=== PATIENT | female | born 1960 | race Caucasian/White ===

== ENCOUNTER → 2016-04-10 | Outpatient (CLI) | payer OTHER, MEDICARE ==
[~2016-04-10] MED LIST: /BACL20TA OR; /CELE20CA PO; AMIT10TA2 OR; BACT400T; BLAC540C PO; BUDE150T OR; CALC500T36 PO; CLAR5CHW OR; CYMB1CAP4 PO; EPI PEN SC; FOLI1TAB2 PO; HYDR-3713 PO; IBUP800T OR; LEVO25TABR OR; LIDO1DIS2 TOP; LYRI150C OR; LYRI75CA OR; MACROBID; METH2.5TA PO; MULTCAP PO; PEPC20TA2; PLAV75TA38 PO; PRIL40CA OR; PROV90AE INH; RED CLOVER PO; SOMA250T OR; SULF500T2 PO; TPS CREAM TOP; TRAM50TA2 PO; ULTRTA OR; VICO5TAB OR; VITA10006 PO; VOLTAREN GEL; Voltaren Gel EXT; [UNRECOGNIZED DRUG - OTHER]; [UNRECOGNIZED DRUG - OTHER] PO; [UNRECOGNIZED DRUG - OTHER] PO; [UNRECOGNIZED DRUG - OTHER] PO; plaquenil OR
--- NOTE | 2016-04-29 01:39 | ECWPNPC ---
PATIENT NAME: AIRAM PERERA : 1960 GENDER: FEMALE VISIT DATE: 04/10/2016 DISCHARGE DATE: 04/10/16 1541 VISIT LOCKED DATE TIME: PHYSICIAN: HERIBERTO FORBES PHYSICIAN PAGER NO: [phone] RESOURCE: HERIBERTO FORBES REASON FOR APPOINTMENT 1. FOLLOW UP-SIJ HISTORY OF PRESENT ILLNESS HISTORY OF PRESENT ILLNESS: PAIN THE PATIENT DESCRIBES THE PAIN... THE PATIENT DESCRIBES THE PAIN... THE PATIENT DESCRIBES THE PAIN... HERE FOR POST PROC. F/U .HX OF CHRONIC LBP AND LEFT FOOT PAIN DUE TO WORK RELATED INJURY IN 1986. HAD RIGHT SIJ 02-27-16.RATING PAIN LEVEL 4/10 VAS.REPORTS 95% IMPROVEMENT IN PAIN IN RIGHT LOW BACK POST SIJ THAT CONTINUES TODAY.CHIEF AREA OF PAIN IS LEFT FOOT TODAY.STATES [employer] [facility] HAS .HAS SPOKEN TO [employer] / ?.??.HAS EPISODIC SEVERE SHOCK LIKE PAIN LEFT LEG AND VAGINAL AREA.CURRENT CHRONIC PAIN MEDICATION FOR THIS:1. CELEBREX 200MG QD2. LYRICA 200MG BID3.SOMA 350MG TID4.ULTRACET 37.5/325 2 TAB PO Q4-6 H PRN PAIN5.HYDROCODONE 5/325 1 TAB PO Q6H PRN SEVERE PAIN. FALL RISK SCREENING: SCREENING :NO FALLS IN THE PAST YEAR CURRENT MEDICATIONS TAKING LYRICA 200 MG CAPSULE 1 CAP ORALLY BID MDD2 3MOS SUPPLY CAT D CHRONIC PAIN TAKING FOLIC ACID 1 MG TABLET 2 TABLETS ORALLY ONCE A DAY TAKING EPIPEN 0.3 MG/0.3ML (1:1000) DEVICE DIRECTED INTRAMUSCULAR NEEDED FOR ALLERGIC REACTION TAKING ANUSOL-HC 2.5 % CREAM 1 APPLICATION TO AFFECTED AREA RECTAL TWICE A DAY TAKING BUPROPION HCL (SR) 200MG TABLET EXTENDED RELEASE 12 HOUR TAKE ONE TABLET BY MOUTH TWICE DAILY TAKING OMEPRAZOLE 40MG CAPSULE DELAYED RELEASE TAKE ONE CAPSULE BY MOUTH ONCE DAILY TAKING ELAVIL 50 MG TABLET 1 TAB(S) ORAL AT BEDTIME TAKING CELEBREX 200 MG CAPSULE 1 CAPSULE P.O. TWICE A DAY TAKING ULTRACET 37.5-325 MG TABLET 2 TABLETS ORALLY Q8H PRN MDD6 3MOS SUPPLY CAT D CHRONIC PAIN TAKING HYDROCODONE-ACETAMINOPHEN 5-325 MG TABLET 1 TABLET NEEDED ORALLY EVERY 6 HRS PRN MDD2 3MOS SUPPLY CAT D CHRONIC PAIN TAKING PLAQUENIL 200 MG TABLET 1 TABLET WITH FOOD OR MILK ORALLY BID TAKING SULFASALAZINE 500 MG TABLET 1 TABLET ORALLY BID, NOTES: 02/27/16 0800 TAKING SYNTHROID 25 MCG TABLET 1 TAB(S) ORALLY ONCE A DAY, NOTES: 02/27/16 0800 TAKING OXYBUTYNIN CHLORIDE ER 10 MG TABLET EXTENDED RELEASE 24 HOUR 1 TABLET ORALLY ONCE A DAY, NOTES: 02/27/16 0800 TAKING EILEEN INTERMIT FEMALE CATHETER #14 FR STRAIGHT TIP DIRECTED USE FOR CIC 4-5 TIMES/DAY (PATIENT NUMBER [id number]) NOT-TAKING SOMA 350 MG. TABLET 1 TABLET P.O. TID MDD3 3MOS SUPPLY CAT D CHRONIC PAIN NOT-TAKING LEUCOVORIN CALCIUM 5 MG TABLET 1 TAB(S) ORALLY 8-12 HOURS AFTER METHOTREXATE, NOTES: RESTARTED NOT-TAKING NYSTATIN THROAT/SUSPENSION [id number] UNIT/ML SUSPENSION DIRECTED MOUTH/THROAT QID NOT-TAKING NYSTATIN 021161 UNIT/ML SUSPENSION 5 ML SWISH AND SWALLOW MOUTH/THROAT FOUR TIMES A DAY NOT-TAKING BACTRIM DS 800-160 TABLET 1 TABLET ORALLY EVERY 12 HOURS NOT-TAKING NITROFURANTOIN-MACROBID 100 MG 7D 100 MG CAPSULE ONE CAPSULE ORALLY EVERY 12 HOURS NOT-TAKING INVANZ 1 GM SOLUTION RECONSTITUTED DIRECTED INTRAVENOUS ONCE DAILY NOT-TAKING METHOTREXATE 2.5 MG TABLET 4 TABLETS ORALLY EVERY WEDNESDAY, NOTES: OFF FOR PAST 2 MONTHS 06/04-PRESENT DUE TO UTIS UNKNOWN CARISOPRODOL 350 MG TABLET 1 TABLET NEEDED ORALLY Q 8 HRS MDD=3 CODE UNKNOWN WELLBUTRIN SR 200 MG TABLET EXTENDED RELEASE 12 HOUR 1 TABLET ORALLY TWICE A DAY UNKNOWN OMEPRAZOLE 40 MG CAPSULE DELAYED RELEASE 1 CAPSULE ORALLY ONCE A DAY MEDICATION LIST REVIEWED AND RECONCILED WITH THE PATIENT PAST MEDICAL HISTORY DEGENERATIVE DISC DISEASE AT L5-S1 STATUS POST LAMINECTOMY CHRONIC LOW BACK PAIN (SECONDARY TO INJURY TO HER LOW BACK/COMPENSATION CASE) (DR. ZAMORA) NEUROGENIC BOWEL AND BLADDER SUBSEQUENT TO UNDERGOING BACK SURGERY REQUIRES SELF CATHETERIZATION RECURRENT URINARY TRACT INFECTION () CHRONIC CONSTIPATION DEPRESSION RHEUMATOID ARTHRITIS (DR. ENGLAND) RESTLESS LEG SYNDROME WITH LEFT FOOT DROP OSTEOPENIA LEFT FEMUR ANEMIA HAS A DORSAL COLUMN STIMULATOR-- NO MRIS ECHO 08/30/07 - EF 60% NO VALVULAR ABNORMALITIES DEVELOPED BILATERAL PHLEBITIS WITH BCP YRS AGO DVT BILATERAL LOWER LEGS AT AGE 16 HOSPITALIZED ON [facility] AT THE TIME HYPOTHYROID HYPERLIPIDEMIA--ASCVD 10 YR RISK < 2% (5/15) ALLERGIES GABATROL: ITCHING/ TREMORS: ALLERGY SHELLFISH: ANGEIOEDEMA: ALLERGY ATIVAN: SUICIDAL THOUGHTS: ALLERGY CYMBALTA: FATIGUE: SIDE EFFECTS SOCIAL HISTORY GENERAL: TOBACCO USE ARE YOU A:NONSMOKER LEARNING BARRIERS / SPECIAL NEEDS ORIENTED TO PLAN OF CARE: PATIENT, PAIN MANAGEMENT PATIENT, ORIENTED TO PLAN OF CARE: PATIENT, PAIN MANAGEMENT PATIENT. NEW PATIENT PAIN DIARY TODAY'S VISITNOTES FROM 0-10, WHAT LEVEL IS YOUR PAIN TODAY?0 PAIN CLINIC PFS, CLERGY, PUBLIC HEALTH REFERRALS PFS REFERRAL NEEDED?NO CLERGY REFERRAL NEEDED?NO PUBLIC HEALTH REFERRAL NEEDED?NO WAS THE PROVIDER NOTIFIED OF ANY PERTINENT INFO?NO PFS REFERRAL NEEDED?NO CLERGY REFERRAL NEEDED?NO PUBLIC HEALTH REFERRAL NEEDED?NO WAS THE PROVIDER NOTIFIED OF ANY PERTINENT INFO?NO REVIEW OF SYSTEMS CONSTITUTIONAL: ANY CHANGE IN YOUR MEDICAL CONDITION? NO . CHILLS NO . FEVER NO . INFECTION: DO YOU HAVE NEW INFECTIONS? NO . DO YOU HAVE HISTORY OF MRSA? NO . MUSCULOSKELETAL: ANY NEW PATTERNS OF PAIN OR NUMBNESS? NO . GASTROENTEROLOGY: ANY NEW CHANGE IN BOWEL CONTROL? NO . GENITOURINARY: ANY NEW CHANGE IN BLADDER CONTROL? NO . IS THERE A CHANCE YOU COULD BE ? NO . HEMATOLOGY/LYMPH: DO YOU TAKE ANY BLOOD THINNERS? (FOR EXAMPLE- COUMADIN, PLAVIX, AGGRENOX, PLATEL, PRADAXA, OR XARELTO) NO . WHEN WAS YOUR LAST DOSE? DATE: TIME: . NEUROLOGY: HAVE YOU FALLEN IN THE PAST 6 MONTHS? YES . ANY NEW EXTREMITY NUMBNESS OR WEAKNESS? NO . CARDIOLOGY: DO YOU HAVE A PACEMAKER OR DEFIBRILLATOR? NO . RESPIRATORY: HAVE YOU BEEN SICK IN THE PAST WEEK? NO . FEVER NO . FLU LIKE SYMPTOMS? NO . COUGH NO . INTEGUMENTARY: DO YOU HAVE ANY RASHES OR OPEN SORES? NO . ALLERGIC/IMMUNO: ARE YOU ALLERGIC TO SHELLFISH OR IV DYE? YES . ANY NEW ALLERGIES? NO . PSYCHIATRIC: DO YOU HAVE THOUGHTS OF HURTING YOURSELF OR SOMEONE ELSE? NO . ARE YOU ABUSED, NEGLECTED, OR IN AN UNSAFE ENVIRONMENT? NO . ENDOCRINOLOGY: ARE YOU DIABETIC? NO . OTHER: DO YOU NEED ANY PRESCRIPTIONS? NO . IF YES, PLEASE LIST: ____ . ANY NEW PROBLEMS WITH YOUR MEDICATIONS? NO . WHEN DID YOU LAST EAT? ____ . WHEN DID YOU LAST DRINK? ____ . WHAT DID YOU LAST DRINK? ____ . NAME OF PERSON DRIVING YOU HOME? ____ . DO YOU HAVE ANY OTHER QUESTIONS OR CONCERNS NO . REVIEWED BY: PROVIDER: HERIBERTO RIVAS . VITAL SIGNS WT 182 LBS, HT 66 IN, BMI 29.37 INDEX, BP 158/79 MM HG, HR 94 /MIN, RR 16 /MIN, TEMP 97.6 F, OXYGEN SAT % 96, NA INITIALS TL 1502. EXAMINATION GENERAL EXAMINATION: LUNGS:LUNG SOUNDS ARE CLEAR. HEART:HEART RATE REGULAR. MUSCULOSKELETAL:*, MUSCLE STRENGTH TESTING 5/5 RLE, 3/5 LLE. MARKED DISCOLORATION OVER LEFT FOOT NON TENDER OVER RIGHT SIJ. ASSESSMENTS LOW BACK PAIN DUE TO DISPLACEMENT OF INTERVERTEBRAL DISC - M51.26 (PRIMARY) POST LAMINECTOMY SYNDROME - M96.1 CHRONIC PRESCRIPTION OPIATE USE - Z79.899 SACROILIAC JOINT PAIN - M53.3 PROCEDURES PN WORKMANS' COMP OPINION IN YOUR OPINION, WAS THE INCIDENT THAT THE PATIENT DESCRIBED THE COMPETENT MEDICAL CAUSE OF THIS INJURY/ILLNESS? YES ARE THE PATIENT'S COMPLAINTS CONSISTENT WITH HIS/HER HISTORY OF THE INJURY/ILLNESS? YES IS THE PATIENT'S HISTORY OF THE INJURY/ILLNESS CONSISTENT WITH YOUR OBJECTIVE FINDING? YES WHAT IS THE PERCENTAGE OF TEMPORARY IMPAIRMENT? MODERATE TO MARKED = 66.7% IS THE PATIENT WORKING? NO DOCTOR ON SITE: CANDICE POLLARD MD PROCEDURE CODES FA211 ESTABILISHED PATIENT [facility] FAC[facility] CHARGE FOLLOW UP [address] BATRES ELECTRONICALLY SIGNED BY ROB NAVARRO ON 04/28/2016 AT 04:52 PM EST DISCLAIMER : THIS IS A VISIT SUMMARY EXTRACTED FROM THE [employer] CHART. IT IS NOT A COPY OF THE [employer] PROGRESS NOTE. MTDHieu
== END ==
LOC: M PAIN 14:40
PROVIDERS: ATTEND Nurse Practitioner Family
DX: Z09 Encounter for follow-up examination after completed treatment for conditions other than malignant neoplasm (principal); G89.29 Other chronic pain; M51.26 Other intervertebral disc displacement, lumbar region; M96.1 Postlaminectomy syndrome, not elsewhere classified; M53.3 Sacrococcygeal disorders, not elsewhere classified; M79.672 Pain in left foot; M51.37 Other intervertebral disc degeneration, lumbosacral region; K59.09 Other constipation; F32.9 Major depressive disorder, single episode, unspecified; E03.9 Hypothyroidism, unspecified; E78.5 Hyperlipidemia, unspecified; M06.9 Rheumatoid arthritis, unspecified; D64.9 Anemia, unspecified; G25.81 Restless legs syndrome; M21.372 Foot drop, left foot; M85.852 Other specified disorders of bone density and structure, left thigh; Z91.013 Allergy to seafood; Z88.8 Allergy status to other drugs, medicaments and biological substances; Z79.891 Long term (current) use of opiate analgesic; Z79.899 Other long term (current) drug therapy; Z86.72 Personal history of thrombophlebitis; Z86.718 Personal history of other venous thrombosis and embolism; Z96.0 Presence of urogenital implants; Z96.89 Presence of other specified functional implants

== ENCOUNTER → 2016-06-10 | Outpatient (CLI) | payer MEDICARE ==
--- NOTE | 2016-06-17 02:28 | ECWPNPC ---
PATIENT NAME: AIRAM PERERA : 1960 GENDER: FEMALE VISIT DATE: 06/10/2016 DISCHARGE DATE: 06/10/16 1625 VISIT LOCKED DATE TIME: PHYSICIAN: CANDICE MELARA PHYSICIAN PAGER NO: [phone] RESOURCE: CANDICE MELARA REASON FOR APPOINTMENT 1. W/C BACK PAIN HISTORY OF PRESENT ILLNESS HISTORY OF PRESENT ILLNESS: PAIN THE PATIENT DESCRIBES THE PAIN... 55 YEAR OLD FEMALE PATIENT WITH HISTORY OF CHRONIC BACK PAIN. PATIENT DESCRIBES THE PAIN ACHING, TENDER, THROBBING, SORE, AND SHOOTING WITH A PAIN SCORE OF 5/10. 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 PATIENT TOOK A FEW DAYS OFF TO REST AND RETURNED TO WORK AFTER 3 DAYS. PATIENT THEN RECEIVED 2 BACK SURGERIES WHICH SHE STATES DID AID IN PAIN RELIEF. PATIENT ALSO HAS A DCS THAT SHE STATES AIDS IN PAIN RELIEF, HOWEVER SHE NEEDS A NEW COMPUTER ENGINEERING TECHNICIAN FOR IT. PATIENT RECEIVED A SACROILIAC JOINT INJECTION ON 02/26/17 AND STATES SHE IS STILL RECEIVING BENEFITS FROM THE INJECTION. CURRENTLY THE PATIENT IS USING CYMBALTA REGULARLY WELL TRAMADOL AND HYDROCODONE NEEDED AND REPORTS IT IS VERY RARELY SHE USES IT. PATIENT STATES THAT ANY ACTIVITY INCLUDING WALKING, STANDING, AND SITTING INCREASES THE PAIN IN THE HER LOWER BACK AND AT THIS TIME INTERVENTIONS, MEDICATION, DCS AND REST AID IN PAIN RELIEF. PATIENT DENIES UNEXPLAINABLE WEIGHT LOSS, FEVER, CHILLS, NEW CHANGES ON HER URINARY OR BOWEL CONTROL. FALL RISK SCREENING: SCREENING :TWO OR MORE FALLS WITH INJURY IN THE PAST YEAR RIGHT LEG GIVES OUT CURRENT MEDICATIONS TAKING LYRICA 200 MG CAPSULE 1 CAP ORALLY BID MDD2 3MOS SUPPLY CAT D CHRONIC PAIN TAKING FOLIC ACID 1 MG TABLET 2 TABLETS ORALLY ONCE A DAY TAKING EPIPEN 0.3 MG/0.3ML (1:1000) DEVICE DIRECTED INTRAMUSCULAR NEEDED FOR ALLERGIC REACTION TAKING ANUSOL-HC 2.5 % CREAM 1 APPLICATION TO AFFECTED AREA RECTAL TWICE A DAY TAKING BUPROPION HCL (SR) 200MG TABLET EXTENDED RELEASE 12 HOUR TAKE ONE TABLET BY MOUTH TWICE DAILY TAKING ELAVIL 50 MG TABLET 1 TAB(S) ORAL AT BEDTIME TAKING CELEBREX 200 MG CAPSULE 1 CAPSULE P.O. TWICE A DAY TAKING ULTRACET 37.5-325 MG TABLET 2 TABLETS ORALLY Q8H PRN MDD6 3MOS SUPPLY CAT D CHRONIC PAIN TAKING HYDROCODONE-ACETAMINOPHEN 5-325 MG TABLET 1 TABLET NEEDED ORALLY EVERY 6 HRS PRN MDD2 3MOS SUPPLY CAT D CHRONIC PAIN TAKING PLAQUENIL 200 MG TABLET 1 TABLET WITH FOOD OR MILK ORALLY BID TAKING SULFASALAZINE 500 MG TABLET 1 TABLET ORALLY BID, NOTES: 02/27/16799 TAKING OXYBUTYNIN CHLORIDE ER 10 MG TABLET EXTENDED RELEASE 24 HOUR 1 TABLET ORALLY ONCE A DAY, NOTES: 02/27/16799 TAKING EILEEN INTERMIT FEMALE CATHETER #14 FR STRAIGHT TIP DIRECTED USE FOR CIC 4-5 TIMES/DAY (PATIENT NUMBER [id number]) TAKING WELLBUTRIN SR 200 MG TABLET EXTENDED RELEASE 12 HOUR 1 TABLET ORALLY TWICE A DAY TAKING OMEPRAZOLE 40MG CAPSULE DELAYED RELEASE 1 CAPSULE ORALLY DAILY TAKING SYNTHROID 25 MCG TABLET 1 TAB(S) ORALLY ONCE A DAY, NOTES: 02/27/16799 MEDICATION LIST REVIEWED AND RECONCILED WITH THE PATIENT PAST MEDICAL HISTORY DEGENERATIVE DISC DISEASE AT L5-S1 STATUS POST LAMINECTOMY CHRONIC LOW BACK PAIN (SECONDARY TO INJURY TO HER LOW BACK/COMPENSATION CASE) (DR. ZAMORA) NEUROGENIC BOWEL AND BLADDER SUBSEQUENT TO UNDERGOING BACK SURGERY REQUIRES SELF CATHETERIZATION RECURRENT URINARY TRACT INFECTION () CHRONIC CONSTIPATION DEPRESSION RHEUMATOID ARTHRITIS (DR. ENGLAND) RESTLESS LEG SYNDROME WITH LEFT FOOT DROP OSTEOPENIA LEFT FEMUR ANEMIA HAS A DORSAL COLUMN STIMULATOR-- NO MRIS ECHO 08/30/07 - EF 60% NO VALVULAR ABNORMALITIES DEVELOPED BILATERAL PHLEBITIS WITH BCP YRS AGO DVT BILATERAL LOWER LEGS AT AGE 16 HOSPITALIZED ON [facility] AT THE TIME HYPOTHYROID HYPERLIPIDEMIA--ASCVD 10 YR RISK < 2% (5/) ALLERGIES GABATROL: ITCHING/ TREMORS: ALLERGY SHELLFISH: ANGEIOEDEMA: ALLERGY ATIVAN: SUICIDAL THOUGHTS: ALLERGY CYMBALTA: FATIGUE: SIDE EFFECTS SURGICAL HISTORY EGD/COLONOSCOPY ADENOMATOUS HYPERPLASTIC POLYP 08/2009 D&C, LAPROSCOPY YRS AGO CONE BIOPSY AFTER ABNORMAL PAPS LAVH -DUE TO EXCESSIVE BLEEDING AND FIBROIDS- 2006 COLONOSCOPY - 3 DIMINUTIVE POLYPS, INTERNAL HEMORRHOIDS, LONG REDUNDANT COLON PRONE TO IRREGULARITY/CONSTIPATION/INCOMPLETE EMPTYING (DR. RODRIGUEZ) 10/28/12 EGD - NORMAL 10/28/12 CYSTOLITHOLAPAXY 6/17/16 FAMILY HISTORY NO FAMILY HISTORY DOCUMENTED. SOCIAL HISTORY GENERAL: TOBACCO USE ARE YOU A:NONSMOKER ALCOHOL SCREENING DID YOU HAVE A DRINK CONTAINING ALCOHOL IN THE PAST YEAR?YES HOW OFTEN DID YOU HAVE A DRINK CONTAINING ALCOHOL IN THE PAST YEAR?MONTHLY OR LESS (1 POINT) HOW MANY DRINKS DID YOU HAVE ON A TYPICAL DAY WHEN YOU WERE DRINKING IN THE PAST YEAR?1 OR 2 (0 POINTS) HOW OFTEN DID YOU HAVE SIX OR MORE DRINKS ON ONE OCCASION IN THE PAST YEAR?NEVER (0 POINTS) POINTS1 INTERPRETATIONNEGATIVE RECREATIONAL DRUG USE DRUG USE?NO CAFFEINE CAFFEINE USE?NO SEXUAL HX HAD SEX IN THE LAST 12 MONTHS (VAGINAL, ORAL, OR ANAL)?NO HAVE YOU EVER HAD AN STD?NO LMP:HYSTER OCCUPATION: DISABLED. DIET: REGULAR. MARITAL STATUS: . OTHERS AT HOME: SPOUSE. PETS: 1 DOG,1 CAT. LANGUAGE: URDU. LEARNING BARRIERS / SPECIAL NEEDS CHANGE FROM LAST VISIT?NO BARRIERS TO LEARNING?NO HEARING IMPAIRED?NO VISION IMPAIRED?YES :CORRECTIVE LENSES COGNITIVELY IMPAIRED?NO READINESS TO LEARN?YES LEARNING PREFERENCES?NO LEARNING CAPABILITIES PRESENT?YES EMOTIONAL BARRIERS?NO SPECIAL DEVICES?NO PHYSICIST CRYOGENICS NEEDED?NO NEW PATIENT PAIN DIARY TODAY'S VISITNOTES FROM 0-10, WHAT LEVEL IS YOUR PAIN TODAY?0 PAIN CLINIC PFS, CLERGY, PUBLIC HEALTH REFERRALS PFS REFERRAL NEEDED?NO CLERGY REFERRAL NEEDED?NO PUBLIC HEALTH REFERRAL NEEDED?NO WAS THE PROVIDER NOTIFIED OF ANY PERTINENT INFO?NO PFS REFERRAL NEEDED?NO CLERGY REFERRAL NEEDED?NO PUBLIC HEALTH REFERRAL NEEDED?NO WAS THE PROVIDER NOTIFIED OF ANY PERTINENT INFO?NO HOSPITALIZATION/MAJOR DIAGNOSTIC PROCEDURE SX RELATED REVIEW OF SYSTEMS CONSTITUTIONAL: ANY CHANGE IN YOUR MEDICAL CONDITION? NO . CHILLS NO . FEVER NO . INFECTION: DO YOU HAVE NEW INFECTIONS? NO . DO YOU HAVE HISTORY OF MRSA? NO . MUSCULOSKELETAL: ANY NEW PATTERNS OF PAIN OR NUMBNESS? NO . GASTROENTEROLOGY: ANY NEW CHANGE IN BOWEL CONTROL? NO . GENITOURINARY: ANY NEW CHANGE IN BLADDER CONTROL? NO . IS THERE A CHANCE YOU COULD BE ? NO . HEMATOLOGY/LYMPH: DO YOU TAKE ANY BLOOD THINNERS? (FOR EXAMPLE- COUMADIN, PLAVIX, AGGRENOX, PLATEL, PRADAXA, OR XARELTO) NO . WHEN WAS YOUR LAST DOSE? DATE: TIME: . NEUROLOGY: HAVE YOU FALLEN IN THE PAST 6 MONTHS? YES . ANY NEW EXTREMITY NUMBNESS OR WEAKNESS? NO . CARDIOLOGY: DO YOU HAVE A PACEMAKER OR DEFIBRILLATOR? NO . RESPIRATORY: HAVE YOU BEEN SICK IN THE PAST WEEK? NO . FEVER NO . FLU LIKE SYMPTOMS? NO . COUGH NO . INTEGUMENTARY: DO YOU HAVE ANY RASHES OR OPEN SORES? NO . ALLERGIC/IMMUNO: ARE YOU ALLERGIC TO SHELLFISH OR IV DYE? NO . ANY NEW ALLERGIES? NO . PSYCHIATRIC: DO YOU HAVE THOUGHTS OF HURTING YOURSELF OR SOMEONE ELSE? NO . ARE YOU ABUSED, NEGLECTED, OR IN AN UNSAFE ENVIRONMENT? NO . ENDOCRINOLOGY: ARE YOU DIABETIC? NO . OTHER: DO YOU NEED ANY PRESCRIPTIONS? NO . IF YES, PLEASE LIST: ____ . ANY NEW PROBLEMS WITH YOUR MEDICATIONS? NO . WHEN DID YOU LAST EAT? ____ . WHEN DID YOU LAST DRINK? ____ . WHAT DID YOU LAST DRINK? ____ . NAME OF PERSON DRIVING YOU HOME? ____ . DO YOU HAVE ANY OTHER QUESTIONS OR CONCERNS YES,NO GETTING CALLS ANSWERED ME OR [employer]. . REVIEWED BY: PROVIDER: CANDICE MELARA MD . VITAL SIGNS WT 183.0 LBS, HT 66 IN, BMI 29.53 INDEX, BP 157/71 MM HG, HR 99 /MIN, RR 18 /MIN, TEMP 99 F,0 F, OXYGEN SAT % 91, NA INITIALS [id number], REVIEWED BY: VD. EXAMINATION : PATIENT IS ALERT O X 3 AND COOPERATIVE. LEFT FOOT DROP. LIMPING FROM LEFT LEG. LEFT LEG DISCOLORATION. TENDERNESS IN THE LOWER BACK AND PARASPINAL MUSCLE GROUP. BANDS OF TISSUE, RESTRICTION OF MOVEMENT, AND PRESENCE OF TRIGGER POINTS IN THE LOWER BACK AREA. LEFT LIKE IS WEAKER THEN THE RIGHT AT EXTENSION AND FLEXION. LEFT LEG HAS LESS MUSCLE MASS AND FOOT IS SWOLLEN. CT OF THE LUMBAR SPINE DONE ON 03/11/15 SHOWS DISC BULGE AT L2-L3 THROUGH L5-S1, CANAL STENOSIS, AND FACET ATROPHY. ASSESSMENTS POSTLAMINECTOMY SYNDROME, NOT ELSEWHERE CLASSIFIED - M96.1 (PRIMARY) INTERVERTEBRAL DISC DISORDERS WITH RADICULOPATHY, LUMBAR REGION - M51.16 INTERVERTEBRAL DISC DISORDERS WITH RADICULOPATHY, LUMBOSACRAL REGION - M51.17 SPONDYLOSIS WITHOUT MYELOPATHY OR RADICULOPATHY, LUMBAR REGION - M47.816 TREATMENT POSTLAMINECTOMY SYNDROME, NOT ELSEWHERE CLASSIFIED NOTES: WE DISCUSSED SEVERAL ISSUES WITH MRS. PERERA' PAIN MANAGEMENT CASE. AT THIS TIME THE PATIENT WILL CONTINUE WITH THE SAME MEDICATION REGIME BEFORE. PATIENT DENIES ABUSE OF ANY MEDICATION, DENIES USE OF ILLEGAL SUBSTANCES, AND STATES THAT SHE IS ONLY USING THE MEDICATION FOR PAIN MANAGEMENT. URINE TOXICOLOGY REPORTS DONE ON 07/10/15 SHOWS CONSISTENT RESULTS WITH THE PATIENT'S MEDICATION LIST. DUE TO THE SPASTICITY IN THE LOWER BACK I WOULD LIKE TO MOVE FORWARD WITH TRIGGER POINT INJECTIONS UNDER X-RAY DUE TO THE DCS. WE DISCUSSED THE RISKS, BENENFITS, AND ALTNERATIVES AND THE PATIENT STATES THAT SHE WOULD LIKE TO PROCEED AT THIS TIME. INSTRUCTIONS WERE GIVEN, QUESTIONS WERE ANSWERED, PATIENT REPORTS UNDERSTANDING AND AGREES WITH THE PLAN. I, ERIKA EUCEDA, DOCUMENTED THE ABOVE INFORMATION ACTING A SCRIBE FOR DR. MELARA. I HAVE REVIEWED THE ABOVE DOCUMENT, WRITTEN BY ERIKA MCDONALDIBRocio AND I VERIFY THAT IT IS ACCURATE. OTHERS REFILL LYRICA CAPSULE, 200 MG, 1 CAP, ORALLY, BID MDD2 3MOS SUPPLY CAT D CHRONIC PAIN, 90 DAY(S), 180, REFILLS 1 PROCEDURES PN WORKMANS' COMP OPINION IN YOUR OPINION, WAS THE INCIDENT THAT THE PATIENT DESCRIBED THE COMPETENT MEDICAL CAUSE OF THIS INJURY/ILLNESS? YES ARE THE PATIENT'S COMPLAINTS CONSISTENT WITH HIS/HER HISTORY OF THE INJURY/ILLNESS? YES IS THE PATIENT'S HISTORY OF THE INJURY/ILLNESS CONSISTENT WITH YOUR OBJECTIVE FINDING? YES WHAT IS THE PERCENTAGE OF TEMPORARY IMPAIRMENT? MODERATE TO MARKED = 66.7% IS THE PATIENT WORKING? NO DOCTOR ON SITE: CANDICE POLLARD MD PREVENTIVE MEDICINE PAIN CLINIC TEACHING: PROCEDURE TEACHING TPI INSTRUCTIONS GIVEN AND REVIEWED WITH PT.. PROCEDURE CODES G8427 DOC MEDS VERIFIED W/PT OR RE G8730 PAIN ASSESS POS TOOL F/U PLAN DOC FA211 ESTABILISHED PATIENT [facility] CHARGE DISPOSITION & COMMUNICATION FOLLOW UP TPI AFTER APPROVAL ELECTRONICALLY SIGNED BY CANDICE MELARA MD ON 06/16/2016 AT 01:44 PM EDT DISCLAIMER : THIS IS A VISIT SUMMARY EXTRACTED FROM THE [employer] CHART. IT IS NOT A COPY OF THE [employer] PROGRESS NOTE. DIMAS
== END | disposition home or self-care (01) ==
LOC: M PAIN 15:20
PROVIDERS: ATTEND Anesthesiology
DX: Z09 Encounter for follow-up examination after completed treatment for conditions other than malignant neoplasm (principal); G89.29 Other chronic pain; M96.1 Postlaminectomy syndrome, not elsewhere classified; M51.16 Intervertebral disc disorders with radiculopathy, lumbar region; M51.17 Intervertebral disc disorders with radiculopathy, lumbosacral region; M47.816 Spondylosis without myelopathy or radiculopathy, lumbar region; F33.9 Major depressive disorder, recurrent, unspecified; M06.9 Rheumatoid arthritis, unspecified; D64.9 Anemia, unspecified; E03.9 Hypothyroidism, unspecified; E78.5 Hyperlipidemia, unspecified; K59.09 Other constipation; R03.0 Elevated blood-pressure reading, without diagnosis of hypertension; Z96.9 Presence of functional implant, unspecified; Z79.899 Other long term (current) drug therapy; Z88.8 Allergy status to other drugs, medicaments and biological substances; Z91.013 Allergy to seafood

== ENCOUNTER → 2016-07-06 | Outpatient (CLI) | payer MEDICARE ==
--- NOTE | 2016-07-08 14:34 | DEXA ---
AP SPINE L1 - L4 1.056 -1.1 -0.5 LT FEMUR TOTAL 0.711 -2.4 -1.9 RT FEMUR TOTAL 0.928 -0.6 -0.1 TOTAL BODY TOTAL OTHER DUAL FEMUR FRAX* ASSESSMENT Risk factors: Rheumatoid arthritis. 10 year probability of fracture Major osteoporotic fracture 10.2 % Hip fracture 1.1 % COMMENTS: There is low bone density of the spine and hips. The density of the spine has decreased 13.6% since the initial exam on 2008. The spine density has decreased 10.6% since the most recent exam on 07/15/2011. The density of the left hip has decreased 9.7% since the initial exam on 2008. The density of the left hip has decreased 6.6% since the most recent exam on . The density of the right hip has decreased 4.5% since the initial exam on 2008. The density of the right hip has decreased 5.3% since the most recent exam on . FOLLOW-UP: Recommendation for the next bone density exam: 2 years. DIMAS
== END ==
LOC: M WHC 08:00
PROVIDERS: ATTEND Family Medicine
DX: Z01.419 Encounter for gynecological examination (general) (routine) without abnormal findings (principal); Z12.31 Encounter for screening mammogram for malignant neoplasm of breast; Z80.3 Family history of malignant neoplasm of breast; Z13.820 Encounter for screening for osteoporosis; Z79.3 Long term (current) use of hormonal contraceptives; M85.80 Other specified disorders of bone density and structure, unspecified site; Z12.12 Encounter for screening for malignant neoplasm of rectum
CPT/HCPCS: 77080; 82270; G0101; G0202

== ENCOUNTER → 2016-07-27 | Outpatient (CLI) | payer OTHER ==
[~2016-07-27] MED LIST changes: +BUPIVACAINE HCL 0.25% 10 ML VIAL As Ordered ONE; +BUPIVACAINE HCL 0.25% 30 ML VIAL As Ordered ONE; +TRIAMCINOLONE ACETONIDE SUSP 40 MG/ML VIAL (J3301) As Ordered ONE
--- NOTE | 2016-08-02 23:29 | ECWPNPC ---
PATIENT NAME: AIRAM PERERA : 1960 GENDER: FEMALE VISIT DATE: 07/27/2016 DISCHARGE DATE: 07/27/16 1036 VISIT LOCKED DATE TIME: PHYSICIAN: CANDICE MELARA PHYSICIAN PAGER NO: [phone] RESOURCE: CANDICE MELARA REASON FOR APPOINTMENT 1. TPI HISTORY OF PRESENT ILLNESS HISTORY OF PRESENT ILLNESS: PAIN THE PATIENT DESCRIBES THE PAIN... FALL RISK SCREENING: SCREENING :NO FALLS IN THE PAST YEAR CURRENT MEDICATIONS TAKING LYRICA 200 MG CAPSULE 1 CAP ORALLY BID MDD2 3MOS SUPPLY CAT D CHRONIC PAIN, NOTES: 2300 07/26/16 TAKING FOLIC ACID 1 MG TABLET 2 TABLETS ORALLY ONCE A DAY, NOTES: 0800 YESTERDAY 07/26/16 TAKING EPIPEN 0.3 MG/0.3ML (1:1000) DEVICE DIRECTED INTRAMUSCULAR NEEDED FOR ALLERGIC REACTION TAKING ANUSOL-HC 2.5 % CREAM 1 APPLICATION TO AFFECTED AREA RECTAL TWICE A DAY TAKING BUPROPION HCL ER (SR) 200MG TABLET EXTENDED RELEASE 12 HOUR TAKE ONE TABLET BY MOUTH TWICE DAILY , NOTES: 229907/26/16 TAKING ELAVIL 50 MG TABLET 1 TAB(S) ORAL AT BEDTIME, NOTES: 229907/26/16 TAKING CELEBREX 200 MG CAPSULE 1 CAPSULE P.O. TWICE A DAY, NOTES: 229907/26/16 TAKING ULTRACET 37.5-325 MG TABLET 2 TABLETS ORALLY Q8H PRN MDD6 3MOS SUPPLY CAT D CHRONIC PAIN, NOTES: 3PM YESTERDAY 07/26/16 TAKING HYDROCODONE-ACETAMINOPHEN 5-325 MG TABLET 1 TABLET NEEDED ORALLY EVERY 6 HRS PRN MDD2 3MOS SUPPLY CAT D CHRONIC PAIN, NOTES: DAYS AGO TAKING PLAQUENIL 200 MG TABLET 1 TABLET WITH FOOD OR MILK ORALLY BID, NOTES: 229907/26/16 TAKING SULFASALAZINE 500 MG TABLET 1 TABLET ORALLY BID, NOTES: 229907/26/16 TAKING OXYBUTYNIN CHLORIDE ER 10 MG TABLET EXTENDED RELEASE 24 HOUR 1 TABLET ORALLY ONCE A DAY, NOTES: 0800 YESTERDAY 07/26/16 TAKING EILEEN INTERMIT FEMALE CATHETER #14 FR STRAIGHT TIP DIRECTED USE FOR CIC 4-5 TIMES/DAY (PATIENT NUMBER [id number]) TAKING OMEPRAZOLE 40MG CAPSULE DELAYED RELEASE 1 CAPSULE ORALLY DAILY, NOTES: 6PM YESTERDAY 07/26/16 TAKING SYNTHROID 25 MCG TABLET 1 TAB(S) ORALLY ONCE A DAY, NOTES: 0800 YESTERDAY 07/26/16 TAKING ZYRTEC ALLERGY 10 MG TABLET 1 TABLET ORALLY ONCE A DAY, NOTES: 0800 YESTERDAY 07/26/16 NOT-TAKING WELLBUTRIN SR 200 MG TABLET EXTENDED RELEASE 12 HOUR 1 TABLET ORALLY TWICE A DAY NOT-TAKING PSEUDOEPHEDRINE HCL 60 MG TABLET 1 TABLET NEEDED ORALLY EVERY 6 HRS MEDICATION LIST REVIEWED AND RECONCILED WITH THE PATIENT PAST MEDICAL HISTORY DEGENERATIVE DISC DISEASE AT L5-S1 STATUS POST LAMINECTOMY CHRONIC LOW BACK PAIN (SECONDARY TO INJURY TO HER LOW BACK/COMPENSATION CASE) (DR. ZAMORA) NEUROGENIC BOWEL AND BLADDER SUBSEQUENT TO UNDERGOING BACK SURGERY REQUIRES SELF CATHETERIZATION RECURRENT URINARY TRACT INFECTION () CHRONIC CONSTIPATION DEPRESSION RHEUMATOID ARTHRITIS (DR. ENGLAND) RESTLESS LEG SYNDROME WITH LEFT FOOT DROP OSTEOPENIA LEFT FEMUR DEXA 07/06/16 ANEMIA HAS A DORSAL COLUMN STIMULATOR-- NO MRIS ECHO 08/30/07 - EF 60% NO VALVULAR ABNORMALITIES DEVELOPED BILATERAL PHLEBITIS WITH BCP YRS AGO DVT BILATERAL LOWER LEGS AT AGE 16 HOSPITALIZED ON [facility] AT THE TIME HYPOTHYROID HYPERLIPIDEMIA--ASCVD 10 YR RISK < 2% (08/03) ALLERGIES GABATROL: ITCHING/ TREMORS: ALLERGY SHELLFISH: ANGEIOEDEMA: ALLERGY ATIVAN: SUICIDAL THOUGHTS: ALLERGY CYMBALTA: FATIGUE: SIDE EFFECTS SURGICAL HISTORY EGD/COLONOSCOPY ADENOMATOUS HYPERPLASTIC POLYP 08/2009 D&C, LAPROSCOPY YRS AGO CONE BIOPSY AFTER ABNORMAL PAPS LAVH -DUE TO EXCESSIVE BLEEDING AND FIBROIDS- 2006 COLONOSCOPY - 3 DIMINUTIVE POLYPS, INTERNAL HEMORRHOIDS, LONG REDUNDANT COLON PRONE TO IRREGULARITY/CONSTIPATION/INCOMPLETE EMPTYING (DR. RODRIGUEZ) 10/28/12 EGD - NORMAL 10/28/12 CYSTOLITHOLAPAXY 09/06/15 HOSPITALIZATION/MAJOR DIAGNOSTIC PROCEDURE SX RELATED REVIEW OF SYSTEMS CONSTITUTIONAL: ANY CHANGE IN YOUR MEDICAL CONDITION? NO . CHILLS NO . FEVER NO . INFECTION: DO YOU HAVE NEW INFECTIONS? NO . DO YOU HAVE HISTORY OF MRSA? NO . MUSCULOSKELETAL: ANY NEW PATTERNS OF PAIN OR NUMBNESS? NO . GASTROENTEROLOGY: ANY NEW CHANGE IN BOWEL CONTROL? NO . GENITOURINARY: ANY NEW CHANGE IN BLADDER CONTROL? NO . IS THERE A CHANCE YOU COULD BE ? NO . HEMATOLOGY/LYMPH: DO YOU TAKE ANY BLOOD THINNERS? (FOR EXAMPLE- COUMADIN, PLAVIX, AGGRENOX, PLATEL, PRADAXA, OR XARELTO) NO . WHEN WAS YOUR LAST DOSE? DATE: TIME: . NEUROLOGY: HAVE YOU FALLEN IN THE PAST 6 MONTHS? YES . ANY NEW EXTREMITY NUMBNESS OR WEAKNESS? NO . CARDIOLOGY: DO YOU HAVE A PACEMAKER OR DEFIBRILLATOR? NO . RESPIRATORY: HAVE YOU BEEN SICK IN THE PAST WEEK? NO . FEVER NO . FLU LIKE SYMPTOMS? NO . COUGH NO . INTEGUMENTARY: DO YOU HAVE ANY RASHES OR OPEN SORES? NO . ALLERGIC/IMMUNO: ARE YOU ALLERGIC TO SHELLFISH OR IV DYE? YES, SHELLFISH . ANY NEW ALLERGIES? NO . PSYCHIATRIC: DO YOU HAVE THOUGHTS OF HURTING YOURSELF OR SOMEONE ELSE? NO . ARE YOU ABUSED, NEGLECTED, OR IN AN UNSAFE ENVIRONMENT? NO . ENDOCRINOLOGY: ARE YOU DIABETIC? NO . OTHER: DO YOU NEED ANY PRESCRIPTIONS? YES . IF YES, PLEASE LIST: ELAVIL 50MG . ANY NEW PROBLEMS WITH YOUR MEDICATIONS? NO . WHEN DID YOU LAST EAT? 9PM . WHEN DID YOU LAST DRINK? 0100 AM . WHAT DID YOU LAST DRINK? LEMONAIDE . NAME OF PERSON DRIVING YOU HOME? NOE . DO YOU HAVE ANY OTHER QUESTIONS OR CONCERNS NO . REVIEWED BY: PROVIDER: . VITAL SIGNS WT 172 LBS, HT 66 IN, BMI 27.76 INDEX, BP 134/75 MM HG, HR 89 /MIN, RR 18 /MIN, TEMP 98.0 F, OXYGEN SAT % 97%, NA INITIALS SC 09:14, REVIEWED BY: NL. ASSESSMENTS MYALGIA - M79.1 (PRIMARY) PROCEDURES PN TRIGGER POINT INJECTION WITH STEROIDS PRE PROCEDURE DIAGNOSIS 1. MYALGIA 2. PAIN AT RIGHT LOWER BACK AREA POST PROCEDURE DIAGNOSIS 1. MYALGIA 2. PAIN AT RIGHT LOWER BACK AREA PROCEDURE TRIGGER POINT INJECTION AT RIGHT LOWER BACK AREA SURGEON DR. CANDICE MELARA DRIVER MEDIC NONE ANESTHESIA LOCAL PRE PROCEDURE NOTE THE PATIENT HAS A HISTORY OF CHRONIC PAIN AT THE RIGHT LOWER BACK AREA. I EVALUATE THE PATIENT AND REVIEWED THE CHART. THERE IS EVIDENCE OF BANDS OF TISSUE WITH RESTRICTION OF MOVEMENT AND PRESENCE OF TRIGGER POINT AT THE AFFECTED AREA. I WENT OVER THE RISKS, ALTERNATIVES, AND BENEFITS ASSOCIATED WITH THIS PROCEDURE. THE PATIENT WOULD LIKE TO PROCEED AND GIVE CONSENT TO PERFORMED THE PROCEDURE. THE PATIENT DENIES UNEXPLAINABLE WEIGHT LOSS, FEVER, CHILLS, OR NEW CHANGES IN URINARY OR BOWEL CONTROL DESCRIPTION OF PROCEDURE THE PATIENT WAS BROUGHT TO THE PROCEDURE ROOM AND PLACED IN THE SITTING POSITION. THE AREA WAS CLEANED WITH ALCOHOL. THE PROCEDURE WAS DONE USING ASEPTIC STERILE TECHNIQUE. I CHECKED LATERALITY AND THE LEVEL WHERE THE PROCEDURE WAS GOING TO BE PERFORMED WITH THE PATIENT AND THE SUPPORTING STAFF AT THE MOMENT OF THE TIME OUT IN THE PROCEDURE ROOM. USING A 25-GAUGE NEEDLE, TRIGGER POINTS WERE INJECTED AT THE RIGHT LOWER BACK AREA WITH A TOTAL OF 40 ML OF BUPIVACAINE 0.25% AND KENALOG 40 MG. THERE WAS NO EVIDENCE OF BLOOD, PARESTHESIA OR CEREBROSPINAL FLUID DURING THE PROCEDURE. THE PATIENT WAS SENT TO THE RECOVERY ROOM. THE PATIENT WAS MOVING THE EXTREMITIES AND DOING WELL. THERE WAS NO COMPLICATION DURING THE PROCEDURE POST PROCEDURE NOTE THE PATIENT WILL BE SEEN IN A FOLLOW UP IN THE NEXT FEW WEEKS. INSTRUCTIONS WERE GIVEN, QUESTIONS WERE ANSWERED, AND THE PATIENT EXPRESSED UNDERSTANDING AND AGREES WITH THE PLAN. I, ERIKA EUCEDA, DOCUMENTED THE ABOVE INFORMATION ACTING A SCRIBE FOR DR. MELARA. I HAVE REVIEWED THE ABOVE DOCUMENT, WRITTEN BY ERIKA CARLOS AND I VERIFY THAT IT IS ACCURATE PROCEDURE CODES 31490 INJ TRIGGER POINT / MUSCL DISPOSITION & COMMUNICATION FOLLOW UP 3 WEEKS ELECTRONICALLY SIGNED BY CANDICE MELARA MD ON 08/02/2016 AT 01:07 PM EDT DISCLAIMER : THIS IS A VISIT SUMMARY EXTRACTED FROM THE [email or web address] CHART. IT IS NOT A COPY OF THE [email or web address] PROGRESS NOTE. MTDD
== END | disposition home or self-care (01) ==
LOC: M PAIN 08:40
PROVIDERS: ATTEND Anesthesiology
DX: G89.29 Other chronic pain (principal); M79.1 Myalgia; K59.09 Other constipation; F33.9 Major depressive disorder, recurrent, unspecified; M06.9 Rheumatoid arthritis, unspecified; G25.81 Restless legs syndrome; D64.9 Anemia, unspecified; M85.9 Disorder of bone density and structure, unspecified; E03.9 Hypothyroidism, unspecified; E78.5 Hyperlipidemia, unspecified; Z96.89 Presence of other specified functional implants; Z79.899 Other long term (current) drug therapy; Z88.8 Allergy status to other drugs, medicaments and biological substances; Z91.013 Allergy to seafood
CPT/HCPCS: 20552; J3301

== ENCOUNTER → 2016-07-28 | Outpatient (CLI) | payer MEDICARE ==
[~2016-07-28] MED LIST changes: -BUPIVACAINE HCL 0.25% 10 ML VIAL As Ordered ONE; -BUPIVACAINE HCL 0.25% 30 ML VIAL As Ordered ONE; -TRIAMCINOLONE ACETONIDE SUSP 40 MG/ML VIAL (J3301) As Ordered ONE
--- NOTE | 2016-08-01 09:36 | SLEEPCENT ---
DATE OF PROCEDURE: 07/28/2016 ORDERED BY: Jasmin Colunga Nocturnal polysomnography was performed due to concern for the obstructive sleep apnea syndrome in this patient with a history of excessive somnolence, morning headaches and nonrestorative sleep. 8 hours and 5 minutes of data were reviewed. There were 413 minutes of sleep identified. Sleep latency was normal at 14 minutes. Rapid eye movement (REM) latency was delayed at 105 minutes. Sleep architecture showed fragmentation early in the study. Improvement was seen after interventions were made. Overall sleep efficiency was 88%. The patient's electrocardiogram (EKG) showed a sinus rhythm with an average heart rate of 80 beats per minute. Electroencephalogram (EEG) showed reasonably normal waveforms for awake and sleep. There were 126 respiratory events identified of 10 seconds in duration or greater for an apnea-hypopnea index of 18.3. The events were primarily obstructive, not exclusive to sleep stage nor body posture. Given the frequency of events and significant oxygen desaturations associated with them, testing was stopped shortly after 1:00 a.m. for the application of pressure therapy. The patient was fit with a ResMed Quattro full face mask of small size and 4 cm of water pressure were applied to the circuit and the lights were then extinguished. Throughout the remaining portion of study, pressure titration was performed to an optimal pressure of +13, with which the patient slept through REM without respiratory event or oxygen desaturation. IMPRESSION: Obstructive sleep apnea syndrome (G47.33), apnea-hypopnea index 18.3. RECOMMENDATION: Nightly use of pressure therapy at 13 cm of water.
== END ==
LOC: M SLEEP 19:50
PROVIDERS: ATTEND Nurse Practitioner Adult Health
DX: G47.30 Sleep apnea, unspecified (principal)

== ENCOUNTER → 2016-08-31 | Outpatient (CLI) | payer OTHER ==
--- NOTE | 2016-09-11 00:59 | ECWPNPC ---
PATIENT NAME: AIRAM PERERA : 1960 GENDER: FEMALE VISIT DATE: 08/31/2016 DISCHARGE DATE: 08/31/16 1703 VISIT LOCKED DATE TIME: PHYSICIAN: CANDICE MELARA PHYSICIAN PAGER NO: [phone] RESOURCE: CANDICE MELARA REASON FOR APPOINTMENT 1. W/C LOW BACK PAIN HISTORY OF PRESENT ILLNESS HISTORY OF PRESENT ILLNESS: PAIN THE PATIENT DESCRIBES THE PAIN... 55 YEAR OLD FEMALE PATIENT WITH HISTORY OF CHRONIC BACK PAIN. PATIENT DESCRIBES THE PAIN ACHING, TENDER, THROBBING, SORE, AND SHOOTING WITH A PAIN SCORE OF 5/10. 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 PATIENT TOOK A FEW DAYS OFF TO REST AND RETURNED TO WORK AFTER 3 DAYS. PATIENT THEN RECEIVED 2 BACK SURGERIES WHICH SHE STATES DID AID IN PAIN RELIEF. PATIENT ALSO HAS A DCS THAT SHE STATES AIDS IN PAIN RELIEF. PATIENT RECEIVED TRIGGER POINT INJECTIONS ON 07/27/16 AND AT THIS TIME STATES THAT THEY DID NOT AID IN PAIN RELIEF NOR MOBILITY AND FUNCTIONALITY. CURRENTLY THE PATIENT IS USING CYMBALTA REGULARLY WELL TRAMADOL AND HYDROCODONE NEEDED AND REPORTS IT IS VERY RARELY SHE USES IT. PATIENT STATES THAT ANY ACTIVITY INCLUDING WALKING, STANDING, AND SITTING INCREASES THE PAIN IN THE HER LOWER BACK AND AT THIS TIME INTERVENTIONS, MEDICATION, DCS AND REST AID IN PAIN RELIEF. PATIENT DENIES UNEXPLAINABLE WEIGHT LOSS, FEVER, CHILLS, NEW CHANGES ON HER URINARY OR BOWEL CONTROL. FALL RISK SCREENING: SCREENING :NO FALLS IN THE PAST YEAR CURRENT MEDICATIONS TAKING LYRICA 200 MG CAPSULE 1 CAP ORALLY BID MDD2 3MOS SUPPLY CAT D CHRONIC PAIN TAKING FOLIC ACID 1 MG TABLET 2 TABLETS ORALLY ONCE A DAY TAKING EPIPEN 0.3 MG/0.3ML (1:1000) DEVICE DIRECTED INTRAMUSCULAR NEEDED FOR ALLERGIC REACTION TAKING ANUSOL-HC 2.5 % CREAM 1 APPLICATION TO AFFECTED AREA RECTAL TWICE A DAY TAKING BUPROPION HCL ER (SR) 200MG TABLET EXTENDED RELEASE 12 HOUR TAKE ONE TABLET BY MOUTH TWICE DAILY TAKING CELEBREX 200 MG CAPSULE 1 CAPSULE P.O. TWICE A DAY TAKING ULTRACET 37.5-325 MG TABLET 2 TABLETS ORALLY Q8H PRN MDD6 3MOS SUPPLY CAT D CHRONIC PAIN TAKING HYDROCODONE-ACETAMINOPHEN 5-325 MG TABLET 1 TABLET NEEDED ORALLY EVERY 6 HRS PRN MDD2 3MOS SUPPLY CAT D CHRONIC PAIN TAKING PLAQUENIL 200 MG TABLET 1 TABLET WITH FOOD OR MILK ORALLY BID TAKING SULFASALAZINE 500 MG TABLET 1 TABLET ORALLY BID TAKING EILEEN INTERMIT FEMALE CATHETER #14 FR STRAIGHT TIP DIRECTED USE FOR CIC 4-5 TIMES/DAY (PATIENT NUMBER [id number]) TAKING ZYRTEC ALLERGY 10 MG TABLET 1 TABLET ORALLY ONCE A DAY TAKING SYNTHROID 25 MCG TABLET 1 TAB(S) ORALLY ONCE A DAY TAKING OMEPRAZOLE 40MG CAPSULE DELAYED RELEASE 1 CAPSULE ORALLY DAILY TAKING OXYBUTYNIN CHLORIDE ER 10 MG TABLET EXTENDED RELEASE 24 HOUR 1 TABLET ORALLY ONCE A DAY TAKING ELAVIL 50 MG TABLET 1 TAB(S) ORAL AT BEDTIME NOT-TAKING WELLBUTRIN SR 200 MG TABLET EXTENDED RELEASE 12 HOUR 1 TABLET ORALLY TWICE A DAY NOT-TAKING PSEUDOEPHEDRINE HCL 60 MG TABLET 1 TABLET NEEDED ORALLY EVERY 6 HRS MEDICATION LIST REVIEWED AND RECONCILED WITH THE PATIENT PAST MEDICAL HISTORY DEGENERATIVE DISC DISEASE AT L5-S1 STATUS POST LAMINECTOMY CHRONIC LOW BACK PAIN (SECONDARY TO INJURY TO HER LOW BACK/COMPENSATION CASE) (DR. ZAMORA) NEUROGENIC BOWEL AND BLADDER SUBSEQUENT TO UNDERGOING BACK SURGERY REQUIRES SELF CATHETERIZATION RECURRENT URINARY TRACT INFECTION () CHRONIC CONSTIPATION DEPRESSION RHEUMATOID ARTHRITIS (DR. ENGLAND) RESTLESS LEG SYNDROME WITH LEFT FOOT DROP OSTEOPENIA LEFT FEMUR DEXA 07/06/16 ANEMIA HAS A DORSAL COLUMN STIMULATOR-- NO MRIS ECHO 08/30/07 - EF 60% NO VALVULAR ABNORMALITIES DEVELOPED BILATERAL PHLEBITIS WITH BCP YRS AGO DVT BILATERAL LOWER LEGS AT AGE 16 HOSPITALIZED ON [facility] AT THE TIME HYPOTHYROID HYPERLIPIDEMIA--ASCVD 10 YR RISK < 2% (08/03) SLEEP APNEA ALLERGIES GABATROL: ITCHING/ TREMORS: ALLERGY SHELLFISH: ANGEIOEDEMA: ALLERGY ATIVAN: SUICIDAL THOUGHTS: ALLERGY CYMBALTA: FATIGUE: SIDE EFFECTS SURGICAL HISTORY EGD/COLONOSCOPY ADENOMATOUS HYPERPLASTIC POLYP 08/2009 D&C, LAPROSCOPY YRS AGO CONE BIOPSY AFTER ABNORMAL PAPS LAVH -DUE TO EXCESSIVE BLEEDING AND FIBROIDS- 2006 COLONOSCOPY - 3 DIMINUTIVE POLYPS, INTERNAL HEMORRHOIDS, LONG REDUNDANT COLON PRONE TO IRREGULARITY/CONSTIPATION/INCOMPLETE EMPTYING (DR. RODRIGUEZ) 10/28/12 EGD - NORMAL 10/28/12 CYSTOLITHOLAPAXY 09/06/15 FAMILY HISTORY FATHER: ALIVE, COLON POLYP (PRECANCEROUS), SKIN CANCER, ATELECTASIS PARKINSONISM MOTHER: ALIVE, DM, BREAST CANCER (DX IN HER 70 SIBLINGS: SISTER WITH HTN AND EPILEPSY, ANOTHER SISTER WITH HTN AND POLYMYALGIA DAUGHTER(S): OLDEST WITH SEVERE ENDOMETRIOSIS WITH BOWEL AND BLADDER INVOLVEMENT, DEPRESSION, BACK PROBLEMS. FIBROMYALGIA YOUNGEST, NO KNOWN MEDICAL PROBLEMS PATERNAL AUNT: BREAST CANCER, DX IN 70 2 SISTER(S) . 2DAUGHTER(S) . DENIES COLON OR OVARIAN CANCERS., NO KNOWN FAMILY HISTORY OF ANY UROLOGICALLY RELATED DISEASES/CANCERS. SOCIAL HISTORY GENERAL: TOBACCO USE ARE YOU A:NONSMOKER NEVER SMOKER BMI CARE GOAL FOLLOW-UP ABOVE NORMAL BMI FOLLOW-UPGIVING ENCOURAGEMENT TO EXERCISE ALCOHOL SCREENING DID YOU HAVE A DRINK CONTAINING ALCOHOL IN THE PAST YEAR?YES HOW OFTEN DID YOU HAVE A DRINK CONTAINING ALCOHOL IN THE PAST YEAR?MONTHLY OR LESS (1 POINT) HOW MANY DRINKS DID YOU HAVE ON A TYPICAL DAY WHEN YOU WERE DRINKING IN THE PAST YEAR?1 OR 2 (0 POINTS) HOW OFTEN DID YOU HAVE SIX OR MORE DRINKS ON ONE OCCASION IN THE PAST YEAR?NEVER (0 POINTS) POINTS1 INTERPRETATIONNEGATIVE RECREATIONAL DRUG USE DRUG USE?NO CAFFEINE CAFFEINE USE?NO SEXUAL HX HAD SEX IN THE LAST 12 MONTHS (VAGINAL, ORAL, OR ANAL)?NO HAVE YOU EVER HAD AN STD?NO LMP:HYSTER OCCUPATION: DISABLED. DIET: REGULAR. MARITAL STATUS: . OTHERS AT HOME: SPOUSE. PETS: 1 DOG,1 CAT. LANGUAGE ROMANIAN. 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 0. PAIN CLINIC PFS, CLERGY, PUBLIC HEALTH REFERRALS PFS REFERRAL NEEDED? NO, CLERGY REFERRAL NEEDED? NO, PUBLIC HEALTH REFERRAL NEEDED? NO, WAS THE PROVIDER NOTIFIED OF ANY PERTINENT INFO? NO, PFS REFERRAL NEEDED? NO, CLERGY REFERRAL NEEDED? NO, PUBLIC HEALTH REFERRAL NEEDED? NO, WAS THE PROVIDER NOTIFIED OF ANY PERTINENT INFO? NO. HOSPITALIZATION/MAJOR DIAGNOSTIC PROCEDURE SX RELATED REVIEW OF SYSTEMS REVIEWED BY: PROVIDER: CANDICE MELARA MD . CONSTITUTIONAL: ANY CHANGE IN YOUR MEDICAL CONDITION? NO . CHILLS NO . FEVER NO . INFECTION: DO YOU HAVE NEW INFECTIONS? NO . DO YOU HAVE HISTORY OF MRSA? NO . MUSCULOSKELETAL: ANY NEW PATTERNS OF PAIN OR NUMBNESS? NO . GASTROENTEROLOGY: ANY NEW CHANGE IN BOWEL CONTROL? NO . GENITOURINARY: ANY NEW CHANGE IN BLADDER CONTROL? NO . IS THERE A CHANCE YOU COULD BE ? NO . HEMATOLOGY/LYMPH: DO YOU TAKE ANY BLOOD THINNERS? (FOR EXAMPLE- COUMADIN, PLAVIX, AGGRENOX, PLATEL, PRADAXA, OR XARELTO) NO . WHEN WAS YOUR LAST DOSE? DATE: TIME: . NEUROLOGY: HAVE YOU FALLEN IN THE PAST 6 MONTHS? YES . ANY NEW EXTREMITY NUMBNESS OR WEAKNESS? NO . CARDIOLOGY: DO YOU HAVE A PACEMAKER OR DEFIBRILLATOR? NO . RESPIRATORY: HAVE YOU BEEN SICK IN THE PAST WEEK? NO . FEVER NO . FLU LIKE SYMPTOMS? NO . COUGH NO . INTEGUMENTARY: DO YOU HAVE ANY RASHES OR OPEN SORES? NO . ALLERGIC/IMMUNO: ARE YOU ALLERGIC TO SHELLFISH OR IV DYE? YES . ANY NEW ALLERGIES? NO . PSYCHIATRIC: DO YOU HAVE THOUGHTS OF HURTING YOURSELF OR SOMEONE ELSE? NO . ARE YOU ABUSED, NEGLECTED, OR IN AN UNSAFE ENVIRONMENT? NO . ENDOCRINOLOGY: ARE YOU DIABETIC? NO . OTHER: DO YOU NEED ANY PRESCRIPTIONS? YES . IF YES, PLEASE LIST: ELAVIL . ANY NEW PROBLEMS WITH YOUR MEDICATIONS? NO . WHEN DID YOU LAST EAT? ____ . WHEN DID YOU LAST DRINK? ____ . WHAT DID YOU LAST DRINK? ____ . NAME OF PERSON DRIVING YOU HOME? ____ . DO YOU HAVE ANY OTHER QUESTIONS OR CONCERNS NO . VITAL SIGNS WT 182.0 LBS, HT 66 IN, BMI 29.37 INDEX, BP 140/82 MM HG, HR 93 /MIN, RR 16 /MIN, TEMP 98.6 F, OXYGEN SAT % 96%, NA INITIALS TL 1508, REVIEWED BY: ALFRED. EXAMINATION : PATIENT IS ALERT O X 3 AND COOPERATIVE. LEFT FOOT DROP. LIMPING FROM LEFT LEG. LEFT LEG DISCOLORATION. TENDERNESS IN THE LOWER BACK AND PARASPINAL MUSCLE GROUP. BANDS OF TISSUE, RESTRICTION OF MOVEMENT, AND PRESENCE OF TRIGGER POINTS IN THE LOWER BACK AREA. LEFT LIKE IS WEAKER THEN THE RIGHT AT EXTENSION AND FLEXION. LEFT LEG HAS LESS MUSCLE MASS AND FOOT IS SWOLLEN. CT OF THE LUMBAR SPINE DONE ON 03/11/15 SHOWS DISC BULGE AT L2-L3 THROUGH L5-S1, CANAL STENOSIS, AND FACET ATROPHY. ASSESSMENTS POSTLAMINECTOMY SYNDROME, NOT ELSEWHERE CLASSIFIED - M96.1 (PRIMARY) LOW BACK PAIN DUE TO DISPLACEMENT OF INTERVERTEBRAL DISC - M51.26 INTERVERTEBRAL DISC DISORDERS WITH RADICULOPATHY, LUMBAR REGION - M51.16 INTERVERTEBRAL DISC DISORDERS WITH RADICULOPATHY, LUMBOSACRAL REGION - M51.17 SPONDYLOSIS WITHOUT MYELOPATHY OR RADICULOPATHY, LUMBAR REGION - M47.816 TREATMENT POSTLAMINECTOMY SYNDROME, NOT ELSEWHERE CLASSIFIED NOTES: WE DISCUSSED SEVERAL ISSUES WITH MRS. PERERA' PAIN MANAGEMENT CASE. AT THIS TIME THE PATIENT WILL CONTINUE WITH THE SAME MEDICATION REGIME BEFORE. PATIENT DENIES ABUSE OF ANY MEDICATION, DENIES USE OF ILLEGAL SUBSTANCES, AND STATES THAT SHE IS ONLY USING THE MEDICATION FOR PAIN MANAGEMENT. URINE TOXICOLOGY REPORTS DONE ON 07/10/15 SHOWS CONSISTENT RESULTS WITH THE PATIENT'S MEDICATION LIST. PATIENT WILL CONTINUE USING THE ULTRACET AND HYDROCODONE NEEDED FOR THE SOMATIC PAIN, THE LYRICA AND ELAVIL FOR THE NEUROPATHIC PAIN, AND CELEBREX FOR THE INFLAMMATION. PATIENT REPORTS THE DCS BATTERY CAUSING DISCOMFORT FOR THE PATIENT. WE DISCUSSED MOVING THE BATTERY INTO A DIFFERENT LOCATION AND THE PATIENT AGREES WITH THE PLAN. WE DISCUSSED THE RISKS, BENENFITS, AND ALTNERATIVES OF THE REVISION AND THE PATIENT WOULD LIKE TO PROCEED AT THIS TIME. INSTRUCTIONS WERE GIVEN, QUESTIONS WERE ANSWERED, PATIENT REPORTS UNDERSTANDING AND AGREES WITH THE PLAN. I, ERIKA EUCEDA, DOCUMENTED THE ABOVE INFORMATION ACTING A SCRIBE FOR DR. MELARA. I HAVE REVIEWED THE ABOVE DOCUMENT, WRITTEN BY ERIKA CARLOS AND I VERIFY THAT IT IS ACCURATE. LOW BACK PAIN DUE TO DISPLACEMENT OF INTERVERTEBRAL DISC REFILL ELAVIL TABLET, 50 MG, 1 TAB(S), ORAL, AT BEDTIME, 90 DAY(S), 90, REFILLS 1 REFILL HYDROCODONE-ACETAMINOPHEN TABLET, 5-325 MG, 1 TABLET NEEDED, ORALLY, EVERY 6 HRS PRN MDD2 3MOS SUPPLY CAT D CHRONIC PAIN, 90 DAY(S), 150, REFILLS 0 REFILL CELEBREX CAPSULE, 200 MG, 1 CAPSULE, P.O., TWICE A DAY, 90 DAY(S), 180 CAPSULE, REFILLS 1 REFILL ULTRACET TABLET, 37.5-325 MG, 2 TABLETS, ORALLY, Q8H PRN MDD2( 3MOS SUPPLY CAT D CHRONIC PAIN), 90 DAY(S), 180, REFILLS 0 OTHERS REFILL LYRICA CAPSULE, 200 MG, 1 CAP, ORALLY, BID MDD2 3MOS SUPPLY CAT D CHRONIC PAIN, 90 DAY(S), 180, REFILLS 1 PROCEDURE CODES FA211 ESTABILISHED PATIENT [facility] FACILITY CHARGE G8427 DOC MEDS VERIFIED W/PT OR RE G8730 PAIN ASSESS POS TOOL F/U PLAN DOC DISPOSITION & COMMUNICATION FOLLOW UP 6 WEEKS ELECTRONICALLY SIGNED BY CANDICE MELARA MD ON 09/10/2016 AT 12:20 PM EDT DISCLAIMER : THIS IS A VISIT SUMMARY EXTRACTED FROM THE [employer] CHART. IT IS NOT A COPY OF THE [facility] PROGRESS NOTE. MTDD
== END | disposition home or self-care (01) ==
LOC: M PAIN 15:00
PROVIDERS: ATTEND Anesthesiology
DX: G89.29 Other chronic pain (principal); M96.1 Postlaminectomy syndrome, not elsewhere classified; M51.26 Other intervertebral disc displacement, lumbar region; M51.16 Intervertebral disc disorders with radiculopathy, lumbar region; M51.17 Intervertebral disc disorders with radiculopathy, lumbosacral region; M47.816 Spondylosis without myelopathy or radiculopathy, lumbar region; Z87.440 Personal history of urinary (tract) infections; F33.9 Major depressive disorder, recurrent, unspecified; M06.9 Rheumatoid arthritis, unspecified; G25.81 Restless legs syndrome; M85.9 Disorder of bone density and structure, unspecified; D64.9 Anemia, unspecified; E03.9 Hypothyroidism, unspecified; E78.5 Hyperlipidemia, unspecified; G47.30 Sleep apnea, unspecified; N31.9 Neuromuscular dysfunction of bladder, unspecified; Z79.899 Other long term (current) drug therapy; Z88.8 Allergy status to other drugs, medicaments and biological substances; Z91.013 Allergy to seafood

== ENCOUNTER → 2016-09-15 | Outpatient (REF) | payer OTHER ==
[2016-09-15 20:01] LABS: TRIPLE PHOSPHATE CRYSTALS LARGE
== END ==
LOC: M SMT 17:00
PROVIDERS: ATTEND Urology
DX: N39.0 Urinary tract infection, site not specified (principal)

== ENCOUNTER → 2016-09-29 | Outpatient (REF) | payer MEDICARE ==
[~2016-09-29] MED LIST changes: -FOLI1TAB2 PO; +FOLI1TAB4 PO; +PLAV1TAB2 PO; -PLAV75TA38 PO
[2016-09-29 19:35] LABS: MEAN CORPUSCULAR HEMOGLOBIN 30.9 pg (27.0-33.0); MEAN CORPUSCULAR HGB CONC 32.4 g/dl (32.0-36.5); MEAN CORPUSCULAR VOLUME 95.4 fl (80.0-96.0); RED CELL DISTRIBUTION WIDTH 13.6 % (11.5-14.5); WHITE BLOOD COUNT 4.9 K/mm3 (4.0-10.0)
[2016-09-29 19:52] LABS: ALBUMIN 3.7 GM/DL (3.2-5.2); ALBUMIN/GLOBULIN RATIO 1.12 (1.00-1.93); ALKALINE PHOSPHATASE 88 U/L (45-117); ALT/SGPT 21 U/L (12-78); ANION GAP 5 MEQ/L (8-16); AST/SGOT 12 U/L (15-37); BILIRUBIN,TOTAL 0.3 MG/DL (0.2-1.0); BLOOD UREA NITROGEN 21 MG/DL (7-18); CALCIUM LEVEL 8.9 MG/DL (8.5-10.1); CARBON DIOXIDE LEVEL 27 MEQ/L (21-32); CHLORIDE LEVEL 109 MEQ/L (98-107); CHOLESTEROL LEVEL 239 MG/DL (<200); FREE T4 0.92 NG/DL (0.76-1.46); GLOMERULAR FILTRATION RATE > 60.0 (>51); GLUCOSE, FASTING 90 MG/DL (70-105); POTASSIUM SERUM 4.1 MEQ/L (3.5-5.1); SODIUM LEVEL 141 MEQ/L (136-145); TRIGLYCERIDES LEVEL 118 MG/DL (<150)
== END ==
LOC: M SFHCADAM 14:33
PROVIDERS: ATTEND Family Medicine
DX: F32.9 Major depressive disorder, single episode, unspecified (principal); E03.9 Hypothyroidism, unspecified
CPT/HCPCS: 80053; 80061; 84439; 84443; 85027; G0463

== ENCOUNTER → 2016-10-06 | Outpatient (CLI) | payer MEDICARE ==
--- NOTE | 2016-10-06 12:51 | REP ---
Thyroid ultrasound: Says performed for the nodular thyroid disease. There are no comparison studies. The thyroid right and left lobes are enlarged. The right lobe measures 5.7 x 1.6 x 1.4 centimeters. The left lobe measures 5.2 x 1.6 x 1.7 cm. The isthmus measures 3.4 mm in thickness. The thyroid parenchyma is diffusely inhomogeneous bilaterally. There is a solid nodule posteriorly in the thyroid right lobe measuring 7.3 x 4.7 x 5.3 mm. There is a solid nodule laterally in the left lobe measuring 8.9 x 6.8 x 8.6 mm. Impression: The findings are compatible with multinodular goiter. However, because of their size. Consideration might be given to ultrasound guided needle biopsy of the thyroid solid nodules. Additionally, a radionuclide thyroid scan and uptake might be considered. Signed by Octavio Bedoya MD 10/06/2016 12:43 P
== END ==
LOC: M RAD 11:19
PROVIDERS: ATTEND Family Medicine
DX: E04.1 Nontoxic single thyroid nodule (principal)

== ENCOUNTER → 2016-10-30 | Outpatient (CLI) | payer OTHER, MEDICARE ==
--- NOTE | 2016-11-18 01:48 | ECWPNPC ---
PATIENT NAME: AIRAM PERERA : 1960 GENDER: FEMALE VISIT DATE: 10/30/2016 DISCHARGE DATE: 10/30/16 1412 VISIT LOCKED DATE TIME: PHYSICIAN: CANDICE MELARA PHYSICIAN PAGER NO: [phone] RESOURCE: CANDICE MELARA REASON FOR APPOINTMENT 1. W/C LOW BACK HISTORY OF PRESENT ILLNESS HISTORY OF PRESENT ILLNESS: PAIN THE PATIENT DESCRIBES THE PAIN... 55 YEAR OLD FEMALE PATIENT WITH HISTORY OF CHRONIC BACK PAIN. PATIENT DESCRIBES THE PAIN ACHING, TENDER, THROBBING, SORE, AND SHOOTING WITH A PAIN SCORE OF 4/10. 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 PATIENT TOOK A FEW DAYS OFF TO REST AND RETURNED TO WORK AFTER 3 DAYS. PATIENT THEN RECEIVED 2 BACK SURGERIES WHICH SHE STATES DID AID IN PAIN RELIEF. PATIENT ALSO HAS A DCS THAT SHE STATES AIDS IN PAIN RELIEF. PATIENT RECEIVED TRIGGER POINT INJECTIONS ON 07/27/16 AND AT THIS TIME STATES THAT THEY DID NOT AID IN PAIN RELIEF NOR MOBILITY AND FUNCTIONALITY. CURRENTLY THE PATIENT IS USING CYMBALTA REGULARLY WELL TRAMADOL AND HYDROCODONE NEEDED AND REPORTS IT IS VERY RARELY SHE USES IT. PATIENT STATES THAT ANY ACTIVITY INCLUDING WALKING, STANDING, AND SITTING INCREASES THE PAIN IN THE HER LOWER BACK AND AT THIS TIME INTERVENTIONS, MEDICATION, DCS AND REST AID IN PAIN RELIEF. PATIENT DENIES UNEXPLAINABLE WEIGHT LOSS, FEVER, CHILLS, NEW CHANGES ON HER URINARY OR BOWEL CONTROL. FALL RISK SCREENING: SCREENING :NO FALLS IN THE PAST YEAR CURRENT MEDICATIONS TAKING FOLIC ACID 1 MG TABLET 2 TABLETS ORALLY ONCE A DAY TAKING EPIPEN 0.3 MG/0.3ML (1:1000) DEVICE DIRECTED INTRAMUSCULAR NEEDED FOR ALLERGIC REACTION TAKING ANUSOL-HC 2.5 % CREAM 1 APPLICATION TO AFFECTED AREA RECTAL TWICE A DAY TAKING PLAQUENIL 200 MG TABLET 1 TABLET WITH FOOD OR MILK ORALLY BID TAKING SULFASALAZINE 500 MG TABLET 1 TABLET ORALLY BID TAKING EILEEN INTERMIT FEMALE CATHETER #14 FR STRAIGHT TIP DIRECTED USE FOR CIC 4-5 TIMES/DAY (PATIENT NUMBER [id number]) TAKING OMEPRAZOLE 40MG CAPSULE DELAYED RELEASE 1 CAPSULE ORALLY DAILY TAKING OXYBUTYNIN CHLORIDE ER 10 MG TABLET EXTENDED RELEASE 24 HOUR 1 TABLET ORALLY ONCE A DAY TAKING CELEBREX 200 MG CAPSULE 1 CAPSULE P.O. TWICE A DAY TAKING HYDROCODONE-ACETAMINOPHEN 5-325 MG TABLET 1 TABLET NEEDED ORALLY EVERY 6 HRS PRN FOR PAIN MDD2 (3MOS SUPPLY CODE D CHRONIC PAIN) TAKING LYRICA 200 MG CAPSULE 1 CAP ORALLY (CODE D FOR CHRONIC PAIN) BID FOR PAIN MDD2 TAKING ULTRACET 37.5-325 MG TABLET 2 TABLETS ORALLY Q8H PRN FOR PAIN MDD2( 3MOS SUPPLY CODE D CHRONIC PAIN) TAKING ELAVIL 50 MG TABLET 1 TAB(S) ORAL 9CHRONIC PAIN CODE D) AT BEDTIME TAKING SYNTHROID 25 MCG TABLET 1 TAB(S) ORALLY ONCE A DAY TAKING BUPROPION HCL ER (SR) 200MG TABLET EXTENDED RELEASE 12 HOUR TAKE ONE TABLET BY MOUTH TWICE DAILY NOT-TAKING ZYRTEC ALLERGY 10 MG TABLET 1 TABLET ORALLY ONCE A DAY NOT-TAKING BACTRIM DS 800-160 MG TABLET 1 TABLET ORALLY EVERY 12 HOURS NOT-TAKING WELLBUTRIN SR 200 MG TABLET EXTENDED RELEASE 12 HOUR 1 TABLET ORALLY TWICE A DAY NOT-TAKING PSEUDOEPHEDRINE HCL 60 MG TABLET 1 TABLET NEEDED ORALLY EVERY 6 HRS MEDICATION LIST REVIEWED AND RECONCILED WITH THE PATIENT PAST MEDICAL HISTORY DEGENERATIVE DISC DISEASE AT L5-S1 STATUS POST LAMINECTOMY CHRONIC LOW BACK PAIN (SECONDARY TO INJURY TO HER LOW BACK/COMPENSATION CASE) (DR. ZAMORA) NEUROGENIC BOWEL AND BLADDER SUBSEQUENT TO UNDERGOING BACK SURGERY REQUIRES SELF CATHETERIZATION RECURRENT URINARY TRACT INFECTION () CHRONIC CONSTIPATION DEPRESSION RHEUMATOID ARTHRITIS (DR. ENGLAND) RESTLESS LEG SYNDROME WITH LEFT FOOT DROP OSTEOPENIA LEFT FEMUR DEXA 07/06/16 ANEMIA HAS A DORSAL COLUMN STIMULATOR-- NO MRIS ECHO 08/30/07 - EF 60% NO VALVULAR ABNORMALITIES DEVELOPED BILATERAL PHLEBITIS WITH BCP YRS AGO DVT BILATERAL LOWER LEGS AT AGE 16 HOSPITALIZED ON [facility] AT THE TIME HYPOTHYROID HYPERLIPIDEMIA--ASCVD 10 YR RISK < 2% (08/03) SLEEP APNEA- CPAP MACHINE USED ALLERGIES GABATROL: ITCHING/ TREMORS: ALLERGY SHELLFISH: ANGEIOEDEMA: ALLERGY ATIVAN: SUICIDAL THOUGHTS: ALLERGY CYMBALTA: FATIGUE: SIDE EFFECTS REVIEW OF SYSTEMS REVIEWED BY: PROVIDER: CANDICE MELARA MD . CONSTITUTIONAL: ANY CHANGE IN YOUR MEDICAL CONDITION? NO . CHILLS NO . FEVER NO . INFECTION: DO YOU HAVE NEW INFECTIONS? NO . DO YOU HAVE HISTORY OF MRSA? NO . MUSCULOSKELETAL: ANY NEW PATTERNS OF PAIN OR NUMBNESS? NO . GASTROENTEROLOGY: ANY NEW CHANGE IN BOWEL CONTROL? NO . GENITOURINARY: ANY NEW CHANGE IN BLADDER CONTROL? NO . IS THERE A CHANCE YOU COULD BE ? NO . HEMATOLOGY/LYMPH: DO YOU TAKE ANY BLOOD THINNERS? (FOR EXAMPLE- COUMADIN, PLAVIX, AGGRENOX, PLATEL, PRADAXA, OR XARELTO) NO . WHEN WAS YOUR LAST DOSE? DATE: TIME: . NEUROLOGY: HAVE YOU FALLEN IN THE PAST 6 MONTHS? NO . ANY NEW EXTREMITY NUMBNESS OR WEAKNESS? NO . CARDIOLOGY: DO YOU HAVE A PACEMAKER OR DEFIBRILLATOR? NO . RESPIRATORY: HAVE YOU BEEN SICK IN THE PAST WEEK? NO . FEVER NO . FLU LIKE SYMPTOMS? NO . COUGH NO . INTEGUMENTARY: DO YOU HAVE ANY RASHES OR OPEN SORES? NO . ALLERGIC/IMMUNO: ARE YOU ALLERGIC TO SHELLFISH OR IV DYE? YES . ANY NEW ALLERGIES? NO . PSYCHIATRIC: DO YOU HAVE THOUGHTS OF HURTING YOURSELF OR SOMEONE ELSE? NO . ARE YOU ABUSED, NEGLECTED, OR IN AN UNSAFE ENVIRONMENT? NO . ENDOCRINOLOGY: ARE YOU DIABETIC? NO . OTHER: DO YOU NEED ANY PRESCRIPTIONS? YES . IF YES, PLEASE LIST: ____CELEBREX, ELAVIL . ANY NEW PROBLEMS WITH YOUR MEDICATIONS? NO . WHEN DID YOU LAST EAT? ____ . WHEN DID YOU LAST DRINK? ____ . WHAT DID YOU LAST DRINK? ____ . NAME OF PERSON DRIVING YOU HOME? ____ . DO YOU HAVE ANY OTHER QUESTIONS OR CONCERNS YES PT STATES SHE HAS PAIN WHERE THE STIMULATOR WIRE AND BATTERY IS. WAITING FOR APPROVAL FOR SURGERY, WONDERING WHERE WE ARE IN THE PROCESS, HAS CALLED SEVERAL TIMES AND HAS NOT RECEIVED ANY REPLY. . VITAL SIGNS WT 189.4 LBS, HT 66 IN, BMI 30.57 INDEX, BP 149/83 MM HG, HR 99 /MIN, RR 18 /MIN, TEMP 98.9 F, OXYGEN SAT % 94%, SAFE IN ENV? (Y/N) YES, NA INITIALS SC 13:24, REVIEWED BY: HARINI. EXAMINATION : PATIENT IS ALERT O X 3 AND COOPERATIVE. LEFT FOOT DROP. LIMPING FROM LEFT LEG. LEFT LEG DISCOLORATION. TENDERNESS IN THE LOWER BACK AND PARASPINAL MUSCLE GROUP. BANDS OF TISSUE, RESTRICTION OF MOVEMENT, AND PRESENCE OF TRIGGER POINTS IN THE LOWER BACK AREA. LEFT LIKE IS WEAKER THEN THE RIGHT AT EXTENSION AND FLEXION. LEFT LEG HAS LESS MUSCLE MASS AND FOOT IS SWOLLEN. CT OF THE LUMBAR SPINE DONE ON 03/11/15 SHOWS DISC BULGE AT L2-L3 THROUGH L5-S1, CANAL STENOSIS, AND FACET ATROPHY. ASSESSMENTS POSTLAMINECTOMY SYNDROME, NOT ELSEWHERE CLASSIFIED - M96.1 (PRIMARY) INTERVERTEBRAL DISC DISORDERS WITH RADICULOPATHY, LUMBAR REGION - M51.16 INTERVERTEBRAL DISC DISORDERS WITH RADICULOPATHY, LUMBOSACRAL REGION - M51.17 SPONDYLOSIS WITHOUT MYELOPATHY OR RADICULOPATHY, LUMBAR REGION - M47.816 OTHER INTERVERTEBRAL DISC DISPLACEMENT, LUMBAR REGION - M51.26 TREATMENT POSTLAMINECTOMY SYNDROME, NOT ELSEWHERE CLASSIFIED NOTES: WE DISCUSSED SEVERAL ISSUES WITH MRS. PERERA' PAIN MANAGEMENT CASE. AT THIS TIME THE PATIENT WILL CONTINUE WITH THE SAME MEDICATION REGIME BEFORE. PATIENT DENIES ABUSE OF ANY MEDICATION, DENIES USE OF ILLEGAL SUBSTANCES, AND STATES THAT SHE IS ONLY USING THE MEDICATION FOR PAIN MANAGEMENT. URINE TOXICOLOGY REPORTS DONE ON 06/10/2016 SHOWS CONSISTENT RESULTS WITH THE PATIENT'S MEDICATION LIST. PATIENT WILL CONTINUE USING THE ULTRACET AND HYDROCODONE NEEDED FOR THE SOMATIC PAIN, AND THE LYRICA AND ELAVIL FOR THE NEUROPATHIC PAIN. PATIENT WILL TRY TO REDUCE THE CONSUMPTION OF CELEBREX. I WOULD LIKE THE PATIENT TO BE REFERRED TO A NEUROSURGEON FOR THE REMOVAL OF THE DCS IT IS CAUSING DISCOMFORT FOR THE PATIENT. PATIENT WILL RETURN TO THE CLINIC IN 10 WEEKS. INSTRUCTIONS WERE GIVEN, QUESTIONS WERE ANSWERED, PATIENT REPORTS UNDERSTANDING AND AGREES WITH THE PLAN. I, ERIKA EUCEDA, DOCUMENTED THE ABOVE INFORMATION ACTING A SCRIBE FOR DR. MELARA. I HAVE REVIEWED THE ABOVE DOCUMENT, WRITTEN BY ERIKA CARLOS AND I VERIFY THAT IT IS ACCURATE. OTHERS REFILL LYRICA CAPSULE, 200 MG, 1 CAP, ORALLY (CODE D FOR CHRONIC PAIN), BID FOR PAIN MDD2, 90 DAYS, 180, REFILLS 0 REFILL CELEBREX CAPSULE, 200 MG, 1 CAPSULE, P.O., TWICE A DAY, 90 DAY(S), 180 CAPSULE, REFILLS 0 REFILL HYDROCODONE-ACETAMINOPHEN TABLET, 5-325 MG, 1 TABLET NEEDED, ORALLY, EVERY 6 HRS PRN FOR PAIN MDD2 (3MOS SUPPLY CODE D CHRONIC PAIN), 90 DAY(S), 150, REFILLS 0 REFILL ULTRACET TABLET, 37.5-325 MG, 2 TABLETS, ORALLY, Q8H PRN FOR PAIN MDD2( 3MOS SUPPLY CODE D CHRONIC PAIN), 90 DAYS, 180, REFILLS 0 REFILL ELAVIL TABLET, 50 MG, 1 TAB(S), ORAL 9CHRONIC PAIN CODE D), AT BEDTIME, 90 DAYS, 90, REFILLS 0 PROCEDURES PN WORKMANS' COMP OPINION IN YOUR OPINION, WAS THE INCIDENT THAT THE PATIENT DESCRIBED THE COMPETENT MEDICAL CAUSE OF THIS INJURY/ILLNESS? YES ARE THE PATIENT'S COMPLAINTS CONSISTENT WITH HIS/HER HISTORY OF THE INJURY/ILLNESS? YES IS THE PATIENT'S HISTORY OF THE INJURY/ILLNESS CONSISTENT WITH YOUR OBJECTIVE FINDING? YES WHAT IS THE PERCENTAGE OF TEMPORARY IMPAIRMENT? MODERATE TO MARKED = 66.7% IS THE PATIENT WORKING? NO DOCTOR ON SITE: CANDICE POLLARD MD PROCEDURE CODES FA211 ESTABILISHED PATIENT [facility] FACILITY CHARGE G8427 DOC MEDS VERIFIED W/PT OR RE G8730 PAIN ASSESS POS TOOL F/U PLAN DOC DISPOSITION & COMMUNICATION FOLLOW UP 10 WEEKS ELECTRONICALLY SIGNED BY CANDICE MELARA MD ON 11/16/2016 AT 07:03 PM EDT DISCLAIMER : THIS IS A VISIT SUMMARY EXTRACTED FROM THE [employer] CHART. IT IS NOT A COPY OF THE [employer] PROGRESS NOTE. DIMAS
== END | disposition home or self-care (01) ==
LOC: M PAIN 13:45
PROVIDERS: ATTEND Anesthesiology
DX: G89.29 Other chronic pain (principal); M96.1 Postlaminectomy syndrome, not elsewhere classified; M51.16 Intervertebral disc disorders with radiculopathy, lumbar region; M51.17 Intervertebral disc disorders with radiculopathy, lumbosacral region; M47.816 Spondylosis without myelopathy or radiculopathy, lumbar region; M51.26 Other intervertebral disc displacement, lumbar region; Z87.440 Personal history of urinary (tract) infections; F33.9 Major depressive disorder, recurrent, unspecified; M06.9 Rheumatoid arthritis, unspecified; G25.81 Restless legs syndrome; M85.9 Disorder of bone density and structure, unspecified; D64.9 Anemia, unspecified; E03.9 Hypothyroidism, unspecified; E78.5 Hyperlipidemia, unspecified; G47.30 Sleep apnea, unspecified; N31.9 Neuromuscular dysfunction of bladder, unspecified; Z79.899 Other long term (current) drug therapy; Z88.8 Allergy status to other drugs, medicaments and biological substances; Z91.013 Allergy to seafood

== ENCOUNTER → 2016-11-24 | Outpatient (REF) | payer OTHER, MEDICARE | LOC: M SMT 12:59 | PROVIDERS: ATTEND Urology | DX: N39.0 Urinary tract infection, site not specified (principal) ==

== ENCOUNTER → 2017-01-08 | Outpatient (CLI) | payer OTHER, MEDICARE ==
--- NOTE | 2017-02-05 01:34 | ECWPNPC ---
PATIENT NAME: AIRAM PERERA : 1960 GENDER: FEMALE VISIT DATE: 01/08/2017 DISCHARGE DATE: 01/08/17930 VISIT LOCKED DATE TIME: PHYSICIAN: HERIBERTO FORBES PHYSICIAN PAGER NO: [phone] RESOURCE: HERIBERTO FORBES REASON FOR APPOINTMENT 1. LOW BACK PAIN HISTORY OF PRESENT ILLNESS HISTORY OF PRESENT ILLNESS: PAIN THE PATIENT DESCRIBES THE PAIN... THE PATIENT DESCRIBES THE PAIN... THE PATIENT DESCRIBES THE PAIN... THE PATIENT DESCRIBES THE PAIN... THE PATIENT DESCRIBES THE PAIN... HERE FOR F/U .HX OF CHRONIC LBP AND LEFT FOOT PAIN DUE TO WORK RELATED INJURY IN 1986. CHIEF AREA OF PAIN IS LEFT FOOT TODAY. RATING PAIN VAS 8/10.STATES DCS HAS TO BE REVISED.VOICES FRUSTRATION THAT NO ONE HAS CONTACTED HER.STATES SHE HAS LEFT MESSAGES AND DOESNT GET RETURN CALLS.STATES DR. MELARA HAS REFERRED HER TO NEUROSURGEON FOR UNKNOWN REASON BUT THEY HAVENT RECIEVED AUTHORIZATION.SHE IS VERY FRUSTRATED. SHE WAS REFERRED TO [facility] BUT THEY DONT ACCEPT COMP. SO SHE WAS REFERRED TO DR. HAMMOND. CHRONIC PAIN MEDICATION FOR HER WORK RELATED INJURY:1. CELEBREX 200MG QD2. LYRICA 200MG BID3.SOMA 350MG TID4.ULTRACET 37.5/325 2 TAB PO Q4-6 H PRN PAIN5.HYDROCODONE 5/325 1 TAB PO Q6H PRN SEVERE PAIN. FALL RISK SCREENING: SCREENING :NO FALLS IN THE PAST YEAR :NO FALLS IN THE PAST YEAR SCREENING :NO FALLS IN THE PAST YEAR :NO FALLS IN THE PAST YEAR CURRENT MEDICATIONS TAKING FOLIC ACID 1 MG TABLET 2 TABLETS ORALLY ONCE A DAY TAKING EPIPEN 0.3 MG/0.3ML (1:1000) DEVICE DIRECTED INTRAMUSCULAR NEEDED FOR ALLERGIC REACTION TAKING ANUSOL-HC 2.5 % CREAM 1 APPLICATION TO AFFECTED AREA RECTAL TWICE A DAY TAKING PLAQUENIL 200 MG TABLET 1 TABLET WITH FOOD OR MILK ORALLY BID TAKING SULFASALAZINE 500 MG TABLET 1 TABLET ORALLY BID TAKING EILEEN INTERMIT FEMALE CATHETER #14 FR STRAIGHT TIP DIRECTED USE FOR CIC 4-5 TIMES/DAY (PATIENT NUMBER [id number]) TAKING OMEPRAZOLE 40MG CAPSULE DELAYED RELEASE 1 CAPSULE ORALLY DAILY TAKING OXYBUTYNIN CHLORIDE ER 10 MG TABLET EXTENDED RELEASE 24 HOUR 1 TABLET ORALLY ONCE A DAY TAKING SYNTHROID 25 MCG TABLET 1 TAB(S) ORALLY ONCE A DAY TAKING BUPROPION HCL ER (SR) 200MG TABLET EXTENDED RELEASE 12 HOUR TAKE ONE TABLET BY MOUTH TWICE DAILY TAKING LYRICA 200 MG CAPSULE 1 CAP ORALLY (CODE D FOR CHRONIC PAIN) BID FOR PAIN MDD2 TAKING CELEBREX 200 MG CAPSULE 1 CAPSULE P.O. TWICE A DAY TAKING HYDROCODONE-ACETAMINOPHEN 5-325 MG TABLET 1 TABLET NEEDED ORALLY EVERY 6 HRS PRN FOR PAIN MDD2 (3MOS SUPPLY CODE D CHRONIC PAIN) TAKING ULTRACET 37.5-325 MG TABLET 2 TABLETS ORALLY Q8H PRN FOR PAIN MDD2( 3MOS SUPPLY CODE D CHRONIC PAIN) TAKING ELAVIL 50 MG TABLET 1 TAB(S) ORAL 9CHRONIC PAIN CODE D) AT BEDTIME NOT-TAKING LEVOFLOXACIN 500 MG TABLET 1 TABLET ORALLY ONCE A DAY UNKNOWN ZYRTEC ALLERGY 10 MG TABLET 1 TABLET ORALLY ONCE A DAY UNKNOWN BACTRIM DS 800-160 MG TABLET 1 TABLET ORALLY EVERY 12 HOURS UNKNOWN WELLBUTRIN SR 200 MG TABLET EXTENDED RELEASE 12 HOUR 1 TABLET ORALLY TWICE A DAY UNKNOWN PSEUDOEPHEDRINE HCL 60 MG TABLET 1 TABLET NEEDED ORALLY EVERY 6 HRS MEDICATION LIST REVIEWED AND RECONCILED WITH THE PATIENT PAST MEDICAL HISTORY DEGENERATIVE DISC DISEASE AT L5-S1 STATUS POST LAMINECTOMY CHRONIC LOW BACK PAIN (SECONDARY TO INJURY TO HER LOW BACK/COMPENSATION CASE) (DR. ZAMORA) NEUROGENIC BOWEL AND BLADDER SUBSEQUENT TO UNDERGOING BACK SURGERY REQUIRES SELF CATHETERIZATION RECURRENT URINARY TRACT INFECTION () CHRONIC CONSTIPATION DEPRESSION RHEUMATOID ARTHRITIS (DR. ENGLAND) RESTLESS LEG SYNDROME WITH LEFT FOOT DROP OSTEOPENIA LEFT FEMUR DEXA 07/06/16 ANEMIA HAS A DORSAL COLUMN STIMULATOR-- NO MRIS ECHO 08/30/07 - EF 60% NO VALVULAR ABNORMALITIES DEVELOPED BILATERAL PHLEBITIS WITH BCP YRS AGO DVT BILATERAL LOWER LEGS AT AGE 16 HOSPITALIZED ON [facility] AT THE TIME HYPOTHYROID HYPERLIPIDEMIA--ASCVD 10 YR RISK < 2% (08/03) SLEEP APNEA- CPAP MACHINE USED ALLERGIES GABATROL: ITCHING/ TREMORS: ALLERGY SHELLFISH: ANGEIOEDEMA: ALLERGY ATIVAN: SUICIDAL THOUGHTS: ALLERGY CYMBALTA: FATIGUE: SIDE EFFECTS SURGICAL HISTORY EGD/COLONOSCOPY ADENOMATOUS HYPERPLASTIC POLYP 08/2009 D&C, LAPROSCOPY YRS AGO CONE BIOPSY AFTER ABNORMAL PAPS LAVH -DUE TO EXCESSIVE BLEEDING AND FIBROIDS- 2006 COLONOSCOPY - 3 DIMINUTIVE POLYPS, INTERNAL HEMORRHOIDS, LONG REDUNDANT COLON PRONE TO IRREGULARITY/CONSTIPATION/INCOMPLETE EMPTYING (DR. RODRIGUEZ) 10/28/12 EGD - NORMAL 10/28/12 CYSTOLITHOLAPAXY 09/06/15 SOCIAL HISTORY GENERAL: TOBACCO USE ARE YOU A:NONSMOKER NEVER SMOKER BMI CARE GOAL FOLLOW-UP ABOVE NORMAL BMI FOLLOW-UPGIVING ENCOURAGEMENT TO EXERCISE ALCOHOL SCREENING DID YOU HAVE A DRINK CONTAINING ALCOHOL IN THE PAST YEAR?YES HOW OFTEN DID YOU HAVE SIX OR MORE DRINKS ON ONE OCCASION IN THE PAST YEAR?NEVER (0 POINTS) HOW MANY DRINKS DID YOU HAVE ON A TYPICAL DAY WHEN YOU WERE DRINKING IN THE PAST YEAR?1 OR 2 (0 POINTS) HOW OFTEN DID YOU HAVE A DRINK CONTAINING ALCOHOL IN THE PAST YEAR?MONTHLY OR LESS (1 POINT) POINTS1 INTERPRETATIONNEGATIVE RECREATIONAL DRUG USE DRUG USE?NO CAFFEINE CAFFEINE USE?NO SEXUAL HX HAD SEX IN THE LAST 12 MONTHS (VAGINAL, ORAL, OR ANAL)?NO LMP:HYSTER HAVE YOU EVER HAD AN STD?NO OCCUPATION: DISABLED. DIET: REGULAR. MARITAL STATUS: . OTHERS AT HOME: SPOUSE. PETS: 1 DOG,1 CAT. LANGUAGE URDU. LEARNING BARRIERS / SPECIAL NEEDS CHANGE FROM LAST VISIT?NO BARRIERS TO LEARNING?NO HEARING IMPAIRED?NO VISION IMPAIRED?YES :CORRECTIVE LENSES COGNITIVELY IMPAIRED?NO READINESS TO LEARN?YES LEARNING PREFERENCES?NO LEARNING CAPABILITIES PRESENT?YES EMOTIONAL BARRIERS?NO SPECIAL DEVICES?NO MARKETING PRODUCTION MANAGER NEEDED?NO NEW PATIENT PAIN DIARY TODAY'S VISIT NOTES, FROM 0-10, WHAT LEVEL IS YOUR PAIN TODAY? 0. PAIN CLINIC PFS, CLERGY, PUBLIC HEALTH REFERRALS HAS THE PATIENT BEEN EDUCATED REGARDING HIS/HER PLAN OF CARE?YES HAS THE PATIENT BEEN EDUCATED REGARDING PAIN, THE RISK FOR PAIN, THE IMPORTANCE OF EFFECTIVE PAIN MANAGEMENT, AND THE PAIN ASSESSMENT PROCESS?YES HOSPITALIZATION/MAJOR DIAGNOSTIC PROCEDURE SX RELATED REVIEW OF SYSTEMS REVIEWED BY: PROVIDER: , HERIBERTO RIVAS . CONSTITUTIONAL: ANY CHANGE IN YOUR MEDICAL CONDITION? NO, NO . CHILLS NO, NO . FEVER NO, NO . INFECTION: DO YOU HAVE NEW INFECTIONS? YES, PT STATES SHE SELF CATHETERIZES SUBJECTING HER TO FREQUENT UTIS. PT STATES SHE FINISHED LEVOFLOXACIN 3 WEEKS AGO FOR THIS AND PT STATES RELIEF, NO . DO YOU HAVE HISTORY OF MRSA? NO, NO . MUSCULOSKELETAL: ANY NEW PATTERNS OF PAIN OR NUMBNESS? NO, NO . GASTROENTEROLOGY: ANY NEW CHANGE IN BOWEL CONTROL? NO, NO . GENITOURINARY: ANY NEW CHANGE IN BLADDER CONTROL? NO, NO . IS THERE A CHANCE YOU COULD BE ? NO, NO . HEMATOLOGY/LYMPH: DO YOU TAKE ANY BLOOD THINNERS? (FOR EXAMPLE- COUMADIN, PLAVIX, AGGRENOX, PLATEL, PRADAXA, OR XARELTO) NO, NO . WHEN WAS YOUR LAST DOSE? DATE: TIME: , DATE: TIME: . NEUROLOGY: HAVE YOU FALLEN IN THE PAST 6 MONTHS? YES, PT STATES SHE FALLS FREQUENTLY FOR LOSS OF BALANCE, PAIN AND WEAKNESS . ANY NEW EXTREMITY NUMBNESS OR WEAKNESS? NO, NO . CARDIOLOGY: DO YOU HAVE A PACEMAKER OR DEFIBRILLATOR? NO, NO . RESPIRATORY: HAVE YOU BEEN SICK IN THE PAST WEEK? NO, NO . FEVER NO, NO . FLU LIKE SYMPTOMS? NO, NO . COUGH NO, NO . INTEGUMENTARY: DO YOU HAVE ANY RASHES OR OPEN SORES? NO, NO . ALLERGIC/IMMUNO: ARE YOU ALLERGIC TO SHELLFISH OR IV DYE? YES, SHELLFISH, NO . ANY NEW ALLERGIES? NO, NO . PSYCHIATRIC: DO YOU HAVE THOUGHTS OF HURTING YOURSELF OR SOMEONE ELSE? NO, NO . ARE YOU ABUSED, NEGLECTED, OR IN AN UNSAFE ENVIRONMENT? NO, NO . ENDOCRINOLOGY: ARE YOU DIABETIC? NO, NO . OTHER: DO YOU NEED ANY PRESCRIPTIONS? YES, 1 MONTH SUPPLY OF MEDS LEFT, NO . IF YES, PLEASE LIST: ____, ____ . ANY NEW PROBLEMS WITH YOUR MEDICATIONS? NO, NO . WHEN DID YOU LAST EAT? ____, ____ . WHEN DID YOU LAST DRINK? ____, ____ . WHAT DID YOU LAST DRINK? ____, ____ . NAME OF PERSON DRIVING YOU HOME? ____, ____ . DO YOU HAVE ANY OTHER QUESTIONS OR CONCERNS NO, PT STATES SHE RECEIVED FLU SHOT 11/2016, PT STATES SHE IS STILL WAITING FOR REVISION OF DCS . VITAL SIGNS WT 185 LBS, HT 66 IN, BMI 29.86 INDEX, BP 128/75 MM HG, HR 87 /MIN, RR 16 /MIN, TEMP 98.6 F, OXYGEN SAT % 93%, NA INITIALS SC 08:58, REVIEWED BY: EM. EXAMINATION GENERAL EXAMINATION: LUNGS:LUNG SOUNDS ARE CLEAR. HEART:HEART RATE REGULAR. MUSCULOSKELETAL:*, MUSCLE STRENGTH TESTING 5/5 RLE, 3/5 LLE. MARKED DISCOLORATION OVER LEFT FOOT NON TENDER OVER RIGHT SIJ. ASSESSMENTS LOW BACK PAIN DUE TO DISPLACEMENT OF INTERVERTEBRAL DISC - M51.26 (PRIMARY) POST LAMINECTOMY SYNDROME - M96.1 CHRONIC PRESCRIPTION OPIATE USE - Z79.899 SACROILIAC JOINT PAIN - M53.3 TREATMENT LOW BACK PAIN DUE TO DISPLACEMENT OF INTERVERTEBRAL DISC REFILL LYRICA CAPSULE, 200 MG, 1 CAP, ORALLY (CODE D FOR CHRONIC PAIN), BID FOR PAIN MDD2, 90 DAYS, 180, REFILLS 0 REFILL CELEBREX CAPSULE, 200 MG, 1 CAPSULE, P.O., TWICE A DAY, 90 DAY(S), 180 CAPSULE, REFILLS 0 REFILL HYDROCODONE-ACETAMINOPHEN TABLET, 5-325 MG, 1 TABLET NEEDED, ORALLY, EVERY 6 HRS PRN FOR PAIN MDD2 (3MOS SUPPLY CODE D CHRONIC PAIN), 90 DAY(S), 150, REFILLS 0 REFILL ULTRACET TABLET, 37.5-325 MG, 2 TABLETS, ORALLY, Q8H PRN FOR PAIN MDD2( 3MOS SUPPLY CODE D CHRONIC PAIN), 90 DAYS, 180, REFILLS 0 NOTES: ISTOP REGISTRY REVIEWED AND DEMNOSTRATES COMPLLIANCE. BRINGS IN MEDICATIONS WHICH IS APPROPRIATE FOR WHAT WAS DISPENSED. RECENT URINE TOXICOLOGY REVIEWED. NO UNAUTHORIZED MEDICATIONS. NO ILLICIT SUBSTANCES AND PRESCRIBED MEDICATIONS WERE PRESENT. , RISKS AND BENEFITS OF NARCOTIC/OPIOD MEDICATIONS WERE REVIEWED WITH PATIENT - THIS INCLUDES BUT IS NOT LIMITED TO RISK OF DEPENDANCE/DEVELOPMENT OF ADDICTION, MOOD DISTURBANCE AND DEPRESSION, OSTEOPOROSIS, HORMONAL AND LABIDAL CHANGES, RESPIRATORY DEPRESSION AND . PATIENT IS ADVISED NOT TO DRIVE WHILE ON THESE MEDICATIONS. PROCEDURES PN WORKMANS' COMP OPINION IN YOUR OPINION, WAS THE INCIDENT THAT THE PATIENT DESCRIBED THE COMPETENT MEDICAL CAUSE OF THIS INJURY/ILLNESS? YES ARE THE PATIENT'S COMPLAINTS CONSISTENT WITH HIS/HER HISTORY OF THE INJURY/ILLNESS? YES IS THE PATIENT'S HISTORY OF THE INJURY/ILLNESS CONSISTENT WITH YOUR OBJECTIVE FINDING? YES WHAT IS THE PERCENTAGE OF TEMPORARY IMPAIRMENT? MODERATE TO MARKED = 66.7% IS THE PATIENT WORKING? NO DOCTOR ON SITE: CANDICE POLLARD MD PROCEDURE CODES FA211 ESTABILISHED PATIENT [facility] FACILITY CHARGE DISPOSITION & COMMUNICATION FOLLOW UP 2 WEEKS ELECTRONICALLY SIGNED BY ROB NAVARRO ON 02/03/2017 AT 04:59 PM EST DISCLAIMER : THIS IS A VISIT SUMMARY EXTRACTED FROM THE [employer] CHART. IT IS NOT A COPY OF THE [employer] PROGRESS NOTE. DIMAS
== END ==
LOC: M PAIN 08:30
PROVIDERS: ATTEND Nurse Practitioner Family
DX: M51.26 Other intervertebral disc displacement, lumbar region (principal); M96.1 Postlaminectomy syndrome, not elsewhere classified; Z79.891 Long term (current) use of opiate analgesic; M53.3 Sacrococcygeal disorders, not elsewhere classified; G89.29 Other chronic pain; E03.9 Hypothyroidism, unspecified; K21.9 Gastro-esophageal reflux disease without esophagitis; Z79.899 Other long term (current) drug therapy; Z96.9 Presence of functional implant, unspecified; Z88.8 Allergy status to other drugs, medicaments and biological substances; Z91.013 Allergy to seafood

== ENCOUNTER → 2017-01-27 | Outpatient (CLI) | payer OTHER, MEDICARE ==
--- NOTE | 2017-01-28 00:20 | ECWPNPC ---
PATIENT NAME: AIRAM PERERA : 1960 GENDER: FEMALE VISIT DATE: 01/27/2017 DISCHARGE DATE: 01/27/17 09 VISIT LOCKED DATE TIME: PHYSICIAN: HERIBERTO FORBES PHYSICIAN PAGER NO: [phone] RESOURCE: HERIBERTO FORBES REASON FOR APPOINTMENT 1. LOW BACK, 2 WEEK FOLLOWUP HISTORY OF PRESENT ILLNESS HISTORY OF PRESENT ILLNESS: PAIN THE PATIENT DESCRIBES THE PAIN... THE PATIENT DESCRIBES THE PAIN... THE PATIENT DESCRIBES THE PAIN... THE PATIENT DESCRIBES THE PAIN... THE PATIENT DESCRIBES THE PAIN... THE PATIENT DESCRIBES THE PAIN... HERE FOR F/U .HX OF CHRONIC LBP AND LEFT FOOT PAIN DUE TO WORK RELATED INJURY IN 1986. CHIEF AREA OF PAIN IS LEFT FOOT TODAY. RATING PAIN VAS 8/10.STATES DCS HAS TO BE REVISED. SHE HAS BEEN REFERRED TO DR. RAMY AMIN AND JUNITO LEMUS TO BE EVALUATED FOR DCS REMOVAL AND REPLACEMENT. I CONFIRMED THIS WITH ERIKA KING PAIN MEDICATION FOR HER WORK RELATED INJURY:1. CELEBREX 200MG BID2. LYRICA 200MG BID3.ULTRACET 37.5/325 2 TAB PO Q4-6 H PRN PAIN-USING THIS MEDICATION FOR MODERATE PAIN.PAIN VAS 5-7/104.HYDROCODONE 5/325 1 TAB PO Q6H PRN SEVERE PAIN.PAIN VAS 8-10/10. FALL RISK SCREENING: SCREENING :NO FALLS IN THE PAST YEAR CURRENT MEDICATIONS UNKNOWN FOLIC ACID 1 MG TABLET 2 TABLETS ORALLY ONCE A DAY UNKNOWN EPIPEN 0.3 MG/0.3ML (1:1000) DEVICE DIRECTED INTRAMUSCULAR NEEDED FOR ALLERGIC REACTION UNKNOWN ANUSOL-HC 2.5 % CREAM 1 APPLICATION TO AFFECTED AREA RECTAL TWICE A DAY UNKNOWN PLAQUENIL 200 MG TABLET 1 TABLET WITH FOOD OR MILK ORALLY BID UNKNOWN SULFASALAZINE 500 MG TABLET 1 TABLET ORALLY BID UNKNOWN EILEEN INTERMIT FEMALE CATHETER #14 FR STRAIGHT TIP DIRECTED USE FOR CIC 4-5 TIMES/DAY (PATIENT NUMBER [id number]) UNKNOWN OMEPRAZOLE 40MG CAPSULE DELAYED RELEASE 1 CAPSULE ORALLY DAILY UNKNOWN OXYBUTYNIN CHLORIDE ER 10 MG TABLET EXTENDED RELEASE 24 HOUR 1 TABLET ORALLY ONCE A DAY UNKNOWN SYNTHROID 25 MCG TABLET 1 TAB(S) ORALLY ONCE A DAY UNKNOWN BUPROPION HCL ER (SR) 200MG TABLET EXTENDED RELEASE 12 HOUR TAKE ONE TABLET BY MOUTH TWICE DAILY UNKNOWN ELAVIL 50 MG TABLET 1 TAB(S) ORAL 9CHRONIC PAIN CODE D) AT BEDTIME UNKNOWN LYRICA 200 MG CAPSULE 1 CAP ORALLY (CODE D FOR CHRONIC PAIN) BID FOR PAIN MDD2 UNKNOWN CELEBREX 200 MG CAPSULE 1 CAPSULE P.O. TWICE A DAY UNKNOWN HYDROCODONE-ACETAMINOPHEN 5-325 MG TABLET 1 TABLET NEEDED ORALLY EVERY 6 HRS PRN FOR PAIN MDD2 (3MOS SUPPLY CODE D CHRONIC PAIN) UNKNOWN ULTRACET 37.5-325 MG TABLET 2 TABLETS ORALLY Q8H PRN FOR PAIN MDD2( 3MOS SUPPLY CODE D CHRONIC PAIN) UNKNOWN LEVOFLOXACIN 500 MG TABLET 1 TABLET ORALLY ONCE A DAY UNKNOWN ZYRTEC ALLERGY 10 MG TABLET 1 TABLET ORALLY ONCE A DAY UNKNOWN BACTRIM DS 800-160 MG TABLET 1 TABLET ORALLY EVERY 12 HOURS UNKNOWN WELLBUTRIN SR 200 MG TABLET EXTENDED RELEASE 12 HOUR 1 TABLET ORALLY TWICE A DAY UNKNOWN PSEUDOEPHEDRINE HCL 60 MG TABLET 1 TABLET NEEDED ORALLY EVERY 6 HRS MEDICATION LIST REVIEWED AND RECONCILED WITH THE PATIENT PAST MEDICAL HISTORY DEGENERATIVE DISC DISEASE AT L5-S1 STATUS POST LAMINECTOMY CHRONIC LOW BACK PAIN (SECONDARY TO INJURY TO HER LOW BACK/COMPENSATION CASE) (DR. ZAMORA) NEUROGENIC BOWEL AND BLADDER SUBSEQUENT TO UNDERGOING BACK SURGERY REQUIRES SELF CATHETERIZATION RECURRENT URINARY TRACT INFECTION () CHRONIC CONSTIPATION DEPRESSION RHEUMATOID ARTHRITIS (DR. ENGLAND) RESTLESS LEG SYNDROME WITH LEFT FOOT DROP OSTEOPENIA LEFT FEMUR DEXA 07/06/16 ANEMIA HAS A DORSAL COLUMN STIMULATOR-- NO MRIS ECHO 08/30/07 - EF 60% NO VALVULAR ABNORMALITIES DEVELOPED BILATERAL PHLEBITIS WITH BCP YRS AGO DVT BILATERAL LOWER LEGS AT AGE 16 HOSPITALIZED ON [facility] AT THE TIME HYPOTHYROID HYPERLIPIDEMIA--ASCVD 10 YR RISK < 2% (08/03) SLEEP APNEA- CPAP MACHINE USED ALLERGIES GABATROL: ITCHING/ TREMORS: ALLERGY SHELLFISH: ANGEIOEDEMA: ALLERGY ATIVAN: SUICIDAL THOUGHTS: ALLERGY CYMBALTA: FATIGUE: SIDE EFFECTS SOCIAL HISTORY GENERAL: TOBACCO USE ARE YOU A:NONSMOKER NEVER SMOKER BMI CARE GOAL FOLLOW-UP ABOVE NORMAL BMI FOLLOW-UPGIVING ENCOURAGEMENT TO EXERCISE ALCOHOL SCREENING DID YOU HAVE A DRINK CONTAINING ALCOHOL IN THE PAST YEAR?YES HOW OFTEN DID YOU HAVE SIX OR MORE DRINKS ON ONE OCCASION IN THE PAST YEAR?NEVER (0 POINTS) HOW MANY DRINKS DID YOU HAVE ON A TYPICAL DAY WHEN YOU WERE DRINKING IN THE PAST YEAR?1 OR 2 (0 POINTS) HOW OFTEN DID YOU HAVE A DRINK CONTAINING ALCOHOL IN THE PAST YEAR?MONTHLY OR LESS (1 POINT) POINTS1 INTERPRETATIONNEGATIVE RECREATIONAL DRUG USE DRUG USE?NO CAFFEINE CAFFEINE USE?NO SEXUAL HX HAD SEX IN THE LAST 12 MONTHS (VAGINAL, ORAL, OR ANAL)?NO LMP:HYSTER HAVE YOU EVER HAD AN STD?NO OCCUPATION: DISABLED. DIET: REGULAR. MARITAL STATUS: . OTHERS AT HOME: SPOUSE. PETS: 1 DOG,1 CAT. 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 LEARNING BARRIERS / SPECIAL NEEDS CHANGE FROM LAST VISIT?NO BARRIERS TO LEARNING?NO HEARING IMPAIRED?NO VISION IMPAIRED?YES :CORRECTIVE LENSES COGNITIVELY IMPAIRED?NO READINESS TO LEARN?YES LEARNING PREFERENCES?NO LEARNING CAPABILITIES PRESENT?YES EMOTIONAL BARRIERS?NO SPECIAL DEVICES?NO CHRISTIAN COUNSELOR NEEDED?NO NEW PATIENT PAIN DIARY TODAY'S VISIT NOTES, FROM 0-10, WHAT LEVEL IS YOUR PAIN TODAY? 0. PAIN CLINIC PFS, CLERGY, PUBLIC HEALTH REFERRALS HAS THE PATIENT BEEN EDUCATED REGARDING HIS/HER PLAN OF CARE?YES HAS THE PATIENT BEEN EDUCATED REGARDING PAIN, THE RISK FOR PAIN, THE IMPORTANCE OF EFFECTIVE PAIN MANAGEMENT, AND THE PAIN ASSESSMENT PROCESS?YES REVIEW OF SYSTEMS REVIEWED BY: PROVIDER: HERIBERTO RIVAS . CONSTITUTIONAL: ANY CHANGE IN YOUR MEDICAL CONDITION? PT HAD BX OF RIGHT SHOULDER LAST WEEK . CHILLS NO . FEVER NO . INFECTION: DO YOU HAVE NEW INFECTIONS? NO . DO YOU HAVE HISTORY OF MRSA? NO . MUSCULOSKELETAL: ANY NEW PATTERNS OF PAIN OR NUMBNESS? NO . GASTROENTEROLOGY: ANY NEW CHANGE IN BOWEL CONTROL? NO . GENITOURINARY: ANY NEW CHANGE IN BLADDER CONTROL? NO . IS THERE A CHANCE YOU COULD BE ? NO . HEMATOLOGY/LYMPH: DO YOU TAKE ANY BLOOD THINNERS? (FOR EXAMPLE- COUMADIN, PLAVIX, AGGRENOX, PLATEL, PRADAXA, OR XARELTO) NO . WHEN WAS YOUR LAST DOSE? DATE: TIME: . NEUROLOGY: HAVE YOU FALLEN IN THE PAST 6 MONTHS? NO . ANY NEW EXTREMITY NUMBNESS OR WEAKNESS? NO . CARDIOLOGY: DO YOU HAVE A PACEMAKER OR DEFIBRILLATOR? NO . RESPIRATORY: HAVE YOU BEEN SICK IN THE PAST WEEK? NO . FEVER NO . FLU LIKE SYMPTOMS? NO . COUGH NO . INTEGUMENTARY: DO YOU HAVE ANY RASHES OR OPEN SORES? NO . ALLERGIC/IMMUNO: ARE YOU ALLERGIC TO SHELLFISH OR IV DYE? NO . ANY NEW ALLERGIES? NO . PSYCHIATRIC: DO YOU HAVE THOUGHTS OF HURTING YOURSELF OR SOMEONE ELSE? NO . ARE YOU ABUSED, NEGLECTED, OR IN AN UNSAFE ENVIRONMENT? NO . ENDOCRINOLOGY: ARE YOU DIABETIC? NO . OTHER: DO YOU NEED ANY PRESCRIPTIONS? NO . IF YES, PLEASE LIST: ____ . ANY NEW PROBLEMS WITH YOUR MEDICATIONS? NO . WHEN DID YOU LAST EAT? ____ . WHEN DID YOU LAST DRINK? ____ . WHAT DID YOU LAST DRINK? ____ . NAME OF PERSON DRIVING YOU HOME? ____ . DO YOU HAVE ANY OTHER QUESTIONS OR CONCERNS NO . VITAL SIGNS WT 185 LBS, HT 66 IN, BMI 29.86 INDEX, BP 150/71 MM HG, HR 84 /MIN, RR 16 /MIN, TEMP 97.5 F, OXYGEN SAT % 94%, NA INITIALS SC 08:57. EXAMINATION GENERAL EXAMINATION: LUNGS:LUNG SOUNDS ARE CLEAR. HEART:HEART RATE REGULAR. MUSCULOSKELETAL:*, MUSCLE STRENGTH TESTING 5/5 RLE, 3/5 LLE. MARKED DISCOLORATION OVER LEFT FOOT NON TENDER OVER RIGHT SIJ. ASSESSMENTS LOW BACK PAIN DUE TO DISPLACEMENT OF INTERVERTEBRAL DISC - M51.26 (PRIMARY) POST LAMINECTOMY SYNDROME - M96.1 CHRONIC PRESCRIPTION OPIATE USE - Z79.899 SACROILIAC JOINT PAIN - M53.3 TREATMENT LOW BACK PAIN DUE TO DISPLACEMENT OF INTERVERTEBRAL DISC CONTINUE LYRICA CAPSULE, 200 MG, 1 CAP, ORALLY (CODE D FOR CHRONIC PAIN), BID FOR PAIN MDD2 CONTINUE CELEBREX CAPSULE, 200 MG, 1 CAPSULE, P.O., TWICE A DAY CONTINUE HYDROCODONE-ACETAMINOPHEN TABLET, 5-325 MG, 1 TABLET NEEDED, ORALLY, EVERY 6 HRS PRN FOR PAIN MDD2 (3MOS SUPPLY CODE D CHRONIC PAIN) REFILL ULTRACET TABLET, 37.5-325 MG, 2 TABLETS, ORALLY, Q8H PRN FOR PAIN MDD2( 3MOS SUPPLY CODE D CHRONIC PAIN), 90 DAYS, 180, REFILLS 0 PROCEDURES PN WORKMANS' COMP OPINION IN YOUR OPINION, WAS THE INCIDENT THAT THE PATIENT DESCRIBED THE COMPETENT MEDICAL CAUSE OF THIS INJURY/ILLNESS? YES ARE THE PATIENT'S COMPLAINTS CONSISTENT WITH HIS/HER HISTORY OF THE INJURY/ILLNESS? YES IS THE PATIENT'S HISTORY OF THE INJURY/ILLNESS CONSISTENT WITH YOUR OBJECTIVE FINDING? YES WHAT IS THE PERCENTAGE OF TEMPORARY IMPAIRMENT? MARKED = 75% IS THE PATIENT WORKING? NO DOCTOR ON SITE: CANDICE POLLARD MD DISPOSITION & COMMUNICATION FOLLOW UP 4 WEEKS ELECTRONICALLY SIGNED BY ROB NAVARRO ON 01/27/2017 AT 11:57 AM EST DISCLAIMER : THIS IS A VISIT SUMMARY EXTRACTED FROM THE [employer] CHART. IT IS NOT A COPY OF THE [employer] PROGRESS NOTE. DIMAS
== END ==
LOC: M PAIN 08:45
PROVIDERS: ATTEND Nurse Practitioner Family
DX: M96.1 Postlaminectomy syndrome, not elsewhere classified (principal); M51.26 Other intervertebral disc displacement, lumbar region; M53.3 Sacrococcygeal disorders, not elsewhere classified; E03.9 Hypothyroidism, unspecified; K21.9 Gastro-esophageal reflux disease without esophagitis; F32.9 Major depressive disorder, single episode, unspecified; D63.8 Anemia in other chronic diseases classified elsewhere; E78.2 Mixed hyperlipidemia; N31.9 Neuromuscular dysfunction of bladder, unspecified; G47.30 Sleep apnea, unspecified; M21.372 Foot drop, left foot; G25.81 Restless legs syndrome; M85.88 Other specified disorders of bone density and structure, other site; Z91.013 Allergy to seafood; Z88.8 Allergy status to other drugs, medicaments and biological substances; Z79.899 Other long term (current) drug therapy

== ENCOUNTER → 2017-04-06 | Outpatient (REF) | payer OTHER | LOC: M SMT 17:14 | DX: N39.0 Urinary tract infection, site not specified (principal) ==

== ENCOUNTER → 2017-04-06 | Outpatient (CLI) | payer OTHER | LOC: M PAIN 09:30 | DX: M51.26 Other intervertebral disc displacement, lumbar region (principal); M96.1 Postlaminectomy syndrome, not elsewhere classified; M53.3 Sacrococcygeal disorders, not elsewhere classified; M85.862 Other specified disorders of bone density and structure, left lower leg; F32.9 Major depressive disorder, single episode, unspecified; G25.81 Restless legs syndrome; E03.9 Hypothyroidism, unspecified; E78.5 Hyperlipidemia, unspecified; G47.30 Sleep apnea, unspecified; Z88.8 Allergy status to other drugs, medicaments and biological substances; Z91.013 Allergy to seafood; Z79.891 Long term (current) use of opiate analgesic; Z79.899 Other long term (current) drug therapy; Z96.89 Presence of other specified functional implants | CPT/HCPCS: G0463 ==

== ENCOUNTER → 2017-05-12 | Outpatient (REF) | payer OTHER ==
[2017-05-12 14:06] LABS: AMORPHOUS SEDIMENT MODERATE (NEGATIVE); APPEARANCE, URINE TURBID (CLEAR); BACTERIA, URINE AUTO 2+ (NEGATIVE); BILIRUBIN, URINE AUTO NEGATIVE (NEGATIVE); BLOOD, URINE BLOOD 3+ (NEGATIVE); COLOR, URINE YELLOW (YELLOW); GLUCOSE, URINE (UA) AUTO NEGATIVE (NEGATIVE); KETONE, URINE AUTO NEGATIVE (NEGATIVE); LEUKOCYTE ESTERASE, URINE AUTO 3+ (NEGATIVE); NITRITE, URINE AUTO POSITIVE (NEGATIVE); PROTEIN, URINE AUTO 3+ mg/dL (NEGATIVE); RBC, URINE AUTO TNTC /HPF (0-3); SQUAMOUS EPITHELIAL CELL UR AU 1 /HPF (0-6); UROBILINOGEN, URINE AUTO 0.2 mg/dL (0.0-2.0); WBC, URINE AUTO 101 /HPF (0-3)
== END ==
LOC: M SMT 12:52
DX: R31.9 Hematuria, unspecified (principal)

== ENCOUNTER → 2017-07-06 | Outpatient (CLI) | payer MEDICARE, OTHER | LOC: M WHC 08:11 | DX: Z12.31 Encounter for screening mammogram for malignant neoplasm of breast (principal); Z80.3 Family history of malignant neoplasm of breast; N81.10 Cystocele, unspecified; Z12.12 Encounter for screening for malignant neoplasm of rectum | CPT/HCPCS: 77067 ==

== ENCOUNTER → 2017-07-27 | Outpatient (CLI) | payer OTHER ==
[2017-07-27 10:24] LABS: EOS # 0.1 10^3/uL (0.0-0.50); EOS % 1.9 % (0.0-3.0); HEMATOCRIT 37.1 % (36.0-47.0); HEMOGLOBIN 11.8 g/dl (12.0-15.5); IMMATURE GRANULOCYTE % 0.7 % (0-3.0); LYMPH # 1.5 10^3/uL (1.5-4.5); LYMPH % 35.3 % (24.0-44.0); MEAN CORPUSCULAR HEMOGLOBIN 29.5 pg (27.0-33.0); MEAN CORPUSCULAR HGB CONC 31.8 g/dl (32.0-36.5); MEAN CORPUSCULAR VOLUME 92.8 fl (80.0-96.0); MONO # 0.5 10^3/uL (0.0-0.8); MONO % 11.1 % (0.0-5.0); NEUTROPHILS # 2.1 10^3/uL (1.8-7.7); PLATELET COUNT, AUTOMATED 203 10^3/uL (150-450); RED CELL DISTRIBUTION WIDTH 13.3 % (11.5-14.5); WHITE BLOOD COUNT 4.2 10^3/uL (4.0-10.0)
[2017-07-27 10:29] LABS: AMORPHOUS SEDIMENT SMALL (NEGATIVE); APPEARANCE, URINE HAZY (CLEAR); BACTERIA, URINE AUTO NEGATIVE (NEGATIVE); BILIRUBIN, URINE AUTO NEGATIVE (NEGATIVE); BLOOD, URINE BLOOD NEGATIVE (NEGATIVE); COLOR, URINE YELLOW (YELLOW); GLUCOSE, URINE (UA) AUTO NEGATIVE (NEGATIVE); KETONE, URINE AUTO NEGATIVE (NEGATIVE); LEUKOCYTE ESTERASE, URINE AUTO 2+ (NEGATIVE); MUCUS, URINE SMALL (NEGATIVE); NITRITE, URINE AUTO NEGATIVE (NEGATIVE); PROTEIN, URINE AUTO 1+ mg/dL (NEGATIVE); RBC, URINE AUTO 13 /HPF (0-3); SPECIFIC GRAVITY URINE AUTO 1.017 (1.002-1.035); SQUAMOUS EPITHELIAL CELL UR AU 1 /HPF (0-6); UROBILINOGEN, URINE AUTO 0.2 mg/dL (0.0-2.0); WBC, URINE AUTO 76 /HPF (0-3); YEAST LIKE CELL URINE AUTO MODERATE
[2017-07-27 10:36] LABS: PARTIAL THROMBOPLASTIN TIME 31.1 SECONDS (26.8-37.9)
[2017-07-27 10:41] LABS: ALBUMIN 3.7 GM/DL (3.2-5.2); ALBUMIN/GLOBULIN RATIO 1.19 (1.00-1.93); ALKALINE PHOSPHATASE 96 U/L (45-117); ALT/SGPT 15 U/L (12-78); ANION GAP 3 MEQ/L (8-16); AST/SGOT 13 U/L (7-37); BILIRUBIN,TOTAL 0.2 MG/DL (0.2-1.0); BLOOD UREA NITROGEN 16 MG/DL (7-18); CALCIUM LEVEL 8.7 MG/DL (8.5-10.1); CARBON DIOXIDE LEVEL 29 MEQ/L (21-32); CHLORIDE LEVEL 112 MEQ/L (98-107); CREATININE FOR GFR 0.74 MG/DL (0.55-1.30); GLOMERULAR FILTRATION RATE > 60.0 (>51); GLUCOSE, FASTING 94 MG/DL (70-100); POTASSIUM SERUM 4.1 MEQ/L (3.5-5.1); SODIUM LEVEL 144 MEQ/L (136-145); TOTAL PROTEIN 6.8 GM/DL (6.4-8.2)
[2017-07-27 10:49] LABS: INR 0.92; PROTHROMBIN TIME 12.4 SECONDS (12.4-14.5)
[2017-07-27 11:00] LABS: ESTIMATED AVERAGE GLUCOSE 105 MG/DL (60-110); HEMOGLOBIN A1c 5.3 %
== END ==
LOC: M LAB 09:33
DX: Z01.818 Encounter for other preprocedural examination (principal); M51.36 Other intervertebral disc degeneration, lumbar region; M51.35 Other intervertebral disc degeneration, thoracolumbar region; M40.204 Unspecified kyphosis, thoracic region; Z96.9 Presence of functional implant, unspecified
CPT/HCPCS: 72100

== ENCOUNTER → 2017-07-29 | Outpatient (REF) | payer MEDICARE | LOC: M SFHCADAM 11:59 | DX: Z01.818 Encounter for other preprocedural examination (principal) | CPT/HCPCS: 87070 ==

== ENCOUNTER → 2017-08-12 | Outpatient (REF) | payer MEDICARE | LOC: M LAB REF 13:17 | DX: R82.90 Unspecified abnormal findings in urine (principal) | CPT/HCPCS: 87086 ==

== ENCOUNTER → 2017-09-17 | Outpatient (CLI) | payer OTHER | LOC: M PAIN 09:45 | DX: M51.26 Other intervertebral disc displacement, lumbar region (principal); G89.29 Other chronic pain; F32.9 Major depressive disorder, single episode, unspecified; M06.9 Rheumatoid arthritis, unspecified; G25.81 Restless legs syndrome; M85.862 Other specified disorders of bone density and structure, left lower leg; E03.9 Hypothyroidism, unspecified; E78.5 Hyperlipidemia, unspecified; G47.30 Sleep apnea, unspecified; Z79.899 Other long term (current) drug therapy; Z88.8 Allergy status to other drugs, medicaments and biological substances; Z91.013 Allergy to seafood | CPT/HCPCS: G0463 ==

== ENCOUNTER → 2017-10-06 | Outpatient (CLI) | payer MEDICARE ==
[2017-10-06 13:10] LABS: HEMATOCRIT 37.3 % (36.0-47.0); HEMOGLOBIN 11.7 g/dl (12.0-15.5); MEAN CORPUSCULAR HEMOGLOBIN 29.7 pg (27.0-33.0); MEAN CORPUSCULAR HGB CONC 31.4 g/dl (32.0-36.5); MEAN CORPUSCULAR VOLUME 94.7 fl (80.0-96.0); PLATELET COUNT, AUTOMATED 206 10^3/uL (150-450); RED BLOOD COUNT 3.94 10^6/uL (4.00-5.40); RED CELL DISTRIBUTION WIDTH 13.4 % (11.5-14.5); WHITE BLOOD COUNT 4.7 10^3/uL (4.0-10.0)
[2017-10-06 13:52] LABS: ALBUMIN 3.5 GM/DL (3.2-5.2); ALBUMIN/GLOBULIN RATIO 1.06 (1.00-1.93); ALKALINE PHOSPHATASE 114 U/L (45-117); ALT/SGPT 19 U/L (12-78); ANION GAP 6 MEQ/L (8-16); AST/SGOT 13 U/L (7-37); BILIRUBIN,TOTAL 0.2 MG/DL (0.2-1.0); BLOOD UREA NITROGEN 17 MG/DL (7-18); CALCIUM LEVEL 8.2 MG/DL (8.5-10.1); CARBON DIOXIDE LEVEL 28 MEQ/L (21-32); CHLORIDE LEVEL 112 MEQ/L (98-107); CHOLESTEROL LEVEL 226 MG/DL (<200); CREATININE FOR GFR 0.71 MG/DL (0.55-1.30); FREE T4 1.04 NG/DL (0.76-1.46); GLOMERULAR FILTRATION RATE > 60.0 (>51); GLUCOSE, FASTING 97 MG/DL (70-100); HDL CHOLESTEROL 79 MG/DL (>40); LDL CHOLESTEROL 135.2 MG/DL (<100); NON-HDL-C 147 MG/DL; POTASSIUM SERUM 4.2 MEQ/L (3.5-5.1); SODIUM LEVEL 146 MEQ/L (136-145); TOTAL PROTEIN 6.8 GM/DL (6.4-8.2); TRIGLYCERIDES LEVEL 59 MG/DL (<150)
== END ==
LOC: M SMT 09:02
DX: F32.9 Major depressive disorder, single episode, unspecified (principal); D63.8 Anemia in other chronic diseases classified elsewhere; E78.2 Mixed hyperlipidemia; E03.9 Hypothyroidism, unspecified
CPT/HCPCS: 84443

== ENCOUNTER → 2017-12-22 | Outpatient (CLI) | payer OTHER, MEDICARE | LOC: M PAIN 10:00 | DX: M51.26 Other intervertebral disc displacement, lumbar region (principal); G90.529 Complex regional pain syndrome I of unspecified lower limb; F32.9 Major depressive disorder, single episode, unspecified; M06.9 Rheumatoid arthritis, unspecified; G25.81 Restless legs syndrome; E03.9 Hypothyroidism, unspecified; G47.30 Sleep apnea, unspecified; M85.852 Other specified disorders of bone density and structure, left thigh; Z79.891 Long term (current) use of opiate analgesic; Z88.8 Allergy status to other drugs, medicaments and biological substances; Z91.013 Allergy to seafood; Z96.9 Presence of functional implant, unspecified; Z91.81 History of falling; Z86.2 Personal history of diseases of the blood and blood-forming organs and certain disorders involving the immune mechanism | CPT/HCPCS: G0463 ==

== ENCOUNTER → 2018-01-27 | Outpatient (CLI) | payer OTHER, MEDICARE | LOC: M PAIN 10:45 | DX: M53.3 Sacrococcygeal disorders, not elsewhere classified (principal); M51.26 Other intervertebral disc displacement, lumbar region; G90.529 Complex regional pain syndrome I of unspecified lower limb; F32.9 Major depressive disorder, single episode, unspecified; M06.9 Rheumatoid arthritis, unspecified; M85.88 Other specified disorders of bone density and structure, other site; G25.81 Restless legs syndrome; N31.9 Neuromuscular dysfunction of bladder, unspecified; K59.2 Neurogenic bowel, not elsewhere classified; E03.9 Hypothyroidism, unspecified; E78.5 Hyperlipidemia, unspecified; G47.30 Sleep apnea, unspecified; Z79.899 Other long term (current) drug therapy; Z88.8 Allergy status to other drugs, medicaments and biological substances; Z91.013 Allergy to seafood; Z86.79 Personal history of other diseases of the circulatory system | CPT/HCPCS: G0463 ==

== ENCOUNTER → 2018-02-23 | Outpatient (CLI) | payer MEDICARE | LOC: M ADAMS 16:03 | DX: M17.11 Unilateral primary osteoarthritis, right knee (principal); M25.561 Pain in right knee | CPT/HCPCS: 73564 ==

== ENCOUNTER → 2018-03-07 | Outpatient (CLI) | payer OTHER ==
[~2018-03-07] MED LIST changes: +BUPIVACAINE HCL 0.25% 30 ML VIAL As Ordered ONE; -FOLI1TAB4 PO; +FOLI1TAB5 PO; +ISOVUE-M 300 61% 15ML VIAL (Q9967) As Ordered ONE; +LIDOCAINE 1% SDV INJ 30 ML VIAL As Ordered ONE; +METH2.5T48 PO; -METH2.5TA PO; +TRIAMCINOLONE ACETONIDE SUSP 40 MG/ML VIAL (J3301) As Ordered ONE
--- NOTE | 2018-03-07 14:56 | REP ---
SI joint series: Four views. Right-sided. History: Right SI joint injection for pain. 21 seconds of fluoroscopy time is reported. Findings: A sequence of four last image hold fluoroscopically obtained spot radiographs of the right SI joint document various needle positions and contrast injections associated with SI joint injection procedure. Electronically Signed by Jordi Martinez MD 03/07/2018 08:09 P
--- NOTE | 2018-03-22 23:46 | ECWPNPC ---
PATIENT NAME: AIRAM PERERA : 1960 GENDER: FEMALE VISIT DATE: 03/07/2018 DISCHARGE DATE: 03/07/18 1051 VISIT LOCKED DATE TIME: PHYSICIAN: CANDICE MELARA MD PHYSICIAN PAGER NO: [phone] RESOURCE: CANDICE MELARA MD REASON FOR APPOINTMENT 1. RIGHT SIJ STEROID INJECTION W/C HISTORY OF PRESENT ILLNESS DEPRESSION SCREENING: PHQ-2 IN LAST TWO WEEKS HAVE YOU BEEN BOTHERED BY LITTLE INTEREST OR PLEASURE IN DOING THINGSNO FEELING DOWN, DEPRESSED, OR HOPELESSNO HISTORY OF PRESENT ILLNESS: PAIN THE PATIENT DESCRIBES THE PAIN... FALL RISK SCREENING: SCREENING :NO FALLS IN THE PAST YEAR CURRENT MEDICATIONS TAKING BROOKS INTERMIT FEMALE CATHETER #14 FR STRAIGHT TIP ATTENTION REFERRAL [facility] AT [employer] USE FOR CIC FOR URINARY RETENTION 4-5 TIMES/DAY (CLAIM # [id number]) TAKING FOLIC ACID 1 MG TABLET 2 TABLETS ORALLY ONCE A DAY, NOTES: 03/06/18 0800 TAKING MUCINEX DM MAXIMUM STRENGTH 60-1200 MG TABLET EXTENDED RELEASE 12 HOUR 1 TABLET NEEDED ORALLY TWICE A DAY, NOTES: NONE RECENT TAKING SUDAFED 30 MG TABLET 1 TABLET NEEDED ORALLY EVERY 6 HRS, NOTES: NONE RECENT TAKING PLAQUENIL 200 MG TABLET 1 TABLET WITH FOOD OR MILK ORALLY BID, NOTES: 03/04/18 0800 TAKING SULFASALAZINE 500 MG TABLET 2 TABLETS ORALLY BID, NOTES: 03/06/18 220 TAKING MACROBID 100 MG CAPSULE 1 CAPSULE WITH FOOD ORALLY DAILY, NOTES: 03/06/18 0800 TAKING HYDROCODONE-ACETAMINOPHEN 5-325 MG TABLET 1 TABLET NEEDED ORALLY EVERY 6 HRS PRN FOR PAIN MDD2 (3MOS SUPPLY CODE D CHRONIC PAIN), NOTES: WEEKS AGO TAKING ULTRACET 37.5-325 MG TABLET 2 TABLETS ORALLY Q8H PRN FOR PAIN MDD2( 3MOS SUPPLY CODE D CHRONIC PAIN), NOTES: 03/06/18 1200 TAKING OMEPRAZOLE 40MG CAPSULE DELAYED RELEASE 1 CAPSULE ORALLY DAILY, NOTES: 03/06/18 0800 TAKING LYRICA 200 MG CAPSULE 1 CAP ORALLY (CODE D FOR CHRONIC PAIN) BID MDD2, NOTES: 03/06/18 220 ATTN: ANTWON ACCOUNT TAKING CELEBREX 200 MG CAPSULE 1 CAPSULE P.O. BID, NOTES: 03/06/182199 ATTN: ANTWON ACCOUNT TAKING OXYBUTYNIN CHLORIDE ER 10 MG TABLET EXTENDED RELEASE 24 HOUR 1 TABLET ORALLY ONCE A DAY, NOTES: 03/06/18799 TAKING ELAVIL 50 MG TABLET 1 TAB(S) ORAL AT BEDTIME, NOTES: 03/06/182199 TAKING SYNTHROID 25MCG TABLET 1 TAB(S) ORALLY ONCE A DAY, NOTES: 03/06/18799 TAKING WELLBUTRIN SR 200 MG TABLET EXTENDED RELEASE 12 HOUR 1 TABLET ORALLY TWICE A DAY, NOTES: 03/06/182199 TAKING FLUOXETINE HCL 10 MG CAPSULE 1 CAPSULE ORALLY ONCE A DAY, NOTES: 03/06/18799 NOT-TAKING SHINGRIX 50 MCG SUSPENSION RECONSTITUTED DIRECTED INTRAMUSCULAR DIRECTED NOT-TAKING SOMA 350 MG TABLET 1 TABLET NEEDED ORALLY 2 TIMES A DAY NEEDED NOT-TAKING CIPROFLOXACIN HCL 500 MG TABLET 1 TABLET ORALLY EVERY 12 HRS MEDICATION LIST REVIEWED AND RECONCILED WITH THE PATIENT PAST MEDICAL HISTORY DEGENERATIVE DISC DISEASE AT L5-S1 STATUS POST LAMINECTOMY CHRONIC LOW BACK PAIN (SECONDARY TO INJURY TO HER LOW BACK/COMPENSATION CASE) (DR. ZAMORA) NEUROGENIC BOWEL AND BLADDER SUBSEQUENT TO UNDERGOING BACK SURGERY REQUIRES SELF CATHETERIZATION RECURRENT URINARY TRACT INFECTION () CHRONIC CONSTIPATION DEPRESSION RHEUMATOID ARTHRITIS (DR. ENGLAND) RESTLESS LEG SYNDROME WITH LEFT FOOT DROP OSTEOPENIA LEFT FEMUR DEXA 07/06/16 ANEMIA HAS A DORSAL COLUMN STIMULATOR-- NO MRIS ECHO 08/30/07 - EF 60% NO VALVULAR ABNORMALITIES DEVELOPED BILATERAL PHLEBITIS WITH BCP YRS AGO DVT BILATERAL LOWER LEGS AT AGE 16 HOSPITALIZED ON [facility] AT THE TIME HYPOTHYROID HYPERLIPIDEMIA--ASCVD 10 YR RISK < 2% (08/03) SLEEP APNEA- CPAP MACHINE USED ALLERGIES GABATROL: ITCHING/ TREMORS: ALLERGY SHELLFISH: ANGEIOEDEMA: ALLERGY ATIVAN: SUICIDAL THOUGHTS: ALLERGY CYMBALTA: FATIGUE: SIDE EFFECTS SURGICAL HISTORY EGD/COLONOSCOPY ADENOMATOUS HYPERPLASTIC POLYP 08/2009 D&C, LAPROSCOPY YRS AGO CONE BIOPSY AFTER ABNORMAL PAPS LAVH -DUE TO EXCESSIVE BLEEDING AND FIBROIDS- 2006 COLONOSCOPY - 3 DIMINUTIVE POLYPS, INTERNAL HEMORRHOIDS, LONG REDUNDANT COLON PRONE TO IRREGULARITY/CONSTIPATION/INCOMPLETE EMPTYING (DR. RODRIGUEZ) 10/28/12 EGD - NORMAL 10/28/12 CYSTOLITHOLAPAXY 09/06/15 DORSAL COLUMN STIMULATOR REPLACEMENT AND LAMINECTOMY 08/2017 FAMILY HISTORY FATHER: ALIVE 92 YRS, COLON POLYP (PRECANCEROUS), SKIN CANCER, ATELECTASIS PARKINSONISM, DEMENTIA, DIAGNOSED WITH OTHER MOTHER: , DM, BREAST CANCER (DX IN HER 70S), STROKE, DEMENTIA, DIAGNOSED WITH DIABETES, CANCER SIBLINGS: SISTER WITH HTN AND EPILEPSY, ANOTHER SISTER WITH HTN AND POLYMYALGIA, DIAGNOSED WITH HYPERTENSION DAUGHTER(S): OLDEST WITH SEVERE ENDOMETRIOSIS WITH BOWEL AND BLADDER INVOLVEMENT, DEPRESSION, BACK PROBLEMS. FIBROMYALGIA YOUNGEST, NO KNOWN MEDICAL PROBLEMS, DIAGNOSED WITH PSYCHIATRIC CONDITIONS PATERNAL AUNT: BREAST CANCER, DX IN 70 2 SISTER(S) . 2DAUGHTER(S) . DENIES COLON OR OVARIAN CANCERS., NO KNOWN FAMILY HISTORY OF ANY UROLOGICALLY RELATED DISEASES/CANCERS. GRANDDAUGHTER YE WITH LEUKEMIA. SOCIAL HISTORY GENERAL: TOBACCO USE ARE YOU A:NONSMOKER NEVER SMOKER BMI CARE GOAL FOLLOW-UP ABOVE NORMAL BMI FOLLOW-UPGIVING ENCOURAGEMENT TO EXERCISE ALCOHOL SCREENING DID YOU HAVE A DRINK CONTAINING ALCOHOL IN THE PAST YEAR?YES HOW OFTEN DID YOU HAVE A DRINK CONTAINING ALCOHOL IN THE PAST YEAR?MONTHLY OR LESS (1 POINT) HOW MANY DRINKS DID YOU HAVE ON A TYPICAL DAY WHEN YOU WERE DRINKING IN THE PAST YEAR?1 OR 2 (0 POINTS) HOW OFTEN DID YOU HAVE SIX OR MORE DRINKS ON ONE OCCASION IN THE PAST YEAR?NEVER (0 POINTS) POINTS1 INTERPRETATIONNEGATIVE RECREATIONAL DRUG USE DRUG USE?NO CAFFEINE CAFFEINE USE?NO SEXUAL HX HAD SEX IN THE LAST 12 MONTHS (VAGINAL, ORAL, OR ANAL)?NO HAVE YOU EVER HAD AN STD?NO LMP:HYSTER HIV / HEP-C SCREENING HIV TEST OFFERED TO PATIENT:YES DATE OFFERED:07/06/2017 TEST ACCEPTED:NO REASON:PATIENT DECLINED BROCHURE PROVIDED TO PATIENTYES HEP-C TEST OFFERED TO PATIENT:YES DATE OFFERED:07/06/2017 TEST ACCEPTED:NO REASON:PATIENT DECLINED MORMONISM MORMONISM NO PREFERENCE LANGUAGE [employer]. EDUCATION LEVEL OF EDUCATION:[employer] LEARNING BARRIERS / SPECIAL NEEDS CHANGE FROM LAST VISIT?NO BARRIERS TO LEARNING?NO HEARING IMPAIRED?NO VISION IMPAIRED?YES :CORRECTIVE LENSES COGNITIVELY IMPAIRED?NO READINESS TO LEARN?YES LEARNING PREFERENCES?NO LEARNING CAPABILITIES PRESENT?YES EMOTIONAL BARRIERS?NO SPECIAL DEVICES?NO SERVICE MECHANIC NEEDED?NO OCCUPATION: DISABLED. DIET: TRYING REDUCE CALORIES AT THIS TIME. EXERCISE: NO CURRENT EXERCISE , TRIES TO WALK. MARITAL STATUS: . OTHERS AT HOME: SPOUSE. NEW PATIENT PAIN DIARY TODAY'S VISITNOTES FROM 0-10, WHAT LEVEL IS YOUR PAIN TODAY?1 PAIN CLINIC PFS, CLERGY, PUBLIC HEALTH REFERRALS HAS THE PATIENT BEEN EDUCATED REGARDING HIS/HER PLAN OF CARE?YES HAS THE PATIENT BEEN EDUCATED REGARDING PAIN, THE RISK FOR PAIN, THE IMPORTANCE OF EFFECTIVE PAIN MANAGEMENT, AND THE PAIN ASSESSMENT PROCESS?YES ADVANCE DIRECTIVE ADVANCE DIRECTIVE DISCUSSED WITH PATIENT:YES HCP - NOE PERERA () REVIEWED WITH PT 12-22-17 1001 BVREVIEWED WITH PATIENT 01/27/18 1127 JSREVIEWED WITH PATIENT 03/07/18 0916 JS. HOSPITALIZATION/MAJOR DIAGNOSTIC PROCEDURE SX RELATED REVIEW OF SYSTEMS REVIEWED BY: PROVIDER: . CONSTITUTIONAL: ANY CHANGE IN YOUR MEDICAL CONDITION? NO . CHILLS NO . FEVER NO . INFECTION: DO YOU HAVE NEW INFECTIONS? NO . DO YOU HAVE HISTORY OF MRSA? NO . MUSCULOSKELETAL: ANY NEW PATTERNS OF PAIN OR NUMBNESS? NO . GASTROENTEROLOGY: ANY NEW CHANGE IN BOWEL CONTROL? NO . GENITOURINARY: ANY NEW CHANGE IN BLADDER CONTROL? NO . IS THERE A CHANCE YOU COULD BE ? NO . HEMATOLOGY/LYMPH: DO YOU TAKE ANY BLOOD THINNERS? (FOR EXAMPLE- COUMADIN, PLAVIX, AGGRENOX, PLATEL, PRADAXA, OR XARELTO) NO . WHEN WAS YOUR LAST DOSE? DATE: TIME: . NEUROLOGY: HAVE YOU FALLEN IN THE PAST 6 MONTHS? YES, STATES FALL RELATED TO LEGS GOING OUT ON HER. STATES NO INJURIES, NO ED VISIT, NO IMAGING . ANY NEW EXTREMITY NUMBNESS OR WEAKNESS? NO . CARDIOLOGY: DO YOU HAVE A PACEMAKER OR DEFIBRILLATOR? NO . RESPIRATORY: HAVE YOU BEEN SICK IN THE PAST WEEK? NO . FEVER NO . FLU LIKE SYMPTOMS? NO . COUGH NO . INTEGUMENTARY: DO YOU HAVE ANY RASHES OR OPEN SORES? NO . ALLERGIC/IMMUNO: ARE YOU ALLERGIC TO SHELLFISH OR IV DYE? NO . ANY NEW ALLERGIES? NO . PSYCHIATRIC: DO YOU HAVE THOUGHTS OF HURTING YOURSELF OR SOMEONE ELSE? NO . ARE YOU ABUSED, NEGLECTED, OR IN AN UNSAFE ENVIRONMENT? NO . ENDOCRINOLOGY: ARE YOU DIABETIC? NO . OTHER: DO YOU NEED ANY PRESCRIPTIONS? NO . IF YES, PLEASE LIST: ____ . ANY NEW PROBLEMS WITH YOUR MEDICATIONS? NO . WHEN DID YOU LAST EAT? ____03/06/181999 . WHEN DID YOU LAST DRINK? ____03/06/18 2300 . WHAT DID YOU LAST DRINK? ____WATER . NAME OF PERSON DRIVING YOU HOME? ____DARWIN DANKS () . DO YOU HAVE ANY OTHER QUESTIONS OR CONCERNS NO . VITAL SIGNS WT 193.2 LBS, HT 66 IN, BMI 31.18 INDEX, BP 165/78 MM HG, HR 75 /MIN, RR 16 /MIN, TEMP 97.9 F, OXYGEN SAT % 93%, SAFE IN ENV? (Y/N) YES, NA INITIALS SC 09:13, REVIEWED BY: JS. ASSESSMENTS SACROILIITIS, NOT ELSEWHERE CLASSIFIED - M46.1 (PRIMARY) PROCEDURES PN SI PRE PROCEDURE DIAGNOSIS SACROILIITIS, SACROILIAC JOINT DYSFUNCTION POST PROCEDURE DIAGNOSIS SACROILIITIS, SACROILIAC JOINT DYSFUNCTION PROCEDURE RIGHT SACROILIAC JOINT BLOCK SURGEON DR. CANDICE MELARA CYCLE DIRECTOR NONE ANESTHESIA LOCAL PRE PROCEDURE NOTE PATIENT WITH HISTORY OF CHRONIC LOW BACK PAIN. I EVALUATED THE PATIENT AND REVIEWED THE CHART. I WENT OVER THE RISKS, ALTERNATIVES, AND BENEFITS ASSOCIATED WITH THIS PROCEDURE. THE PATIENT WOULD LIKE TO PROCEED AND GAVE CONSENT TO PERFORM THE PROCEDURE. THE PATIENT DENIES UNEXPLAINABLE WEIGHT LOSS, FEVER, CHILLS, OR NEW CHANGES IN URINARY OR BOWEL CONTROL DESCRIPTION OF PROCEDURE THE PATIENT WAS BROUGHT TO THE PROCEDURE ROOM AND PLACED IN THE PRONE POSITION. THE LUMBOSACRAL AREA WAS CLEANED WITH CHLORAPREP SOLUTION AND DRAPED ASEPTICALLY. THE PROCEDURE WAS DONE UNDER STERILE CONDITIONS. I CHECKED LATERALITY AND THE LEVEL WHERE THE PROCEDURE WAS GOING TO BE PERFORMED WITH THE PATIENT AND THE SUPPORTING STAFF AT THE MOMENT OF THE TIME OUT IN THE PROCEDURE ROOM. UNDER FLUOROSCOPIC GUIDANCE, TARGET POINT WAS SELECTED AT THE LOWER BORDER OF THE RIGHT SACROILIAC JOINT. TARGET POINT WAS SELECTED AFTER MEDIAL ROTATION AND TILT OF THE MAGNIFIER OF THE C-ARM. LIDOCAINE WAS USED TO NUMB THE SKIN AND SUBCUTANEOUS TISSUE BELOW IT. A SPINAL NEEDLE, 22-GAUGE, WAS ADVANCED UNDER FLUOROSCOPIC GUIDANCE AND FOLLOWING PATIENT FEEDBACK UNTIL THE TARGET AREA WAS TOUCHED. THE POSITION OF THE NEEDLE WAS VERIFIED WITH AP AND LATERAL VIEWS. AFTER PROPER POSITION OF THE NEEDLE WAS ACHIEVED, ISOVUE M DYE 30%, 0.25 ML, WAS INJECTED SHOWING SPREAD OF THE DYE. THEN, A SOLUTION OF 20 MG OF KENALOG WAS INJECTED IN RIGHT JOINT WITH 3 ML OF BUPIVACAINE 0.125%. THERE WAS NO EVIDENCE OF BLOOD, PARESTHESIA OR CEREBROSPINAL FLUID DURING THE PROCEDURE. THE PATIENT WAS SENT TO THE RECOVERY ROOM. THE PATIENT WAS MOVING THE EXTREMITIES AND DOING WELL. THERE WAS NO COMPLICATION DURING THE PROCEDURE. FLUOROSCOPY TIME WAS 21 SECONDS POST PROCEDURE NOTE THE PATIENT WILL BE SEEN IN A FOLLOW UP IN THE NEXT FEW WEEKS. INSTRUCTIONS WERE GIVEN, QUESTIONS WERE ANSWERED, AND THE PATIENT EXPRESSED UNDERSTANDING AND AGREED WITH THE PLAN. I, ROSINA MCCORMICK, DOCUMENTED THE ABOVE INFORMATION ACTING A SCRIBE FOR DR. MELARA. I HAVE REVIEWED THE ABOVE DOCUMENT, WRITTEN BY ROSINA MCDONALDIBRocio AND I VERIFY THAT IT IS ACCURATE. PN WORKMANS' COMP OPINION IN YOUR OPINION, WAS THE INCIDENT THAT THE PATIENT DESCRIBED THE COMPETENT MEDICAL CAUSE OF THIS INJURY/ILLNESS? YES ARE THE PATIENT'S COMPLAINTS CONSISTENT WITH HIS/HER HISTORY OF THE INJURY/ILLNESS? YES IS THE PATIENT'S HISTORY OF THE INJURY/ILLNESS CONSISTENT WITH YOUR OBJECTIVE FINDING? YES WHAT IS THE PERCENTAGE OF TEMPORARY IMPAIRMENT? MARKED = 75% IS THE PATIENT WORKING? NO DOCTOR ON SITE: CANDICE POLLARD MD DIAGNOSTIC IMAGING [facility] FLUORO GUIDANCE (PAIN)[id number] PROCEDURE CODES 6045F RADXPS IN END [id number] PXD [id number] INJECT SACROILIAC JOINT, MODIFIERS: RT DISPOSITION & COMMUNICATION FOLLOW UP 3 WEEKS ELECTRONICALLY SIGNED BY CANDICE MELARA MD, MD ON 03/22/2018 AT 07:19 PM EST DISCLAIMER : THIS IS A VISIT SUMMARY EXTRACTED FROM THE [employer] CHART. IT IS NOT A COPY OF THE [employer] PROGRESS NOTE. MTDHieu
== END ==
LOC: M PAIN 08:45
PROVIDERS: ATTEND Anesthesiology
DX: M46.1 Sacroiliitis, not elsewhere classified (principal); M51.37 Other intervertebral disc degeneration, lumbosacral region; K59.09 Other constipation; N31.9 Neuromuscular dysfunction of bladder, unspecified; K59.2 Neurogenic bowel, not elsewhere classified; Z87.440 Personal history of urinary (tract) infections; F32.9 Major depressive disorder, single episode, unspecified; M06.9 Rheumatoid arthritis, unspecified; G25.81 Restless legs syndrome; M85.862 Other specified disorders of bone density and structure, left lower leg; D64.9 Anemia, unspecified; Z86.718 Personal history of other venous thrombosis and embolism; E03.9 Hypothyroidism, unspecified; E78.5 Hyperlipidemia, unspecified; G47.30 Sleep apnea, unspecified; Z79.899 Other long term (current) drug therapy; Z88.8 Allergy status to other drugs, medicaments and biological substances; Z91.013 Allergy to seafood
CPT/HCPCS: G0260; J3301; Q9967

== ENCOUNTER → 2018-03-24 | Outpatient (CLI) | payer OTHER ==
[~2018-03-24] MED LIST changes: -BUPIVACAINE HCL 0.25% 30 ML VIAL As Ordered ONE; +FOLI1TAB11 PO; -FOLI1TAB5 PO; -ISOVUE-M 300 61% 15ML VIAL (Q9967) As Ordered ONE; -LIDOCAINE 1% SDV INJ 30 ML VIAL As Ordered ONE; -TRIAMCINOLONE ACETONIDE SUSP 40 MG/ML VIAL (J3301) As Ordered ONE
--- NOTE | 2018-04-15 02:18 | ECWPNPC ---
PATIENT NAME: AIRAM PERERA : 1960 GENDER: FEMALE VISIT DATE: 03/24/2018 DISCHARGE DATE: 03/24/18 09 VISIT LOCKED DATE TIME: PHYSICIAN: HERIBERTO FORBES PHYSICIAN PAGER NO: [phone] RESOURCE: HERIBERTO FORBES REASON FOR APPOINTMENT 1. W/C BACK/LEG HISTORY OF PRESENT ILLNESS HISTORY OF PRESENT ILLNESS: PAIN THE PATIENT DESCRIBES THE PAIN... THE PATIENT DESCRIBES THE PAIN... THE PATIENT DESCRIBES THE PAIN... THE PATIENT DESCRIBES THE PAIN... THE PATIENT DESCRIBES THE PAIN... THE PATIENT DESCRIBES THE PAIN... THE PATIENT DESCRIBES THE PAIN... THE PATIENT DESCRIBES THE PAIN... THE PATIENT DESCRIBES THE PAIN... THE PATIENT DESCRIBES THE PAIN... THE PATIENT DESCRIBES THE PAIN... THE PATIENT DESCRIBES THE PAIN... HERE FOR F/U .HX OF CHRONIC LBP AND LEFT FOOT PAIN DUE TO WORK RELATED INJURY IN 1986. RATING PAIN VAS 2/10. DCS WAS REVISED 08-25-2017. CHRONIC PAIN MEDICATION FOR WORK RELATED INJURY:1. CELEBREX 200MG BID2. LYRICA 200MG BID3.ULTRACET 37.5/325 2 TAB PO Q4-6 H PRN PAIN-USING THIS MEDICATION FOR MODERATE PAIN.PAIN VAS 5-7/104.HYDROCODONE 5/325 1 TAB PO Q6H PRN SEVERE PAIN.PAIN VAS 8-10/105.ELAVIL 50MG AT HS FORCHRONIC NIGHTTIME NEUROPATHIC PAINHERE FOR POST PROCEDURE F/U.HAD RIGHT SIJ ON 03-07-18.REPORTING >50% IMPROVEMENT IN PAIN THAT CONTINUES TODAY.STARTS PT TOMORROW. FALL RISK SCREENING: SCREENING :NO FALLS IN THE PAST YEAR CURRENT MED[facility]S [facility] STRAIGHT TIP ATTENTION REFERRAL [facility] AT [employer] USE FOR CIC FOR URINARY RETENTION 4-5 TIMES/DAY (CLAIM # [id number]) TAKING FOLIC ACID 1 MG TABLET 2 TABLETS ORALLY ONCE A DAY, NOTES: 03/06/18 0800 TAKING MUCINEX DM MAXIMUM STRENGTH 60-1200 MG TABLET EXTENDED RELEASE 12 HOUR 1 TABLET NEEDED ORALLY TWICE A DAY, NOTES: NONE RECENT TAKING SUDAFED 30 MG TABLET 1 TABLET NEEDED ORALLY EVERY 6 HRS, NOTES: NONE RECENT TAKING PLAQUENIL 200 MG TABLET 1 TABLET WITH FOOD OR MILK ORALLY BID, NOTES: 03/04/18 08 TAKING SULFASALAZINE 500 MG TABLET 2 TABLETS ORALLY BID, NOTES: 03/06/182199 TAKING MACROBID 100 MG CAPSULE 1 CAPSULE WITH FOOD ORALLY DAILY, NOTES: 03/06/18 08 TAKING HYDROCODONE-ACETAMINOPHEN 5-325 MG TABLET 1 TABLET NEEDED ORALLY EVERY 6 HRS PRN FOR PAIN MDD2 (3MOS SUPPLY CODE D CHRONIC PAIN), NOTES: WEEKS AGO TAKING ULTRACET 37.5-325 MG TABLET 2 TABLETS ORALLY Q8H PRN FOR PAIN MDD2( 3MOS SUPPLY CODE D CHRONIC PAIN), NOTES: 03/06/18 1200 TAKING OMEPRAZOLE 40MG CAPSULE DELAYED RELEASE 1 CAPSULE ORALLY DAILY, NOTES: 03/06/18 08 TAKING LYRICA 200 MG CAPSULE 1 CAP ORALLY (CODE D FOR CHRONIC PAIN) BID MDD2, NOTES: 03/06/182199 ATTN: [facility] ACCOUNT TAKING CELEBREX 200 MG CAPSULE 1 CAPSULE P.O. BID, NOTES: 03/06/182199 ATTN: [facility] ACCOUNT TAKING OXYBUTYNIN CHLORIDE ER 10 MG TABLET EXTENDED RELEASE 24 HOUR 1 TABLET ORALLY ONCE A DAY, NOTES: 03/06/18799 TAKING ELAVIL 50 MG TABLET 1 TAB(S) ORAL AT BEDTIME, NOTES: 03/06/182199 TAKING SYNTHROID 25MCG TABLET 1 TAB(S) ORALLY ONCE A DAY, NOTES: 03/06/18799 TAKING WELLBUTRIN SR 200 MG TABLET EXTENDED RELEASE 12 HOUR 1 TABLET ORALLY TWICE A DAY, NOTES: 03/06/182199 TAKING FLUOXETINE HCL 10 MG CAPSULE 1 CAPSULE ORALLY ONCE A DAY, NOTES: 03/06/18799 NOT-TAKING SHINGRIX 50 MCG SUSPENSION RECONSTITUTED DIRECTED INTRAMUSCULAR DIRECTED NOT-TAKING SOMA 350 MG TABLET 1 TABLET NEEDED ORALLY 2 TIMES A DAY NEEDED NOT-TAKING CIPROFLOXACIN HCL 500 MG TABLET 1 TABLET ORALLY EVERY 12 HRS MEDICATION LIST REVIEWED AND RECONCILED WITH THE PATIENT PAST MEDICAL HISTORY DEGENERATIVE DISC DISEASE AT L5-S1 STATUS POST LAMINECTOMY CHRONIC LOW BACK PAIN (SECONDARY TO INJURY TO HER LOW BACK/COMPENSATION CASE) (DR. ZAMORA) NEUROGENIC BOWEL AND BLADDER SUBSEQUENT TO UNDERGOING BACK SURGERY REQUIRES SELF CATHETERIZATION RECURRENT URINARY TRACT INFECTION () CHRONIC CONSTIPATION DEPRESSION RHEUMATOID ARTHRITIS (DR. ENGLAND) RESTLESS LEG SYNDROME WITH LEFT FOOT DROP OSTEOPENIA LEFT FEMUR DEXA 07/06/16 ANEMIA HAS A DORSAL COLUMN STIMULATOR-- NO MRIS ECHO 08/30/07 - EF 60% NO VALVULAR ABNORMALITIES DEVELOPED BILATERAL PHLEBITIS WITH BCP YRS AGO DVT BILATERAL LOWER LEGS AT AGE 16 HOSPITALIZED ON [facility] AT THE TIME HYPOTHYROID HYPERLIPIDEMIA--ASCVD 10 YR RISK < 2% (5/15) SLEEP APNEA- CPAP MACHINE USED ALLERGIES GABATROL: ITCHING/ TREMORS: ALLERGY SHELLFISH: ANGEIOEDEMA: ALLERGY ATIVAN: SUICIDAL THOUGHTS: ALLERGY CYMBALTA: FATIGUE: SIDE EFFECTS SURGICAL HISTORY EGD/COLONOSCOPY ADENOMATOUS HYPERPLASTIC POLYP 08/2009 D&C, LAPROSCOPY YRS AGO CONE BIOPSY AFTER ABNORMAL PAPS LAVH -DUE TO EXCESSIVE BLEEDING AND FIBROIDS- 2006 COLONOSCOPY - 3 DIMINUTIVE POLYPS, INTERNAL HEMORRHOIDS, LONG REDUNDANT COLON PRONE TO IRREGULARITY/CONSTIPATION/INCOMPLETE EMPTYING (DR. RODRIGUEZ) 10/28/12 EGD - NORMAL 10/28/12 CYSTOLITHOLAPAXY 09/06/15 DORSAL COLUMN STIMULATOR REPLACEMENT AND LAMINECTOMY 08/2017 FAMILY HISTORY FATHER: ALIVE 92 YRS, COLON POLYP (PRECANCEROUS), SKIN CANCER, ATELECTASIS PARKINSONISM, DEMENTIA, DIAGNOSED WITH OTHER MOTHER: , DM, BREAST CANCER (DX IN HER 70S), STROKE, DEMENTIA, DIAGNOSED WITH DIABETES, CANCER SIBLINGS: SISTER WITH HTN AND EPILEPSY, ANOTHER SISTER WITH HTN AND POLYMYALGIA, DIAGNOSED WITH HYPERTENSION DAUGHTER(S): OLDEST WITH SEVERE ENDOMETRIOSIS WITH BOWEL AND BLADDER INVOLVEMENT, DEPRESSION, BACK PROBLEMS. FIBROMYALGIA YOUNGEST, NO KNOWN MEDICAL PROBLEMS, DIAGNOSED WITH PSYCHIATRIC CONDITIONS PATERNAL AUNT: BREAST CANCER, DX IN 70 2 SISTER(S) . 2DAUGHTER(S) . DENIES COLON OR OVARIAN CANCERS., NO KNOWN FAMILY HISTORY OF ANY UROLOGICALLY RELATED DISEASES/CANCERS. GRANDDAUGHTER YE WITH LEUKEMIA. SOCIAL HISTORY GENERAL: TOBACCO USE ARE YOU A:NONSMOKER NEVER SMOKER BMI CARE GOAL FOLLOW-UP ABOVE NORMAL BMI FOLLOW-UPGIVING ENCOURAGEMENT TO EXERCISE ALCOHOL SCREENING DID YOU HAVE A DRINK CONTAINING ALCOHOL IN THE PAST YEAR?YES HOW OFTEN DID YOU HAVE A DRINK CONTAINING ALCOHOL IN THE PAST YEAR?MONTHLY OR LESS (1 POINT) HOW MANY DRINKS DID YOU HAVE ON A TYPICAL DAY WHEN YOU WERE DRINKING IN THE PAST YEAR?1 OR 2 (0 POINTS) HOW OFTEN DID YOU HAVE SIX OR MORE DRINKS ON ONE OCCASION IN THE PAST YEAR?NEVER (0 POINTS) POINTS1 INTERPRETATIONNEGATIVE RECREATIONAL DRUG USE DRUG USE?NO CAFFEINE CAFFEINE USE?NO SEXUAL HX HAD SEX IN THE LAST 12 MONTHS (VAGINAL, ORAL, OR ANAL)?NO HAVE YOU EVER HAD AN STD?NO LMP:HYSTER HIV / HEP-C SCREENING HIV TEST OFFERED TO PATIENT:YES DATE OFFERED:07/06/2017 TEST ACCEPTED:NO REASON:PATIENT DECLINED BROCHURE PROVIDED TO PATIENTYES HEP-C TEST OFFERED TO PATIENT:YES DATE OFFERED:07/06/2017 TEST ACCEPTED:NO REASON:PATIENT DECLINED CATHOLIC CATHOLIC NO PREFERENCE LANGUAGE [place]EN[place]. EDUCATION LEVEL OF EDUCATION:[employer] LEARNING BARRIERS / SPECIAL NEEDS CHANGE FROM LAST VISIT?NO BARRIERS TO LEARNING?NO HEARING IMPAIRED?NO VISION IMPAIRED?YES :CORRECTIVE LENSES COGNITIVELY IMPAIRED?NO READINESS TO LEARN?YES LEARNING PREFERENCES?NO LEARNING CAPABILITIES PRESENT?YES EMOTIONAL BARRIERS?NO SPECIAL DEVICES?NO LAST PICKER NEEDED?NO OCCUPATION: DISABLED. DIET: TRYING REDUCE CALORIES AT THIS TIME. EXERCISE: NO CURRENT EXERCISE , TRIES TO WALK. MARITAL STATUS: . OTHERS AT HOME: SPOUSE. NEW PATIENT PAIN DIARY TODAY'S VISITNOTES FROM 0-10, WHAT LEVEL IS YOUR PAIN TODAY?1 PAIN CLINIC PFS, CLERGY, PUBLIC HEALTH REFERRALS HAS THE PATIENT BEEN EDUCATED REGARDING HIS/HER PLAN OF CARE?YES HAS THE PATIENT BEEN EDUCATED REGARDING PAIN, THE RISK FOR PAIN, THE IMPORTANCE OF EFFECTIVE PAIN MANAGEMENT, AND THE PAIN ASSESSMENT PROCESS?YES ADVANCE DIRECTIVE ADVANCE DIRECTIVE DISCUSSED WITH PATIENT:YES HCP - NOE PERERA () REVIEWED WITH PT 12-22-17 1001 BVREVIEWED WITH PATIENT 01/27/18 1127 JSREVIEWED WITH PATIENT 03/07/18 0916 JSREVIEWED WITH PATIENT 03/24/18 0912 LAS. HOSPITALIZATION/MAJOR DIAGNOSTIC PROCEDURE SX RELATED REVIEW OF SYSTEMS REVIEWED BY: PROVIDER: HERIBERTO RIVAS . CONSTITUTIONAL: ANY CHANGE IN YOUR MEDICAL CONDITION? NO . CHILLS NO . FEVER NO . INFECTION: DO YOU HAVE NEW INFECTIONS? NO . DO YOU HAVE HISTORY OF MRSA? NO . MUSCULOSKELETAL: ANY NEW PATTERNS OF PAIN OR NUMBNESS? NO . GASTROENTEROLOGY: ANY NEW CHANGE IN BOWEL CONTROL? NO . GENITOURINARY: ANY NEW CHANGE IN BLADDER CONTROL? NO . IS THERE A CHANCE YOU COULD BE ? NO . HEMATOLOGY/LYMPH: DO YOU TAKE ANY BLOOD THINNERS? (FOR EXAMPLE- COUMADIN, PLAVIX, AGGRENOX, PLATEL, PRADAXA, OR XARELTO) NO . WHEN WAS YOUR LAST DOSE? DATE: TIME: . NEUROLOGY: HAVE YOU FALLEN IN THE PAST 6 MONTHS? YES PT REPORTS SHE OCCASIONALLY LOSES HER BALANCE, OR HER KNEE GIVES OUT, STATES SHE IS ABLE TO CATCH HERSELF, AND STUMBLES. DENIES ANY INJURIES . ANY NEW EXTREMITY NUMBNESS OR WEAKNESS? NO; HAS A DORSAL COLUMN STIMULATOR . CARDIOLOGY: DO YOU HAVE A PACEMAKER OR DEFIBRILLATOR? NO . RESPIRATORY: HAVE YOU BEEN SICK IN THE PAST WEEK? YES PT REPORTS SHE HAS HAD COLD SYMPTOMS,HAS HAD A COUGH WITH NASAL CONGESTION AND HAD A GI UPSET OVER THE HOLIDAYS. ONE OF HER GRANDCHILDREN TESTED POSITIVE FOR THE FLU. . FEVER NO . FLU LIKE SYMPTOMS? NO . COUGH YES . INTEGUMENTARY: DO YOU HAVE ANY RASHES OR OPEN SORES? YES - SPLIT IN LEFT HEEL . ALLERGIC/IMMUNO: ARE YOU ALLERGIC TO SHELLFISH OR IV DYE? YES SHELLFISH . ANY NEW ALLERGIES? NO . PSYCHIATRIC: DO YOU HAVE THOUGHTS OF HURTING YOURSELF OR SOMEONE ELSE? NO . ARE YOU ABUSED, NEGLECTED, OR IN AN UNSAFE ENVIRONMENT? NO . ENDOCRINOLOGY: ARE YOU DIABETIC? NO . OTHER: DO YOU NEED ANY PRESCRIPTIONS? YES . IF YES, PLEASE LIST: TRAMADOL . ANY NEW PROBLEMS WITH YOUR MEDICATIONS? NO . WHEN DID YOU LAST EAT? ____ . WHEN DID YOU LAST DRINK? ____ . WHAT DID YOU LAST DRINK? ____ . NAME OF PERSON DRIVING YOU HOME? ____ . DO YOU HAVE ANY OTHER QUESTIONS OR CONCERNS NO . VITAL SIGNS WT 185.4 LBS, HT 66 IN, BMI 29.92 INDEX, BP 144/74 MM HG, HR 81 /MIN, RR 16 /MIN, TEMP 97.1 F, OXYGEN SAT % 95%, NA INITIALS SC 08:59, REVIEWED BY: LS. EXAMINATION GENERAL EXAMINATION: LUNGS:LUNG SOUNDS ARE CLEAR. HEART:HEART RATE REGULAR. MUSCULOSKELETAL:*, MUSCLE STRENGTH TESTING 5/5 RLE, 3/5 LLE. MARKED DISCOLORATION OVER LEFT FOOT NON TENDER OVER RIGHT SIJ. 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 CONTINUE ELAVIL TABLET, 50 MG, 1 TAB(S), ORAL, AT BEDTIME, NOTES: 03/06/182199 PROCEDURES PN WORKMANS' COMP OPINION IN YOUR OPINION, WAS THE INCIDENT THAT THE PATIENT DESCRIBED THE COMPETENT MEDICAL CAUSE OF THIS INJURY/ILLNESS? YES ARE THE PATIENT'S COMPLAINTS CONSISTENT WITH HIS/HER HISTORY OF THE INJURY/ILLNESS? YES IS THE PATIENT'S HISTORY OF THE INJURY/ILLNESS CONSISTENT WITH YOUR OBJECTIVE FINDING? YES WHAT IS THE PERCENTAGE OF TEMPORARY IMPAIRMENT? TOTAL = 100% IS THE PATIENT WORKING? NO DOCTOR ON SITE: CANDICE POLLARD MD PROCEDURE CODES FA211 ESTABILISHED PATIENT THE [facility]ILITY CHARGE DISPOSITION & COMMUNICATION FOLLOW UP 3 MONTHS ELECTRONICALLY SIGNED BY ROB PRICE ON 04/14/2018 AT 08:56 AM EST DISCLAIMER : THIS IS A VISIT SUMMARY EXTRACTED FROM THE [employer] CHART. IT IS NOT A COPY OF THE [employer] PROGRESS NOTE. DIMAS
== END ==
LOC: M PAIN 09:00
PROVIDERS: ATTEND Nurse Practitioner Family
DX: M51.26 Other intervertebral disc displacement, lumbar region (principal); M53.3 Sacrococcygeal disorders, not elsewhere classified; N31.9 Neuromuscular dysfunction of bladder, unspecified; F32.9 Major depressive disorder, single episode, unspecified; E03.9 Hypothyroidism, unspecified; E78.5 Hyperlipidemia, unspecified; M06.89 Other specified rheumatoid arthritis, multiple sites; G25.81 Restless legs syndrome; M85.862 Other specified disorders of bone density and structure, left lower leg; G47.30 Sleep apnea, unspecified; Z79.899 Other long term (current) drug therapy; Z88.8 Allergy status to other drugs, medicaments and biological substances; Z91.013 Allergy to seafood; Z91.81 History of falling; Z86.79 Personal history of other diseases of the circulatory system

== ENCOUNTER → 2018-07-04 | Outpatient (CLI) | payer OTHER ==
[~2018-07-04] MED LIST changes: -/BACL20TA OR; -/CELE20CA PO; +BACL1TAB9 OR; +CELE1CAP4 PO
== END ==
LOC: M PAIN 09:00
PROVIDERS: ATTEND Nurse Practitioner Family
DX: M46.1 Sacroiliitis, not elsewhere classified (principal); G89.29 Other chronic pain; F32.9 Major depressive disorder, single episode, unspecified; M06.9 Rheumatoid arthritis, unspecified; G25.81 Restless legs syndrome; E03.9 Hypothyroidism, unspecified; E78.5 Hyperlipidemia, unspecified; G47.30 Sleep apnea, unspecified; Z79.2 Long term (current) use of antibiotics; Z79.899 Other long term (current) drug therapy; Z88.8 Allergy status to other drugs, medicaments and biological substances; Z91.013 Allergy to seafood

== ENCOUNTER → 2018-07-07 | Outpatient (CLI) | payer MEDICARE ==
--- NOTE | 2018-07-07 09:55 | REPMRS ---
Patient History The patient states she had a clinical breast exam in 06/2018. Family history of breast cancer at age 50 or over in mother, breast cancer at age 50 or over in paternal aunt, colorectal cancer at age 50 or over in father. Digital Woman Screen Mammo: July 07, 2018 - Exam #: [id number] Bilateral CC and MLO view(s) were taken. Technologist: Alethea Bee, Technologist Prior study comparison: July 06, 2017, digital woman screen mammo performed at [facility]. July 06, 2016, digital woman screen mammo performed at [facility]. June 28, 2015, digital woman screen mammo performed at [facility]. FINDINGS: There are scattered fibroglandular densities. There has been no change in the appearance of the mammogram from the prior studies. There is a mild amount of scattered fibroglandular density which is fairly symmetric. There is no interval development of dominant mass, architectural distortion, or clustered microcalcification suggestive of malignancy. 3-D tomosynthesis shows no additional findings. Assessment: BI-RADS/ACR category 1 mammogram. Negative Mammogram. Recommendation Routine screening mammogram of both breasts in 1 year (for women over age 40). This patient's Lifetime Breast Cancer RIsk is estimated at 14.1 %. This mammogram was interpreted with the aid of an FDA-approved computer-aided dectection system. Electronically Signed By: Claudy Martinez MD 07/07/18 0954
== END ==
LOC: M WHC 08:33
PROVIDERS: ATTEND Nurse Practitioner Family
DX: Z01.419 Encounter for gynecological examination (general) (routine) without abnormal findings (principal); Z12.31 Encounter for screening mammogram for malignant neoplasm of breast; Z80.3 Family history of malignant neoplasm of breast; Z80.0 Family history of malignant neoplasm of digestive organs; Z12.12 Encounter for screening for malignant neoplasm of rectum
CPT/HCPCS: 77063; 77067; 82270; G0101

== ENCOUNTER → 2018-07-26 | Outpatient (REF) | payer MEDICARE, OTHER ==
[2018-07-26 14:33] LABS: APPEARANCE, URINE CLOUDY (CLEAR); BACTERIA, URINE AUTO 1+ (NEGATIVE); BILIRUBIN, URINE AUTO NEGATIVE (NEGATIVE); BLOOD, URINE BLOOD 1+ (NEGATIVE); CALCIUM OXALATE CRYSTALS SMALL; COLOR, URINE YELLOW (YELLOW); GLUCOSE, URINE (UA) AUTO NEGATIVE (NEGATIVE); KETONE, URINE AUTO NEGATIVE (NEGATIVE); LEUKOCYTE ESTERASE, URINE AUTO 3+ (NEGATIVE); MUCUS, URINE SMALL (NEGATIVE); NITRITE, URINE AUTO NEGATIVE (NEGATIVE); PROTEIN, URINE AUTO 1+ mg/dL (NEGATIVE); RBC, URINE AUTO 14 /HPF (0-3); SPECIFIC GRAVITY URINE AUTO 1.025 (1.002-1.035); SQUAMOUS EPITHELIAL CELL UR AU 2 /HPF (0-6); WBC, URINE AUTO TNTC /HPF (0-3)
== END ==
LOC: M SMT 13:24
PROVIDERS: ATTEND Nurse Practitioner Women's Health
DX: Z87.440 Personal history of urinary (tract) infections (principal); R10.2 Pelvic and perineal pain

== ENCOUNTER → 2018-09-07 | Outpatient (CLI) | payer OTHER ==
[~2018-09-07] MED LIST changes: +BUPIVACAINE HCL 0.25% 30 ML VIAL As Ordered ONE; +ISOVUE-M 300 61% 15ML VIAL (Q9967) As Ordered ONE; +LIDOCAINE 1% SDV INJ 30 ML VIAL As Ordered ONE; +TRIAMCINOLONE ACETONIDE SUSP 40 MG/ML VIAL (J3301) As Ordered ONE
--- NOTE | 2018-09-07 11:11 | REP ---
Right SI joint series: Two views. History: Right SI joint injection for pain. 21 seconds of fluoroscopy time is reported. Findings: A sequence of two last image hold fluoroscopically obtained spot radiographs of the SI joint on the right side document needle position and contrast injection associated with SI joint injection procedure. Electronically Signed by Jordi Martinez MD 09/07/2018 11:01 A
--- NOTE | 2018-09-19 00:36 | ECWPNPC ---
PATIENT NAME: AIRAM PERERA : 1960 GENDER: FEMALE VISIT DATE: 09/07/2018 DISCHARGE DATE: 09/07/18 1051 VISIT LOCKED DATE TIME: PHYSICIAN: CANDICE MELARA MD PHYSICIAN PAGER NO: [phone] RESOURCE: CANDICE MELARA MD REASON FOR APPOINTMENT 1. W/C RIGHT SIJ HISTORY OF PRESENT ILLNESS HISTORY OF PRESENT ILLNESS: PAIN THE PATIENT DESCRIBES THE PAIN... FALL RISK SCREENING: SCREENING :NO FALLS REPORTED IN THE LAST YEAR CURRENT MEDICATIONS TAKING EILEEN INTERMIT FEMALE CATHETER #14 FR STRAIGHT TIP ATTENTION REFERRAL [facility] AT [facility] FOR [facility] FOR URINARY RETENTION 4-5 TIMES/DAY (CLAIM # [id number]) TAKING FOLIC ACID 1 MG TABLET 2 TABLETS ORALLY ONCE A DAY, NOTES: 09/06/18 TAKING PLAQUENIL 200 MG TABLET 1 TABLET WITH FOOD OR MILK ORALLY BID, NOTES: LAST WEDNESDAY TAKING SULFASALAZINE 500 MG TABLET 3 TABS ORALLY BID, NOTES: 09/06/18 TAKING OXYBUTYNIN CHLORIDE ER 10 MG TABLET EXTENDED RELEASE 24 HOUR 1 TABLET ORALLY ONCE A DAY, NOTES: 09/06/18 TAKING SYNTHROID 25MCG TABLET 1 TAB(S) ORALLY ONCE A DAY, NOTES: 09/06/18 TAKING HYDROCODONE-ACETAMINOPHEN 5-325 MG TABLET 1 TABLET NEEDED ORALLY EVERY 6 HRS PRN FOR PAIN MDD2 (3MOS SUPPLY CODE D CHRONIC PAIN), NOTES: NONE LATELY TAKING ULTRACET 37.5-325 MG TABLET 2 TABLETS ORALLY Q8H PRN FOR PAIN MDD2( 3MOS SUPPLY CODE D CHRONIC PAIN), NOTES: 09/07/18 AM TAKING FLUOXETINE HCL 10 MG CAPSULE 1 CAPSULE ORALLY ONCE A DAY, NOTES: 09/06/18 TAKING LYRICA 200 MG CAPSULE 1 CAP ORALLY (CODE D FOR CHRONIC PAIN) BID MDD2, NOTES: 09/06/18 TAKING MACROBID 100 MG CAPSULE 1 CAPSULE WITH FOOD ORALLY DAILY, NOTES: 09/06/18 TAKING WELLBUTRIN SR 200 MG TABLET EXTENDED RELEASE 12 HOUR 1 TABLET ORALLY TWICE A DAY, NOTES: 09/06/18 TAKING OMEPRAZOLE 40MG CAPSULE DELAYED RELEASE 1 CAPSULE ORALLY DAILY, NOTES: 09/06/18 TAKING CELEBREX 200 MG CAPSULE 1 CAPSULE P.O. BID, NOTES: 09/06/18 TAKING ELAVIL 50 MG TABLET 1 TAB(S) ORAL AT BEDTIME, NOTES: 09/06/18 NOT-TAKING MUCINEX DM MAXIMUM STRENGTH 60-1200 MG TABLET EXTENDED RELEASE 12 HOUR 1 TABLET NEEDED ORALLY TWICE A DAY NOT-TAKING SUDAFED 30 MG TABLET 1 TABLET NEEDED ORALLY EVERY 6 HRS NOT-TAKING SHINGRIX 50 MCG SUSPENSION RECONSTITUTED DIRECTED INTRAMUSCULAR DIRECTED NOT-TAKING SOMA 350 MG TABLET 1 TABLET NEEDED ORALLY 2 TIMES A DAY NEEDED DISCONTINUED CIPROFLOXACIN HCL 500 MG TABLET 1 TABLET ORALLY EVERY 12 HRS DISCONTINUED AMPICILLIN 500 MG CAPSULE 1 CAPSULE 1 HOUR BEFORE OR 2 HOURS AFTER A MEAL ORALLY EVERY 6 HRS MEDICATION LIST REVIEWED AND RECONCILED WITH THE PATIENT PAST MEDICAL HISTORY DEGENERATIVE DISC DISEASE AT L5-S1 STATUS POST LAMINECTOMY CHRONIC LOW BACK PAIN (SECONDARY TO INJURY TO HER LOW BACK/COMPENSATION CASE) (DR. ZAMORA) NEUROGENIC BOWEL AND BLADDER SUBSEQUENT TO UNDERGOING BACK SURGERY REQUIRES SELF CATHETERIZATION RECURRENT URINARY TRACT INFECTION () CHRONIC CONSTIPATION DEPRESSION RHEUMATOID ARTHRITIS (DR. ENGLAND) RESTLESS LEG SYNDROME WITH LEFT FOOT DROP OSTEOPENIA LEFT FEMUR DEXA 07/06/16 ANEMIA HAS A DORSAL COLUMN STIMULATOR-- NO MRIS ECHO 08/30/07 - EF 60% NO VALVULAR ABNORMALITIES DEVELOPED BILATERAL PHLEBITIS WITH BCP YRS AGO DVT BILATERAL LOWER LEGS AT AGE 16 HOSPITALIZED ON [facility] AT THE TIME HYPOTHYROID HYPERLIPIDEMIA--ASCVD 10 YR RISK < 2% (08/03) SLEEP APNEA- CPAP MACHINE USED ALLERGIES GABATROL: ITCHING/ TREMORS - ALLERGY SHELLFISH: ANGEIOEDEMA - ALLERGY ATIVAN: SUICIDAL THOUGHTS - ALLERGY CYMBALTA: FATIGUE - SIDE EFFECTS SURGICAL HISTORY EGD/COLONOSCOPY ADENOMATOUS HYPERPLASTIC POLYP 08/2009 D&C, LAPROSCOPY YRS AGO CONE BIOPSY AFTER ABNORMAL PAPS LAVH -DUE TO EXCESSIVE BLEEDING AND FIBROIDS- 2006 COLONOSCOPY - 3 DIMINUTIVE POLYPS, INTERNAL HEMORRHOIDS, LONG REDUNDANT COLON PRONE TO IRREGULARITY/CONSTIPATION/INCOMPLETE EMPTYING (DR. RODRIGUEZ) 10/28/12 EGD - NORMAL 10/28/12 CYSTOLITHOLAPAXY 09/06/15 DORSAL COLUMN STIMULATOR REPLACEMENT AND LAMINECTOMY 08/2017 FAMILY HISTORY FATHER: ALIVE 92 YRS, COLON POLYP (PRECANCEROUS), SKIN CANCER, ATELECTASIS PARKINSONISM, DEMENTIA, DIAGNOSED WITH OTHER MOTHER: , DM, BREAST CANCER (DX IN HER 70S), STROKE, DEMENTIA, DIABETES, CANCER SIBLINGS: SISTER WITH HTN AND EPILEPSY, ANOTHER SISTER WITH HTN AND POLYMYALGIA, HYPERTENSION DAUGHTER(S): OLDEST WITH SEVERE ENDOMETRIOSIS WITH BOWEL AND BLADDER INVOLVEMENT, DEPRESSION, BACK PROBLEMS. FIBROMYALGIA YOUNGEST, NO KNOWN MEDICAL PROBLEMS, PSYCHIATRIC CONDITIONS PATERNAL AUNT: BREAST CANCER, DX IN 70 2 SISTER(S) . 2DAUGHTER(S) . DENIES COLON OR OVARIAN CANCERS., NO KNOWN FAMILY HISTORY OF ANY UROLOGICALLY RELATED DISEASES OR CANCERS. GRANDDAUGHTER YE WITH LEUKEMIA. SOCIAL HISTORY GENERAL: TOBACCO USE ARE YOU A:NONSMOKER NEVER SMOKER HIV / HEP-C SCREENING HIV TEST OFFERED TO PATIENT:YES DATE OFFERED:07/06/2017 TEST ACCEPTED:NO REASON:PATIENT DECLINED BROCHURE PROVIDED TO PATIENTYES HEP-C TEST OFFERED TO PATIENT:YES DATE OFFERED:07/06/2017 TEST ACCEPTED:NO REASON:PATIENT DECLINED OTHERS AT HOME: SPOUSE. EDUCATION LEVEL OF EDUCATION:[employer] DE[employer]ES DIET: TRYING REDUCE CALORIES AT THIS TIME. LANGUAGE KINYARWANDA. NEW PATIENT PAIN DIARY TODAY'S VISITNOTES FROM 0-10, WHAT LEVEL IS YOUR PAIN TODAY?1 BMI CARE GOAL FOLLOW-UP ABOVE NORMAL BMI FOLLOW-UPGIVING ENCOURAGEMENT TO EXERCISE RECREATIONAL DRUG USE DRUG USE?NO EXERCISE: NO CURRENT EXERCISE , TRIES TO WALK. LEARNING BARRIERS / SPECIAL NEEDS CHANGE FROM LAST VISIT?NO BARRIERS TO LEARNING?NO HEARING IMPAIRED?NO VISION IMPAIRED?YES :CORRECTIVE LENSES COGNITIVELY IMPAIRED?NO READINESS TO LEARN?YES LEARNING PREFERENCES?NO LEARNING CAPABILITIES PRESENT?YES EMOTIONAL BARRIERS?NO SPECIAL DEVICES?NO CAD TECHNICIAN NEEDED?NO PAIN CLINIC PFS, CLERGY, PUBLIC HEALTH REFERRALS WAS THE PROVIDER NOTIFIED OF ANY PERTINENT INFO?YES HAS THE PATIENT BEEN EDUCATED REGARDING HIS/HER PLAN OF CARE?YES HAS THE PATIENT BEEN EDUCATED REGARDING PAIN, THE RISK FOR PAIN, THE IMPORTANCE OF EFFECTIVE PAIN MANAGEMENT, AND THE PAIN ASSESSMENT PROCESS?YES LATEX QUESTIONNAIRE LATEX ALLERGY : HAVE YOU EVER DEVELOPED ANY TYPE OF REACTION AFTER HANDLING LATEX PRODUCTS SUCH RUBBER GLOVES, CONDOMS, DIAPHRAGMS, BALLOONS, SOCKS, OR UNDERWEAR?NO LATEX ALLERGY : HAVE YOU EVER DEVELOPED ANY TYPE OF REACTION DURING OR AFTER DENTAL APPOINTMENT, VAGINAL/RECTAL EXAMINATION, SURGICAL PROCEDURE, OR ANY OTHER EXPOSURE?NO LATEX RISK : HAVE YOU EVER HAD ANY DIFFICULTY BREATHING OR HIVES AFTER EATING OR HANDLING ANY FRUITS, OR VEGETABLES; SUCH KIWI, BANANAS, STONE FRUITS, OR CHESTNUTSNO LATEX RISK : DO YOU HAVE A PREVIOUS PERSONAL HISTORY OF MORE THAN NINE SURGERIES, SPINA BIFIDA, OR REPEATED CATHERTIZATIONS? NO LATEX RISK : ARE YOU FREQUENTLY EXPOSED TO LATEX PRODUCTS IN YOUR OCCUPATION?NO DATE ASKED : 07/04/2018 CAFFEINE CAFFEINE USE?NO ADVANCE DIRECTIVE ADVANCE DIRECTIVE DISCUSSED WITH PATIENT:YES HCP - NOE PERERA () PRESYBETERIAN PRESYBETERIAN NO PREFERENCE MARITAL STATUS: . ALCOHOL SCREENING DID YOU HAVE A DRINK CONTAINING ALCOHOL IN THE PAST YEAR?YES HOW OFTEN DID YOU HAVE A DRINK CONTAINING ALCOHOL IN THE PAST YEAR?MONTHLY OR LESS (1 POINT) HOW MANY DRINKS DID YOU HAVE ON A TYPICAL DAY WHEN YOU WERE DRINKING IN THE PAST YEAR?1 OR 2 (0 POINTS) HOW OFTEN DID YOU HAVE SIX OR MORE DRINKS ON ONE OCCASION IN THE PAST YEAR?NEVER (0 POINTS) POINTS1 INTERPRETATIONNEGATIVE OCCUPATION: DISABLED. SEXUAL HX HAD SEX IN THE LAST 12 MONTHS (VAGINAL, ORAL, OR ANAL)?NO HAVE YOU EVER HAD AN STD?NO LMP:HYSTER REVIEWED WITH PT 12-22-17 1001 BVREVIEWED WITH PATIENT 01/27/18 1127 JSREVIEWED WITH PATIENT 03/07/18 0916 JSREVIEWED WITH PATIENT 03/24/18 0912 LAS. HOSPITALIZATION/MAJOR DIAGNOSTIC PROCEDURE SX RELATED REVIEW OF SYSTEMS REVIEWED BY: PROVIDER: . CONSTITUTIONAL: ANY CHANGE IN YOUR MEDICAL CONDITION? NO . CHILLS NO . FEVER NO . INFECTION: DO YOU HAVE NEW INFECTIONS? NO . DO YOU HAVE HISTORY OF MRSA? NO . MUSCULOSKELETAL: ANY NEW PATTERNS OF PAIN OR NUMBNESS? NO . GASTROENTEROLOGY: ANY NEW CHANGE IN BOWEL CONTROL? NO . GENITOURINARY: ANY NEW CHANGE IN BLADDER CONTROL? NO . IS THERE A CHANCE YOU COULD BE ? NO . HEMATOLOGY/LYMPH: DO YOU TAKE ANY BLOOD THINNERS? (FOR EXAMPLE- COUMADIN, PLAVIX, AGGRENOX, PLATEL, PRADAXA, OR XARELTO) NO . WHEN WAS YOUR LAST DOSE? DATE: TIME: . NEUROLOGY: HAVE YOU FALLEN IN THE PAST 12 MONTHS? YES, FELL 3 DAYS AGO FROM WEAKNESS PT DENIES SEEKING MEDICAL [place] . ANY NEW EXTREMITY NUMBNESS OR WEAKNESS? NO . CARDIOLOGY: DO YOU HAVE A PACEMAKER OR DEFIBRILLATOR? YES, [facility] . RESPIRATORY: HAVE YOU BEEN SICK IN THE PAST WEEK? NO . FEVER NO . FLU LIKE SYMPTOMS? NO . COUGH NO . INTEGUMENTARY: DO YOU HAVE ANY RASHES OR OPEN SORES? NO . ALLERGIC/IMMUNO: ARE YOU ALLERGIC TO IV DYE? NO . ANY NEW ALLERGIES? NO . PSYCHIATRIC: DO YOU HAVE THOUGHTS OF HURTING YOURSELF OR SOMEONE ELSE? NO . ARE YOU ABUSED, NEGLECTED, OR IN AN UNSAFE ENVIRONMENT? NO . ENDOCRINOLOGY: ARE YOU DIABETIC? NO . OTHER: DO YOU NEED ANY PRESCRIPTIONS? NO . IF YES, PLEASE LIST: ____ . ANY NEW PROBLEMS WITH YOUR MEDICATIONS? NO . WHEN DID YOU LAST EAT? 09/07/18 0000 . WHEN DID YOU LAST DRINK? 09/07/18 0200 . WHAT DID YOU LAST DRINK? LEMONADE . NAME OF PERSON DRIVING YOU HOME? NOE . DO YOU HAVE ANY OTHER QUESTIONS OR CONCERNS NO . VITAL SIGNS WT 188.6 LBS, HT 66 IN, BMI 30.44 INDEX, BP 130/74 MM HG, HR 82 /MIN, RR 18 /MIN, TEMP 99.4 F, OXYGEN SAT % 95%, NA INITIALS SC 09:15, REVIEWED BY: EM. ASSESSMENTS SACROILIITIS, NOT ELSEWHERE CLASSIFIED - M46.1 (PRIMARY) TREATMENT SACROILIITIS, NOT ELSEWHERE CLASSIFIED [facility] FLUORO GUIDANCE (PAIN)[id number] PROCEDURES PN WORKMANS' COMP OPINION IN YOUR OPINION, WAS THE INCIDENT THAT THE PATIENT DESCRIBED THE COMPETENT MEDICAL CAUSE OF THIS INJURY/ILLNESS? YES ARE THE PATIENT'S COMPLAINTS CONSISTENT WITH HIS/HER HISTORY OF THE INJURY/ILLNESS? YES IS THE PATIENT'S HISTORY OF THE INJURY/ILLNESS CONSISTENT WITH YOUR OBJECTIVE FINDING? YES WHAT IS THE PERCENTAGE OF TEMPORARY IMPAIRMENT? MARKED = 75% IS THE PATIENT WORKING? NO DOCTOR ON SITE: CANDICE POLLARD MD PN SI PRE PROCEDURE DIAGNOSIS SACROILIITIS, SACROILIAC JOINT DYSFUNCTION POST PROCEDURE DIAGNOSIS SACROILIITIS, SACROILIAC JOINT DYSFUNCTION PROCEDURE RIGHT SACROILIAC JOINT BLOCK SURGEON DR. CANDICE MELARA TEACHER LEARNING DISABLED NONE ANESTHESIA LOCAL PRE PROCEDURE NOTE PATIENT WITH HISTORY OF CHRONIC LOW BACK PAIN. I EVALUATED THE PATIENT AND REVIEWED THE CHART. I WENT OVER THE RISKS, ALTERNATIVES, AND BENEFITS ASSOCIATED WITH THIS PROCEDURE. THE PATIENT WOULD LIKE TO PROCEED AND GAVE CONSENT TO PERFORM THE PROCEDURE. THE PATIENT DENIES UNEXPLAINABLE WEIGHT LOSS, FEVER, CHILLS, OR NEW CHANGES IN URINARY OR BOWEL CONTROL DESCRIPTION OF PROCEDURE THE PATIENT WAS BROUGHT TO THE PROCEDURE ROOM AND PLACED IN THE PRONE POSITION. THE LUMBOSACRAL AREA WAS CLEANED WITH CHLORAPREP SOLUTION AND DRAPED ASEPTICALLY. THE PROCEDURE WAS DONE UNDER STERILE CONDITIONS. I CHECKED LATERALITY AND THE LEVEL WHERE THE PROCEDURE WAS GOING TO BE PERFORMED WITH THE PATIENT AND THE SUPPORTING STAFF AT THE MOMENT OF THE TIME OUT IN THE PROCEDURE ROOM. UNDER FLUOROSCOPIC GUIDANCE, TARGET POINT WAS SELECTED AT THE LOWER BORDER OF THE RIGHT SACROILIAC JOINT. TARGET POINT WAS SELECTED AFTER MEDIAL ROTATION AND TILT OF THE MAGNIFIER OF THE C-ARM. LIDOCAINE WAS USED TO NUMB THE SKIN AND SUBCUTANEOUS TISSUE BELOW IT. A SPINAL NEEDLE, 22-GAUGE, WAS ADVANCED UNDER FLUOROSCOPIC GUIDANCE AND FOLLOWING PATIENT FEEDBACK UNTIL THE TARGET AREA WAS TOUCHED. THE POSITION OF THE NEEDLE WAS VERIFIED WITH AP AND LATERAL VIEWS. AFTER PROPER POSITION OF THE NEEDLE WAS ACHIEVED, ISOVUE M DYE 30%, 0.25 ML, WAS INJECTED SHOWING SPREAD OF THE DYE. THEN, A SOLUTION OF 20 MG OF KENALOG WAS INJECTED IN RIGHT JOINT WITH 3 ML OF BUPIVACAINE 0.125%. THERE WAS NO EVIDENCE OF BLOOD, PARESTHESIA OR CEREBROSPINAL FLUID DURING THE PROCEDURE. THE PATIENT WAS SENT TO THE RECOVERY ROOM. THE PATIENT WAS MOVING THE EXTREMITIES AND DOING WELL. THERE WAS NO COMPLICATION DURING THE PROCEDURE. FLUOROSCOPY TIME WAS 21 SECONDS POST PROCEDURE NOTE THE PATIENT WILL BE SEEN IN A FOLLOW UP IN THE NEXT FEW WEEKS. INSTRUCTIONS WERE GIVEN, QUESTIONS WERE ANSWERED, AND THE PATIENT EXPRESSED UNDERSTANDING AND AGREED WITH THE PLAN. I, ROSINA MCCORMICK, DOCUMENTED THE ABOVE INFORMATION ACTING A SCRIBE FOR DR. MELARA. I HAVE REVIEWED THE ABOVE DOCUMENT, WRITTEN BY ROSINA CARLOS AND I VERIFY THAT IT IS ACCURATE. PROCEDURE CODES 6045F RADXPS IN END [id number] PXD [id number] INJECT SACROILIAC JOINT, MODIFIERS: RT DISPOSITION & COMMUNICATION FOLLOW UP 3 WEEKS ELECTRONICALLY SIGNED BY CANDICE MELARA MD, MD ON 09/18/2018 AT 07:38 PM EDT DISCLAIMER : THIS IS A VISIT SUMMARY EXTRACTED FROM THE [employer] CHART. IT IS NOT A COPY OF THE [employer] PROGRESS NOTE. MTDD
== END ==
LOC: M PAIN 08:30
PROVIDERS: ATTEND Anesthesiology
DX: M46.1 Sacroiliitis, not elsewhere classified (principal); M51.37 Other intervertebral disc degeneration, lumbosacral region; K59.09 Other constipation; F32.9 Major depressive disorder, single episode, unspecified; M06.9 Rheumatoid arthritis, unspecified; G25.81 Restless legs syndrome; M85.862 Other specified disorders of bone density and structure, left lower leg; D64.9 Anemia, unspecified; E03.9 Hypothyroidism, unspecified; E78.5 Hyperlipidemia, unspecified; G47.30 Sleep apnea, unspecified; Z86.718 Personal history of other venous thrombosis and embolism; Z79.899 Other long term (current) drug therapy; Z88.8 Allergy status to other drugs, medicaments and biological substances; Z91.013 Allergy to seafood
CPT/HCPCS: G0260; J3301; Q9967

== ENCOUNTER → 2018-09-19 | Outpatient (CLI) | payer OTHER ==
[~2018-09-19] MED LIST changes: -BUPIVACAINE HCL 0.25% 30 ML VIAL As Ordered ONE; -ISOVUE-M 300 61% 15ML VIAL (Q9967) As Ordered ONE; -LIDOCAINE 1% SDV INJ 30 ML VIAL As Ordered ONE; -TRIAMCINOLONE ACETONIDE SUSP 40 MG/ML VIAL (J3301) As Ordered ONE
--- NOTE | 2018-09-19 14:52 | REP ---
Clinical: History of urinary tract infection with flank and pelvic pain. Technique: Real time garza scale and color evaluation using curved array transducer. Findings: Right kidney measures 12.1 x 5.0 x 5.4 cm and demonstrates normal parenchymal echogenicity without hydronephrosis or cystic lesions. Calcifications in the lower pole with posterior shadowing suggest grouping of intrarenal calculi. Left kidney measures 11.7 x 4.7 x 5.5 cm and demonstrates normal parenchymal echogenicity without hydronephrosis or cystic lesions. Scattered calcifications with posterior shadowing suggest small intrarenal calculi. Bladder is grossly unremarkable and demonstrates bilateral ureteral jets without wall thickening or obvious mass lesion. Impression: 1. Findings to suggest bilateral nonobstructing intrarenal calculi without hydronephrosis. Electronically Signed by Ismael Reddy MD 09/19/2018 02:43 P
== END ==
LOC: M RAD 13:47
PROVIDERS: ATTEND Nurse Practitioner Women's Health
DX: R10.2 Pelvic and perineal pain (principal); Z87.440 Personal history of urinary (tract) infections

== ENCOUNTER → 2018-09-28 | Outpatient (REF) | payer MEDICARE, OTHER ==
[2018-09-28 18:34] LABS: APPEARANCE, URINE CLOUDY (CLEAR); BACTERIA, URINE AUTO 2+ (NEGATIVE); BILIRUBIN, URINE AUTO NEGATIVE (NEGATIVE); BLOOD, URINE BLOOD 1+ (NEGATIVE); COLOR, URINE AMBER (YELLOW); GLUCOSE, URINE (UA) AUTO NEGATIVE (NEGATIVE); KETONE, URINE AUTO NEGATIVE (NEGATIVE); LEUKOCYTE ESTERASE, URINE AUTO 3+ (NEGATIVE); MUCUS, URINE SMALL (NEGATIVE); NITRITE, URINE AUTO NEGATIVE (NEGATIVE); PROTEIN, URINE AUTO 1+ mg/dL (NEGATIVE); RBC, URINE AUTO 50 /HPF (0-3); SPECIFIC GRAVITY URINE AUTO 1.023 (1.002-1.035); SQUAMOUS EPITHELIAL CELL UR AU 5 /HPF (0-6); UROBILINOGEN, URINE AUTO 0.2 mg/dL (0.0-2.0); WBC, URINE AUTO TNTC /HPF (0-3)
== END ==
LOC: M SMT 17:25
PROVIDERS: ATTEND Urology
DX: N39.0 Urinary tract infection, site not specified (principal)

== ENCOUNTER → 2018-10-12 | Outpatient (CLI) | payer OTHER, MEDICARE ==
--- NOTE | 2018-10-25 02:08 | ECWPNPC ---
PATIENT NAME: AIRAM PERERA : 1960 GENDER: FEMALE VISIT DATE: 10/12/2018 DISCHARGE DATE: 10/12/18 1114 VISIT LOCKED DATE TIME: PHYSICIAN: HERIBERTO FORBES PHYSICIAN PAGER NO: [phone] RESOURCE: HERIBERTO FORBES REASON FOR APPOINTMENT 1. W/C, POST PROCEDURE HISTORY OF PRESENT ILLNESS HISTORY OF PRESENT ILLNESS: HERE FOR POST PROCEDURE F/U.HAD RIGHT SIJ ON 09/07/18.REPORTING SIGNIFICANT IMPROVEMENT IN PAIN THAT CONTINUES TODAY.RATING PAIN VAS 4/10. PAIN THE PATIENT DESCRIBES THE PAIN... HERE FOR F/U .HX OF CHRONIC LBP AND LEFT FOOT PAIN DUE TO WORK RELATED INJURY IN 1986. DCS WAS REVISED 08-25-2017. CHRONIC PAIN MEDICATION FOR WORK RELATED INJURY:1. CELEBREX 200MG BID2. LYRICA 200MG BID3.ULTRACET 37.5/325 2 TAB PO Q4-6 H PRN PAIN-USING THIS MEDICATION FOR MODERATE PAIN.PAIN VAS 5-7/104.HYDROCODONE 5/325 1 TAB PO Q6H PRN SEVERE PAIN.PAIN VAS 8-10/105.ELAVIL 50MG AT HS FORCHRONIC NIGHTTIME NEUROPATHIC PAINOVER THE PAST MONTH PATIENT IS REPORTING DIFFICULTY WALKING DUE TO LEFT HIP PAIN AND LBP.HAS UNSTABLE GAIT AND LEFT LEG WEAKNESS DUE TO RSD LEFT LOWER EXTREMITIES. FALL RISK SCREENING: SCREENING :NO FALLS REPORTED IN THE LAST YEAR CURRENT MEDICATIONS TAKING NEW CASTLE INTERMIT FEMALE CATHETER #14 FR STRAIGHT TIP ATTENTION REFERRAL [facility] AT [employer] USE FOR CIC FOR URINARY RETENTION 4-5 TIMES/DAY (CLAIM # [id number]) TAKING FOLIC ACID 1 MG TABLET 2 TABLETS ORALLY ONCE A DAY, NOTES: 09/06/18 TAKING PLAQUENIL 200 MG TABLET 1 TABLET WITH FOOD OR MILK ORALLY BID TAKING SULFASALAZINE 500 MG TABLET 3 TABS ORALLY BID TAKING OXYBUTYNIN CHLORIDE ER 10 MG TABLET EXTENDED RELEASE 24 HOUR 1 TABLET ORALLY ONCE A DAY TAKING SYNTHROID 25MCG TABLET 1 TAB(S) ORALLY ONCE A DAY TAKING HYDROCODONE-ACETAMINOPHEN 5-325 MG TABLET 1 TABLET NEEDED ORALLY EVERY 6 HRS PRN FOR PAIN MDD2 (3MOS SUPPLY CODE D CHRONIC PAIN), NOTES: NONE LATELY TAKING FLUOXETINE HCL 10 MG CAPSULE 1 CAPSULE ORALLY ONCE A DAY TAKING LYRICA 200 MG CAPSULE 1 CAP ORALLY (CODE D FOR CHRONIC PAIN) BID MDD2 TAKING MACROBID 100 MG CAPSULE 1 CAPSULE WITH FOOD ORALLY DAILY TAKING WELLBUTRIN SR 200 MG TABLET EXTENDED RELEASE 12 HOUR 1 TABLET ORALLY TWICE A DAY TAKING OMEPRAZOLE 40MG CAPSULE DELAYED RELEASE 1 CAPSULE ORALLY DAILY TAKING CELEBREX 200 MG CAPSULE 1 CAPSULE P.O. BID TAKING ELAVIL 50 MG TABLET 1 TAB(S) ORAL AT BEDTIME, NOTES: 09/06/18 TAKING ULTRACET 37.5-325 MG TABLET 2 TABLETS ORALLY Q8H PRN FOR PAIN MDD2( 3MOS SUPPLY CODE D CHRONIC PAIN), NOTES: DIAGNOSIS:CHRONIC PAIN NOT-TAKING MUCINEX DM MAXIMUM STRENGTH 60-1200 MG TABLET EXTENDED RELEASE 12 HOUR 1 TABLET NEEDED ORALLY TWICE A DAY NOT-TAKING SUDAFED 30 MG TABLET 1 TABLET NEEDED ORALLY EVERY 6 HRS NOT-TAKING SHINGRIX 50 MCG SUSPENSION RECONSTITUTED DIRECTED INTRAMUSCULAR DIRECTED NOT-TAKING SOMA 350 MG TABLET 1 TABLET NEEDED ORALLY 2 TIMES A DAY NEEDED MEDICATION LIST REVIEWED AND RECONCILED WITH THE PATIENT PAST MEDICAL HISTORY DEGENERATIVE DISC DISEASE AT L5-S1 STATUS POST LAMINECTOMY CHRONIC LOW BACK PAIN (SECONDARY TO INJURY TO HER LOW BACK/COMPENSATION CASE) (DR. ZAMORA) NEUROGENIC BOWEL AND BLADDER SUBSEQUENT TO UNDERGOING BACK SURGERY REQUIRES SELF CATHETERIZATION RECURRENT URINARY TRACT INFECTION () CHRONIC CONSTIPATION DEPRESSION RHEUMATOID ARTHRITIS (DR. ENGLAND) RESTLESS LEG SYNDROME WITH LEFT FOOT DROP OSTEOPENIA LEFT FEMUR DEXA 07/06/16 ANEMIA HAS A DORSAL COLUMN STIMULATOR-- NO MRIS ECHO 08/30/07 - EF 60% NO VALVULAR ABNORMALITIES DEVELOPED BILATERAL PHLEBITIS WITH BCP YRS AGO DVT BILATERAL LOWER LEGS AT AGE 16 HOSPITALIZED ON [facility] AT THE TIME HYPOTHYROID HYPERLIPIDEMIA--ASCVD 10 YR RISK < 2% (08/03) SLEEP APNEA- CPAP MACHINE USED ALLERGIES GABATROL: ITCHING/ TREMORS - ALLERGY SHELLFISH: ANGEIOEDEMA - ALLERGY ATIVAN: SUICIDAL THOUGHTS - ALLERGY CYMBALTA: FATIGUE - SIDE EFFECTS SURGICAL HISTORY EGD/COLONOSCOPY ADENOMATOUS HYPERPLASTIC POLYP 08/2009 D&C, LAPROSCOPY YRS AGO CONE BIOPSY AFTER ABNORMAL PAPS LAVH -DUE TO EXCESSIVE BLEEDING AND FIBROIDS- 2006 COLONOSCOPY - 3 DIMINUTIVE POLYPS, INTERNAL HEMORRHOIDS, LONG REDUNDANT COLON PRONE TO IRREGULARITY/CONSTIPATION/INCOMPLETE EMPTYING (DR. RODRIGUEZ) 10/28/12 EGD - NORMAL 10/28/12 CYSTOLITHOLAPAXY 09/06/15 DORSAL COLUMN STIMULATOR REPLACEMENT AND LAMINECTOMY 08/2017 FAMILY HISTORY FATHER: ALIVE 92 YRS, COLON POLYP (PRECANCEROUS), SKIN CANCER, ATELECTASIS PARKINSONISM, DEMENTIA, DIAGNOSED WITH OTHER MOTHER: , DM, BREAST CANCER (DX IN HER 70S), STROKE, DEMENTIA, DIABETES, CANCER SIBLINGS: SISTER WITH HTN AND EPILEPSY, ANOTHER SISTER WITH HTN AND POLYMYALGIA, HYPERTENSION DAUGHTER(S): OLDEST WITH SEVERE ENDOMETRIOSIS WITH BOWEL AND BLADDER INVOLVEMENT, DEPRESSION, BACK PROBLEMS. FIBROMYALGIA YOUNGEST, NO KNOWN MEDICAL PROBLEMS, PSYCHIATRIC CONDITIONS PATERNAL AUNT: BREAST CANCER, DX IN 70 2 SISTER(S) . 2DAUGHTER(S) . DENIES COLON OR OVARIAN CANCERS., NO KNOWN FAMILY HISTORY OF ANY UROLOGICALLY RELATED DISEASES OR CANCERS. GRANDDAUGHTER YE WITH LEUKEMIA. SOCIAL HISTORY GENERAL: TOBACCO USE ARE YOU A:NONSMOKER NEVER SMOKER HIV / HEP-C SCREENING HIV TEST OFFERED TO PATIENT:YES DATE OFFERED:07/06/2017 TEST ACCEPTED:NO REASON:PATIENT DECLINED BROCHURE PROVIDED TO PATIENTYES HEP-C TEST OFFERED TO PATIENT:YES DATE OFFERED:07/06/2017 TEST ACCEPTED:NO REASON:PATIENT DECLINED OTHERS AT HOME: SPOUSE. EDUCATION LEVEL OF EDUCATION:[employer] DIET: TRYING REDUCE CALORIES AT THIS TIME. LANGUAGE KOSOVAN. NEW PATIENT PAIN DIARY TODAY'S VISITNOTES FROM 0-10, WHAT LEVEL IS YOUR PAIN TODAY?1 BMI CARE GOAL FOLLOW-UP ABOVE NORMAL BMI FOLLOW-UPGIVING ENCOURAGEMENT TO EXERCISE RECREATIONAL DRUG USE DRUG USE?NO EXERCISE: NO CURRENT EXERCISE , TRIES TO WALK. LEARNING BARRIERS / SPECIAL NEEDS CHANGE FROM LAST VISIT?NO BARRIERS TO LEARNING?NO HEARING IMPAIRED?NO VISION IMPAIRED?YES :CORRECTIVE LENSES COGNITIVELY IMPAIRED?NO READINESS TO LEARN?YES LEARNING PREFERENCES?NO LEARNING CAPABILITIES PRESENT?YES EMOTIONAL BARRIERS?NO SPECIAL DEVICES?NO SENIOR PROCESS CONTROL TECH NEEDED?NO PAIN CLINIC PFS, CLERGY, PUBLIC HEALTH REFERRALS WAS THE PROVIDER NOTIFIED OF ANY PERTINENT INFO?YES HAS THE PATIENT BEEN EDUCATED REGARDING HIS/HER PLAN OF CARE?YES HAS THE PATIENT BEEN EDUCATED REGARDING PAIN, THE RISK FOR PAIN, THE IMPORTANCE OF EFFECTIVE PAIN MANAGEMENT, AND THE PAIN ASSESSMENT PROCESS?YES LATEX QUESTIONNAIRE LATEX ALLERGY : HAVE YOU EVER DEVELOPED ANY TYPE OF REACTION AFTER HANDLING LATEX PRODUCTS SUCH RUBBER GLOVES, CONDOMS, DIAPHRAGMS, BALLOONS, SOCKS, OR UNDERWEAR?NO LATEX ALLERGY : HAVE YOU EVER DEVELOPED ANY TYPE OF REACTION DURING OR AFTER DENTAL APPOINTMENT, VAGINAL/RECTAL EXAMINATION, SURGICAL PROCEDURE, OR ANY OTHER EXPOSURE?NO LATEX RISK : HAVE YOU EVER HAD ANY DIFFICULTY BREATHING OR HIVES AFTER EATING OR HANDLING ANY FRUITS, OR VEGETABLES; SUCH KIWI, BANANAS, STONE FRUITS, OR CHESTNUTSNO LATEX RISK : DO YOU HAVE A PREVIOUS PERSONAL HISTORY OF MORE THAN NINE SURGERIES, SPINA BIFIDA, OR REPEATED CATHERIZATIONS? NO LATEX RISK : ARE YOU FREQUENTLY EXPOSED TO LATEX PRODUCTS IN YOUR OCCUPATION?NO DATE ASKED : 07/04/2018 CAFFEINE CAFFEINE USE?NO ADVANCE DIRECTIVE ADVANCE DIRECTIVE DISCUSSED WITH PATIENT:YES HCP - NOE PERERA () ORIENTAL ORTHODOX ORIENTAL ORTHODOX NO PREFERENCE MARITAL STATUS: . ALCOHOL SCREENING DID YOU HAVE A DRINK CONTAINING ALCOHOL IN THE PAST YEAR?YES HOW OFTEN DID YOU HAVE A DRINK CONTAINING ALCOHOL IN THE PAST YEAR?MONTHLY OR LESS (1 POINT) HOW MANY DRINKS DID YOU HAVE ON A TYPICAL DAY WHEN YOU WERE DRINKING IN THE PAST YEAR?1 OR 2 (0 POINTS) HOW OFTEN DID YOU HAVE SIX OR MORE DRINKS ON ONE OCCASION IN THE PAST YEAR?NEVER (0 POINTS) POINTS1 INTERPRETATIONNEGATIVE OCCUPATION: DISABLED. SEXUAL HX HAD SEX IN THE LAST 12 MONTHS (VAGINAL, ORAL, OR ANAL)?NO HAVE YOU EVER HAD AN STD?NO LMP:HYSTER REVIEWED WITH PT 10 1001 BVREVIEWED WITH PATIENT 01/27/18 1127 JSREVIEWED WITH PATIENT 03/07/18 0916 JSREVIEWED WITH PATIENT 03/24/18 0912 LAS. HOSPITALIZATION/MAJOR DIAGNOSTIC PROCEDURE SX RELATED REVIEW OF SYSTEMS REVIEWED BY: PROVIDER: HERIBERTO RIVAS . CONSTITUTIONAL: ANY CHANGE IN YOUR MEDICAL CONDITION? KIDNEY STONES . CHILLS NO . FEVER NO . INFECTION: DO YOU HAVE NEW INFECTIONS? NO . DO YOU HAVE HISTORY OF MRSA? NO . MUSCULOSKELETAL: ANY NEW PATTERNS OF PAIN OR NUMBNESS? NO . GASTROENTEROLOGY: ANY NEW CHANGE IN BOWEL CONTROL? NO . GENITOURINARY: ANY NEW CHANGE IN BLADDER CONTROL? NO . IS THERE A CHANCE YOU COULD BE ? NO . HEMATOLOGY/LYMPH: DO YOU TAKE ANY BLOOD THINNERS? (FOR EXAMPLE- COUMADIN, PLAVIX, AGGRENOX, PLATEL, PRADAXA, OR XARELTO) NO . WHEN WAS YOUR LAST DOSE? DATE: TIME: . NEUROLOGY: HAVE YOU FALLEN IN THE PAST 12 MONTHS? NO . ANY NEW EXTREMITY NUMBNESS OR WEAKNESS? NO . CARDIOLOGY: DO YOU HAVE A PACEMAKER OR DEFIBRILLATOR? DORSAL COLUMN STIMULATOR . RESPIRATORY: HAVE YOU BEEN SICK IN THE PAST WEEK? NO . FEVER NO . FLU LIKE SYMPTOMS? NO . COUGH NO . INTEGUMENTARY: DO YOU HAVE ANY RASHES OR OPEN SORES? NO . ALLERGIC/IMMUNO: ARE YOU ALLERGIC TO IV DYE? NO . ANY NEW ALLERGIES? NO . PSYCHIATRIC: DO YOU HAVE THOUGHTS OF HURTING YOURSELF OR SOMEONE ELSE? NO . ARE YOU ABUSED, NEGLECTED, OR IN AN UNSAFE ENVIRONMENT? NO . ENDOCRINOLOGY: ARE YOU DIABETIC? NO . OTHER: DO YOU NEED ANY PRESCRIPTIONS? TRAMADOL . IF YES, PLEASE LIST: ____ . ANY NEW PROBLEMS WITH YOUR MEDICATIONS? NO . WHEN DID YOU LAST EAT? ____ . WHEN DID YOU LAST DRINK? ____ . WHAT DID YOU LAST DRINK? ____ . NAME OF PERSON DRIVING YOU HOME? ____ . DO YOU HAVE ANY OTHER QUESTIONS OR CONCERNS NO . VITAL SIGNS WT 186.8 LBS, HT 66 IN, BMI 30.15 INDEX, BP 156/75 MM HG, HR 89 /MIN, RR 18 /MIN, TEMP 98.1 F, OXYGEN SAT % 94%, SAFE IN ENV? (Y/N) KG, NA INITIALS AW 0954. EXAMINATION GENERAL EXAMINATION: GENERAL AWAKE,ALERT ,PLEAASANT . PSYCH AFFECT NORMAL . LUNGS: LUNG AMBROSIO ARE CLEAR TO AUSCULTATION BILATERALLY. GOOD MOVEMENT OF AIR . HEART: S1, S2 IN A REGULAR RATE AND RHYTHM. NO SIGNIFICANT MURMURS, RUBS OR GALLOPS NOTED . MUSCULOSKELETAL: WEAKNESS/CLONUS NOTED OVER LEFT LEG WITH MST LEFT TIB/FIB AND LEFT FOOT IS WITH HYPERSENSITIVITY TO LIGHT TOUCH.LEFT FOOT IS WITH RED DISCOLORATION AND SWELLING.. MARKED TENDERNESS NOTED OVER LEFT HIP. 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 BRINGS IN MEDICATIONS WHICH IS APPROPRIATE FOR WHAT WAS DISPENSED. RECENT URINE TOXICOLOGY REVIEWED. NO UNAUTHORIZED MEDICATIONS. NO ILLICIT SUBSTANCES AND PRESCRIBED MEDICATIONS WERE PRESENT. URINE TOX TODAY, RISKS AND BENEFITS OF NARCOTIC/OPIOD MEDICATIONS WERE REVIEWED WITH PATIENT - THIS INCLUDES BUT IS NOT LIMITED TO RISK OF DEPENDANCE/DEVELOPMENT OF ADDICTION, MOOD DISTURBANCE AND DEPRESSION, OSTEOPOROSIS, HORMONAL AND LABIDAL CHANGES, RESPIRATORY DEPRESSION AND . PATIENT IS ADVISED NOT TO DRIVE OR DRINK ALCOHOL WHILE ON THESE MEDICATIONS. PROCEDURES PN WORKMANS' COMP OPINION IN YOUR OPINION, WAS THE INCIDENT THAT THE PATIENT DESCRIBED THE COMPETENT MEDICAL CAUSE OF THIS INJURY/ILLNESS? YES ARE THE PATIENT'S COMPLAINTS CONSISTENT WITH HIS/HER HISTORY OF THE INJURY/ILLNESS? YES IS THE PATIENT'S HISTORY OF THE INJURY/ILLNESS CONSISTENT WITH YOUR OBJECTIVE FINDING? YES WHAT IS THE PERCENTAGE OF TEMPORARY IMPAIRMENT? MODERATE TO MARKED = 66.7% IS THE PATIENT WORKING? NO DOCTOR ON SITE: CANDICE POLLARD MD PROCEDURE CODES [id number] ESTABILISHED PATIENT [facility] CHARGE DISPOSITION & COMMUNICATION FOLLOW UP 4-6WKS ELECTRONICALLY SIGNED BY ROB PRICE ON 10/24/2018 AT 03:47 PM EDT DISCLAIMER : THIS IS A VISIT SUMMARY EXTRACTED FROM THE [employer] CHART. IT IS NOT A COPY OF THE [employer] PROGRESS NOTE. DIMAS
== END ==
LOC: M PAIN 10:00
PROVIDERS: ATTEND Nurse Practitioner Family
DX: M25.552 Pain in left hip (principal); G90.529 Complex regional pain syndrome I of unspecified lower limb; G89.29 Other chronic pain; Z86.59 Personal history of other mental and behavioral disorders; M06.9 Rheumatoid arthritis, unspecified; G25.81 Restless legs syndrome; Z96.9 Presence of functional implant, unspecified; Z86.718 Personal history of other venous thrombosis and embolism; E03.9 Hypothyroidism, unspecified; E78.5 Hyperlipidemia, unspecified; G47.30 Sleep apnea, unspecified; Z88.8 Allergy status to other drugs, medicaments and biological substances; Z91.013 Allergy to seafood; Z79.891 Long term (current) use of opiate analgesic; Z79.899 Other long term (current) drug therapy

== ENCOUNTER → 2018-10-27 | Outpatient (CLI) | payer OTHER ==
[~2018-10-27] MED LIST changes: +AMIT25TA PO; +ARTIDRO2 OU; +FLUO10CA15 PO; +HYDR200T3 PO; +LEVO25TA5 PO; +LYRI200C PO; +MACR100C43 PO; +OMEP40CA97 PO; +SULF50TA PO; +ULTR37.54 PO; +WELL200T PO
--- NOTE | 2018-10-28 05:21 | REP ---
Clinical: Left hip pain. Technique: Axial noncontrast images through the left hip with coronal and sagittal re-formations. Findings: Left hip is essentially normal for age. Very minimal joint space narrowing and subtle increased sclerosis to the acetabulum cannot be excluded. No osteophytosis, subchondral cystic changes or irregularities. No periarticular calcifications or loose bodies are identified. There is no evidence for acute or healed injury. Axial images demonstrate relatively normal appearance to the surrounding musculature although mild subcutaneous infiltration along the posterior aspect of the infra-gluteal region cannot be excluded and should be correlated with physical examination. Impression: Essentially age-appropriate examination as described above. No overt significant arthritic changes are appreciated. No evidence for acute or healed injury. Electronically Signed by Ismael Reddy MD 10/28/2018 05:12 A
== END ==
LOC: M RAD 16:04
PROVIDERS: ATTEND Nurse Practitioner Family
DX: M25.552 Pain in left hip (principal)

== ENCOUNTER → 2018-11-01 | Outpatient (CLI) | payer OTHER ==
[2018-11-01 10:49] LABS: HEMATOCRIT 38.1 % (36.0-47.0); HEMOGLOBIN 11.9 g/dl (12.0-15.5); MEAN CORPUSCULAR HEMOGLOBIN 31.1 pg (27.0-33.0); MEAN CORPUSCULAR HGB CONC 31.2 g/dl (32.0-36.5); MEAN CORPUSCULAR VOLUME 99.5 fl (80.0-96.0); PLATELET COUNT, AUTOMATED 208 10^3/uL (150-450); RED BLOOD COUNT 3.83 10^6/uL (4.00-5.40)
[2018-11-01 11:11] LABS: BLOOD UREA NITROGEN 18 MG/DL (7-18); CALCIUM LEVEL 8.7 MG/DL (8.5-10.1); CARBON DIOXIDE LEVEL 29 MEQ/L (21-32); CHLORIDE LEVEL 108 MEQ/L (98-107); CREATININE FOR GFR 0.79 MG/DL (0.55-1.30); GLOMERULAR FILTRATION RATE > 60.0 (>51); GLUCOSE, FASTING 99 MG/DL (70-100); POTASSIUM SERUM 4.3 MEQ/L (3.5-5.1); SODIUM LEVEL 142 MEQ/L (136-145)
--- NOTE | 2018-11-01 15:10 | REP ---
CHEST X-RAY: TWO VIEWS. HISTORY: Kidney stone. COMPARISON STUDY: August 15, 2015 FINDINGS: A dorsal column stimulator is visualized in the thoracic spinal canal. This is a different stimulator catheter than was visible on August 15, 2015. There are mild degenerative changes in the thoracic spine. No other bony abnormality is seen. The lungs are less well inflated than on the prior study and there is bibasilar plate-like atelectasis left greater than right visible today. The left hemidiaphragm is a little elevated. Pleural angles are sharp. No infiltrate is seen. Heart is not enlarged. IMPRESSION: Bibasilar plate-like atelectasis, left more so than right. Mild elevation of the left hemidiaphragm. Dorsal column stimulator. Otherwise, no acute disease. Electronically Signed by Jordi Martinez MD 11/01/2018 07:34 P
== END ==
LOC: M SMT 08:46
PROVIDERS: ATTEND Urology
DX: Z01.818 Encounter for other preprocedural examination (principal); N20.0 Calculus of kidney

== ENCOUNTER → 2018-11-30 | Outpatient (REF) | payer MEDICARE, OTHER ==
[~2018-11-30] MED LIST changes: -FLUO10CA15 PO; +FLUO10CA8 PO; +OMEP40CA2 PO; -OMEP40CA97 PO
[2018-11-30 12:58] LABS: HEMATOCRIT 38.9 % (36.0-47.0); HEMOGLOBIN 12.1 g/dl (12.0-15.5); MEAN CORPUSCULAR HEMOGLOBIN 31.3 pg (27.0-33.0); MEAN CORPUSCULAR HGB CONC 31.1 g/dl (32.0-36.5); MEAN CORPUSCULAR VOLUME 100.8 fl (80.0-96.0); PLATELET COUNT, AUTOMATED 197 10^3/uL (150-450); RED BLOOD COUNT 3.86 10^6/uL (4.00-5.40); WHITE BLOOD COUNT 4.7 10^3/uL (4.0-10.0)
[2018-11-30 13:48] LABS: ALBUMIN 3.6 GM/DL (3.2-5.2); ALT/SGPT 52 U/L (12-78); BILIRUBIN,TOTAL 0.3 MG/DL (0.2-1.0); BLOOD UREA NITROGEN 20 MG/DL (7-18); CALCIUM LEVEL 8.7 MG/DL (8.8-10.2); CARBON DIOXIDE LEVEL 27 MEQ/L (21-32); CHLORIDE LEVEL 108 MEQ/L (98-107); CHOLESTEROL LEVEL 257 MG/DL (<200); CREATININE FOR GFR 0.66 MG/DL (0.55-1.30); FREE T4 0.84 NG/DL (0.76-1.46); GLOMERULAR FILTRATION RATE > 60.0 (>45); GLUCOSE, FASTING 87 MG/DL (70-100); HDL CHOLESTEROL 88 MG/DL (>40); LDL CHOLESTEROL 151 MG/DL (<100); NON-HDL-C 169 MG/DL; POTASSIUM SERUM 4.7 MEQ/L (3.5-5.1); SODIUM LEVEL 143 MEQ/L (136-145); TOTAL PROTEIN 6.7 GM/DL (6.4-8.2); TRIGLYCERIDES LEVEL 90 MG/DL (<150)
== END ==
LOC: M SFHCADAM 10:39
PROVIDERS: ATTEND Family Medicine
DX: F32.9 Major depressive disorder, single episode, unspecified (principal); G90.529 Complex regional pain syndrome I of unspecified lower limb; E03.9 Hypothyroidism, unspecified
CPT/HCPCS: 80053; 80061; 84439; 84443; 85027; G0463

== ENCOUNTER → 2018-12-02 | Outpatient (CLI) | payer MEDICARE, OTHER ==
--- NOTE | 2018-12-17 01:57 | ECWPNPC ---
PATIENT NAME: AIRAM PERERA : 1960 GENDER: FEMALE VISIT DATE: 12/02/2018 DISCHARGE DATE: 12/02/18 1402 VISIT LOCKED DATE TIME: PHYSICIAN: HERIBERTO FORBES PHYSICIAN PAGER NO: [phone] RESOURCE: HERIBERTO FORBES REASON FOR APPOINTMENT 1. BACK/HIP HISTORY OF PRESENT ILLNESS HISTORY OF PRESENT ILLNESS: PAIN THE PATIENT DESCRIBES THE PAIN... THE PATIENT DESCRIBES THE PAIN... THE PATIENT DESCRIBES THE PAIN... THE PATIENT DESCRIBES THE PAIN... THE PATIENT DESCRIBES THE PAIN... THE PATIENT DESCRIBES THE PAIN... THE PATIENT DESCRIBES THE PAIN... THE PATIENT DESCRIBES THE PAIN... THE PATIENT DESCRIBES THE PAIN... THE PATIENT DESCRIBES THE PAIN... THE PATIENT DESCRIBES THE PAIN... THE PATIENT DESCRIBES THE PAIN... THE PATIENT DESCRIBES THE PAIN... HERE FOR F/U .HX OF CHRONIC LBP AND LEFT FOOT PAIN DUE TO WORK RELATED INJURY IN 1986. RATING PAIN VAS 5/10. DCS WAS REVISED 08-25-2017. CHRONIC PAIN MEDICATION FOR WORK RELATED INJURY:1. CELEBREX 200MG BID2. LYRICA 200MG BID3.ULTRACET 37.5/325 2 TAB PO Q4-6 H PRN PAIN-USING THIS MEDICATION FOR MODERATE PAIN.PAIN VAS 5-7/104.HYDROCODONE 5/325 1 TAB PO Q6H PRN SEVERE PAIN.PAIN VAS 8-10/105.ELAVIL 50MG AT HS FORCHRONIC NIGHTTIME NEUROPATHIC PAINOVER THE PAST 3 MONTHS LEFT HIP HAS BEEN AGGREVATED.PAIN IN THIS REGION RANGES 3-6/10VAS.HAS RESPONDED WELL TO LEFT TROCHANTERIC BURSAL INJECTIONS. FALL RISK SCREENING: SCREENING :NO FALLS REPORTED IN THE LAST YEAR CURRENT MEDICATIONS TAKING ULTRACET 37.5-325 MG TABLET 2 TABLETS ORALLY Q8H PRN FOR PAIN MDD2( 3MOS SUPPLY CODE D CHRONIC PAIN), NOTES: DIAGNOSIS:CHRONIC PAIN TAKING EILEEN INTERMIT FEMALE CATHETER #14 FR STRAIGHT TIP ATTENTION REFERRAL [facility] AT [facility] USE FOR [facility] FOR URINARY RETENTION 4-5 TIMES/DAY (CLAIM # [id number]) TAKING FOLIC ACID 1 MG TABLET 2 TABLETS ORALLY ONCE A DAY, NOTES: 09/06/18 TAKING PLAQUENIL 200 MG TABLET 1 TABLET WITH FOOD OR MILK ORALLY BID TAKING SULFASALAZINE 500 MG TABLET 3 TABS ORALLY BID TAKING SYNTHROID 25MCG TABLET 1 TAB(S) ORALLY ONCE A DAY TAKING MACROBID 100 MG CAPSULE 1 CAPSULE WITH FOOD ORALLY DAILY TAKING WELLBUTRIN SR 200 MG TABLET EXTENDED RELEASE 12 HOUR 1 TABLET ORALLY TWICE A DAY TAKING OMEPRAZOLE 40MG CAPSULE DELAYED RELEASE 1 CAPSULE ORALLY DAILY TAKING ELAVIL 50 MG TABLET 1 TAB(S) ORAL AT BEDTIME, NOTES: 09/06/18 TAKING HYDROCODONE-ACETAMINOPHEN 5-325 MG TABLET 1 TABLET NEEDED ORALLY EVERY 6 HRS PRN FOR PAIN MDD2 (3MOS SUPPLY CODE D CHRONIC PAIN), NOTES: NONE LATELY TAKING LYRICA 200 MG CAPSULE 1 CAP ORALLY (CODE D FOR CHRONIC PAIN) BID MDD2 TAKING CELEBREX 200 MG CAPSULE 1 CAPSULE P.O. BID TAKING OXYBUTYNIN CHLORIDE ER 10 MG TABLET EXTENDED RELEASE 24 HOUR 1 TABLET ORALLY ONCE A DAY TAKING FLUOXETINE HCL 10 MG CAPSULE 1 CAPSULE ORALLY ONCE A DAY NOT-TAKING MUCINEX DM MAXIMUM STRENGTH 60-1200 MG TABLET EXTENDED RELEASE 12 HOUR 1 TABLET NEEDED ORALLY TWICE A DAY NOT-TAKING SUDAFED 30 MG TABLET 1 TABLET NEEDED ORALLY EVERY 6 HRS NOT-TAKING SHINGRIX 50 MCG SUSPENSION RECONSTITUTED DIRECTED INTRAMUSCULAR DIRECTED NOT-TAKING SOMA 350 MG TABLET 1 TABLET NEEDED ORALLY 2 TIMES A DAY NEEDED MEDICATION LIST REVIEWED AND RECONCILED WITH THE PATIENT PAST MEDICAL HISTORY DEGENERATIVE DISC DISEASE AT L5-S1 STATUS POST LAMINECTOMY CHRONIC LOW BACK PAIN (SECONDARY TO INJURY TO HER LOW BACK/COMPENSATION CASE) (DR. ZAMORA) NEUROGENIC BOWEL AND BLADDER SUBSEQUENT TO UNDERGOING BACK SURGERY REQUIRES SELF CATHETERIZATION RECURRENT URINARY TRACT INFECTION () CHRONIC CONSTIPATION DEPRESSION RHEUMATOID ARTHRITIS (DR. ENGLAND) RESTLESS LEG SYNDROME WITH LEFT FOOT DROP OSTEOPENIA LEFT FEMUR DEXA 07/06/16 ANEMIA HAS A DORSAL COLUMN STIMULATOR-- NO MRIS ECHO 08/30/07 - EF 60% NO VALVULAR ABNORMALITIES DEVELOPED BILATERAL PHLEBITIS WITH BCP YRS AGO DVT BILATERAL LOWER LEGS AT AGE 16 HOSPITALIZED ON [facility] AT THE TIME HYPOTHYROID HYPERLIPIDEMIA--ASCVD 10 YR RISK < 2% (08/03) SLEEP APNEA- CPAP MACHINE USED KIDNEY STONE ALLERGIES GABATROL: ITCHING/ TREMORS - ALLERGY SHELLFISH: ANGEIOEDEMA - ALLERGY ATIVAN: SUICIDAL THOUGHTS - ALLERGY CYMBALTA: FATIGUE - SIDE EFFECTS SURGICAL HISTORY EGD/COLONOSCOPY ADENOMATOUS HYPERPLASTIC POLYP 08/2009 D&C, LAPROSCOPY YRS AGO CONE BIOPSY AFTER ABNORMAL PAPS LAVH -DUE TO EXCESSIVE BLEEDING AND FIBROIDS- 2006 COLONOSCOPY - 3 DIMINUTIVE POLYPS, INTERNAL HEMORRHOIDS, LONG REDUNDANT COLON PRONE TO IRREGULARITY/CONSTIPATION/INCOMPLETE EMPTYING (DR. RODRIGUEZ) 10/28/12 EGD - NORMAL 10/28/12 CYSTOLITHOLAPAXY 09/06/15 DORSAL COLUMN STIMULATOR REPLACEMENT AND LAMINECTOMY 08/2017 FAMILY HISTORY FATHER: ALIVE 92 YRS, COLON POLYP (PRECANCEROUS), SKIN CANCER, ATELECTASIS PARKINSONISM, DEMENTIA, DIAGNOSED WITH OTHER SPECIFIED CONDITIONS INFLUENCING HEALTH STATUS MOTHER: , DM, BREAST CANCER (DX IN HER 70S), STROKE, DEMENTIA, DIABETES, OTHER MALIGNANT NEOPLASM OF UNSPECIFIED SITE SIBLINGS: SISTER WITH HTN AND EPILEPSY, ANOTHER SISTER WITH HTN AND POLYMYALGIA, HYPERTENSION DAUGHTER(S): OLDEST WITH SEVERE ENDOMETRIOSIS WITH BOWEL AND BLADDER INVOLVEMENT, DEPRESSION, BACK PROBLEMS. FIBROMYALGIA YOUNGEST, NO KNOWN MEDICAL PROBLEMS, UNSPECIFIED NONPSYCHOTIC MENTAL DISORDER FOLLOWING ORGANIC BRAIN DAMAGE PATERNAL AUNT: BREAST CANCER, DX IN 70 2 SISTER(S) . 2DAUGHTER(S) . DENIES COLON OR OVARIAN CANCERS., NO KNOWN FAMILY HISTORY OF ANY UROLOGICALLY RELATED DISEASES OR CANCERS. GRANDDAUGHTER YE WITH LEUKEMIA. SOCIAL HISTORY GENERAL: TOBACCO USE ARE YOU A:NONSMOKER NEVER SMOKER HIV / HEP-C SCREENING HIV TEST OFFERED TO PATIENT:YES DATE OFFERED:07/06/2017 TEST ACCEPTED:NO HEP-C TEST OFFERED TO PATIENT:YES DATE OFFERED:07/06/2017 REASON:PATIENT DECLINED TEST ACCEPTED:NO REASON:PATIENT DECLINED BROCHURE PROVIDED TO PATIENTYES OTHERS AT HOME: SPOUSE. EDUCATION LEVEL OF EDUCATION:[employer] DIET: TRYING REDUCE CALORIES AT THIS TIME. LANGUAGE INDONESIAN. NEW PATIENT PAIN DIARY TODAY'S VISITNOTES FROM 0-10, WHAT LEVEL IS YOUR PAIN TODAY?1 BMI CARE GOAL FOLLOW-UP ABOVE NORMAL BMI FOLLOW-UPGIVING ENCOURAGEMENT TO EXERCISE RECREATIONAL DRUG USE DRUG USE?NO EXERCISE: NO CURRENT EXERCISE , TRIES TO WALK. LEARNING BARRIERS / SPECIAL NEEDS CHANGE FROM LAST VISIT?NO BARRIERS TO LEARNING?NO HEARING IMPAIRED?NO VISION IMPAIRED?YES COGNITIVELY IMPAIRED?NO :CORRECTIVE LENSES READINESS TO LEARN?YES LEARNING PREFERENCES?NO LEARNING CAPABILITIES PRESENT?YES EMOTIONAL BARRIERS?NO SPECIAL DEVICES?NO SHAFT MECHANIC NEEDED?NO PAIN CLINIC PFS, CLERGY, PUBLIC HEALTH REFERRALS WAS THE PROVIDER NOTIFIED OF ANY PERTINENT INFO?YES HAS THE PATIENT BEEN EDUCATED REGARDING HIS/HER PLAN OF CARE?YES HAS THE PATIENT BEEN EDUCATED REGARDING PAIN, THE RISK FOR PAIN, THE IMPORTANCE OF EFFECTIVE PAIN MANAGEMENT, AND THE PAIN ASSESSMENT PROCESS?YES LATEX QUESTIONNAIRE LATEX ALLERGY : HAVE YOU EVER DEVELOPED ANY TYPE OF REACTION AFTER HANDLING LATEX PRODUCTS SUCH RUBBER GLOVES, CONDOMS, DIAPHRAGMS, BALLOONS, SOCKS, OR UNDERWEAR?NO LATEX ALLERGY : HAVE YOU EVER DEVELOPED ANY TYPE OF REACTION DURING OR AFTER DENTAL APPOINTMENT, VAGINAL/RECTAL EXAMINATION, SURGICAL PROCEDURE, OR ANY OTHER EXPOSURE?NO DATE ASKED : 07/04/2018 LATEX RISK : HAVE YOU EVER HAD ANY DIFFICULTY BREATHING OR HIVES AFTER EATING OR HANDLING ANY FRUITS, OR VEGETABLES; SUCH KIWI, BANANAS, STONE FRUITS, OR CHESTNUTSNO LATEX RISK : DO YOU HAVE A PREVIOUS PERSONAL HISTORY OF MORE THAN NINE SURGERIES, SPINA BIFIDA, OR REPEATED CATHERIZATIONS? NO LATEX RISK : ARE YOU FREQUENTLY EXPOSED TO LATEX PRODUCTS IN YOUR OCCUPATION?NO CAFFEINE CAFFEINE USE?NO ADVANCE DIRECTIVE ADVANCE DIRECTIVE DISCUSSED WITH PATIENT:YES HCP - NOE PERERA () ZOROASTRIAN ZOROASTRIAN NO PREFERENCE MARITAL STATUS: . ALCOHOL SCREENING DID YOU HAVE A DRINK CONTAINING ALCOHOL IN THE PAST YEAR?YES HOW OFTEN DID YOU HAVE SIX OR MORE DRINKS ON ONE OCCASION IN THE PAST YEAR?NEVER (0 POINTS) HOW MANY DRINKS DID YOU HAVE ON A TYPICAL DAY WHEN YOU WERE DRINKING IN THE PAST YEAR?1 OR 2 (0 POINTS) HOW OFTEN DID YOU HAVE A DRINK CONTAINING ALCOHOL IN THE PAST YEAR?MONTHLY OR LESS (1 POINT) POINTS1 INTERPRETATIONNEGATIVE OCCUPATION: DISABLED. SEXUAL HX HAD SEX IN THE LAST 12 MONTHS (VAGINAL, ORAL, OR ANAL)?NO LMP:HYSTER HAVE YOU EVER HAD AN STD?NO REVIEWED WITH PT 12-22-17 1001 BVREVIEWED WITH PATIENT 01/27/18 1127 JSREVIEWED WITH PATIENT 03/07/18 0916 JSREVIEWED WITH PATIENT 03/24/18 0912 LASREVIEWED WITH PATIENT 12/02/18 1330 LAS. HOSPITALIZATION/MAJOR DIAGNOSTIC PROCEDURE SX RELATED REVIEW OF SYSTEMS REVIEWED BY: PROVIDER: HERIBERTO RIVAS . CONSTITUTIONAL: ANY CHANGE IN YOUR MEDICAL CONDITION? YES PT REPORTS SHE HAS A KIDNEY STONE, FOR SURGERY NEXT WEDNESDAY. . CHILLS NO . FEVER NO . INFECTION: DO YOU HAVE NEW INFECTIONS? NO . DO YOU HAVE HISTORY OF MRSA? NO . MUSCULOSKELETAL: ANY NEW PATTERNS OF PAIN OR NUMBNESS? NO . GASTROENTEROLOGY: ANY NEW CHANGE IN BOWEL CONTROL? NO . GENITOURINARY: ANY NEW CHANGE IN BLADDER CONTROL? NO . IS THERE A CHANCE YOU COULD BE ? NO . HEMATOLOGY/LYMPH: DO YOU TAKE ANY BLOOD THINNERS? (FOR EXAMPLE- COUMADIN, PLAVIX, AGGRENOX, PLATEL, PRADAXA, OR XARELTO) NO . WHEN WAS YOUR LAST DOSE? DATE: TIME: . NEUROLOGY: HAVE YOU FALLEN IN THE PAST 12 MONTHS? YES PT REPORTS THAT HER LEFT LEG WILL OCCASIONALLY GIVE OUT R/T RSD, WEAKNESS AND SHE STUMBLES. DENIES INJURY FROM FALLS. . ANY NEW EXTREMITY NUMBNESS OR WEAKNESS? NO . CARDIOLOGY: DO YOU HAVE A PACEMAKER OR DEFIBRILLATOR? DORSAL COLUMN STIMULATOR . RESPIRATORY: HAVE YOU BEEN SICK IN THE PAST WEEK? NO . FEVER NO . FLU LIKE SYMPTOMS? NO . COUGH NO . INTEGUMENTARY: DO YOU HAVE ANY RASHES OR OPEN SORES? NO . ALLERGIC/IMMUNO: ARE YOU ALLERGIC TO IV DYE? NO . ANY NEW ALLERGIES? NO . PSYCHIATRIC: DO YOU HAVE THOUGHTS OF HURTING YOURSELF OR SOMEONE ELSE? NO . ARE YOU ABUSED, NEGLECTED, OR IN AN UNSAFE ENVIRONMENT? NO . ENDOCRINOLOGY: ARE YOU DIABETIC? NO . OTHER: DO YOU NEED ANY PRESCRIPTIONS? NO . IF YES, PLEASE LIST: ____ . ANY NEW PROBLEMS WITH YOUR MEDICATIONS? NO . WHEN DID YOU LAST EAT? ____ . WHEN DID YOU LAST DRINK? ____ . WHAT DID YOU LAST DRINK? ____ . NAME OF PERSON DRIVING YOU HOME? ____ . DO YOU HAVE ANY OTHER QUESTIONS OR CONCERNS WOULD LIKE TO DISCUSS LEFT HIP PAIN. . VITAL SIGNS WT 191 LBS, HT 66 IN, BMI 30.82 INDEX, BP 140/76 MM HG, HR 98 /MIN, RR 18 /MIN, TEMP 96.7 F, OXYGEN SAT % 96%, SAFE IN ENV? (Y/N) YES, NA INITIALS MA 13:21, REVIEWED BY: HARINI. EXAMINATION GENERAL EXAMINATION: GENERAL AWAKE,ALERT ,PLEAASANT . PSYCH AFFECT NORMAL . LUNGS: LUNG AMBROSIO ARE CLEAR TO AUSCULTATION BILATERALLY. GOOD MOVEMENT OF AIR . HEART: S1, S2 IN A REGULAR RATE AND RHYTHM. NO SIGNIFICANT MURMURS, RUBS OR GALLOPS NOTED . MUSCULOSKELETAL:WEAKNESS/CLONUS NOTED OVER LEFT LEG WITH MST LEFT TIB/FIB AND LEFT FOOT IS WITH HYPERSENSITIVITY TO LIGHT TOUCH.LEFT FOOT IS WITH RED DISCOLORATION AND SWELLING.MARKED TENDERNESS WITH PALPATION OF LEFT TROCHANTERIC REGION. MARKED TENDERNESS NOTED OVER LEFT HIP. 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 PROCEDURES PN WORKMANS' COMP OPINION IN YOUR OPINION, WAS THE INCIDENT THAT THE PATIENT DESCRIBED THE COMPETENT MEDICAL CAUSE OF THIS INJURY/ILLNESS? YES ARE THE PATIENT'S COMPLAINTS CONSISTENT WITH HIS/HER HISTORY OF THE INJURY/ILLNESS? YES IS THE PATIENT'S HISTORY OF THE INJURY/ILLNESS CONSISTENT WITH YOUR OBJECTIVE FINDING? YES WHAT IS THE PERCENTAGE OF TEMPORARY IMPAIRMENT? MODERATE TO MARKED = 66.7% IS THE PATIENT WORKING? NO DOCTOR ON SITE: CANDICE POLLARD MD PREVENTIVE MEDICINE PAIN CLINIC TEACHING: PROCEDURE TEACHING TROCHANTERIC BURSA INJECTION PROCEDURE REVIEWED WITH PATIENT, PRE PROCEDURE INSTRUCTIONS REVIEWED WITH PATIENT. PATIENT VERBALIZES UNDERSTANDING. LAS. DISPOSITION & COMMUNICATION FOLLOW UP POST (REASON: LEFT TROCHANTERIC BURSAL INJECTION W/C) ELECTRONICALLY SIGNED BY ROB PRICE ON 12/16/2018 AT 03:51 PM EDT DISCLAIMER : THIS IS A VISIT SUMMARY EXTRACTED FROM THE [facility] CHART. IT IS NOT A COPY OF THE [facility] PROGRESS NOTE. DIMAS
== END ==
LOC: M PAIN 13:15
PROVIDERS: ATTEND Nurse Practitioner Family
DX: M25.552 Pain in left hip (principal); G90.529 Complex regional pain syndrome I of unspecified lower limb; G89.29 Other chronic pain; Z86.59 Personal history of other mental and behavioral disorders; G25.81 Restless legs syndrome; E03.9 Hypothyroidism, unspecified; E78.5 Hyperlipidemia, unspecified; G47.30 Sleep apnea, unspecified; Z88.8 Allergy status to other drugs, medicaments and biological substances; Z91.013 Allergy to seafood; Z79.891 Long term (current) use of opiate analgesic; Z79.899 Other long term (current) drug therapy
CPT/HCPCS: 87086; 93005; G0463

== ENCOUNTER → 2018-12-02 | Outpatient (CLI) | payer MEDICARE ==
--- NOTE | 2018-12-02 16:46 | ECGEPIP ---
[facility] Test Date: 2018-12-02 Pat Name: AIRAM PERERA Department: Room: - Gender: Female [employer] Position Clerk: ROGELIO : 1960 Requested By: ANI Hagen Order Number: [id number] Reading MD: Andrew Arboleda Measurements Intervals [place] Rate: 86 P: 42 IA: 175 QRS: 47 QRSD: 89 T: 56 QT: 395 QTc: 474 Interpretive Statements SINUS RHYTHM Poor R wave progression No significant change compared with 07/27/2017 Electronically Signed on 12-02-2018 16:46:06 EDT by Andrew Arboleda
== END ==
LOC: M EKG 09:49
PROVIDERS: ATTEND Urology
DX: Z01.818 Encounter for other preprocedural examination (principal); N20.0 Calculus of kidney

== ENCOUNTER → 2018-12-05 | Outpatient (REF) | payer MEDICARE, OTHER ==
[~2018-12-05] MED LIST changes: +FLUO10CA15 PO; -FLUO10CA8 PO; -OMEP40CA2 PO; +OMEP40CA97 PO
[2018-12-05 19:42] LABS: APPEARANCE, URINE HAZY (CLEAR); BACTERIA, URINE AUTO NEGATIVE (NEGATIVE); BILIRUBIN, URINE AUTO NEGATIVE (NEGATIVE); BLOOD, URINE BLOOD 1+ (NEGATIVE); COLOR, URINE YELLOW (YELLOW); GLUCOSE, URINE (UA) AUTO NEGATIVE (NEGATIVE); KETONE, URINE AUTO NEGATIVE (NEGATIVE); LEUKOCYTE ESTERASE, URINE AUTO 3+ (NEGATIVE); MUCUS, URINE SMALL (NEGATIVE); NITRITE, URINE AUTO NEGATIVE (NEGATIVE); PROTEIN, URINE AUTO NEGATIVE (NEGATIVE); RBC, URINE AUTO 8 /HPF (0-3); SQUAMOUS EPITHELIAL CELL UR AU 2 /HPF (0-6); UROBILINOGEN, URINE AUTO 0.2 mg/dL (0.0-2.0); WBC, URINE AUTO 138 /HPF (0-3)
== END ==
LOC: M SMT 18:32
PROVIDERS: ATTEND Urology
DX: Z01.818 Encounter for other preprocedural examination (principal); N20.0 Calculus of kidney; N39.0 Urinary tract infection, site not specified

== ENCOUNTER 2018-12-07 07:25 | Day surgery (SDC) | payer MEDICARE ==
[~2018-12-07] VITALS: Ht 167.6 cm; Wt 86.5 kg
[~2018-12-07 07:25] MED LIST changes: -FLUO10CA15 PO; +FLUO10CA8 PO; +LR 1,000 ML IV ONE; +OMEP40CA2 PO; -OMEP40CA97 PO
[2018-12-07] MEDS ORDERED: FLUCONAZOLE 400 MG in APPROPRIATE DILUENT 1 EA IV ONE (09:30)
[2018-12-07] MEDS ORDERED: CONRAY-60 60% 50ML VIAL (Q9961) As Ordered ONE (09:55)
[2018-12-07] MEDS ORDERED: PROPOFOL 200 MG/20 ML VIAL As Ordered ONE (10:09)
[2018-12-07] MEDS ORDERED: LIDOCAINE 2% INJ 100 MG/5 ML SDV (FOR ANES.) As Ordered ONE (10:09)
[2018-12-07] MEDS ORDERED: MIDAZOLAM INJ 2 MG/2 ML VIAL (J2250) As Ordered ONE (10:10)
[2018-12-07] MEDS ORDERED: fentaNYL 100 MCG/2 ML INJECTION (J3010) As Ordered ONE (10:10)
[2018-12-07] MEDS ORDERED: SCOPOLAMINE 1MG TRANSDERMAL PATCH As Ordered ONE (10:27)
[2018-12-07] MEDS ORDERED: ROCURONIUM BROMIDE 50 MG/5 ML VIAL As Ordered ONE (10:34)
[2018-12-07] MEDS ORDERED: METHOCARBAMOL 1,000 MG/10 ML VIAL (J2800) As Ordered ONE (10:49)
[2018-12-07] MEDS ORDERED: dexameTHASONE 4 MG/ML 1ML VIAL (J1100) As Ordered ONE (11:14)
[2018-12-07] MEDS ORDERED: ONDANSETRON 4MG/2ML VIAL (J2405) As Ordered ONE (11:14)
[2018-12-07] MEDS ORDERED: METOCLOPRAMIDE INJ 10MG/2ML VIAL (J2765) As Ordered ONE (11:14)
[2018-12-07] MEDS ORDERED: KETOROLAC 60 MG/2 ML VIAL (J1885) As Ordered ONE (11:14)
[2018-12-07] MEDS ORDERED: ePHEDrine SULFATE 25 MG/5 ML(5MG/ML) SYRINGE As Ordered ONE ×2 (11:14→11:20)
[2018-12-07] MEDS ORDERED: SUGAMMADEX SODIUM 500 MG/5 ML VIAL (BRIDION) As Ordered ONE (11:45)
[2018-12-07] MEDS ORDERED: LR 1,000 ML IV SCH (12:30)
[2018-12-07] MEDS ORDERED: fentaNYL 100 MCG/2 ML INJECTION (J3010) IV PRN (12:30)
[2018-12-07] MEDS ORDERED: ONDANSETRON 4MG/2ML VIAL (J2405) IV PRN (12:30)
[2018-12-07] MEDS ORDERED: NORCO, ANEXSIA 5/325MG TABLET (HYDROcodone/ACETAMINOPHEN) PO PRN ×2 (12:30→13:00)
[2018-12-07] MEDS ORDERED: MORPHINE 10 MG/ML 1ML VIAL (J2270) IV PRN (12:45)
--- NOTE | 2018-12-07 13:34 | REP ---
C-ARM VIEWS DURING RIGHT URETERAL STENT PLACEMENT: Three C-arm views are performed. Right pelvicalyceal system is partially opacified with contrast. Right ureteral stent is placed. The proximal end is coiled in the right renal pelvis. The distal end is coiled in the region of the urinary bladder. 17 seconds fluoroscopy time utilized. Electronically Signed by Octavio Suarez MD 12/08/2018 04:44 P
[2018-12-07 13:42] VITALS: BP 131/72
--- NOTE | 2018-12-08 09:29 | RO ---
DATE OF PROCEDURE: 12/07/2018 PREPROCEDURE DIAGNOSIS: Right kidney stone. POSTPROCEDURE DIAGNOSIS: Right kidney stone, bladder mass. PROCEDURE: Cystoscopy, right ureteroscopy with laser lithotripsy and basket extraction of stones, right retrograde pyelogram with intraoperative interpretation of images, right ureteral stent placement, bladder biopsy with fulguration. SURGEON: Dr. Ganesh Adams DATE PULLER: None. ANESTHESIA: General. OPERATIVE INDICATIONS: This is a 58-year-old female who was found to have an approximately 1 cm stone on CAT scan. She was brought to the operating room today for treatment. DESCRIPTION OF PROCEDURE: The patient was brought to the operating room where general anesthesia was induced. Prophylactic antibiotics were infused. She was then placed in the dorsal lithotomy position and prepped and draped in the usual sterile fashion. A rigid cystoscope was inserted into the urethral meatus and advanced into the bladder. Once inside the bladder, of note, the patient appeared to have a collection of lesions on the posterior bladder wall, which I suspect was bullous edema, but it might also have been a tumor. At this point, a wire was advanced up the right collecting system. I then advanced the ureteral access sheath over the wire into the right collecting system. I went up the access sheath with a flexible ureteroscope and then examined the right kidney thoroughly. The only abnormality seen inside the kidney was an approximately 1 cm stone in the lower pole of calyx. This stone was then repositioned into the renal pelvis and then the stone was fragmented into smaller pieces using a 272 micron laser fiber. All of the fragments were removed using a basket. Once done the only fragments remaining were very tiny stone debris that should be able pass on its own. A retrograde pyelogram was then performed. It was notable for mild to moderate right hydronephrosis and no extravasation. I then withdrew the ureteroscope along with access sheath and no additional stones were seen within the ureter. I then utilized the wire to advance a 6 Mongolian x 22-32 cm JJ ureteral stent up into the right collecting system. The wire was then removed and there were adequate curls of the stent in the right renal pelvis and in the bladder. Once that was done, I then utilized cold cut biopsy forceps to biopsy the abnormal appearing lesion on the posterior wall of the bladder. I then obtained hemostasis using the Bugbee. Once satisfied with hemostasis, the bladder was emptied of all fluids and this marked the conclusion of the procedure. The patient was taken out of dorsal lithotomy position, awakened from anesthesia, and transported to the recovery room in stable condition. ESTIMATED BLOOD LOSS: 5 mL. COMPLICATIONS: None. SPECIMENS: Kidney stone fragments, bladder biopsy. PLAN: The patient will followup in the clinic in a few weeks for stent removal. I will call her also with the pathology results from the bladder biopsy. DIMAS
== END 2018-12-07 13:50 | disposition home or self-care (01) ==
LOC: M SDC 07:25
PROVIDERS: ATTEND Urology
DX: N20.0 Calculus of kidney (principal); N32.9 Bladder disorder, unspecified; E03.9 Hypothyroidism, unspecified; K21.9 Gastro-esophageal reflux disease without esophagitis; M06.9 Rheumatoid arthritis, unspecified; Z92.21 Personal history of antineoplastic chemotherapy; G47.30 Sleep apnea, unspecified; Z88.8 Allergy status to other drugs, medicaments and biological substances; Z91.013 Allergy to seafood; F32.9 Major depressive disorder, single episode, unspecified; Z79.899 Other long term (current) drug therapy
CPT/HCPCS: 52204; 52356; 74420; 82360; 88300; 88307; C1769; C1894; C2617; J0690; J1100; J1450; J1885; J2250; J2405; J2765; J2800; J3010; Q9961

== ENCOUNTER → 2019-03-09 | Outpatient (CLI) | payer MEDICARE, OTHER ==
[~2019-03-09] MED LIST changes: +BUPIVACAINE HCL 0.25% 30 ML VIAL As Ordered ONE; +FLUO10CA15 PO; -FLUO10CA8 PO; +ISOVUE-M 300 61% 15ML VIAL (Q9967) As Ordered ONE; +LIDOCAINE 1% SDV INJ 30 ML VIAL As Ordered ONE; -LR 1,000 ML IV ONE; -OMEP40CA2 PO; +OMEP40CA97 PO; +TRIAMCINOLONE ACETONIDE SUSP 40 MG/ML VIAL (J3301) As Ordered ONE
--- NOTE | 2019-03-09 13:54 | REP ---
C-ARM VIEWS PROXIMAL LEFT FEMUR: CLINICAL HISTORY: Pain. Multiple C-arm views of the proximal left femur performed during injection of greater trochanter region by Dr. Lizama. A needle was seen overlying t he proximal left femur. 29 seconds of fluoroscopy time utilized. Electronically Signed by Octavio Suarez MD 03/09/2019 05:13 P
--- NOTE | 2019-03-19 23:50 | ECWPNPC ---
PATIENT NAME: AIRAM PERERA : 1960 GENDER: FEMALE VISIT DATE: 03/09/2019 DISCHARGE DATE: 03/09/19 1308 VISIT LOCKED DATE TIME: PHYSICIAN: CANDICE MELARA MD PHYSICIAN PAGER NO: [phone] RESOURCE: CANDICE MELARA MD REASON FOR APPOINTMENT 1. W/C LEFT TROCHANTERIC BURSAL INJECTION HISTORY OF PRESENT ILLNESS HISTORY OF PRESENT ILLNESS: PAIN THE PATIENT DESCRIBES THE PAIN... FALL RISK SCREENING: SCREENING :NO FALLS REPORTED IN THE LAST YEAR CURRENT MEDICATIONS TAKING ULTRACET 37.5-325 MG TABLET 2 TABLETS ORALLY Q8H PRN FOR PAIN MDD2( 3MOS SUPPLY CODE D CHRONIC PAIN), NOTES: 03/08/19 TAKING EILEEN INTERMIT FEMALE CATHETER #14 FR STRAIGHT TIP ATTENTION REFERRAL [facility] AT [facility] FOR [facility] FOR URINARY RETENTION 4-5 TIMES/DAY (CLAIM # [id number]) TAKING FOLIC ACID 1 MG TABLET 2 TABLETS ORALLY ONCE A DAY, NOTES: 03/09/19 TAKING PLAQUENIL 200 MG TABLET 1 TABLET WITH FOOD OR MILK ORALLY BID, NOTES: 03/06/19 TAKING SULFASALAZINE 500 MG TABLET 3 TABS ORALLY BID, NOTES: 03/09/19 TAKING MACROBID 100 MG CAPSULE 1 CAPSULE WITH FOOD ORALLY DAILY, NOTES: 03/09/19 TAKING HYDROCODONE-ACETAMINOPHEN 5-325 MG TABLET 1 TABLET NEEDED ORALLY EVERY 6 HRS PRN FOR PAIN MDD2 (3MOS SUPPLY CODE D CHRONIC PAIN), NOTES: NONE LATELY TAKING OXYBUTYNIN CHLORIDE ER 10 MG TABLET EXTENDED RELEASE 24 HOUR 1 TABLET ORALLY ONCE A DAY, NOTES: 03/09/19 TAKING FLUOXETINE HCL 10 MG CAPSULE 1 CAPSULE ORALLY ONCE A DAY, NOTES: 03/09/19 TAKING ROBAXIN-750 750 MG TABLET 1 TABLET ORALLY EVERY 4 HRS, NOTES: NONE LATELY TAKING ELAVIL 50 MG TABLET 1 TAB(S) ORAL AT BEDTIME, NOTES: 03/08/19 TAKING FLUTICASONE PROPIONATE 50 MCG/ACT SUSPENSION 1 SPRAY IN EACH NOSTRIL NASALLY ONCE A DAY, NOTES: NONE LATELY TAKING OMEPRAZOLE 40MG CAPSULE DELAYED RELEASE 1 CAPSULE ORALLY DAILY, NOTES: 03/09/19 TAKING LYRICA 200 MG CAPSULE 1 CAP ORALLY (CODE D FOR CHRONIC PAIN) BID MDD2, NOTES: 03/09/19 TAKING SYNTHROID 25MCG TABLET 1 TAB(S) ORALLY ONCE A DAY, NOTES: 03/09/19 TAKING CELEBREX 200 MG CAPSULE 1 CAPSULE P.O. BID, NOTES: 03/09/19 TAKING WELLBUTRIN SR 200 MG TABLET EXTENDED RELEASE 12 HOUR 1 TABLET ORALLY TWICE A DAY, NOTES: 03/09/19 NOT-TAKING SULFAMETHOXAZOLE-TRIMETHOPRIM 800-160 MG TABLET 1 TABLET ORALLY TWICE A DAY NOT-TAKING DIFLUCAN 200 MG TABLET 1 TABLET ORALLY DAILY NOT-TAKING MUCINEX DM MAXIMUM STRENGTH 60-1200 MG TABLET EXTENDED RELEASE 12 HOUR 1 TABLET NEEDED ORALLY TWICE A DAY NOT-TAKING SUDAFED 30 MG TABLET 1 TABLET NEEDED ORALLY EVERY 6 HRS NOT-TAKING SHINGRIX 50 MCG SUSPENSION RECONSTITUTED DIRECTED INTRAMUSCULAR DIRECTED NOT-TAKING SOMA 350 MG TABLET 1 TABLET NEEDED ORALLY 2 TIMES A DAY NEEDED MEDICATION LIST REVIEWED AND RECONCILED WITH THE PATIENT PAST MEDICAL HISTORY DEGENERATIVE DISC DISEASE AT L5-S1 STATUS POST LAMINECTOMY CHRONIC LOW BACK PAIN (SECONDARY TO INJURY TO HER LOW BACK/COMPENSATION CASE) (DR. ZAMORA) NEUROGENIC BOWEL AND BLADDER SUBSEQUENT TO UNDERGOING BACK SURGERY REQUIRES SELF CATHETERIZATION RECURRENT URINARY TRACT INFECTION () CHRONIC CONSTIPATION DEPRESSION RHEUMATOID ARTHRITIS (DR. ENGLAND) RESTLESS LEG SYNDROME WITH LEFT FOOT DROP OSTEOPENIA LEFT FEMUR DEXA 07/06/16 ANEMIA HAS A DORSAL COLUMN STIMULATOR-- NO MRIS ECHO 08/30/07 - EF 60% NO VALVULAR ABNORMALITIES DEVELOPED BILATERAL PHLEBITIS WITH BCP YRS AGO DVT BILATERAL LOWER LEGS AT AGE 16 HOSPITALIZED ON [facility] AT THE TIME HYPOTHYROID HYPERLIPIDEMIA--ASCVD 10 YR RISK < 2% (5/15) SLEEP APNEA- CPAP MACHINE USED KIDNEY STONE COMPLEX PAIN SYNDROME ALLERGIES GABATROL: ITCHING/ TREMORS - ALLERGY SHELLFISH: ANGEIOEDEMA - ALLERGY ATIVAN: SUICIDAL THOUGHTS - ALLERGY CYMBALTA: FATIGUE - SIDE EFFECTS SURGICAL HISTORY EGD/COLONOSCOPY ADENOMATOUS HYPERPLASTIC POLYP 08/2009 D&C, LAPROSCOPY YRS AGO CONE BIOPSY AFTER ABNORMAL PAPS LAVH -DUE TO EXCESSIVE BLEEDING AND FIBROIDS- 2006 COLONOSCOPY - 3 DIMINUTIVE POLYPS, INTERNAL HEMORRHOIDS, LONG REDUNDANT COLON PRONE TO IRREGULARITY/CONSTIPATION/INCOMPLETE EMPTYING (DR. RODRIGUEZ) 10/28/12 EGD - NORMAL 10/28/12 CYSTOLITHOLAPAXY 09/06/15 DORSAL COLUMN STIMULATOR REPLACEMENT AND LAMINECTOMY 08/2017 APPENDECTOMY TONSILLECTOMY FAMILY HISTORY FATHER: ALIVE 92 YRS, COLON POLYP (PRECANCEROUS), SKIN CANCER, ATELECTASIS PARKINSONISM, DEMENTIA, DIAGNOSED WITH OTHER SPECIFIED CONDITIONS INFLUENCING HEALTH STATUS MOTHER: , DM, BREAST CANCER (DX IN HER 70S), STROKE, DEMENTIA, OTHER MALIGNANT NEOPLASM OF UNSPECIFIED SITE, DIABETES SIBLINGS: SISTER WITH HTN AND EPILEPSY, ANOTHER SISTER WITH HTN AND POLYMYALGIA, HYPERTENSION DAUGHTER(S): OLDEST WITH SEVERE ENDOMETRIOSIS WITH BOWEL AND BLADDER INVOLVEMENT, DEPRESSION, BACK PROBLEMS. FIBROMYALGIA YOUNGEST, NO KNOWN MEDICAL PROBLEMS, UNSPECIFIED NONPSYCHOTIC MENTAL DISORDER FOLLOWING ORGANIC BRAIN DAMAGE PATERNAL AUNT: BREAST CANCER, DX IN 70 2 SISTER(S) . 2DAUGHTER(S) . DENIES COLON OR OVARIAN CANCERS., NO KNOWN FAMILY HISTORY OF ANY UROLOGICALLY RELATED DISEASES OR CANCERS. GRANDDAUGHTER YE WITH LEUKEMIA. SOCIAL HISTORY GENERAL: TOBACCO USE ARE YOU A:NONSMOKER NEVER SMOKER HIV / HEP-C SCREENING HIV TEST OFFERED TO PATIENT:YES DATE OFFERED:07/06/2017 TEST ACCEPTED:NO HEP-C TEST OFFERED TO PATIENT:YES DATE OFFERED:07/06/2017 REASON:PATIENT DECLINED TEST ACCEPTED:NO REASON:PATIENT DECLINED BROCHURE PROVIDED TO PATIENTYES OTHERS AT HOME: SPOUSE. EDUCATION LEVEL OF EDUCATION:[employer] DE[employer]ES DIET: TRYING REDUCE CALORIES AT THIS TIME. LANGUAGE MONGOLIAN. NEW PATIENT PAIN DIARY TODAY'S VISITNOTES BMI CARE GOAL FOLLOW-UP ABOVE NORMAL BMI FOLLOW-UPGIVING ENCOURAGEMENT TO EXERCISE RECREATIONAL DRUG USE DRUG USE?NO EXERCISE: NO CURRENT EXERCISE , TRIES TO WALK. LEARNING BARRIERS / SPECIAL NEEDS CHANGE FROM LAST VISIT?NO BARRIERS TO LEARNING?NO HEARING IMPAIRED?NO VISION IMPAIRED?YES :CORRECTIVE LENSES COGNITIVELY IMPAIRED?NO READINESS TO LEARN?YES LEARNING PREFERENCES?NO LEARNING CAPABILITIES PRESENT?YES EMOTIONAL BARRIERS?NO SPECIAL DEVICES?NO COLLECTIONS OFFICER NEEDED?NO PAIN CLINIC PFS, CLERGY, PUBLIC HEALTH REFERRALS WAS THE PROVIDER NOTIFIED OF ANY PERTINENT INFO?YES HAS THE PATIENT BEEN EDUCATED REGARDING HIS/HER PLAN OF CARE?YES HAS THE PATIENT BEEN EDUCATED REGARDING PAIN, THE RISK FOR PAIN, THE IMPORTANCE OF EFFECTIVE PAIN MANAGEMENT, AND THE PAIN ASSESSMENT PROCESS?YES LATEX QUESTIONNAIRE LATEX ALLERGY : HAVE YOU EVER DEVELOPED ANY TYPE OF REACTION AFTER HANDLING LATEX PRODUCTS SUCH RUBBER GLOVES, CONDOMS, DIAPHRAGMS, BALLOONS, SOCKS, OR UNDERWEAR?NO LATEX ALLERGY : HAVE YOU EVER DEVELOPED ANY TYPE OF REACTION DURING OR AFTER DENTAL APPOINTMENT, VAGINAL/RECTAL EXAMINATION, SURGICAL PROCEDURE, OR ANY OTHER EXPOSURE?NO LATEX RISK : HAVE YOU EVER HAD ANY DIFFICULTY BREATHING OR HIVES AFTER EATING OR HANDLING ANY FRUITS, OR VEGETABLES; SUCH KIWI, BANANAS, STONE FRUITS, OR CHESTNUTSNO LATEX RISK : DO YOU HAVE A PREVIOUS PERSONAL HISTORY OF MORE THAN NINE SURGERIES, SPINA BIFIDA, OR REPEATED CATHERIZATIONS? NO LATEX RISK : ARE YOU FREQUENTLY EXPOSED TO LATEX PRODUCTS IN YOUR OCCUPATION?NO DATE ASKED : 12/27/2018 CAFFEINE CAFFEINE USE?NO ADVANCE DIRECTIVE ADVANCE DIRECTIVE DISCUSSED WITH PATIENT:YES HCP - NOE PERERA () CHURCH CHURCH NO PREFERENCE MARITAL STATUS: . ALCOHOL SCREENING DID YOU HAVE A DRINK CONTAINING ALCOHOL IN THE PAST YEAR?YES HOW OFTEN DID YOU HAVE SIX OR MORE DRINKS ON ONE OCCASION IN THE PAST YEAR?NEVER (0 POINTS) HOW MANY DRINKS DID YOU HAVE ON A TYPICAL DAY WHEN YOU WERE DRINKING IN THE PAST YEAR?1 OR 2 (0 POINTS) HOW OFTEN DID YOU HAVE A DRINK CONTAINING ALCOHOL IN THE PAST YEAR?MONTHLY OR LESS (1 POINT) POINTS1 INTERPRETATIONNEGATIVE OCCUPATION: DISABLED. SEXUAL HX HAD SEX IN THE LAST 12 MONTHS (VAGINAL, ORAL, OR ANAL)?NO LMP:HYSTER HAVE YOU EVER HAD AN STD?NO REVIEWED WITH PT 12-22-17 1001 BVREVIEWED WITH PATIENT 01/27/18 1127 JSREVIEWED WITH PATIENT 03/07/18 0916 JSREVIEWED WITH PATIENT 03/24/18 0912 LASREVIEWED WITH PATIENT 12/02/18 1330 LASPRE-SCREENING PHONE CALL COMPLETED 03/01/19 1335 JS. HOSPITALIZATION/MAJOR DIAGNOSTIC PROCEDURE SURGERY RELATED BACK PAIN DVT CHILD X2 REVIEW OF SYSTEMS REVIEWED BY: PROVIDER: . CONSTITUTIONAL: ANY CHANGE IN YOUR MEDICAL CONDITION? NO . CHILLS NO . FEVER NO . INFECTION: DO YOU HAVE NEW INFECTIONS? NO . DO YOU HAVE HISTORY OF MRSA? NO . MUSCULOSKELETAL: ANY NEW PATTERNS OF PAIN OR NUMBNESS? NO . GASTROENTEROLOGY: ANY NEW CHANGE IN BOWEL CONTROL? NO . GENITOURINARY: ANY NEW CHANGE IN BLADDER CONTROL? NO . IS THERE A CHANCE YOU COULD BE ? NO . HEMATOLOGY/LYMPH: DO YOU TAKE ANY BLOOD THINNERS? (FOR EXAMPLE- COUMADIN, PLAVIX, AGGRENOX, PLATEL, PRADAXA, OR XARELTO) NO . WHEN WAS YOUR LAST DOSE? DATE: TIME: . NEUROLOGY: HAVE YOU FALLEN IN THE PAST 12 MONTHS? YES, FELL A FEW DAYS AGO FROM LOSS OF BALANCE PT DENIES INJURIES . ANY NEW EXTREMITY NUMBNESS OR WEAKNESS? NO . CARDIOLOGY: DO YOU HAVE A PACEMAKER OR DEFIBRILLATOR? NO . RESPIRATORY: HAVE YOU BEEN SICK IN THE PAST WEEK? NO . FEVER NO . FLU LIKE SYMPTOMS? NO . COUGH NO . INTEGUMENTARY: DO YOU HAVE ANY RASHES OR OPEN SORES? NO . ALLERGIC/IMMUNO: ARE YOU ALLERGIC TO IV DYE? NO . ANY NEW ALLERGIES? NO . PSYCHIATRIC: DO YOU HAVE THOUGHTS OF HURTING YOURSELF OR SOMEONE ELSE? NO . ARE YOU ABUSED, NEGLECTED, OR IN AN UNSAFE ENVIRONMENT? NO . ENDOCRINOLOGY: ARE YOU DIABETIC? NO . OTHER: DO YOU NEED ANY PRESCRIPTIONS? NO . IF YES, PLEASE LIST: ____ . ANY NEW PROBLEMS WITH YOUR MEDICATIONS? NO . WHEN DID YOU LAST EAT? 03/08/19 2200 . WHEN DID YOU LAST DRINK? 03/09/19 0800 . WHAT DID YOU LAST DRINK? LEMONADE . NAME OF PERSON DRIVING YOU HOME? NOE . DO YOU HAVE ANY OTHER QUESTIONS OR CONCERNS NO . VITAL SIGNS WT 185.8 LBS, HT 66 IN, BMI 29.99 INDEX, BP 117/76 MM HG, HR 81 /MIN, RR 18 /MIN, TEMP 97.3 F, OXYGEN SAT % 93%, NA INITIALS SC 10:21, REVIEWED BY: 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 (PRIMARY) PROCEDURES PN WORKMANS' COMP OPINION IN YOUR OPINION, WAS THE INCIDENT THAT THE PATIENT DESCRIBED THE COMPETENT MEDICAL CAUSE OF THIS INJURY/ILLNESS? YES ARE THE PATIENT'S COMPLAINTS CONSISTENT WITH HIS/HER HISTORY OF THE INJURY/ILLNESS? YES IS THE PATIENT'S HISTORY OF THE INJURY/ILLNESS CONSISTENT WITH YOUR OBJECTIVE FINDING? YES WHAT IS THE PERCENTAGE OF TEMPORARY IMPAIRMENT? MODERATE TO MARKED = 66.7% IS THE PATIENT WORKING? NO DOCTOR ON SITE: CANDICE POLLARD MD PREPROCEDURE DIAGNOSIS: BURSITIS AT THE LEFT GREATER TROCHANTER OF THE FEMUR. POSTPROCEDURE DIAGNOSIS: BURSITIS AT THE LEFT GREATER TROCHANTER OF THE FEMUR. PROCEDURE: INJECTION AT THE BURSA OF THE LEFT GREATER TROCHANTER OF THE FEMUR UNDER FLUOROSCOPIC GUIDANCE. SURGEON: DR. CANDICE MELARA SKI MAKER WOOD: NONEANESTHESIA: LOCAL. PREOPERATIVE NOTE: THE PATIENT HAS A HISTORY OF LEFT HIP PAIN. I EVALUATED THE PATIENT AND REVIEWED THE CHART. WE BOTH AGREE ON INJECTING OVER THE BURSA OF THE LEFT GREATER TROCHANTER OF THE FEMUR. I WENT THROUGH THE RISKS, ALTERNATIVES, AND BENEFITS ASSOCIATED WITH THIS PROCEDURE. THE PATIENT WOULD LIKE TO PROCEED AND GIVES CONSENT TO PERFORM THE PROCEDURE. THE PATIENT DENIES UNEXPLAINABLE WEIGHT LOSS, FEVERS, CHILLS, OR CHANGES IN HIS URINARY OR BOWEL CONTROL. DESCRIPTION OF PROCEDURE: AFTER CONSENT WAS TAKEN, THE PATIENT WAS BROUGHT TO THE PROCEDURE ROOM AND PLACED IN THE RIGHT LATERAL DECUBITUS POSITION. THE LEFT HIP AREA WAS CLEANED WITH CHLORAPREP SOLUTION AND DRAPED ASEPTICALLY. THE PROCEDURE WAS DONE UNDER STERILE CONDITIONS. I CHECKED LATERALITY WITH THE PATIENT AND THE STAFF IN THE PROCEDURE ROOM AT THE MOMENT OF THE TIME OUT. UNDER FLUOROSCOPIC GUIDANCE, TARGET WAS SELECTED AT THE LEFT GREATER TROCHANTER OF THE FEMUR. LIDOCAINE WAS USED TO NUMB THE SKIN AND THE SUBCUTANEOUS TISSUE BELOW IT. SPINAL NEEDLE, 22-GAUGE WAS ADVANCED UNDER FLUOROSCOPIC GUIDANCE AND FOLLOWING PATIENT FEEDBACK UNTIL THE TARGET WAS TOUCHED. POSITION OF THE NEEDLE WAS VERIFIED WITH AP AND LATERAL VIEWS. AFTER PROPER POSITION OF THE NEEDLE WAS ACHIEVED, ISOVUE M DYE, 30%, 0.25 ML WAS INJECTED SHOWING ADEQUATE SPREAD OF THE DYE. THEN A SOLUTION OF 20 ML OF BUPIVACAINE 0.25% AND KENALOG 40 MG WAS INJECTED. THERE WAS NO EVIDENCE OF BLOOD, PARESTHESIA, OR CEREBROSPINAL FLUID. THE PATIENT WAS SENT TO THE RECOVERY ROOM. THE PATIENT WAS MOVING THE EXTREMITIES AND DOING WELL. THERE WERE NO COMPLICATIONS DURING THE PROCEDURE. POSTOPERATIVE NOTE: I DISCUSSED ALTERNATIVES WITH THE PATIENT. WE WILL SEE THE PATIENT BACK IN SEVERAL WEEKS FOR REEVALUATION OF THE CASE. I AM LOOKING FOR LONG-LASTING PAIN RELIEF WITH THIS INTERVENTION. FLUOROSCOPIC TIME WAS 29 SECONDS. FURTHER RECOMMENDATIONS WILL BE DONE DEPENDING ON HOW THE PATIENT DOES. THERE WERE NO COMPLICATIONS. I, TEODORA RM, DOCUMENTED THE ABOVE INFORMATION ACTING A SCRIBE FOR DR. MELARA. I HAVE REVIEWED THE ABOVE DOCUMENT, WRITTEN BY TEODORA RM SCRIBRocio AND I VERIFY THAT IT IS ACCURATE. DIAGNOSTIC IMAGING [facility] FLUORO GUIDANCE (PAIN)[id number] PROCEDURE CODES 6045F RADXPS IN END [id number] PXD [id number] DRAIN/INJ JOINT/BURSA W/O US, [place]: [place] [id number] NEEDLE LOCALIZATION BY XRAY, MODIFIERS: 26 DISPOSITION & COMMUNICATION FOLLOW UP 3 WEEKS ELECTRONICALLY SIGNED BY CANDICE MELARA MD, MD ON 03/19/2019 AT 01:02 PM EST DISCLAIMER : THIS IS A VISIT SUMMARY EXTRACTED FROM THE [facility] CHART. IT IS NOT A COPY OF THE [facility] PROGRESS NOTE. MTDD
== END ==
LOC: M PAIN 10:30
PROVIDERS: ATTEND Anesthesiology
DX: M70.62 Trochanteric bursitis, left hip (principal)
CPT/HCPCS: 20610; 77002; J3301; Q9967

== ENCOUNTER → 2019-03-31 | Outpatient (CLI) | payer OTHER, MEDICARE ==
[~2019-03-31] MED LIST changes: -BUPIVACAINE HCL 0.25% 30 ML VIAL As Ordered ONE; -ISOVUE-M 300 61% 15ML VIAL (Q9967) As Ordered ONE; -LIDOCAINE 1% SDV INJ 30 ML VIAL As Ordered ONE; -TRIAMCINOLONE ACETONIDE SUSP 40 MG/ML VIAL (J3301) As Ordered ONE
--- NOTE | 2019-04-19 03:43 | ECWPNPC ---
PATIENT NAME: AIRAM PERERA : 1960 GENDER: FEMALE VISIT DATE: 03/31/2019 DISCHARGE DATE: 03/31/19 1036 VISIT LOCKED DATE TIME: PHYSICIAN: HERIBERTO FORBES PHYSICIAN PAGER NO: [phone] RESOURCE: HERIBERTO FORBES REASON FOR APPOINTMENT 1. W/C POST LEFT TROCHANTERIC BURSAL INJ HISTORY OF PRESENT ILLNESS HISTORY OF PRESENT ILLNESS: HERE FOR POST PROCEDURE F/U.HAD LEFT GREATER TROCHANTERIC BURSAL INJECTION ON 03/09/2019.REPORTING SIGNIFICANT IMPROVEMENT IN PAIN THAT CONTINUES TODAY.RATING PAIN VAS 3/10. PAIN THE PATIENT DESCRIBES THE PAIN... HERE FOR F/U .HX OF CHRONIC LBP AND LEFT FOOT PAIN DUE TO WORK RELATED INJURY IN 1986. DCS WAS REVISED 08-25-2017. CHRONIC PAIN MEDICATION FOR WORK RELATED INJURY:1. CELEBREX 200MG BID2. LYRICA 200MG BID3.ULTRACET 37.5/325 2 TAB PO Q4-6 H PRN PAIN-USING THIS MEDICATION FOR MODERATE PAIN.PAIN VAS 5-7/104.HYDROCODONE 5/325 1 TAB PO Q6H PRN SEVERE PAIN.PAIN VAS 8-10/105.ELAVIL 50MG AT HS FORCHRONIC NIGHTTIME NEUROPATHIC PAINOVER THE PAST MONTH PATIENT IS REPORTING DIFFICULTY WALKING DUE TO LEFT HIP PAIN AND LBP.HAS UNSTABLE GAIT AND LEFT LEG WEAKNESS DUE TO RSD LEFT LOWER EXTREMITIES. FALL RISK SCREENING: SCREENING :NO FALLS REPORTED IN THE LAST YEAR CURRENT MEDICATIONS TAKING ULTRACET 37.5-325 MG TABLET 2 TABLETS ORALLY Q8H PRN FOR PAIN MDD2( 3MOS SUPPLY CODE D CHRONIC PAIN) TAKING [facility] FEMALE CATHETER #14 FR STRAIGHT TIP ATTENTION REFERRAL ACS AT [employer] USE FOR [facility]IC FOR URINARY RETENTION 4-5 TIMES/DAY (CLAIM # [id number]) TAKING FOLIC ACID 1 MG TABLET 2 TABLETS ORALLY ONCE A DAY TAKING PLAQUENIL 200 MG TABLET 1 TABLET WITH FOOD OR MILK ORALLY BID TAKING SULFASALAZINE 500 MG TABLET 3 TABS ORALLY BID TAKING MACROBID 100 MG CAPSULE 1 CAPSULE WITH FOOD ORALLY DAILY TAKING HYDROCODONE-ACETAMINOPHEN 5-325 MG TABLET 1 TABLET NEEDED ORALLY EVERY 6 HRS PRN FOR PAIN MDD2 (3MOS SUPPLY CODE D CHRONIC PAIN) TAKING OXYBUTYNIN CHLORIDE ER 10 MG TABLET EXTENDED RELEASE 24 HOUR 1 TABLET ORALLY ONCE A DAY TAKING FLUOXETINE HCL 10 MG CAPSULE 1 CAPSULE ORALLY ONCE A DAY TAKING ROBAXIN-750 750 MG TABLET 1 TABLET ORALLY EVERY 4 HRS NEEDED TAKING ELAVIL 50 MG TABLET 1 TAB(S) ORAL AT BEDTIME TAKING FLUTICASONE PROPIONATE 50 MCG/ACT SUSPENSION 1 SPRAY IN EACH NOSTRIL NASALLY ONCE A DAY TAKING OMEPRAZOLE 40MG CAPSULE DELAYED RELEASE 1 CAPSULE ORALLY DAILY TAKING LYRICA 200 MG CAPSULE 1 CAP ORALLY (CODE D FOR CHRONIC PAIN) BID MDD2 TAKING SYNTHROID 25MCG TABLET 1 TAB(S) ORALLY ONCE A DAY TAKING CELEBREX 200 MG CAPSULE 1 CAPSULE P.O. BID TAKING WELLBUTRIN SR 200 MG TABLET EXTENDED RELEASE 12 HOUR 1 TABLET ORALLY TWICE A DAY NOT-TAKING SULFAMETHOXAZOLE-TRIMETHOPRIM 800-160 MG TABLET 1 TABLET ORALLY TWICE A DAY NOT-TAKING DIFLUCAN 200 MG TABLET 1 TABLET ORALLY DAILY NOT-TAKING MUCINEX DM MAXIMUM STRENGTH 60-1200 MG TABLET EXTENDED RELEASE 12 HOUR 1 TABLET NEEDED ORALLY TWICE A DAY NOT-TAKING SUDAFED 30 MG TABLET 1 TABLET NEEDED ORALLY EVERY 6 HRS NOT-TAKING SHINGRIX 50 MCG SUSPENSION RECONSTITUTED DIRECTED INTRAMUSCULAR DIRECTED NOT-TAKING SOMA 350 MG TABLET 1 TABLET NEEDED ORALLY 2 TIMES A DAY NEEDED MEDICATION LIST REVIEWED AND RECONCILED WITH THE PATIENT PAST MEDICAL HISTORY DEGENERATIVE DISC DISEASE AT L5-S1 STATUS POST LAMINECTOMY CHRONIC LOW BACK PAIN (SECONDARY TO INJURY TO HER LOW BACK/COMPENSATION CASE) (DR. ZAMORA) NEUROGENIC BOWEL AND BLADDER SUBSEQUENT TO UNDERGOING BACK SURGERY REQUIRES SELF CATHETERIZATION RECURRENT URINARY TRACT INFECTION () CHRONIC CONSTIPATION DEPRESSION RHEUMATOID ARTHRITIS (DR. ENGLAND) RESTLESS LEG SYNDROME WITH LEFT FOOT DROP OSTEOPENIA LEFT FEMUR DEXA 07/06/16 ANEMIA HAS A DORSAL COLUMN STIMULATOR-- NO MRIS ECHO 08/30/07 - EF 60% NO VALVULAR ABNORMALITIES DEVELOPED BILATERAL PHLEBITIS WITH BCP YRS AGO DVT BILATERAL LOWER LEGS AT AGE 16 HOSPITALIZED ON [facility] AT THE TIME HYPOTHYROID HYPERLIPIDEMIA--ASCVD 10 YR RISK < 2% (08/03) SLEEP APNEA- CPAP MACHINE USED KIDNEY STONE COMPLEX PAIN SYNDROME ALLERGIES GABATROL: ITCHING/ TREMORS - ALLERGY SHELLFISH: ANGEIOEDEMA - ALLERGY ATIVAN: SUICIDAL THOUGHTS - ALLERGY CYMBALTA: FATIGUE - SIDE EFFECTS SURGICAL HISTORY EGD/COLONOSCOPY ADENOMATOUS HYPERPLASTIC POLYP 08/2009 D&C, LAPROSCOPY YRS AGO CONE BIOPSY AFTER ABNORMAL PAPS LAVH -DUE TO EXCESSIVE BLEEDING AND FIBROIDS- 2006 COLONOSCOPY - 3 DIMINUTIVE POLYPS, INTERNAL HEMORRHOIDS, LONG REDUNDANT COLON PRONE TO IRREGULARITY/CONSTIPATION/INCOMPLETE EMPTYING (DR. RODRIGUEZ) 10/28/12 EGD - NORMAL 10/28/12 CYSTOLITHOLAPAXY 09/06/15 DORSAL COLUMN STIMULATOR REPLACEMENT AND LAMINECTOMY 08/2017 APPENDECTOMY TONSILLECTOMY FAMILY HISTORY FATHER: ALIVE 92 YRS, COLON POLYP (PRECANCEROUS), SKIN CANCER, ATELECTASIS PARKINSONISM, DEMENTIA, DIAGNOSED WITH OTHER SPECIFIED CONDITIONS INFLUENCING HEALTH STATUS MOTHER: , DM, BREAST CANCER (DX IN HER 70S), STROKE, DEMENTIA, DIABETES, OTHER MALIGNANT NEOPLASM OF UNSPECIFIED SITE SIBLINGS: SISTER WITH HTN AND EPILEPSY, ANOTHER SISTER WITH HTN AND POLYMYALGIA, HYPERTENSION DAUGHTER(S): OLDEST WITH SEVERE ENDOMETRIOSIS WITH BOWEL AND BLADDER INVOLVEMENT, DEPRESSION, BACK PROBLEMS. FIBROMYALGIA YOUNGEST, NO KNOWN MEDICAL PROBLEMS, UNSPECIFIED NONPSYCHOTIC MENTAL DISORDER FOLLOWING ORGANIC BRAIN DAMAGE PATERNAL AUNT: BREAST CANCER, DX IN 70 2 SISTER(S) . 2DAUGHTER(S) . DENIES COLON OR OVARIAN CANCERS., NO KNOWN FAMILY HISTORY OF ANY UROLOGICALLY RELATED DISEASES OR CANCERS. GRANDDAUGHTER YE WITH LEUKEMIA. SOCIAL HISTORY GENERAL: TOBACCO USE ARE YOU A:NONSMOKER NEVER SMOKER HIV / HEP-C SCREENING HIV TEST OFFERED TO PATIENT:YES DATE OFFERED:07/06/2017 TEST ACCEPTED:NO HEP-C TEST OFFERED TO PATIENT:YES DATE OFFERED:07/06/2017 REASON:PATIENT DECLINED TEST ACCEPTED:NO REASON:PATIENT DECLINED BROCHURE PROVIDED TO PATIENTYES OTHERS AT HOME: SPOUSE. EDUCATION LEVEL OF EDUCATION:[employer] DE[employer] DIET: TRYING REDUCE CALORIES AT THIS TIME. LANGUAGE TURKS AND [place]. NEW PATIENT PAIN DIARY TODAY'S VISITNOTES BMI CARE GOAL FOLLOW-UP ABOVE NORMAL BMI FOLLOW-UPGIVING ENCOURAGEMENT TO EXERCISE RECREATIONAL DRUG USE DRUG USE?NO EXERCISE: NO CURRENT EXERCISE , TRIES TO WALK. LEARNING BARRIERS / SPECIAL NEEDS CHANGE FROM LAST VISIT?NO BARRIERS TO LEARNING?NO HEARING IMPAIRED?NO VISION IMPAIRED?YES COGNITIVELY IMPAIRED?NO :CORRECTIVE LENSES READINESS TO LEARN?YES LEARNING PREFERENCES?NO LEARNING CAPABILITIES PRESENT?YES EMOTIONAL BARRIERS?NO SPECIAL DEVICES?NO IT CONSULTANT NEEDED?NO PAIN CLINIC PFS, CLERGY, PUBLIC HEALTH REFERRALS WAS THE PROVIDER NOTIFIED OF ANY PERTINENT INFO?YES HAS THE PATIENT BEEN EDUCATED REGARDING HIS/HER PLAN OF CARE?YES HAS THE PATIENT BEEN EDUCATED REGARDING PAIN, THE RISK FOR PAIN, THE IMPORTANCE OF EFFECTIVE PAIN MANAGEMENT, AND THE PAIN ASSESSMENT PROCESS?YES LATEX QUESTIONNAIRE LATEX ALLERGY : HAVE YOU EVER DEVELOPED ANY TYPE OF REACTION AFTER HANDLING LATEX PRODUCTS SUCH RUBBER GLOVES, CONDOMS, DIAPHRAGMS, BALLOONS, SOCKS, OR UNDERWEAR?NO LATEX ALLERGY : HAVE YOU EVER DEVELOPED ANY TYPE OF REACTION DURING OR AFTER DENTAL APPOINTMENT, VAGINAL/RECTAL EXAMINATION, SURGICAL PROCEDURE, OR ANY OTHER EXPOSURE?NO LATEX RISK : HAVE YOU EVER HAD ANY DIFFICULTY BREATHING OR HIVES AFTER EATING OR HANDLING ANY FRUITS, OR VEGETABLES; SUCH KIWI, BANANAS, STONE FRUITS, OR CHESTNUTSNO LATEX RISK : DO YOU HAVE A PREVIOUS PERSONAL HISTORY OF MORE THAN NINE SURGERIES, SPINA BIFIDA, OR REPEATED CATHERIZATIONS? NO LATEX RISK : ARE YOU FREQUENTLY EXPOSED TO LATEX PRODUCTS IN YOUR OCCUPATION?NO DATE ASKED : 12/27/2018 CAFFEINE CAFFEINE USE?NO ADVANCE DIRECTIVE ADVANCE DIRECTIVE DISCUSSED WITH PATIENT:YES HCP - NOE PERERA () ZOROASTRIAN ZOROASTRIAN NO PREFERENCE MARITAL STATUS: . ALCOHOL SCREENING DID YOU HAVE A DRINK CONTAINING ALCOHOL IN THE PAST YEAR?YES HOW OFTEN DID YOU HAVE SIX OR MORE DRINKS ON ONE OCCASION IN THE PAST YEAR?NEVER (0 POINTS) HOW MANY DRINKS DID YOU HAVE ON A TYPICAL DAY WHEN YOU WERE DRINKING IN THE PAST YEAR?1 OR 2 (0 POINTS) HOW OFTEN DID YOU HAVE A DRINK CONTAINING ALCOHOL IN THE PAST YEAR?MONTHLY OR LESS (1 POINT) POINTS1 INTERPRETATIONNEGATIVE OCCUPATION: DISABLED. SEXUAL HX HAD SEX IN THE LAST 12 MONTHS (VAGINAL, ORAL, OR ANAL)?NO LMP:HYSTER HAVE YOU EVER HAD AN STD?NO REVIEWED WITH PT 12-22-17 1001 BVREVIEWED WITH PATIENT 01/27/18 1127 JSREVIEWED WITH PATIENT 03/07/18 0916 JSREVIEWED WITH PATIENT 03/24/18 0912 LASREVIEWED WITH PATIENT 12/02/18 1330 LASPRE-SCREENING PHONE CALL COMPLETED 03/01/19 1335 JSREVIEWED WITH PATIENT 03/31/2019 0953 JS. HOSPITALIZATION/MAJOR DIAGNOSTIC PROCEDURE SURGERY RELATED BACK PAIN DVT CHILD X2 REVIEW OF SYSTEMS REVIEWED BY: PROVIDER: HERIBERTO RIVAS . CONSTITUTIONAL: ANY CHANGE IN YOUR MEDICAL CONDITION? NO . CHILLS NO . FEVER NO . INFECTION: DO YOU HAVE NEW INFECTIONS? NO . DO YOU HAVE HISTORY OF MRSA? NO . MUSCULOSKELETAL: ANY NEW PATTERNS OF PAIN OR NUMBNESS? NO . GASTROENTEROLOGY: ANY NEW CHANGE IN BOWEL CONTROL? NO . GENITOURINARY: ANY NEW CHANGE IN BLADDER CONTROL? NO . IS THERE A CHANCE YOU COULD BE ? NO . HEMATOLOGY/LYMPH: DO YOU TAKE ANY BLOOD THINNERS? (FOR EXAMPLE- COUMADIN, PLAVIX, AGGRENOX, PLATEL, PRADAXA, OR XARELTO) NO . WHEN WAS YOUR LAST DOSE? DATE: TIME: . NEUROLOGY: HAVE YOU FALLEN IN THE PAST 12 MONTHS? YES, STATES FREQUENT FALLS - STATES NO INJURIES, NO ED VISITS . ANY NEW EXTREMITY NUMBNESS OR WEAKNESS? NO . CARDIOLOGY: DO YOU HAVE A PACEMAKER OR DEFIBRILLATOR? DORSAL COLUMN STIMULATOR . RESPIRATORY: HAVE YOU BEEN SICK IN THE PAST WEEK? NO . FEVER NO . FLU LIKE SYMPTOMS? NO . COUGH NO . INTEGUMENTARY: DO YOU HAVE ANY RASHES OR OPEN SORES? NO . ALLERGIC/IMMUNO: ARE YOU ALLERGIC TO IV DYE? NO . ANY NEW ALLERGIES? NO . PSYCHIATRIC: DO YOU HAVE THOUGHTS OF HURTING YOURSELF OR SOMEONE ELSE? NO . ARE YOU ABUSED, NEGLECTED, OR IN AN UNSAFE ENVIRONMENT? NO . ENDOCRINOLOGY: ARE YOU DIABETIC? NO . OTHER: DO YOU NEED ANY PRESCRIPTIONS? YES . IF YES, PLEASE LIST: ____TRAMADOL, LYRICA, ROBAXIN . ANY NEW PROBLEMS WITH YOUR MEDICATIONS? NO . WHEN DID YOU LAST EAT? ____ . WHEN DID YOU LAST DRINK? ____ . WHAT DID YOU LAST DRINK? ____ . NAME OF PERSON DRIVING YOU HOME? ____ . DO YOU HAVE ANY OTHER QUESTIONS OR CONCERNS YES, W/C STATES THAT SOME OF HER MEDICATIONS NEED TO BE CHANGED BY AUGUST 2019 . VITAL SIGNS WT 186.8 LBS, HT 66 IN, BMI 30.15 INDEX, BP 169/79 MM HG, REPEAT BP 158/88 MANUAL, HR 90 /MIN, RR 18 /MIN, TEMP 96.6 F, OXYGEN SAT % 95%, SAFE IN ENV? (Y/N) YES, NA INITIALS ID [id number], REVIEWED BY: JASON. EXAMINATION GENERAL EXAMINATION: GENERAL AWAKE,ALERT. PSYCH AFFECT NORMAL . LUNGS: LUNG AMBROSIO ARE CLEAR TO AUSCULTATION BILATERALLY. GOOD MOVEMENT OF AIR . HEART: S1, S2 IN A REGULAR RATE AND RHYTHM. NO SIGNIFICANT MURMURS, RUBS OR GALLOPS NOTED . 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 - G90.529 TREATMENT TROCHANTERIC BURSITIS, LEFT HIP CONTINUE ROBAXIN-750 TABLET, 750 MG, 1 TABLET, ORALLY, EVERY 4 HRS NEEDED INCREASE LYRICA CAPSULE, 200 MG, 1 CAP, ORALLY (CODE D FOR CHRONIC PAIN), Q8H TID MDD3, 90 DAY(S), 270, REFILLS 0 STOP ULTRACET TABLET, 37.5-325 MG, 2 TABLETS, ORALLY, Q8H PRN FOR PAIN MDD2( 3MOS SUPPLY CODE D CHRONIC PAIN) CONTINUE HYDROCODONE-ACETAMINOPHEN TABLET, 5-325 MG, 1 TABLET NEEDED, ORALLY, EVERY 6 HRS PRN FOR PAIN MDD2 (3MOS SUPPLY CODE D CHRONIC PAIN) START TRAMADOL HCL TABLET, 50 MG, 1 TO 2 TAB, ORALLY, Q8H PRN PAIN MDD4, 30 DAYS, 120, REFILLS 5 NOTES: ISTOP REGISTRY REVIEWED AND DEMONSTRATES COMPLLIANCE. BRINGS IN MEDICATIONS WHICH IS APPROPRIATE FOR WHAT WAS DISPENSED. RECENT URINE TOXICOLOGY REVIEWED. NO UNAUTHORIZED MEDICATIONS. NO ILLICIT SUBSTANCES AND PRESCRIBED MEDICATIONS WERE PRESENT. PROCEDURES PN WORKMANS' COMP OPINION IN YOUR OPINION, WAS THE INCIDENT THAT THE PATIENT DESCRIBED THE COMPETENT MEDICAL CAUSE OF THIS INJURY/ILLNESS? YES ARE THE PATIENT'S COMPLAINTS CONSISTENT WITH HIS/HER HISTORY OF THE INJURY/ILLNESS? YES IS THE PATIENT'S HISTORY OF THE INJURY/ILLNESS CONSISTENT WITH YOUR OBJECTIVE FINDING? YES WHAT IS THE PERCENTAGE OF TEMPORARY IMPAIRMENT? MARKED = 75% IS THE PATIENT WORKING? NO DOCTOR ON SITE: CANDICE POLLARD MD PROCEDURE CODES [id number] ESTABILISHED PATIENT [facility] FACILITY CHARGE DISPOSITION & COMMUNICATION FOLLOW UP 2 MONTHS (REASON: W/C MED MGMNT) ELECTRONICALLY SIGNED BY ROB PRICE ON 04/18/2019 AT 03:51 PM EST DISCLAIMER : THIS IS A VISIT SUMMARY EXTRACTED FROM THE [employer] CHART. IT IS NOT A COPY OF THE [employer] PROGRESS NOTE. DIMAS
== END ==
LOC: M PAIN 09:45
PROVIDERS: ATTEND Nurse Practitioner Family
DX: M70.62 Trochanteric bursitis, left hip (principal); G90.529 Complex regional pain syndrome I of unspecified lower limb; Z86.59 Personal history of other mental and behavioral disorders; G25.81 Restless legs syndrome; E03.9 Hypothyroidism, unspecified; E78.5 Hyperlipidemia, unspecified; G47.30 Sleep apnea, unspecified; Z88.8 Allergy status to other drugs, medicaments and biological substances; Z91.013 Allergy to seafood; Z79.891 Long term (current) use of opiate analgesic; Z79.899 Other long term (current) drug therapy

== ENCOUNTER → 2019-05-30 | Outpatient (CLI) | payer OTHER, MEDICARE ==
[~2019-05-30] MED LIST changes: -ARTIDRO2 OU; +POLYOPD OU
--- NOTE | 2019-06-14 04:39 | ECWPNPC ---
PATIENT NAME: AIRAM PERERA : 1960 GENDER: FEMALE VISIT DATE: 05/30/2019 DISCHARGE DATE: 05/30/19 1030 VISIT LOCKED DATE TIME: PHYSICIAN: HERIBERTO FORBES PHYSICIAN PAGER NO: [phone] RESOURCE: HERIBERTO FORBES REASON FOR APPOINTMENT 1. W/C MED MGMNT HISTORY OF PRESENT ILLNESS HISTORY OF PRESENT ILLNESS: HERE FOR POST PROCEDURE F/U.HAD LEFT GREATER TROCHANTERIC BURSAL INJECTION ON 03/09/2019.REPORTING SIGNIFICANT IMPROVEMENT IN PAIN THAT CONTINUES TODAY.RATING PAIN VAS 3/10. PAIN THE PATIENT DESCRIBES THE PAIN... HERE FOR F/U .HX OF CHRONIC LBP AND LEFT FOOT PAIN DUE TO WORK RELATED INJURY IN 1986. DCS WAS REVISED 08-25-2017. CHRONIC PAIN MEDICATION FOR WORK RELATED INJURY:1. CELEBREX 200MG BID2. LYRICA 200MG BID3.ULTRACET 37.5/325 2 TAB PO Q4-6 H PRN PAIN-USING THIS MEDICATION FOR MODERATE PAIN.PAIN VAS 5-7/104.HYDROCODONE 5/325 1 TAB PO Q6H PRN SEVERE PAIN.PAIN VAS 8-10/105.ELAVIL 50MG AT HS FORCHRONIC NIGHTTIME NEUROPATHIC PAINOVER THE PAST MONTH PATIENT IS REPORTING DIFFICULTY WALKING DUE TO LEFT HIP PAIN AND LBP.HAS UNSTABLE GAIT AND LEFT LEG WEAKNESS DUE TO RSD LEFT LOWER EXTREMITIES. FALL RISK SCREENING: SCREENING :NO FALLS REPORTED IN THE LAST YEAR CURRENT MEDICATIONS TAKING [facility] FEMALE CATHETER #14 FR STRAIGHT TIP ATTENTION REFERRAL ACS AT [email or web address] USE FOR CIC FOR URINARY RETENTION 4-5 TIMES/DAY (CLAIM # [id number]) TAKING FOLIC ACID 1 MG TABLET 2 TABLETS ORALLY ONCE A DAY TAKING PLAQUENIL 200 MG TABLET 1 TABLET WITH FOOD OR MILK ORALLY BID TAKING SULFASALAZINE 500 MG TABLET 3 TABS ORALLY BID TAKING MACROBID 100 MG CAPSULE 1 CAPSULE WITH FOOD ORALLY DAILY TAKING OXYBUTYNIN CHLORIDE ER 10 MG TABLET EXTENDED RELEASE 24 HOUR 1 TABLET ORALLY ONCE A DAY TAKING FLUOXETINE HCL 10 MG CAPSULE 1 CAPSULE ORALLY ONCE A DAY TAKING ELAVIL 50 MG TABLET 1 TAB(S) ORAL AT BEDTIME TAKING FLUTICASONE PROPIONATE 50 MCG/ACT SUSPENSION 1 SPRAY IN EACH NOSTRIL NASALLY ONCE A DAY TAKING SYNTHROID 25MCG TABLET 1 TAB(S) ORALLY ONCE A DAY TAKING CELEBREX 200 MG CAPSULE 1 CAPSULE P.O. BID TAKING HYDROCODONE-ACETAMINOPHEN 5-325 MG TABLET 1 TABLET NEEDED ORALLY EVERY 6 HRS PRN FOR PAIN MDD2 (3MOS SUPPLY CODE D CHRONIC PAIN) TAKING LYRICA 200 MG CAPSULE 1 CAP ORALLY (CODE D FOR CHRONIC PAIN) Q8H TID MDD3 TAKING ROBAXIN-750 750 MG TABLET 1 TABLET ORALLY EVERY 4 HRS NEEDED TAKING TRAMADOL HCL 50 MG TABLET 1 TO 2 TAB ORALLY Q8H PRN PAIN MDD4 TAKING OMEPRAZOLE 40MG CAPSULE DELAYED RELEASE 1 CAPSULE ORALLY DAILY TAKING WELLBUTRIN SR 200 MG TABLET EXTENDED RELEASE 12 HOUR 1 TABLET ORALLY TWICE A DAY NOT-TAKING SULFAMETHOXAZOLE-TRIMETHOPRIM 800-160 MG TABLET 1 TABLET ORALLY TWICE A DAY NOT-TAKING DIFLUCAN 200 MG TABLET 1 TABLET ORALLY DAILY NOT-TAKING MUCINEX DM MAXIMUM STRENGTH 60-1200 MG TABLET EXTENDED RELEASE 12 HOUR 1 TABLET NEEDED ORALLY TWICE A DAY NOT-TAKING SUDAFED 30 MG TABLET 1 TABLET NEEDED ORALLY EVERY 6 HRS NOT-TAKING SHINGRIX 50 MCG SUSPENSION RECONSTITUTED DIRECTED INTRAMUSCULAR DIRECTED NOT-TAKING SOMA 350 MG TABLET 1 TABLET NEEDED ORALLY 2 TIMES A DAY NEEDED MEDICATION LIST REVIEWED AND RECONCILED WITH THE PATIENT PAST MEDICAL HISTORY DEGENERATIVE DISC DISEASE AT L5-S1 STATUS POST LAMINECTOMY CHRONIC LOW BACK PAIN (SECONDARY TO INJURY TO HER LOW BACK/COMPENSATION CASE) (DR. ZAMORA) NEUROGENIC BOWEL AND BLADDER SUBSEQUENT TO UNDERGOING BACK SURGERY REQUIRES SELF CATHETERIZATION RECURRENT URINARY TRACT INFECTION () CHRONIC CONSTIPATION DEPRESSION RHEUMATOID ARTHRITIS (DR. ENGLAND) RESTLESS LEG SYNDROME WITH LEFT FOOT DROP OSTEOPENIA LEFT FEMUR DEXA 07/06/16 ANEMIA HAS A DORSAL COLUMN STIMULATOR-- NO MRIS ECHO 08/30/07 - EF 60% NO VALVULAR ABNORMALITIES DEVELOPED BILATERAL PHLEBITIS WITH BCP YRS AGO DVT BILATERAL LOWER LEGS AT AGE 16 HOSPITALIZED ON [facility] AT THE TIME HYPOTHYROID HYPERLIPIDEMIA--ASCVD 10 YR RISK < 2% (5/) SLEEP APNEA- CPAP MACHINE USED KIDNEY STONE COMPLEX PAIN SYNDROME ALLERGIES GABATROL: ITCHING/ TREMORS - ALLERGY SHELLFISH: ANGEIOEDEMA - ALLERGY ATIVAN: SUICIDAL THOUGHTS - ALLERGY CYMBALTA: FATIGUE - SIDE EFFECTS SURGICAL HISTORY EGD/COLONOSCOPY ADENOMATOUS HYPERPLASTIC POLYP 08/2009 D&C, LAPROSCOPY YRS AGO CONE BIOPSY AFTER ABNORMAL PAPS LAVH -DUE TO EXCESSIVE BLEEDING AND FIBROIDS- 2006 COLONOSCOPY - 3 DIMINUTIVE POLYPS, INTERNAL HEMORRHOIDS, LONG REDUNDANT COLON PRONE TO IRREGULARITY/CONSTIPATION/INCOMPLETE EMPTYING (DR. RODRIGUEZ) 10/28/12 EGD - NORMAL 10/28/12 CYSTOLITHOLAPAXY 09/06/15 DORSAL COLUMN STIMULATOR REPLACEMENT AND LAMINECTOMY 08/2017 APPENDECTOMY TONSILLECTOMY FAMILY HISTORY FATHER: ALIVE 92 YRS, COLON POLYP (PRECANCEROUS), SKIN CANCER, ATELECTASIS PARKINSONISM, DEMENTIA, DIAGNOSED WITH OTHER SPECIFIED CONDITIONS INFLUENCING HEALTH STATUS MOTHER: , DM, BREAST CANCER (DX IN HER 70S), STROKE, DEMENTIA, DIABETES, OTHER MALIGNANT NEOPLASM OF UNSPECIFIED SITE SIBLINGS: SISTER WITH HTN AND EPILEPSY, ANOTHER SISTER WITH HTN AND POLYMYALGIA, HYPERTENSION DAUGHTER(S): OLDEST WITH SEVERE ENDOMETRIOSIS WITH BOWEL AND BLADDER INVOLVEMENT, DEPRESSION, BACK PROBLEMS. FIBROMYALGIA YOUNGEST, NO KNOWN MEDICAL PROBLEMS, UNSPECIFIED NONPSYCHOTIC MENTAL DISORDER FOLLOWING ORGANIC BRAIN DAMAGE PATERNAL AUNT: BREAST CANCER, DX IN 70 2 SISTER(S) . 2DAUGHTER(S) . DENIES COLON OR OVARIAN CANCERS., NO KNOWN FAMILY HISTORY OF ANY UROLOGICALLY RELATED DISEASES OR CANCERS. GRANDDAUGHTER YE WITH LEUKEMIA. SOCIAL HISTORY GENERAL: TOBACCO USE ARE YOU A:NONSMOKER NEVER SMOKER HIV / HEP-C SCREENING HIV TEST OFFERED TO PATIENT:YES DATE OFFERED:07/06/2017 TEST ACCEPTED:NO HEP-C TEST OFFERED TO PATIENT:YES DATE OFFERED:07/06/2017 REASON:PATIENT DECLINED TEST ACCEPTED:NO REASON:PATIENT DECLINED BROCHURE PROVIDED TO PATIENTYES OTHERS AT HOME: SPOUSE. EDUCATION LEVEL OF EDUCATION:[employer] DE[employer]ES DIET: TRYING REDUCE CALORIES AT THIS TIME. LANGUAGE ZIMBABWEAN. NEW PATIENT PAIN DIARY TODAY'S VISITNOTES BMI CARE GOAL FOLLOW-UP ABOVE NORMAL BMI FOLLOW-UPGIVING ENCOURAGEMENT TO EXERCISE RECREATIONAL DRUG USE DRUG USE?NO EXERCISE: NO CURRENT EXERCISE , TRIES TO WALK. LEARNING BARRIERS / SPECIAL NEEDS CHANGE FROM LAST VISIT?NO BARRIERS TO LEARNING?NO HEARING IMPAIRED?NO VISION IMPAIRED?YES COGNITIVELY IMPAIRED?NO :CORRECTIVE LENSES READINESS TO LEARN?YES LEARNING PREFERENCES?NO LEARNING CAPABILITIES PRESENT?YES EMOTIONAL BARRIERS?NO SPECIAL DEVICES?NO BROADCAST SYSTEMS ENGINEER NEEDED?NO PAIN CLINIC PFS, CLERGY, PUBLIC HEALTH REFERRALS WAS THE PROVIDER NOTIFIED OF ANY PERTINENT INFO?YES HAS THE PATIENT BEEN EDUCATED REGARDING HIS/HER PLAN OF CARE?YES HAS THE PATIENT BEEN EDUCATED REGARDING PAIN, THE RISK FOR PAIN, THE IMPORTANCE OF EFFECTIVE PAIN MANAGEMENT, AND THE PAIN ASSESSMENT PROCESS?YES LATEX QUESTIONNAIRE LATEX ALLERGY : HAVE YOU EVER DEVELOPED ANY TYPE OF REACTION AFTER HANDLING LATEX PRODUCTS SUCH RUBBER GLOVES, CONDOMS, DIAPHRAGMS, BALLOONS, SOCKS, OR UNDERWEAR?NO LATEX ALLERGY : HAVE YOU EVER DEVELOPED ANY TYPE OF REACTION DURING OR AFTER DENTAL APPOINTMENT, VAGINAL/RECTAL EXAMINATION, SURGICAL PROCEDURE, OR ANY OTHER EXPOSURE?NO DATE ASKED : 12/27/2018 LATEX RISK : HAVE YOU EVER HAD ANY DIFFICULTY BREATHING OR HIVES AFTER EATING OR HANDLING ANY FRUITS, OR VEGETABLES; SUCH KIWI, BANANAS, STONE FRUITS, OR CHESTNUTSNO LATEX RISK : DO YOU HAVE A PREVIOUS PERSONAL HISTORY OF MORE THAN NINE SURGERIES, SPINA BIFIDA, OR REPEATED CATHERIZATIONS? NO LATEX RISK : ARE YOU FREQUENTLY EXPOSED TO LATEX PRODUCTS IN YOUR OCCUPATION?NO CAFFEINE CAFFEINE USE?NO ADVANCE DIRECTIVE ADVANCE DIRECTIVE DISCUSSED WITH PATIENT:YES HCP - NOE PERERA () CATHOLIC CATHOLIC NO PREFERENCE MARITAL STATUS: . ALCOHOL SCREENING DID YOU HAVE A DRINK CONTAINING ALCOHOL IN THE PAST YEAR?YES HOW OFTEN DID YOU HAVE SIX OR MORE DRINKS ON ONE OCCASION IN THE PAST YEAR?NEVER (0 POINTS) HOW MANY DRINKS DID YOU HAVE ON A TYPICAL DAY WHEN YOU WERE DRINKING IN THE PAST YEAR?1 OR 2 (0 POINTS) HOW OFTEN DID YOU HAVE A DRINK CONTAINING ALCOHOL IN THE PAST YEAR?MONTHLY OR LESS (1 POINT) POINTS1 INTERPRETATIONNEGATIVE OCCUPATION: DISABLED. SEXUAL HX HAD SEX IN THE LAST 12 MONTHS (VAGINAL, ORAL, OR ANAL)?NO LMP:HYSTER HAVE YOU EVER HAD AN STD?NO REVIEWED WITH PT 12-22-17 1001 BVREVIEWED WITH PATIENT 01/27/18 1127 JSREVIEWED WITH PATIENT 03/07/18 0916 JSREVIEWED WITH PATIENT 03/24/18 0912 LASREVIEWED WITH PATIENT 12/02/18 1330 LASPRE-SCREENING PHONE CALL COMPLETED 03/01/19 1335 JSREVIEWED WITH PATIENT 03/31/2019 0953 JS. HOSPITALIZATION/MAJOR DIAGNOSTIC PROCEDURE SURGERY RELATED BACK PAIN DVT CHILD X2 REVIEW OF SYSTEMS REVIEWED BY: PROVIDER: HERIBERTO RIVAS . CONSTITUTIONAL: ANY CHANGE IN YOUR MEDICAL CONDITION? NO . CHILLS NO . FEVER NO . INFECTION: DO YOU HAVE NEW INFECTIONS? NO . DO YOU HAVE HISTORY OF MRSA? NO . MUSCULOSKELETAL: ANY NEW PATTERNS OF PAIN OR NUMBNESS? NO . GASTROENTEROLOGY: ANY NEW CHANGE IN BOWEL CONTROL? NO . GENITOURINARY: ANY NEW CHANGE IN BLADDER CONTROL? NO . IS THERE A CHANCE YOU COULD BE ? NO . HEMATOLOGY/LYMPH: DO YOU TAKE ANY BLOOD THINNERS? (FOR EXAMPLE- COUMADIN, PLAVIX, AGGRENOX, PLATEL, PRADAXA, OR XARELTO) NO . WHEN WAS YOUR LAST DOSE? DATE: TIME: . NEUROLOGY: HAVE YOU FALLEN IN THE PAST 12 MONTHS? NO . ANY NEW EXTREMITY NUMBNESS OR WEAKNESS? NO . CARDIOLOGY: DO YOU HAVE A PACEMAKER OR DEFIBRILLATOR? YES, [facility]CS . RESPIRATORY: HAVE YOU BEEN SICK IN THE PAST WEEK? NO . FEVER NO . FLU LIKE SYMPTOMS? NO . COUGH NO . INTEGUMENTARY: DO YOU HAVE ANY RASHES OR OPEN SORES? NO . ALLERGIC/IMMUNO: ARE YOU ALLERGIC TO IV DYE? NO . ANY NEW ALLERGIES? NO . PSYCHIATRIC: DO YOU HAVE THOUGHTS OF HURTING YOURSELF OR SOMEONE ELSE? NO . ARE YOU ABUSED, NEGLECTED, OR IN AN UNSAFE ENVIRONMENT? NO . ENDOCRINOLOGY: ARE YOU DIABETIC? NO . OTHER: DO YOU NEED ANY PRESCRIPTIONS? YES, TRAMADOL . IF YES, PLEASE LIST: ____ . ANY NEW PROBLEMS WITH YOUR MEDICATIONS? NO . WHEN DID YOU LAST EAT? ____ . WHEN DID YOU LAST DRINK? ____ . WHAT DID YOU LAST DRINK? ____ . NAME OF PERSON DRIVING YOU HOME? ____ . DO YOU HAVE ANY OTHER QUESTIONS OR CONCERNS NO . VITAL SIGNS WT 187.0 LBS, HT 66 IN, BMI 30.18 INDEX, BP 170/79 R ARM, REPEAT BP 153/72 L ARM, RR 16 /MIN, TEMP 98.5 F, OXYGEN SAT % 96%, SAFE IN ENV? (Y/N) Y, NA INITIALS TL 1007, REVIEWED BY: EM. EXAMINATION GENERAL EXAMINATION: GENERAL AWAKE,ALERT. PSYCH AFFECT NORMAL . LUNGS: LUNG AMBROSIO ARE CLEAR TO AUSCULTATION BILATERALLY. GOOD MOVEMENT OF AIR . HEART: S1, S2 IN A REGULAR RATE AND RHYTHM. NO SIGNIFICANT MURMURS, RUBS OR GALLOPS NOTED . 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 BRINGS IN MEDICATIONS WHICH IS APPROPRIATE FOR WHAT WAS DISPENSED. RECENT URINE TOXICOLOGY REVIEWED. NO UNAUTHORIZED MEDICATIONS. NO ILLICIT SUBSTANCES AND PRESCRIBED MEDICATIONS WERE PRESENT. PROCEDURES PN WORKMANS' COMP OPINION IN YOUR OPINION, WAS THE INCIDENT THAT THE PATIENT DESCRIBED THE COMPETENT MEDICAL CAUSE OF THIS INJURY/ILLNESS? YES ARE THE PATIENT'S COMPLAINTS CONSISTENT WITH HIS/HER HISTORY OF THE INJURY/ILLNESS? YES IS THE PATIENT'S HISTORY OF THE INJURY/ILLNESS CONSISTENT WITH YOUR OBJECTIVE FINDING? YES WHAT IS THE PERCENTAGE OF TEMPORARY IMPAIRMENT? MODERATE TO MARKED = 66.7% IS THE PATIENT WORKING? NO DOCTOR ON SITE: CANDICE POLLARD MD PROCEDURE CODES FA211 ESTABILISHED PATIENT [facility] CHARGE DISPOSITION & COMMUNICATION FOLLOW UP 3 MONTHS (REASON: W/C) ELECTRONICALLY SIGNED BY ROB PRICE ON 06/13/2019 AT 03:57 PM EDT DISCLAIMER : THIS IS A VISIT SUMMARY EXTRACTED FROM THE [employer] CHART. IT IS NOT A COPY OF THE [employer] PROGRESS NOTE. MTDD
== END ==
LOC: M PAIN 09:30
PROVIDERS: ATTEND Nurse Practitioner Family
DX: M70.62 Trochanteric bursitis, left hip (principal)

== ENCOUNTER → 2019-08-08 | Outpatient (CLI) | payer MEDICARE ==
[~2019-08-08] MED LIST changes: +SULF500T41 PO; -SULF50TA PO
--- NOTE | 2019-08-08 12:54 | REPMRS ---
Patient History The patient states she had a clinical breast exam in July 2019. Family history of breast cancer at age 50 or over in mother, breast cancer at age 50 or over in paternal aunt, colorectal cancer at age 50 or over in father. 3D TOMOSYNTHESIS WAS PERFORMED. The [place] lifetime risk for breast cancer is 13.7%. VOLPARA DENSITY SCORE B. Digital Woman Screen Mammo: August 08, 2019 - Exam #: [id number] Bilateral CC and MLO view(s) were taken. Technologist: Adrienne Tolliver, Technologist Prior study comparison: July 07, 2018, bilateral digital woman screen mammo performed at [facility]. July 06, 2017, digital woman screen mammo performed at [facility]. FINDINGS: The breast tissue is heterogeneously dense. This may lower the sensitivity of mammography. There has been no change in the appearance of the mammogram from the prior studies. There is a moderate amount of residual fibroglandular tissue which is fairly symmetric. There is no interval development of dominant mass, areas of architectural distortion, or clustered microcalcification typical of malignancy. Assessment: BI-RADS/ACR category 1 mammogram. Negative Mammogram. Recommendation Routine screening mammogram in 1 year (for women over age 40). This mammogram was interpreted with the aid of an FDA-approved computer-aided dectection system. Electronically Signed By: Octavio Suarez MD 08/08/19 5419
== END ==
LOC: M WHC 11:20
PROVIDERS: ATTEND Nurse Practitioner Family
DX: Z01.419 Encounter for gynecological examination (general) (routine) without abnormal findings (principal); Z12.31 Encounter for screening mammogram for malignant neoplasm of breast; Z80.3 Family history of malignant neoplasm of breast; Z80.0 Family history of malignant neoplasm of digestive organs; Z12.12 Encounter for screening for malignant neoplasm of rectum
CPT/HCPCS: 77063; 77067; 82270; G0101

== ENCOUNTER → 2019-08-30 | Outpatient (CLI) | payer MEDICARE ==
--- NOTE | 2019-09-01 04:52 | ECWPNPC ---
PATIENT NAME: AIRAM PERERA : 1960 GENDER: FEMALE VISIT DATE: 08/30/2019 DISCHARGE DATE: 08/30/19 1300 VISIT LOCKED DATE TIME: PHYSICIAN: HERIBERTO FORBES PHYSICIAN PAGER NO: [phone] RESOURCE: HERIBERTO FORBES REASON FOR APPOINTMENT 1. W/C MED [facility]; [phone] PAT DONE HISTORY OF PRESENT ILLNESS GENERAL: -. FALL RISK SCREENING: SCREENING :ONE FALL WITHOUT INJURY IN THE PAST YEAR PAIN SCREENING: PATIENT HAS A COMPLAINT OF ACUTE OR CHRONIC PAIN :YES 08/28/19 INTENSITY OF PAIN (SCALE OF 1 TO 10):4 WHAT DOES YOUR PAIN FEEL LIKE:ACHING PAIN IS INCREASED BY: ACTIVITY PAIN IS DECREASED BY: MEDS, REST, HEAT NURSING NOTE: -. PAIN CENTER INTAKE QUESTIONS: DO YOU HAVE A HISTORY OF MRSA? :NO DO YOU TAKE A BLOOD THINNERS? :NO DO YOU HAVE ANY BLEEDING DISORDERS? :NO ANY NEW NUMBNESS OR WEAKNESS IN YOUR LEGS OR ARMS? :YES LEFT LEG WEAK AND NUMB ANY PACEMAKER,DEFIBRILLATOR, OR DORSAL COLUMN STIMULATOR? :YES DCS DO YOU HAVE ANY RASHES OR OPEN SORES? :NO ARE YOU ALLERGIC TO IV DYE? :NO ARE YOU DIABETIC? :NO ANY NEW PROBLEMS WITH YOUR MEDICATIONS? :NO HAVE YOU RECEIVED A VACCINE IN THE PAST 30 DAYS? :NO DO YOU PLAN TO RECEIVE A VACCINE IN THE NEXT 21 DAYS? :NO DO YOU NEED ANY PRESCRIPTION? :YES NOT SURE WHICH ONES DO YOU TAKE ANY IMMUNOSUPPRESSIVE MEDICATIONS? :YES SULFASALAZINE AND PLAQUENIL IS THERE A CHANCE YOU COULD BE ? :NO ARE YOU BREAST FEEDING? :NO HISTORY OF PRESENT ILLNESS: PAIN THE PATIENT DESCRIBES THE PAIN... THE PATIENT DESCRIBES THE PAIN... THE PATIENT DESCRIBES THE PAIN... THE PATIENT DESCRIBES THE PAIN... THE PATIENT DESCRIBES THE PAIN... THE PATIENT DESCRIBES THE PAIN... THE PATIENT DESCRIBES THE PAIN... THE PATIENT DESCRIBES THE PAIN... THE PATIENT DESCRIBES THE PAIN... THE PATIENT DESCRIBES THE PAIN... THE PATIENT DESCRIBES THE PAIN... THE PATIENT DESCRIBES THE PAIN... THE PATIENT DESCRIBES THE PAIN... PATIENT IS AGREEABLE TO TELEMED VISIT VIA ZOOM. HX OF CHRONIC LBP AND LEFT FOOT PAIN DUE TO WORK RELATED INJURY IN 1986. RATING PAIN VAS 4/10. DCS WAS REVISED 08-25-2017. CHRONIC PAIN MEDICATION FOR WORK RELATED INJURY:1. CELEBREX 200MG BID2. LYRICA 200MG BID3.ULTRACET 37.5/325 2 TAB PO Q4-6 H PRN PAIN-USING THIS MEDICATION FOR MODERATE PAIN.PAIN VAS 5-7/104.HYDROCODONE 5/325 1 TAB PO Q6H PRN SEVERE PAIN.PAIN VAS 8-10/105.ELAVIL 50MG AT HS FORCHRONIC NIGHTTIME NEUROPATHIC PAINREPORTS CURRENT MEDICATION IS HELPFUL AT RELIEVING PAIN AND ALLOWING HER TO BE MORE FUNCTIONAL. DENIES ADVERSE EFFECTS. CURRENT MEDICATIONS TAKING SOLON INTERMIT FEMALE CATHETER #14 FR STRAIGHT TIP ATTENTION REFERRAL [facility] AT [facility] USE FOR CIC FOR URINARY RETENTION 4-5 TIMES/DAY (CLAIM # [id number]) TAKING FOLIC ACID 1 MG TABLET 2 TABLETS ORALLY ONCE A DAY TAKING PLAQUENIL 200 MG TABLET 1 TABLET WITH FOOD OR MILK ORALLY BID TAKING SULFASALAZINE 500 MG TABLET 3 TABS ORALLY BID TAKING OXYBUTYNIN CHLORIDE ER 10 MG TABLET EXTENDED RELEASE 24 HOUR 1 TABLET ORALLY ONCE A DAY TAKING FLUTICASONE PROPIONATE 50 MCG/ACT SUSPENSION 1 SPRAY IN EACH NOSTRIL NASALLY ONCE A DAY TAKING SYNTHROID 25MCG TABLET 1 TAB(S) ORALLY ONCE A DAY TAKING OMEPRAZOLE 40MG CAPSULE DELAYED RELEASE 1 CAPSULE ORALLY DAILY TAKING HYDROCODONE-ACETAMINOPHEN 5-325 MG TABLET 1 TABLET NEEDED ORALLY EVERY 6 HRS PRN FOR PAIN MDD2 (3MOS SUPPLY CODE D CHRONIC PAIN) TAKING LYRICA 200 MG CAPSULE 1 CAP ORALLY (CODE D FOR CHRONIC PAIN) Q8H TID MDD3 TAKING ROBAXIN-750 750 MG TABLET 1 TABLET ORALLY EVERY 4 HRS NEEDED TAKING TRAMADOL HCL 50 MG TABLET 1 TO 2 TAB ORALLY Q8H PRN PAIN MDD4 TAKING WELLBUTRIN SR 200 MG TABLET EXTENDED RELEASE 12 HOUR 1 TABLET ORALLY TWICE A DAY TAKING MACROBID 100 MG CAPSULE 1 CAPSULE WITH FOOD ORALLY DAILY TAKING ELAVIL 50 MG TABLET 1 TAB(S) ORAL AT BEDTIME TAKING FLUOXETINE HCL 20 MG CAPSULE 1 CAPSULE ORALLY ONCE A DAY TAKING CELEBREX 200 MG CAPSULE 1 CAPSULE P.O. BID NOT-TAKING SULFAMETHOXAZOLE-TRIMETHOPRIM 800-160 MG TABLET 1 TABLET ORALLY TWICE A DAY NOT-TAKING DIFLUCAN 200 MG TABLET 1 TABLET ORALLY DAILY NOT-TAKING MUCINEX DM MAXIMUM STRENGTH 60-1200 MG TABLET EXTENDED RELEASE 12 HOUR 1 TABLET NEEDED ORALLY TWICE A DAY NOT-TAKING SUDAFED 30 MG TABLET 1 TABLET NEEDED ORALLY EVERY 6 HRS NOT-TAKING SHINGRIX 50 MCG SUSPENSION RECONSTITUTED DIRECTED INTRAMUSCULAR DIRECTED NOT-TAKING SOMA 350 MG TABLET 1 TABLET NEEDED ORALLY 2 TIMES A DAY NEEDED MEDICATION LIST REVIEWED AND RECONCILED WITH THE PATIENT PAST MEDICAL HISTORY DEGENERATIVE DISC DISEASE AT L5-S1 STATUS POST LAMINECTOMY CHRONIC LOW BACK PAIN (SECONDARY TO INJURY TO HER LOW BACK/COMPENSATION CASE) (DR. ZAMORA) NEUROGENIC BOWEL AND BLADDER SUBSEQUENT TO UNDERGOING BACK SURGERY REQUIRES SELF CATHETERIZATION RECURRENT URINARY TRACT INFECTION () CHRONIC CONSTIPATION DEPRESSION RHEUMATOID ARTHRITIS (DR. ENGLAND) RESTLESS LEG SYNDROME WITH LEFT FOOT DROP OSTEOPENIA LEFT FEMUR DEXA 07/06/16 ANEMIA HAS A DORSAL COLUMN STIMULATOR-- NO MRIS ECHO 08/30/07 - EF 60% NO VALVULAR ABNORMALITIES DEVELOPED BILATERAL PHLEBITIS WITH BCP YRS AGO DVT BILATERAL LOWER LEGS AT AGE 16 HOSPITALIZED ON [facility] AT THE TIME HYPOTHYROID HYPERLIPIDEMIA--ASCVD 10 YR RISK 5% (12/08) SLEEP APNEA- CPAP MACHINE USED KIDNEY STONE COMPLEX PAIN SYNDROME ALLERGIES GABATROL: ITCHING/ TREMORS - ALLERGY SHELLFISH: ANGEIOEDEMA - ALLERGY ATIVAN: SUICIDAL THOUGHTS - ALLERGY CYMBALTA: FATIGUE - SIDE EFFECTS SURGICAL HISTORY EGD/COLONOSCOPY ADENOMATOUS HYPERPLASTIC POLYP 08/2009 D&C, LAPROSCOPY YRS AGO CONE BIOPSY AFTER ABNORMAL PAPS LAVH -DUE TO EXCESSIVE BLEEDING AND FIBROIDS- 2006 COLONOSCOPY - 3 DIMINUTIVE POLYPS, INTERNAL HEMORRHOIDS, LONG REDUNDANT COLON PRONE TO IRREGULARITY/CONSTIPATION/INCOMPLETE EMPTYING (DR. RODRIGUEZ) 10/28/12 EGD - NORMAL 10/28/12 CYSTOLITHOLAPAXY 09/06/15 DORSAL COLUMN STIMULATOR REPLACEMENT AND LAMINECTOMY 08/2017 APPENDECTOMY TONSILLECTOMY LITHOTRIPSY FAMILY HISTORY FATHER: ALIVE 92 YRS, COLON POLYP (PRECANCEROUS), SKIN CANCER, ATELECTASIS PARKINSONISM, DEMENTIA, DIAGNOSED WITH OTHER SPECIFIED CONDITIONS INFLUENCING HEALTH STATUS MOTHER: , DM, BREAST CANCER (DX IN HER 70S), STROKE, DEMENTIA, DIABETES, OTHER MALIGNANT NEOPLASM OF UNSPECIFIED SITE SIBLINGS: SISTER WITH HTN AND EPILEPSY, ANOTHER SISTER WITH HTN AND POLYMYALGIA, HYPERTENSION DAUGHTER(S): ALIVE, OLDEST WITH SEVERE ENDOMETRIOSIS WITH BOWEL AND BLADDER INVOLVEMENT, DEPRESSION, BACK PROBLEMS. FIBROMYALGIA YOUNGEST, NO KNOWN MEDICAL PROBLEMS DAUGHTER BIPOLAR 2, UNSPECIFIED NONPSYCHOTIC MENTAL DISORDER FOLLOWING ORGANIC BRAIN DAMAGE PATERNAL AUNT: BREAST CANCER, DX IN 70 2 SISTER(S) . 2DAUGHTER(S) . DENIES COLON OR OVARIAN CANCERS., NO KNOWN FAMILY HISTORY OF ANY UROLOGICALLY RELATED DISEASES OR CANCERS. GRANDDAUGHTER YE WITH LEUKEMIA. SOCIAL HISTORY GENERAL: TOBACCO USE ARE YOU A:NONSMOKER NEVER SMOKER LATEX QUESTIONNAIRE LATEX ALLERGY : HAVE YOU EVER DEVELOPED ANY TYPE OF REACTION AFTER HANDLING LATEX PRODUCTS SUCH RUBBER GLOVES, CONDOMS, DIAPHRAGMS, BALLOONS, SOCKS, OR UNDERWEAR?NO LATEX ALLERGY : HAVE YOU EVER DEVELOPED ANY TYPE OF REACTION DURING OR AFTER DENTAL APPOINTMENT, VAGINAL/RECTAL EXAMINATION, SURGICAL PROCEDURE, OR ANY OTHER EXPOSURE?NO DATE ASKED : 12/27/2018 LATEX RISK : HAVE YOU EVER HAD ANY DIFFICULTY BREATHING OR HIVES AFTER EATING OR HANDLING ANY FRUITS, OR VEGETABLES; SUCH KIWI, BANANAS, STONE FRUITS, OR CHESTNUTSNO LATEX RISK : DO YOU HAVE A PREVIOUS PERSONAL HISTORY OF MORE THAN NINE SURGERIES, SPINA BIFIDA, OR REPEATED CATHERIZATIONS? NO LATEX RISK : ARE YOU FREQUENTLY EXPOSED TO LATEX PRODUCTS IN YOUR OCCUPATION?NO BMI CARE GOAL FOLLOW-UP ABOVE NORMAL BMI FOLLOW-UPGIVING ENCOURAGEMENT TO EXERCISE ALCOHOL SCREENING DID YOU HAVE A DRINK CONTAINING ALCOHOL IN THE PAST YEAR?YES HOW OFTEN DID YOU HAVE SIX OR MORE DRINKS ON ONE OCCASION IN THE PAST YEAR?NEVER (0 POINTS) HOW MANY DRINKS DID YOU HAVE ON A TYPICAL DAY WHEN YOU WERE DRINKING IN THE PAST YEAR?1 OR 2 (0 POINTS) HOW OFTEN DID YOU HAVE A DRINK CONTAINING ALCOHOL IN THE PAST YEAR?MONTHLY OR LESS (1 POINT) POINTS1 INTERPRETATIONNEGATIVE RECREATIONAL DRUG USE DRUG USE?NO CAFFEINE CAFFEINE USE?NO SEXUAL HX HAD SEX IN THE LAST 12 MONTHS (VAGINAL, ORAL, OR ANAL)?NO LMP:HYSTER HAVE YOU EVER HAD AN STD?NO HIV / HEP-C SCREENING HIV TEST OFFERED TO PATIENT:YES DATE OFFERED:07/06/2017 TEST ACCEPTED:NO HEP-C TEST OFFERED TO PATIENT:YES DATE OFFERED:07/06/2017 REASON:PATIENT DECLINED TEST ACCEPTED:NO REASON:PATIENT DECLINED BROCHURE PROVIDED TO PATIENTYES EVANGELICAL EVANGELICAL NO PREFERENCE LANGUAGE POLISH. EDUCATION LEVEL OF EDUCATION:[employer] LEARNING BARRIERS / SPECIAL NEEDS CHANGE FROM LAST VISIT?NO BARRIERS TO LEARNING?NO HEARING IMPAIRED?NO VISION IMPAIRED?YES COGNITIVELY IMPAIRED?NO :CORRECTIVE LENSES READINESS TO LEARN?YES LEARNING PREFERENCES?NO LEARNING CAPABILITIES PRESENT?YES EMOTIONAL BARRIERS?NO SPECIAL DEVICES?NO SOLID PROPELLANT PROCESSOR NEEDED?NO OCCUPATION: DISABLED. DIET: TRYING REDUCE CALORIES AT THIS TIME. EXERCISE: NO CURRENT EXERCISE , TRIES TO WALK. MARITAL STATUS: . OTHERS AT HOME: SPOUSE. NEW PATIENT PAIN DIARY TODAY'S VISITNOTES PAIN CLINIC PFS, CLERGY, PUBLIC HEALTH REFERRALS WAS THE PROVIDER NOTIFIED OF ANY PERTINENT INFO?YES HAS THE PATIENT BEEN EDUCATED REGARDING HIS/HER PLAN OF CARE?YES HAS THE PATIENT BEEN EDUCATED REGARDING PAIN, THE RISK FOR PAIN, THE IMPORTANCE OF EFFECTIVE PAIN MANAGEMENT, AND THE PAIN ASSESSMENT PROCESS?YES ADVANCE DIRECTIVE ADVANCE DIRECTIVE DISCUSSED WITH PATIENT:YES HCP - NOE PERERA () REVIEWED WITH PT 12-22-17 1001 BVREVIEWED WITH PATIENT 01/27/18 1127 JSREVIEWED WITH PATIENT 03/07/18 0916 JSREVIEWED WITH PATIENT 03/24/18 0912 LASREVIEWED WITH PATIENT 12/02/18 1330 LASPRE-SCREENING PHONE CALL COMPLETED 03/01/19 1335 JSREVIEWED WITH PATIENT 03/31/2019 0953 JS. HOSPITALIZATION/MAJOR DIAGNOSTIC PROCEDURE SURGERY RELATED BACK PAIN DVT CHILD X2 REVIEW OF SYSTEMS CONSTITUTIONAL: ANY RECENT FEVER OR ILLNESS NO . CHILLS NO . GASTROENTEROLOGY: BOWEL INCONTINENCE NO . ANY NEW CHANGE IN BOWEL CONTROL? NO . ABDOMINAL PAIN NO . CONSTIPATION NO . GENITOURINARY: ANY NEW CHANGE IN BLADDER CONTROL? NO . IS THERE A CHANCE YOU COULD BE ? NO . URINARY INCONTINENCE NO . CARDIOLOGY: CHEST PRESSURE NO . CHEST PAIN NO . RESPIRATORY: COUGH NO . SHORTNESS OF BREATH NO . 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 NO UNAUTHORIZED MEDICATIONS. NO ILLICIT SUBSTANCES AND PRESCRIBED MEDICATIONS WERE PRESENT. TOTAL TIME SPENT DURING TELEMED VISIT WAS APPROXIMATELY 12 MINUTES. OTHERS CLINICAL NOTES: PRE SCREENING CALL DONE 08/29/19 EM. PROCEDURES PN WORKMANS' COMP OPINION IN YOUR OPINION, WAS THE INCIDENT THAT THE PATIENT DESCRIBED THE COMPETENT MEDICAL CAUSE OF THIS INJURY/ILLNESS? YES ARE THE PATIENT'S COMPLAINTS CONSISTENT WITH HIS/HER HISTORY OF THE INJURY/ILLNESS? YES IS THE PATIENT'S HISTORY OF THE INJURY/ILLNESS CONSISTENT WITH YOUR OBJECTIVE FINDING? YES WHAT IS THE PERCENTAGE OF TEMPORARY IMPAIRMENT? MODERATE TO MARKED = 66.7% IS THE PATIENT WORKING? NO DOCTOR ON SITE: CANDICE POLLARD MD DISPOSITION & COMMUNICATION FOLLOW UP 3 MONTHS IN CLINIC WORKMEN'S COMP (REASON: COMPLEX REGIONAL PAIN SYNDROME LEFT LOWER EXTREMITY, SACROILIITIS/MED MANAGEMENT) ELECTRONICALLY SIGNED BY ROB PRICE ON 08/31/2019 AT 12:21 PM EDT DISCLAIMER : THIS IS A VISIT SUMMARY EXTRACTED FROM THE [employer] [place] CHART. IT IS NOT A COPY OF THE [employer] PROGRESS NOTE. DIMAS
== END ==
LOC: M PAIN 09:45
PROVIDERS: ATTEND Nurse Practitioner Family
DX: G90.529 Complex regional pain syndrome I of unspecified lower limb (principal); M46.1 Sacroiliitis, not elsewhere classified; M96.1 Postlaminectomy syndrome, not elsewhere classified; Z79.899 Other long term (current) drug therapy

== ENCOUNTER → 2019-09-05 | Outpatient (REF) | payer MEDICARE ==
[~2019-09-05] MED LIST changes: -AMIT25TA PO; +AMIT25TA17 PO; -FLUO10CA15 PO; +FLUO10CA16 PO
[2019-09-05 19:24] LABS: APPEARANCE, URINE HAZY (CLEAR); BACTERIA, URINE AUTO 2+ (NEGATIVE); BILIRUBIN, URINE AUTO NEGATIVE (NEGATIVE); BLOOD, URINE BLOOD 1+ (NEGATIVE); CALCIUM OXALATE CRYSTALS SMALL; COLOR, URINE YELLOW (YELLOW); GLUCOSE, URINE (UA) AUTO NEGATIVE (NEGATIVE); KETONE, URINE AUTO NEGATIVE (NEGATIVE); LEUKOCYTE ESTERASE, URINE AUTO 3+ (NEGATIVE); MUCUS, URINE SMALL (NEGATIVE); NITRITE, URINE AUTO NEGATIVE (NEGATIVE); PROTEIN, URINE AUTO NEGATIVE (NEGATIVE); RBC, URINE AUTO 18 /HPF (0-3); SPECIFIC GRAVITY URINE AUTO 1.011 (1.002-1.035); SQUAMOUS EPITHELIAL CELL UR AU 1 /HPF (0-6); UROBILINOGEN, URINE AUTO 0.2 mg/dL (0.0-2.0); WBC, URINE AUTO 38 /HPF (0-3)
== END ==
LOC: M SMT 17:34
PROVIDERS: ATTEND Nurse Practitioner Women's Health
DX: N31.9 Neuromuscular dysfunction of bladder, unspecified (principal)

== ENCOUNTER → 2019-09-18 | Outpatient (CLI) | payer MEDICARE ==
[~2019-09-18] MED LIST changes: +AMIT25TA PO; -AMIT25TA17 PO; +FLUO10CA15 PO; -FLUO10CA16 PO
[2019-09-18 09:15] LABS: HEMOGLOBIN 11.1 g/dl (12.0-15.5); MEAN CORPUSCULAR HEMOGLOBIN 29.8 pg (27.0-33.0); MEAN CORPUSCULAR HGB CONC 30.8 g/dl (32.0-36.5); MEAN CORPUSCULAR VOLUME 96.8 fl (80.0-96.0); PLATELET COUNT, AUTOMATED 214 10^3/uL (150-450); RED BLOOD COUNT 3.72 10^6/uL (4.00-5.40); WHITE BLOOD COUNT 5.1 10^3/uL (4.0-10.0)
[2019-09-18 09:47] LABS: ALBUMIN 3.4 GM/DL (3.2-5.2); ALT/SGPT 15 U/L (12-78); BILIRUBIN,TOTAL 0.2 MG/DL (0.2-1.0); BLOOD UREA NITROGEN 16 MG/DL (7-18); CALCIUM LEVEL 8.5 MG/DL (8.8-10.2); CARBON DIOXIDE LEVEL 28 MEQ/L (21-32); CHLORIDE LEVEL 108 MEQ/L (98-107); CHOLESTEROL LEVEL 235 MG/DL (<200); CREATININE FOR GFR 0.76 MG/DL (0.55-1.30); FREE T4 1.03 NG/DL (0.76-1.46); GLOMERULAR FILTRATION RATE > 60.0 (>45); GLUCOSE, FASTING 92 MG/DL (70-100); HDL CHOLESTEROL 62 MG/DL (>40); LDL CHOLESTEROL 158 MG/DL (<100); NON-HDL-C 173 MG/DL; POTASSIUM SERUM 3.8 MEQ/L (3.5-5.1); SODIUM LEVEL 141 MEQ/L (136-145); TOTAL PROTEIN 6.6 GM/DL (6.4-8.2); TRIGLYCERIDES LEVEL 76 MG/DL (<150)
== END ==
LOC: M LAB 08:32
PROVIDERS: ATTEND Family Medicine
DX: F32.9 Major depressive disorder, single episode, unspecified (principal); E03.9 Hypothyroidism, unspecified; E04.1 Nontoxic single thyroid nodule; E78.2 Mixed hyperlipidemia

== ENCOUNTER → 2019-11-30 | Outpatient (CLI) | payer MEDICARE ==
[~2019-11-30] MED LIST changes: -FLUO10CA15 PO; +FLUO10CA16 PO
== END ==
LOC: M PAIN 08:52
PROVIDERS: ATTEND Nurse Practitioner Family
DX: M46.1 Sacroiliitis, not elsewhere classified (principal); Z79.891 Long term (current) use of opiate analgesic

== ENCOUNTER → 2020-01-19 | Outpatient (CLI) | payer MEDICARE | LOC: M LAB 13:57 | PROVIDERS: ATTEND Optometrist | DX: H53.2 Diplopia (principal) ==

== ENCOUNTER → 2020-01-30 | Outpatient (CLI) | payer OTHER, MEDICARE ==
--- NOTE | 2020-02-01 06:14 | ECWPNPC ---
PATIENT NAME: AIRAM PERERA : 1960 GENDER: FEMALE VISIT DATE: 01/30/2020 DISCHARGE DATE: 01/30/20 1031 VISIT LOCKED DATE TIME: PHYSICIAN: HERIBERTO FORBES PHYSICIAN PAGER NO: ACTIVE RESOURCE: HERIBERTO FORBES REASON FOR APPOINTMENT 1. W/C SACROILLITIS RSD- LOWER LIMB HISTORY OF PRESENT ILLNESS GENERAL: -. FALL RISK SCREENING: SCREENING :TWO OR MORE FALLS WITHOUT INJURY IN THE PAST YEAR MULTIPLE FALLS RESULTING IN SKINNED KNEES, NONE OF WHICH REQUIRED MEDICAL INTERVENTION. PAIN SCREENING: PATIENT HAS A COMPLAINT OF ACUTE OR CHRONIC PAIN :YES LOCATION OF PAIN:LOW BACK INTENSITY OF PAIN (SCALE OF 1 TO 10):3 WHAT DOES YOUR PAIN FEEL LIKE:ACHING, CONTINOUS DURATION:CONTINOUS, AWAKENS FROM SLEEP PAIN IS INCREASED BY:ACTIVITIES, PROLONGED STANDING PLAN/GOALS/TREATMENT/INTERVENTION/FOLLOW UP:SEE PLAN NURSING NOTE: -. PAIN CENTER INTAKE QUESTIONS: DO YOU HAVE A HISTORY OF MRSA? :NO DO YOU TAKE A BLOOD THINNERS? :NO DO YOU HAVE ANY BLEEDING DISORDERS? :NO ANY NEW NUMBNESS OR WEAKNESS IN YOUR LEGS OR ARMS? :NO ANY PACEMAKER,DEFIBRILLATOR, OR DORSAL COLUMN STIMULATOR? :YES DCS DO YOU HAVE ANY RASHES OR OPEN SORES? :NO ARE YOU ALLERGIC TO IV DYE? :NO ARE YOU DIABETIC? :NO ANY NEW PROBLEMS WITH YOUR MEDICATIONS? :NO HAVE YOU RECEIVED A VACCINE IN THE PAST 30 DAYS? :NO DO YOU PLAN TO RECEIVE A VACCINE IN THE NEXT 21 DAYS? :NO DO YOU NEED ANY PRESCRIPTION? :YES MULTIPLE INCLUDING AMITRIPTYLINE HCL, CELEBEX, GABAPENTIN DO YOU TAKE ANY IMMUNOSUPPRESSIVE MEDICATIONS? :YES PLAQUENIL IS THERE A CHANCE YOU COULD BE ? :NO ARE YOU BREAST FEEDING? :NO HISTORY OF PRESENT ILLNESS: PAIN THE PATIENT DESCRIBES THE PAIN... THE PATIENT DESCRIBES THE PAIN... THE PATIENT DESCRIBES THE PAIN... THE PATIENT DESCRIBES THE PAIN... THE PATIENT DESCRIBES THE PAIN... THE PATIENT DESCRIBES THE PAIN... THE PATIENT DESCRIBES THE PAIN... THE PATIENT DESCRIBES THE PAIN... THE PATIENT DESCRIBES THE PAIN... THE PATIENT DESCRIBES THE PAIN... THE PATIENT DESCRIBES THE PAIN... THE PATIENT DESCRIBES THE PAIN... THE PATIENT DESCRIBES THE PAIN... HERE FOR F/U .HX OF CHRONIC LBP AND LEFT FOOT PAIN DUE TO WORK RELATED INJURY IN 1986. RATING PAIN VAS 5/10. DCS WAS REVISED 08-25-2017. USING DORSAL COLUMN STIMULATOR WITH SOME RELIEF .CHRONIC PAIN MEDICATION FOR WORK RELATED INJURY:1. CELEBREX 200MG BID2. LYRICA 200MG BID3.TRAMADOL 50MG TAB PO Q4-6 H PRN PAIN-USING THIS MEDICATION FOR MODERATE PAIN.PAIN VAS 5-7/104.HYDROCODONE 5/325 1 TAB PO Q6H PRN SEVERE PAIN.PAIN VAS 8-10/105.ELAVIL 50MG AT HS FORCHRONIC NIGHTTIME NEUROPATHIC PAIN. CURRENT MEDICATIONS TAKING [place] INTERMIT FEMALE CATHETER #14 FR STRAIGHT TIP ATTENTION REFERRAL [facility] AT [facility] USE FOR [facility]IC FOR URINARY RETENTION 4-5 TIMES/DAY (CLAIM # [id number]) TAKING FOLIC ACID 1 MG TABLET 2 TABLETS ORALLY ONCE A DAY TAKING PLAQUENIL 200 MG TABLET 1 TABLET WITH FOOD OR MILK ORALLY BID TAKING SULFASALAZINE 500 MG TABLET 3 TABS ORALLY BID TAKING FLUTICASONE PROPIONATE 50 MCG/ACT SUSPENSION 1 SPRAY IN EACH NOSTRIL NASALLY ONCE A DAY TAKING OMEPRAZOLE 40MG CAPSULE DELAYED RELEASE 1 CAPSULE ORALLY DAILY TAKING ROBAXIN-750 750 MG TABLET 1 TABLET ORALLY EVERY 4 HRS NEEDED TAKING TRAMADOL HCL 50 MG TABLET 1 TO 2 TAB ORALLY Q8H PRN PAIN MDD4 TAKING ELAVIL 50 MG TABLET 1 TAB(S) ORAL AT BEDTIME, NOTES: (AMITRIPTYLINE HCL) TAKING FLUOXETINE HCL 20 MG CAPSULE 1 CAPSULE ORALLY ONCE A DAY TAKING CELEBREX 200 MG CAPSULE 1 CAPSULE P.O. BID TAKING MACROBID 100 MG CAPSULE 1 CAPSULE WITH FOOD ORALLY DAILY, NOTES: CHRONIC DUE TO NEUROGENIC BLADDER TAKING SYNTHROID 25MCG TABLET 1 TAB(S) ORALLY ONCE A DAY TAKING RIZATRIPTAN BENZOATE 10 MG TABLET 1 TABLET ORALLY TWICE DAILY NEEDED TAKING LYRICA 200 MG CAPSULE 1 CAP ORALLY (CODE D FOR CHRONIC PAIN) Q8H TID MDD3 TAKING HYDROCODONE-ACETAMINOPHEN 5-325 MG TABLET 1 TABLET NEEDED ORALLY EVERY 6 HRS PRN FOR PAIN MDD2 (3MOS SUPPLY CODE D CHRONIC PAIN) TAKING OXYBUTYNIN CHLORIDE ER 10 MG TABLET EXTENDED RELEASE 24 HOUR 1 TABLET ORALLY ONCE A DAY TAKING WELLBUTRIN SR 200 MG TABLET EXTENDED RELEASE 12 HOUR 1 TABLET ORALLY TWICE A DAY NOT-TAKING CIPRO 500 MG TABLET 1 TABLET ORALLY EVERY 12 HRS NOT-TAKING SULFAMETHOXAZOLE-TRIMETHOPRIM 800-160 MG TABLET 1 TABLET ORALLY TWICE A DAY NOT-TAKING DIFLUCAN 200 MG TABLET 1 TABLET ORALLY DAILY NOT-TAKING MUCINEX DM MAXIMUM STRENGTH 60-1200 MG TABLET EXTENDED RELEASE 12 HOUR 1 TABLET NEEDED ORALLY TWICE A DAY NOT-TAKING SUDAFED 30 MG TABLET 1 TABLET NEEDED ORALLY EVERY 6 HRS NOT-TAKING SHINGRIX 50 MCG SUSPENSION RECONSTITUTED DIRECTED INTRAMUSCULAR DIRECTED NOT-TAKING SOMA 350 MG TABLET 1 TABLET NEEDED ORALLY 2 TIMES A DAY NEEDED MEDICATION LIST REVIEWED AND RECONCILED WITH THE PATIENT PAST MEDICAL HISTORY DEGENERATIVE DISC DISEASE AT L5-S1 STATUS POST LAMINECTOMY CHRONIC LOW BACK PAIN (SECONDARY TO INJURY TO HER LOW BACK/COMPENSATION CASE) (DR. ZAMORA) NEUROGENIC BOWEL AND BLADDER SUBSEQUENT TO UNDERGOING BACK SURGERY REQUIRES SELF CATHETERIZATION RECURRENT URINARY TRACT INFECTION () CHRONIC CONSTIPATION DEPRESSION RHEUMATOID ARTHRITIS (DR. ENGLAND) RESTLESS LEG SYNDROME WITH LEFT FOOT DROP OSTEOPENIA LEFT FEMUR DEXA 07/06/16 ANEMIA HAS A DORSAL COLUMN STIMULATOR-- NO MRIS ECHO 08/30/07 - EF 60% NO VALVULAR ABNORMALITIES DEVELOPED BILATERAL PHLEBITIS WITH BCP YRS AGO DVT BILATERAL LOWER LEGS AT AGE 16 HOSPITALIZED ON [facility] AT THE TIME HYPOTHYROID HYPERLIPIDEMIA--ASCVD 10 YR RISK 7% (09/08) SLEEP APNEA- CPAP MACHINE USED KIDNEY STONE COMPLEX PAIN SYNDROME ALLERGIES GABATROL: ITCHING/ TREMORS - ALLERGY SHELLFISH: ANGEIOEDEMA - ALLERGY ATIVAN: SUICIDAL THOUGHTS - ALLERGY CYMBALTA: FATIGUE - SIDE EFFECTS SURGICAL HISTORY EGD/COLONOSCOPY ADENOMATOUS HYPERPLASTIC POLYP 08/2009 D&C, LAPROSCOPY YRS AGO CONE BIOPSY AFTER ABNORMAL PAPS LAVH -DUE TO EXCESSIVE BLEEDING AND FIBROIDS- 2006 COLONOSCOPY - 3 DIMINUTIVE POLYPS, INTERNAL HEMORRHOIDS, LONG REDUNDANT COLON PRONE TO IRREGULARITY/CONSTIPATION/INCOMPLETE EMPTYING (DR. RODRIGUEZ) 10/28/12 EGD - NORMAL 10/28/12 CYSTOLITHOLAPAXY 09/06/15 DORSAL COLUMN STIMULATOR REPLACEMENT AND LAMINECTOMY 08/2017 APPENDECTOMY TONSILLECTOMY LITHOTRIPSY FAMILY HISTORY FATHER: ALIVE 92 YRS, COLON POLYP (PRECANCEROUS), SKIN CANCER, ATELECTASIS PARKINSONISM, DEMENTIA, DIAGNOSED WITH OTHER SPECIFIED CONDITIONS INFLUENCING HEALTH STATUS MOTHER: , DM, BREAST CANCER (DX IN HER 70S), STROKE, DEMENTIA, OTHER MALIGNANT NEOPLASM OF UNSPECIFIED SITE, DIABETES SIBLINGS: SISTER WITH HTN AND EPILEPSY, ANOTHER SISTER WITH HTN AND POLYMYALGIA, HYPERTENSION DAUGHTER(S): ALIVE, OLDEST WITH SEVERE ENDOMETRIOSIS WITH BOWEL AND BLADDER INVOLVEMENT, DEPRESSION, BACK PROBLEMS. FIBROMYALGIA YOUNGEST, NO KNOWN MEDICAL PROBLEMS DAUGHTER BIPOLAR 2, UNSPECIFIED NONPSYCHOTIC MENTAL DISORDER FOLLOWING ORGANIC BRAIN DAMAGE PATERNAL AUNT: BREAST CANCER, DX IN 70 2 SISTER(S) . 2DAUGHTER(S) . DENIES COLON OR OVARIAN CANCERS., NO KNOWN FAMILY HISTORY OF ANY UROLOGICALLY RELATED DISEASES OR CANCERS. GRANDDAUGHTER YE WITH LEUKEMIA. SOCIAL HISTORY GENERAL: TOBACCO USE ARE YOU A:NONSMOKER NEVER SMOKER LATEX QUESTIONNAIRE LATEX ALLERGY : HAVE YOU EVER DEVELOPED ANY TYPE OF REACTION AFTER HANDLING LATEX PRODUCTS SUCH RUBBER GLOVES, CONDOMS, DIAPHRAGMS, BALLOONS, SOCKS, OR UNDERWEAR?NO LATEX ALLERGY : HAVE YOU EVER DEVELOPED ANY TYPE OF REACTION DURING OR AFTER DENTAL APPOINTMENT, VAGINAL/RECTAL EXAMINATION, SURGICAL PROCEDURE, OR ANY OTHER EXPOSURE?NO LATEX RISK : HAVE YOU EVER HAD ANY DIFFICULTY BREATHING OR HIVES AFTER EATING OR HANDLING ANY FRUITS, OR VEGETABLES; SUCH KIWI, BANANAS, STONE FRUITS, OR CHESTNUTSNO LATEX RISK : DO YOU HAVE A PREVIOUS PERSONAL HISTORY OF MORE THAN NINE SURGERIES, SPINA BIFIDA, OR REPEATED CATHERIZATIONS? NO LATEX RISK : ARE YOU FREQUENTLY EXPOSED TO LATEX PRODUCTS IN YOUR OCCUPATION?NO DATE ASKED : 01/30/2020 BMI CARE GOAL FOLLOW-UP ABOVE NORMAL BMI FOLLOW-UPGIVING ENCOURAGEMENT TO EXERCISE ALCOHOL SCREENING DID YOU HAVE A DRINK CONTAINING ALCOHOL IN THE PAST YEAR?YES HOW OFTEN DID YOU HAVE SIX OR MORE DRINKS ON ONE OCCASION IN THE PAST YEAR?NEVER (0 POINTS) HOW MANY DRINKS DID YOU HAVE ON A TYPICAL DAY WHEN YOU WERE DRINKING IN THE PAST YEAR?1 OR 2 (0 POINTS) HOW OFTEN DID YOU HAVE A DRINK CONTAINING ALCOHOL IN THE PAST YEAR?MONTHLY OR LESS (1 POINT) POINTS1 INTERPRETATIONNEGATIVE RECREATIONAL DRUG USE DRUG USE?NO CAFFEINE CAFFEINE USE?NO SEXUAL HX HAD SEX IN THE LAST 12 MONTHS (VAGINAL, ORAL, OR ANAL)?NO LMP:HYSTER HAVE YOU EVER HAD AN STD?NO HIV / HEP-C SCREENING HIV TEST OFFERED TO PATIENT:YES DATE OFFERED:07/06/2017 TEST ACCEPTED:NO HEP-C TEST OFFERED TO PATIENT:YES DATE OFFERED:07/06/2017 REASON:PATIENT DECLINED TEST ACCEPTED:NO REASON:PATIENT DECLINED BROCHURE PROVIDED TO PATIENTYES BUDDHIST BUDDHIST NO PREFERENCE LANGUAGE MAORI. EDUCATION LEVEL OF EDUCATION:[employer] LEARNING BARRIERS / SPECIAL NEEDS CHANGE FROM LAST VISIT?NO BARRIERS TO LEARNING?NO HEARING IMPAIRED?NO VISION IMPAIRED?YES COGNITIVELY IMPAIRED?NO :CORRECTIVE LENSES READINESS TO LEARN?YES LEARNING PREFERENCES?NO LEARNING CAPABILITIES PRESENT?YES EMOTIONAL BARRIERS?NO SPECIAL DEVICES?NO FLOWERS SALESPERSON NEEDED?NO DOMESTIC VIOLENCE DO YOU FEEL SAFE IN YOUR ENVIRONMENT?YES OCCUPATION: DISABLED. DIET: TRYING REDUCE CALORIES AT THIS TIME. EXERCISE: NO CURRENT EXERCISE , TRIES TO WALK. MARITAL STATUS: . OTHERS AT HOME: SPOUSE. PAIN CLINIC PFS, CLERGY, PUBLIC HEALTH REFERRALS WAS THE PROVIDER NOTIFIED OF ANY PERTINENT INFO?YES HAS THE PATIENT BEEN EDUCATED REGARDING HIS/HER PLAN OF CARE?YES HAS THE PATIENT BEEN EDUCATED REGARDING PAIN, THE RISK FOR PAIN, THE IMPORTANCE OF EFFECTIVE PAIN MANAGEMENT, AND THE PAIN ASSESSMENT PROCESS?YES ADVANCE DIRECTIVE ADVANCE DIRECTIVE DISCUSSED WITH PATIENT:YES HCP - NOE PERERA () [phone] HOSPITALIZATION/MAJOR DIAGNOSTIC PROCEDURE SURGERY RELATED BACK PAIN DVT CHILD X2 REVIEW OF SYSTEMS CONSTITUTIONAL: ANY RECENT FEVER NO . CHILLS NO . GASTROENTEROLOGY: BOWEL INCONTINENCE NO . ANY NEW CHANGE IN BOWEL CONTROL? NO . HISTORY OF UNUSUAL ABDOMINAL PAIN OR CRAMPING NOT MENTIONED NO . CONSTIPATION NO . GENITOURINARY: ANY NEW CHANGE IN BLADDER CONTROL? NO . IS THERE A CHANCE YOU COULD BE ? NO . URINARY INCONTINENCE NO . CARDIOLOGY: NEW CHEST PRESSURE NO . HISTORY OF CHEST PAIN,IRREGULAR HEART BEAT NOT MENTIONED NO . RESPIRATORY: COUGH NO . SHORTNESS OF BREATH NO . VITAL SIGNS WT 188.8 LBS, HT 66 IN, BMI 30.47 INDEX, BP 172/80 MM HG, HR 91 /MIN, RR 18 /MIN, TEMP 97.9 F, OXYGEN SAT % 94%, SAFE IN ENV? (Y/N) YES, NA INITIALS SC 10:03, REVIEWED BY: CHARLETTE CAMPOS RN BSN. EXAMINATION GENERAL EXAMINATION: GENERAL AWAKE,ALERT. PSYCH AFFECT NORMAL . LUNGS: LUNG AMBROSIO ARE CLEAR TO AUSCULTATION BILATERALLY. GOOD MOVEMENT OF AIR . HEART: S1, S2 IN A REGULAR RATE AND RHYTHM. NO SIGNIFICANT MURMURS, RUBS OR GALLOPS NOTED . 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 BRINGS IN MEDICATIONS WHICH IS APPROPRIATE FOR WHAT WAS DISPENSED. RECENT URINE TOXICOLOGY REVIEWED. NO UNAUTHORIZED MEDICATIONS. NO ILLICIT SUBSTANCES AND PRESCRIBED MEDICATIONS WERE PRESENT. PROCEDURES PN WORKMANS' COMP OPINION IN YOUR OPINION, WAS THE INCIDENT THAT THE PATIENT DESCRIBED THE COMPETENT MEDICAL CAUSE OF THIS INJURY/ILLNESS? YES ARE THE PATIENT'S COMPLAINTS CONSISTENT WITH HIS/HER HISTORY OF THE INJURY/ILLNESS? YES IS THE PATIENT'S HISTORY OF THE INJURY/ILLNESS CONSISTENT WITH YOUR OBJECTIVE FINDING? YES WHAT IS THE PERCENTAGE OF TEMPORARY IMPAIRMENT? MODERATE TO MARKED = 66.7% IS THE PATIENT WORKING? NO DOCTOR ON SITE: CANDICE POLLARD MD PROCEDURE CODES [id number] ESTABILISHED PATIENT [facility] FACILITY CHARGE DISPOSITION & COMMUNICATION FOLLOW UP 3 MONTHS (REASON: WORKMEN'S COMP/MEDICATION MANAGEMENT/SACROILIITIS/RSD) ELECTRONICALLY SIGNED BY ROB PRICE ON 01/31/2020 AT 12:53 PM EST DISCLAIMER : THIS IS A VISIT SUMMARY EXTRACTED FROM THE [employer] CHART. IT IS NOT A COPY OF THE [employer] PROGRESS NOTE. MTDD
== END ==
LOC: M PAIN 10:00
PROVIDERS: ATTEND Nurse Practitioner Family
DX: G90.529 Complex regional pain syndrome I of unspecified lower limb (principal); M46.1 Sacroiliitis, not elsewhere classified; G89.29 Other chronic pain; G25.81 Restless legs syndrome; E03.9 Hypothyroidism, unspecified; G47.33 Obstructive sleep apnea (adult) (pediatric); Z86.718 Personal history of other venous thrombosis and embolism; Z96.89 Presence of other specified functional implants; Z88.8 Allergy status to other drugs, medicaments and biological substances; Z91.013 Allergy to seafood; Z91.09 Other allergy status, other than to drugs and biological substances; Z79.891 Long term (current) use of opiate analgesic; Z79.899 Other long term (current) drug therapy

== ENCOUNTER → 2020-05-10 | Outpatient (CLI) | payer OTHER, MEDICARE ==
[~2020-05-10] MED LIST changes: -AMIT25TA PO; +AMIT25TA17 PO
--- NOTE | 2020-05-12 23:26 | ECWPNPC ---
PATIENT NAME: AIRAM PERERA : 1960 GENDER: FEMALE VISIT DATE: 05/10/2020 DISCHARGE DATE: 05/10/20 1509 VISIT LOCKED DATE TIME: PHYSICIAN: HERIBERTO FORBES PHYSICIAN PAGER NO: ACTIVE RESOURCE: HERIBERTO FORBES REASON FOR APPOINTMENT 1. W/C SACROILLITIS RSD- LOWER LIMB HISTORY OF PRESENT ILLNESS DEPRESSION SCREENING: PHQ-2 (2015 EDITION) LITTLE INTEREST OR PLEASURE IN DOING THINGS?NOT AT ALL FEELING DOWN, DEPRESSED, OR HOPELESS?NOT AT ALL TOTAL SCORE0 GENERAL: -. FALL RISK SCREENING: SCREENING :TWO OR MORE FALLS WITHOUT INJURY IN THE PAST YEAR PAIN SCREENING: PATIENT HAS A COMPLAINT OF ACUTE OR CHRONIC PAIN :YES LOCATION OF PAIN:LOW BACK, LEG(S) LEFT LEG INTENSITY OF PAIN (SCALE OF 1 TO 10):2 WHAT DOES YOUR PAIN FEEL LIKE:ACHING, STABBING, THROBBING, SHOOTING DURATION:CONTINOUS, CONSTANT, ALL DAY PAIN IS INCREASED BY:ACTIVITIES, PROLONGED STANDING PAIN IS DECREASED BY:USE OF PAIN MEDICATIONS NURSING NOTE: -. PAIN CENTER INTAKE QUESTIONS: DO YOU HAVE A HISTORY OF MRSA? :NO DO YOU TAKE A BLOOD THINNERS? :NO DO YOU HAVE ANY BLEEDING DISORDERS? :NO ANY NEW NUMBNESS OR WEAKNESS IN YOUR LEGS OR ARMS? :NO ANY PACEMAKER,DEFIBRILLATOR, OR DORSAL COLUMN STIMULATOR? :YES DCS DO YOU HAVE ANY RASHES OR OPEN SORES? :NO ARE YOU ALLERGIC TO IV DYE? :NO ARE YOU DIABETIC? :NO ANY NEW PROBLEMS WITH YOUR MEDICATIONS? :NO HAVE YOU RECEIVED A VACCINE IN THE PAST 30 DAYS? :NO DO YOU PLAN TO RECEIVE A VACCINE IN THE NEXT 21 DAYS? :NO DO YOU NEED ANY PRESCRIPTION? :YES MULTIPLE INCLUDING AMITRIPTYLINE HCL, CELEBEX, GABAPENTIN DO YOU TAKE ANY IMMUNOSUPPRESSIVE MEDICATIONS? :YES PLAQUENIL IS THERE A CHANCE YOU COULD BE ? :NO ARE YOU BREAST FEEDING? :NO HISTORY OF PRESENT ILLNESS: PAIN THE PATIENT DESCRIBES THE PAIN... THE PATIENT DESCRIBES THE PAIN... THE PATIENT DESCRIBES THE PAIN... THE PATIENT DESCRIBES THE PAIN... THE PATIENT DESCRIBES THE PAIN... THE PATIENT DESCRIBES THE PAIN... THE PATIENT DESCRIBES THE PAIN... THE PATIENT DESCRIBES THE PAIN... THE PATIENT DESCRIBES THE PAIN... THE PATIENT DESCRIBES THE PAIN... THE PATIENT DESCRIBES THE PAIN... THE PATIENT DESCRIBES THE PAIN... THE PATIENT DESCRIBES THE PAIN... HERE FOR F/U .HX OF CHRONIC LBP AND LEFT LEG/ LEFT FOOT PAIN DUE TO WORK RELATED INJURY IN 1986. RATING PAIN VAS 5/10. DCS WAS REVISED 08-25-2017. USING DORSAL COLUMN STIMULATOR WITH SOME RELIEF .PAIN IN LEFT HIP IS BEGINNING TO RETURN. HAS RESPONDED WELL TO LEFT TROCHANTERIC BURSAL INJECTIONS IN THE PAST. CHRONIC PAIN MEDICATION FOR WORK RELATED INJURY:1. CELEBREX 200MG BID2. LYRICA 200MG BID3.TRAMADOL 50MG TAB PO Q4-6 H PRN PAIN-USING THIS MEDICATION FOR MODERATE PAIN.PAIN VAS 5-7/104.HYDROCODONE 5/325 1 TAB PO Q6H PRN SEVERE PAIN.PAIN VAS 8-10/105.ELAVIL 50MG AT HS FORCHRONIC NIGHTTIME NEUROPATHIC PAIN. CURRENT MEDICATIONS TAKING HELVETIA INTERMIT FEMALE CATHETER #14 FR STRAIGHT TIP [facility] FOR URINARY RETENTION 4-5 TIMES/DAY (CLAIM # [id number]) TAKING FOLIC ACID 1 MG TABLET 2 TABLETS ORALLY ONCE A DAY TAKING PLAQUENIL 200 MG TABLET 1 TABLET WITH FOOD OR MILK ORALLY BID TAKING SULFASALAZINE 500 MG TABLET 3 TABS ORALLY BID TAKING FLUTICASONE PROPIONATE 50 MCG/ACT SUSPENSION 1 SPRAY IN EACH NOSTRIL NASALLY ONCE A DAY TAKING OMEPRAZOLE 40MG CAPSULE DELAYED RELEASE 1 CAPSULE ORALLY DAILY TAKING ROBAXIN-750 750 MG TABLET 1 TABLET ORALLY EVERY 4 HRS NEEDED TAKING TRAMADOL HCL 50 MG TABLET 1 TO 2 TAB ORALLY Q8H PRN PAIN MDD4 TAKING FLUOXETINE HCL 20 MG CAPSULE 1 CAPSULE ORALLY ONCE A DAY TAKING MACROBID 100 MG CAPSULE 1 CAPSULE WITH FOOD ORALLY DAILY TAKING SYNTHROID 25MCG TABLET 1 TAB(S) ORALLY ONCE A DAY TAKING RIZATRIPTAN BENZOATE 10 MG TABLET 1 TABLET ORALLY TWICE DAILY NEEDED TAKING HYDROCODONE-ACETAMINOPHEN 5-325 MG TABLET 1 TABLET NEEDED ORALLY EVERY 6 HRS PRN FOR PAIN MDD2 (3MOS SUPPLY CODE D CHRONIC PAIN) TAKING OXYBUTYNIN CHLORIDE ER 10 MG TABLET EXTENDED RELEASE 24 HOUR 1 TABLET ORALLY ONCE A DAY TAKING WELLBUTRIN SR 200 MG TABLET EXTENDED RELEASE 12 HOUR 1 TABLET ORALLY TWICE A DAY TAKING ELAVIL 50 MG TABLET 1 TAB(S) ORAL AT BEDTIME TAKING CELEBREX 200 MG CAPSULE 1 CAPSULE P.O. BID TAKING LYRICA 200 MG CAPSULE 1 CAP ORALLY (CODE D FOR CHRONIC PAIN) Q8H TID MDD3 NOT-TAKING MACRODANTIN 100 MG CAPSULE TAKE 1 CAPSULE BY MOUTH DAILY WITH FOOD NOT-TAKING CIPRO 500 MG TABLET 1 TABLET ORALLY EVERY 12 HRS NOT-TAKING SULFAMETHOXAZOLE-TRIMETHOPRIM 800-160 MG TABLET 1 TABLET ORALLY TWICE A DAY NOT-TAKING DIFLUCAN 200 MG TABLET 1 TABLET ORALLY DAILY NOT-TAKING MUCINEX DM MAXIMUM STRENGTH 60-1200 MG TABLET EXTENDED RELEASE 12 HOUR 1 TABLET NEEDED ORALLY TWICE A DAY NOT-TAKING SUDAFED 30 MG TABLET 1 TABLET NEEDED ORALLY EVERY 6 HRS NOT-TAKING SHINGRIX 50 MCG SUSPENSION RECONSTITUTED DIRECTED INTRAMUSCULAR DIRECTED NOT-TAKING SOMA 350 MG TABLET 1 TABLET NEEDED ORALLY 2 TIMES A DAY NEEDED MEDICATION LIST REVIEWED AND RECONCILED WITH THE PATIENT PAST MEDICAL HISTORY DEGENERATIVE DISC DISEASE AT L5-S1 STATUS POST LAMINECTOMY CHRONIC LOW BACK PAIN (SECONDARY TO INJURY TO HER LOW BACK/COMPENSATION CASE) (DR. ZAMORA) NEUROGENIC BOWEL AND BLADDER SUBSEQUENT TO UNDERGOING BACK SURGERY REQUIRES SELF CATHETERIZATION RECURRENT URINARY TRACT INFECTION () CHRONIC CONSTIPATION DEPRESSION RHEUMATOID ARTHRITIS (DR. ENGL[place]) RESTLESS LEG SYNDROME WITH LEFT FOOT DROP OSTEOPENIA LEFT FEMUR DEXA 07/06/16 ANEMIA HAS A DORSAL COLUMN STIMULATOR-- NO MRIS ECHO 08/30/07 - EF 60% NO VALVULAR ABNORMALITIES DEVELOPED BILATERAL PHLEBITIS WITH BCP YRS AGO DVT BILATERAL LOWER LEGS AT AGE 16 HOSPITALIZED ON [facility] AT THE TIME HYPOTHYROID HYPERLIPIDEMIA--ASCVD 10 YR RISK 7% (09/08) SLEEP APNEA- CPAP MACHINE USED KIDNEY STONE COMPLEX PAIN SYNDROME SICCA SYNDROME, SEES RHEUM ([facility]) AND OPHTHO ([facility]); EVOXAC DIDN'T HELP 02/08 ALLERGIES GABATROL: ITCHING/ TREMORS - ALLERGY SHELLFISH: ANGEIOEDEMA - ALLERGY ATIVAN: SUICIDAL THOUGHTS - ALLERGY CYMBALTA: FATIGUE - SIDE EFFECTS EVOXAC: DIDN'T HELP - LACK OF THERAPEUTIC EFFECT SOCIAL HISTORY GENERAL: TOBACCO USE ARE YOU A:NONSMOKER NEVER SMOKER LATEX QUESTIONNAIRE LATEX ALLERGY : HAVE YOU EVER DEVELOPED ANY TYPE OF REACTION AFTER HANDLING LATEX PRODUCTS SUCH RUBBER GLOVES, CONDOMS, DIAPHRAGMS, BALLOONS, SOCKS, OR UNDERWEAR?NO LATEX ALLERGY : HAVE YOU EVER DEVELOPED ANY TYPE OF REACTION DURING OR AFTER DENTAL APPOINTMENT, VAGINAL/RECTAL EXAMINATION, SURGICAL PROCEDURE, OR ANY OTHER EXPOSURE?NO LATEX RISK : HAVE YOU EVER HAD ANY DIFFICULTY BREATHING OR HIVES AFTER EATING OR HANDLING ANY FRUITS, OR VEGETABLES; SUCH KIWI, BANANAS, STONE FRUITS, OR CHESTNUTSNO LATEX RISK : DO YOU HAVE A PREVIOUS PERSONAL HISTORY OF MORE THAN NINE SURGERIES, SPINA BIFIDA, OR REPEATED CATHERIZATIONS? NO LATEX RISK : ARE YOU FREQUENTLY EXPOSED TO LATEX PRODUCTS IN YOUR OCCUPATION?NO DATE ASKED : 05/10/2020 ALCOHOL USE: YES. BMI CARE GOAL FOLLOW-UP ABOVE NORMAL BMI FOLLOW-UPGIVING ENCOURAGEMENT TO EXERCISE ALCOHOL SCREENING DID YOU HAVE A DRINK CONTAINING ALCOHOL IN THE PAST YEAR?YES HOW OFTEN DID YOU HAVE SIX OR MORE DRINKS ON ONE OCCASION IN THE PAST YEAR?NEVER (0 POINTS) HOW MANY DRINKS DID YOU HAVE ON A TYPICAL DAY WHEN YOU WERE DRINKING IN THE PAST YEAR?1 OR 2 (0 POINTS) HOW OFTEN DID YOU HAVE A DRINK CONTAINING ALCOHOL IN THE PAST YEAR?MONTHLY OR LESS (1 POINT) POINTS1 INTERPRETATIONNEGATIVE RECREATIONAL DRUG USE DRUG USE?NO CAFFEINE CAFFEINE USE?NO SEXUAL HX HAD SEX IN THE LAST 12 MONTHS (VAGINAL, ORAL, OR ANAL)?NO LMP:HYSTER HAVE YOU EVER HAD AN STD?NO HIV / HEP-C SCREENING HIV TEST OFFERED TO PATIENT:YES DATE OFFERED:07/06/2017 TEST ACCEPTED:NO HEP-C TEST OFFERED TO PATIENT:YES DATE OFFERED:07/06/2017 REASON:PATIENT DECLINED TEST ACCEPTED:NO REASON:PATIENT DECLINED BROCHURE PROVIDED TO PATIENTYES ADVENTISM ADVENTISM NO PREFERENCE LANGUAGE ANDORRAN. EDUCATION LEVEL OF EDUCATION:[employer] LEARNING BARRIERS / SPECIAL NEEDS CHANGE FROM LAST VISIT?NO BARRIERS TO LEARNING?NO HEARING IMPAIRED?NO VISION IMPAIRED?YES :CORRECTIVE LENSES COGNITIVELY IMPAIRED?NO READINESS TO LEARN?YES LEARNING PREFERENCES?NO LEARNING CAPABILITIES PRESENT?YES EMOTIONAL BARRIERS?NO SPECIAL DEVICES?NO AIR BAG CURER NEEDED?NO DOMESTIC VIOLENCE DO YOU FEEL SAFE IN YOUR ENVIRONMENT?YES OCCUPATION: DISABLED. DIET: TRYING REDUCE CALORIES AT THIS TIME. EXERCISE: NO CURRENT EXERCISE , TRIES TO WALK. MARITAL STATUS: . OTHERS AT HOME: SPOUSE. - WAS THE PROVIDER NOTIFIED OF ANY PERTINENT INFO?YES HAS THE PATIENT BEEN EDUCATED REGARDING HIS/HER PLAN OF CARE?YES HAS THE PATIENT BEEN EDUCATED REGARDING PAIN, THE RISK FOR PAIN, THE IMPORTANCE OF EFFECTIVE PAIN MANAGEMENT, AND THE PAIN ASSESSMENT PROCESS?YES ADVANCE DIRECTIVE ADVANCE DIRECTIVE DISCUSSED WITH PATIENT:YES HCP - NOE PERERA () [phone] REVIEW OF SYSTEMS CONSTITUTIONAL: ANY RECENT FEVER NO . CHILLS NO . WEIGHT CHANGE OF UNKNOWN REASONS NO . GASTROENTEROLOGY: NEW UNEXPLAINABLE CHANGES IN BOWEL CONTROL NO . CONSTIPATION NO . GENITOURINARY: ANY NEW CHANGE IN BLADDER CONTROL? NO . NEUROLOGY: NEW ONSET DIZZINESS OR NEUROLOGICAL CHANGES NOT MENTIONED NO . NEW NUMBNESS OR PAIN PATTERNS NOT MENTIONED AND PERTINENT TO TODAY'S VISIT NO . CARDIOLOGY: NEW CHEST PRESSURE NO . NEW CHEST PAIN NO . RESPIRATORY: UNEXPLAINABLE COUGH NO . NEW SHORTNESS OF BREATH NO . VITAL SIGNS WT 188.2 LBS, HT 66 IN, BMI 30.37 INDEX, BP 173/79 MM HG, REPEAT BP 160/82 MANUAL, HR 88 /MIN, RR 18 /MIN, TEMP 99.0 F, OXYGEN SAT % 96%, SAFE IN ENV? (Y/N) YES, NA INITIALS AW 1421T.JAZMIN MARINELLI. EXAMINATION GENERAL EXAMINATION: GENERAL AWAKE,ALERT. PSYCH AFFECT NORMAL . LUNGS: LUNG AMBROSIO ARE CLEAR TO AUSCULTATION BILATERALLY. GOOD MOVEMENT OF AIR . HEART: S1, S2 IN A REGULAR RATE AND RHYTHM. NO SIGNIFICANT MURMURS, RUBS OR GALLOPS NOTED . 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 CONTINUE ROBAXIN-750 TABLET, 750 MG, 1 TABLET, ORALLY, EVERY 4 HRS NEEDED REFILL TRAMADOL HCL TABLET, 50 MG, 1 TO 2 TAB, ORALLY, Q4-6HR PRN PAIN MDD4, 30 DAYS, 120, REFILLS 0 REFILL HYDROCODONE-ACETAMINOPHEN TABLET, 5-325 MG, 1 TABLET NEEDED, ORALLY, EVERY 6 HRS PRN FOR PAIN MDD2 (3MOS SUPPLY CODE D CHRONIC PAIN), 90 DAY(S), 60, REFILLS 0 REFILL ELAVIL TABLET, 50 MG, 1 TAB(S), ORAL, AT BEDTIME, 90 DAY(S), 90, REFILLS 0 REFILL CELEBREX CAPSULE, 200 MG, 1 CAPSULE, P.O., BID, 90 DAY(S), 180 CAPSULE, REFILLS 0 REFILL LYRICA CAPSULE, 200 MG, 1 CAP, ORALLY (CODE D FOR CHRONIC PAIN), Q8H TID MDD3, 90 DAY(S), 270, REFILLS 0 NOTES: ISTOP REGISTRY REVIEWED AND DEMONSTRATES COMPLLIANCE. BRINGS IN MEDICATIONS WHICH IS APPROPRIATE FOR WHAT WAS DISPENSED. RECENT URINE TOXICOLOGY REVIEWED. NO UNAUTHORIZED MEDICATIONS. NO ILLICIT SUBSTANCES AND PRESCRIBED MEDICATIONS WERE PRESENT. PROCEDURES PN WORKMANS' COMP OPINION IN YOUR OPINION, WAS THE INCIDENT THAT THE PATIENT DESCRIBED THE COMPETENT MEDICAL CAUSE OF THIS INJURY/ILLNESS? YES ARE THE PATIENT'S COMPLAINTS CONSISTENT WITH HIS/HER HISTORY OF THE INJURY/ILLNESS? YES IS THE PATIENT'S HISTORY OF THE INJURY/ILLNESS CONSISTENT WITH YOUR OBJECTIVE FINDING? YES WHAT IS THE PERCENTAGE OF TEMPORARY IMPAIRMENT? MODERATE TO MARKED = 66.7% IS THE PATIENT WORKING? NO DOCTOR ON SITE: CANDICE POLLARD MD PROCEDURE CODES [id number] ESTABILISHED PATIENT [facility] FACILITY CHARGE DISPOSITION & COMMUNICATION FOLLOW UP 2 MONTHS (REASON: LEFT HIP CHECK/W/C) ELECTRONICALLY SIGNED BY ROB PRICE ON 05/12/2020 AT 08:07 PM EST DISCLAIMER : THIS IS A VISIT SUMMARY EXTRACTED FROM THE [employer] CHART. IT IS NOT A COPY OF THE [employer] PROGRESS NOTE. MTDD
== END ==
LOC: M PAIN 14:30
PROVIDERS: ATTEND Nurse Practitioner Family
DX: G90.529 Complex regional pain syndrome I of unspecified lower limb (principal); M46.1 Sacroiliitis, not elsewhere classified; G89.29 Other chronic pain; G25.81 Restless legs syndrome; F32.9 Major depressive disorder, single episode, unspecified; E03.9 Hypothyroidism, unspecified; K59.09 Other constipation; E78.5 Hyperlipidemia, unspecified; G47.33 Obstructive sleep apnea (adult) (pediatric); Z86.718 Personal history of other venous thrombosis and embolism; Z96.89 Presence of other specified functional implants; Z79.899 Other long term (current) drug therapy; Z88.8 Allergy status to other drugs, medicaments and biological substances; Z91.013 Allergy to seafood; Z91.09 Other allergy status, other than to drugs and biological substances; Z79.891 Long term (current) use of opiate analgesic

== ENCOUNTER → 2020-07-23 | Outpatient (CLI) | payer OTHER, MEDICARE ==
--- NOTE | 2020-07-25 00:55 | ECWPNPC ---
PATIENT NAME: AIRAM PERERA : 1960 GENDER: FEMALE VISIT DATE: 07/23/2020 DISCHARGE DATE: 07/23/20 1522 VISIT LOCKED DATE TIME: PHYSICIAN: HERIBERTO FORBES PHYSICIAN PAGER NO: ACTIVE RESOURCE: HERIBERTO FORBES REASON FOR APPOINTMENT 1. W/C LEFT HIP CHECK HISTORY OF PRESENT ILLNESS GENERAL: HERE FOR FOLLOW UP OF PAIN ASSOCIATED WITH WORK RELATED INJURY.HAVING SEVERE INCREASE IN LEFT HIP PAIN.HAS RESPONDED WELL TO TROCHANTERIC BURSAL STEROID INJECTION IN PAST. LAST INJECTION WAS SEVERAL MONTHS AGO. PAIN IS JUST RETURNING NOW. STATES THAT AFTER LAST TROCHANTERIC BURSAL INJECTION SHE HAD INCREASED ABILITY TO TOLERATE WALKING AND IMPROVED SLEEP POST PROCEDURE. THE BENEFIT CONTINUED FOR OVER 12 MONTHS. -. FALL RISK SCREENING: SCREENING MULTIPLE FALLS REPORTED IN THE LAST YEAR, NO INJURIES THIS YEAR BUT MULTPUY FALLS .. PAIN SCREENING: PATIENT HAS A COMPLAINT OF ACUTE OR CHRONIC PAIN :YES LOCATION OF PAIN:LEFT HIP INTENSITY OF PAIN (SCALE OF 1 TO 10):4 WHAT DOES YOUR PAIN FEEL LIKE:ACHING, CONTINOUS DURATION:CONTINOUS, CONSTANT PAIN IS INCREASED BY:ACTIVITIES PAIN IS DECREASED BY:USE OF PAIN MEDICATIONS NURSING NOTE: -. PAIN CENTER INTAKE QUESTIONS: DO YOU HAVE A HISTORY OF MRSA? :NO DO YOU TAKE A BLOOD THINNERS? :NO DO YOU HAVE ANY BLEEDING DISORDERS? :NO ANY NEW NUMBNESS OR WEAKNESS IN YOUR LEGS OR ARMS? :NO ANY PACEMAKER,DEFIBRILLATOR, OR DORSAL COLUMN STIMULATOR? :YES DCS DO YOU HAVE ANY RASHES OR OPEN SORES? :NO ARE YOU ALLERGIC TO IV DYE? :NO ARE YOU DIABETIC? :NO ANY NEW PROBLEMS WITH YOUR MEDICATIONS? :NO HAVE YOU RECEIVED A VACCINE IN THE PAST 30 DAYS? :YES IF SO WHAT VACCINE AND WHEN? 06/21/2020 DO YOU PLAN TO RECEIVE A VACCINE IN THE NEXT 21 DAYS? :NO DO YOU NEED ANY PRESCRIPTION? :YES MULTIPLE INCLUDING AMITRIPTYLINE HCL, CELEBEX, GABAPENTIN DO YOU TAKE ANY IMMUNOSUPPRESSIVE MEDICATIONS? :YES PLAQUENIL IS THERE A CHANCE YOU COULD BE ? :NO ARE YOU BREAST FEEDING? :NO CURRENT MEDICATIONS TAKING EILEEN INTERMIT FEMALE CATHETER #14 FR STRAIGHT TIP ATTENTION REFERRAL [facility] AT [facility] USE FOR CIC FOR URINARY RETENTION 4-5 TIMES/DAY (CLAIM # [id number]) TAKING FOLIC ACID 1 MG TABLET 2 TABLETS ORALLY ONCE A DAY TAKING PLAQUENIL 200 MG TABLET 1 TABLET WITH FOOD OR MILK ORALLY BID TAKING SULFASALAZINE 500 MG TABLET 3 TABS ORALLY BID TAKING FLUTICASONE PROPIONATE 50 MCG/ACT SUSPENSION 1 SPRAY IN EACH NOSTRIL NASALLY ONCE A DAY TAKING OMEPRAZOLE 40MG CAPSULE DELAYED RELEASE 1 CAPSULE ORALLY DAILY TAKING FLUOXETINE HCL 20 MG CAPSULE 1 CAPSULE ORALLY ONCE A DAY TAKING MACROBID 100 MG CAPSULE 1 CAPSULE WITH FOOD ORALLY DAILY TAKING SYNTHROID 25MCG TABLET 1 TAB(S) ORALLY ONCE A DAY TAKING RIZATRIPTAN BENZOATE 10 MG TABLET 1 TABLET ORALLY TWICE DAILY NEEDED TAKING OXYBUTYNIN CHLORIDE ER 10 MG TABLET EXTENDED RELEASE 24 HOUR 1 TABLET ORALLY ONCE A DAY TAKING WELLBUTRIN SR 200 MG TABLET EXTENDED RELEASE 12 HOUR 1 TABLET ORALLY TWICE A DAY TAKING ROBAXIN-750 750 MG TABLET 1 TABLET ORALLY EVERY 4 HRS NEEDED TAKING TRAMADOL HCL 50 MG TABLET 1 TO 2 TAB ORALLY Q4-6HR PRN PAIN MDD4 TAKING ELAVIL 50 MG TABLET 1 TAB(S) ORAL AT BEDTIME TAKING CELEBREX 200 MG CAPSULE 1 CAPSULE P.O. BID TAKING HYDROCODONE-ACETAMINOPHEN 5-325 MG TABLET 1 TABLET NEEDED ORALLY EVERY 6 HRS PRN FOR PAIN MDD2 (3MOS SUPPLY CODE D CHRONIC PAIN) TAKING LYRICA 200 MG CAPSULE 1 CAP ORALLY (CODE D FOR CHRONIC PAIN) Q8H TID MDD3 NOT-TAKING MACRODANTIN 100 MG CAPSULE TAKE 1 CAPSULE BY MOUTH DAILY WITH FOOD NOT-TAKING CIPRO 500 MG TABLET 1 TABLET ORALLY EVERY 12 HRS NOT-TAKING SULFAMETHOXAZOLE-TRIMETHOPRIM 800-160 MG TABLET 1 TABLET ORALLY TWICE A DAY NOT-TAKING DIFLUCAN 200 MG TABLET 1 TABLET ORALLY DAILY NOT-TAKING MUCINEX DM MAXIMUM STRENGTH 60-1200 MG TABLET EXTENDED RELEASE 12 HOUR 1 TABLET NEEDED ORALLY TWICE A DAY NOT-TAKING SUDAFED 30 MG TABLET 1 TABLET NEEDED ORALLY EVERY 6 HRS NOT-TAKING SHINGRIX 50 MCG SUSPENSION RECONSTITUTED DIRECTED INTRAMUSCULAR DIRECTED NOT-TAKING SOMA 350 MG TABLET 1 TABLET NEEDED ORALLY 2 TIMES A DAY NEEDED MEDICATION LIST REVIEWED AND RECONCILED WITH THE PATIENT PAST MEDICAL HISTORY DEGENERATIVE DISC DISEASE AT L5-S1 STATUS POST LAMINECTOMY CHRONIC LOW BACK PAIN (SECONDARY TO INJURY TO HER LOW BACK/COMPENSATION CASE) (DR. ZAMORA) NEUROGENIC BOWEL AND BLADDER SUBSEQUENT TO UNDERGOING BACK SURGERY REQUIRES SELF CATHETERIZATION RECURRENT URINARY TRACT INFECTION () CHRONIC CONSTIPATION DEPRESSION RHEUMATOID ARTHRITIS (DR. ENGLAND) RESTLESS LEG SYNDROME WITH LEFT FOOT DROP OSTEOPENIA LEFT FEMUR DEXA 07/06/16 ANEMIA HAS A DORSAL COLUMN STIMULATOR-- NO MRIS ECHO 08/30/07 - EF 60% NO VALVULAR ABNORMALITIES DEVELOPED BILATERAL PHLEBITIS WITH BCP YRS AGO DVT BILATERAL LOWER LEGS AT AGE 16 HOSPITALIZED ON [facility] AT THE TIME HYPOTHYROID HYPERLIPIDEMIA--ASCVD 10 YR RISK 7% (09/08) SLEEP APNEA- CPAP MACHINE USED KIDNEY STONE COMPLEX PAIN SYNDROME SICCA SYNDROME, SEES RHEUM ([facility]) AND OPHTHO ([facility]); EVOXAC DIDN'T HELP 02/08 ALLERGIES GABATROL: ITCHING/ TREMORS - ALLERGY SHELLFISH: ANGEIOEDEMA - ALLERGY ATIVAN: SUICIDAL THOUGHTS - ALLERGY CYMBALTA: FATIGUE - SIDE EFFECTS EVOXAC: DIDN'T HELP - LACK OF THERAPEUTIC EFFECT SURGICAL HISTORY EGD/COLONOSCOPY ADENOMATOUS HYPERPLASTIC POLYP 08/2009 D&C, LAPROSCOPY YRS AGO CONE BIOPSY AFTER ABNORMAL PAPS LAVH -DUE TO EXCESSIVE BLEEDING AND FIBROIDS- 2006 COLONOSCOPY - 3 DIMINUTIVE POLYPS, INTERNAL HEMORRHOIDS, LONG REDUNDANT COLON PRONE TO IRREGULARITY/CONSTIPATION/INCOMPLETE EMPTYING (DR. RODRIGUZE) 10/28/12 EGD - NORMAL 10/28/12 CYSTOLITHOLAPAXY 09/06/15 DORSAL COLUMN STIMULATOR REPLACEMENT AND LAMINECTOMY 08/2017 APPENDECTOMY TONSILLECTOMY LITHOTRIPSY FAMILY HISTORY FATHER: 95 YRS, COLON POLYP (PRECANCEROUS), SKIN CANCER, ATELECTASIS PARKINSONISM, DEMENTIA, DIAGNOSED WITH OTHER SPECIFIED CONDITIONS INFLUENCING HEALTH STATUS MOTHER: , DM, BREAST CANCER (DX IN HER 70S), STROKE, DEMENTIA, DIABETES, OTHER MALIGNANT NEOPLASM OF UNSPECIFIED SITE SIBLINGS: SISTER WITH HTN AND EPILEPSY, ANOTHER SISTER WITH HTN AND POLYMYALGIA, HYPERTENSION DAUGHTER(S): ALIVE, OLDEST WITH SEVERE ENDOMETRIOSIS WITH BOWEL AND BLADDER INVOLVEMENT, DEPRESSION, BACK PROBLEMS. FIBROMYALGIA YOUNGEST, NO KNOWN MEDICAL PROBLEMS DAUGHTER BIPOLAR 2, UNSPECIFIED NONPSYCHOTIC MENTAL DISORDER FOLLOWING ORGANIC BRAIN DAMAGE PATERNAL AUNT: BREAST CANCER, DX IN 70 2 SISTER(S) . 2DAUGHTER(S) . DENIES COLON OR OVARIAN CANCERS., NO KNOWN FAMILY HISTORY OF ANY UROLOGICALLY RELATED DISEASES OR CANCERS. GRANDDAUGHTER YE WITH LEUKEMIA. SOCIAL HISTORY GENERAL: TOBACCO USE ARE YOU A:NONSMOKER NEVER SMOKER LATEX QUESTIONNAIRE LATEX ALLERGY : HAVE YOU EVER DEVELOPED ANY TYPE OF REACTION AFTER HANDLING LATEX PRODUCTS SUCH RUBBER GLOVES, CONDOMS, DIAPHRAGMS, BALLOONS, SOCKS, OR UNDERWEAR?NO LATEX ALLERGY : HAVE YOU EVER DEVELOPED ANY TYPE OF REACTION DURING OR AFTER DENTAL APPOINTMENT, VAGINAL/RECTAL EXAMINATION, SURGICAL PROCEDURE, OR ANY OTHER EXPOSURE?NO LATEX RISK : HAVE YOU EVER HAD ANY DIFFICULTY BREATHING OR HIVES AFTER EATING OR HANDLING ANY FRUITS, OR VEGETABLES; SUCH KIWI, BANANAS, STONE FRUITS, OR CHESTNUTSNO LATEX RISK : DO YOU HAVE A PREVIOUS PERSONAL HISTORY OF MORE THAN NINE SURGERIES, SPINA BIFIDA, OR REPEATED CATHERIZATIONS? NO LATEX RISK : ARE YOU FREQUENTLY EXPOSED TO LATEX PRODUCTS IN YOUR OCCUPATION?NO DATE ASKED : 07/23/2020 ALCOHOL USE: YES. BMI CARE GOAL FOLLOW-UP ABOVE NORMAL BMI FOLLOW-UPGIVING ENCOURAGEMENT TO EXERCISE ALCOHOL SCREENING DID YOU HAVE A DRINK CONTAINING ALCOHOL IN THE PAST YEAR?YES HOW OFTEN DID YOU HAVE SIX OR MORE DRINKS ON ONE OCCASION IN THE PAST YEAR?NEVER (0 POINTS) HOW MANY DRINKS DID YOU HAVE ON A TYPICAL DAY WHEN YOU WERE DRINKING IN THE PAST YEAR?1 OR 2 (0 POINTS) HOW OFTEN DID YOU HAVE A DRINK CONTAINING ALCOHOL IN THE PAST YEAR?MONTHLY OR LESS (1 POINT) POINTS1 INTERPRETATIONNEGATIVE RECREATIONAL DRUG USE DRUG USE?NO CAFFEINE CAFFEINE USE?NO SEXUAL HX HAD SEX IN THE LAST 12 MONTHS (VAGINAL, ORAL, OR ANAL)?NO LMP:HYSTER HAVE YOU EVER HAD AN STD?NO HIV / HEP-C SCREENING HIV TEST OFFERED TO PATIENT:YES DATE OFFERED:07/06/2017 TEST ACCEPTED:NO HEP-C TEST OFFERED TO PATIENT:YES DATE OFFERED:07/06/2017 REASON:PATIENT DECLINED TEST ACCEPTED:NO REASON:PATIENT DECLINED BROCHURE PROVIDED TO PATIENTYES UATSDIN UATSDIN NO PREFERENCE LANGUAGE ARMENIAN. EDUCATION LEVEL OF EDUCATION:COLLEGE 2 [employer] DEGREES LEARNING BARRIERS / SPECIAL NEEDS CHANGE FROM LAST VISIT?NO BARRIERS TO LEARNING?NO HEARING IMPAIRED?NO VISION IMPAIRED?YES :CORRECTIVE LENSES COGNITIVELY IMPAIRED?NO READINESS TO LEARN?YES LEARNING PREFERENCES?NO LEARNING CAPABILITIES PRESENT?YES EMOTIONAL BARRIERS?NO SPECIAL DEVICES?NO STUDENT UNION CONSULTANT NEEDED?NO DOMESTIC VIOLENCE DO YOU FEEL SAFE IN YOUR ENVIRONMENT?YES OCCUPATION: DISABLED. DIET: TRYING REDUCE CALORIES AT THIS TIME. EXERCISE: NO CURRENT EXERCISE , TRIES TO WALK. MARITAL STATUS: . OTHERS AT HOME: SPOUSE. - WAS THE PROVIDER NOTIFIED OF ANY PERTINENT INFO?YES HAS THE PATIENT BEEN EDUCATED REGARDING HIS/HER PLAN OF CARE?YES HAS THE PATIENT BEEN EDUCATED REGARDING PAIN, THE RISK FOR PAIN, THE IMPORTANCE OF EFFECTIVE PAIN MANAGEMENT, AND THE PAIN ASSESSMENT PROCESS?YES ADVANCE DIRECTIVE ADVANCE DIRECTIVE DISCUSSED WITH PATIENT:YES HCP - NOE PERERA () [phone] HOSPITALIZATION/MAJOR DIAGNOSTIC PROCEDURE SURGERY RELATED BACK PAIN DVT CHILD X2 REVIEW OF SYSTEMS CONSTITUTIONAL: ANY RECENT FEVER NO . CHILLS NO . WEIGHT CHANGE OF UNKNOWN REASONS NO . GASTROENTEROLOGY: NEW UNEXPLAINABLE CHANGES IN BOWEL CONTROL NO . CONSTIPATION NO . GENITOURINARY: ANY NEW CHANGE IN BLADDER CONTROL? NO . NEUROLOGY: NEW ONSET DIZZINESS OR NEUROLOGICAL CHANGES NOT MENTIONED NO . NEW NUMBNESS OR PAIN PATTERNS NOT MENTIONED AND PERTINENT TO TODAY'S VISIT NO . CARDIOLOGY: NEW CHEST PRESSURE NO . PATIENT DENIES NO . RESPIRATORY: UNEXPLAINABLE COUGH NO . NEW SHORTNESS OF BREATH NO . VITAL SIGNS WT 192.8 LBS, HT 66 IN, BMI 31.12 INDEX, BP 135/82 MM HG, HR 106 /MIN, RR 18 /MIN, TEMP 98.2 F, OXYGEN SAT % 95%, SAFE IN ENV? (Y/N) YES, NA INITIALS SC 14:09T.JAZMIN MARINELLI. EXAMINATION GENERAL EXAMINATION: GENERALNO ACUTE DISTRESS, WELL NOURISHED AND HYDRATED. PSYCHAPPROPRIATE MOOD AND AFFECT . NECK:NO LYMPHADENOPATHY, SUPPLE. LUNGS:CLEAR TO AUSCULTATION BILATERALLY, NO WHEEZES, RHONCHI, RALES. HEART:NO MURMURS, REGULAR RATE AND RHYTHM. MUSCULOSKELETAL: MARKED TENDERNESS OVER LEFT HIP. 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 (PRIMARY) CHRONIC PRESCRIPTION OPIATE USE - Z79.891 TREATMENT TROCHANTERIC BURSITIS, LEFT HIP CONTINUE ROBAXIN-750 TABLET, 750 MG, 1 TABLET, ORALLY, EVERY 4 HRS NEEDED CONTINUE TRAMADOL HCL TABLET, 50 MG, 1 TO 2 TAB, ORALLY, Q4-6HR PRN PAIN MDD4 CONTINUE HYDROCODONE-ACETAMINOPHEN TABLET, 5-325 MG, 1 TABLET NEEDED, ORALLY, EVERY 6 HRS PRN FOR PAIN MDD2 (3MOS SUPPLY CODE D CHRONIC PAIN) CONTINUE LYRICA CAPSULE, 200 MG, 1 CAP, ORALLY (CODE D FOR CHRONIC PAIN), Q8H TID MDD3 LAB: URINE TEST GROUP KRIS SUAREZ 07/23/2020 3:17:35 PM > LAST DOSE: HYDROCODONE 07/22/2020 @12NOON, LYRICA 07/23/2020 @(:30AM , TRAMADOL 07/22/2020 @8PM NOTES: LEFT GREATER TROCHANTER OF THE FEMUR BURSAL INJECTION PRINTED AND REVIEWED PRE PROCEDURE, PATIENT VERBALIZED UNDERSTANDING KANWAL MARINELLI , ISTOP REGISTRY REVIEWED AND DEMONSTRATES COMPLLIANCE. BRINGS IN MEDICATIONS WHICH IS APPROPRIATE FOR WHAT WAS DISPENSED. RECENT URINE TOXICOLOGY REVIEWED. NO UNAUTHORIZED MEDICATIONS. NO ILLICIT SUBSTANCES AND PRESCRIBED MEDICATIONS WERE PRESENT. PROCEDURES PN WORKMANS' COMP OPINION IN YOUR OPINION, WAS THE INCIDENT THAT THE PATIENT DESCRIBED THE COMPETENT MEDICAL CAUSE OF THIS INJURY/ILLNESS? YES ARE THE PATIENT'S COMPLAINTS CONSISTENT WITH HIS/HER HISTORY OF THE INJURY/ILLNESS? YES IS THE PATIENT'S HISTORY OF THE INJURY/ILLNESS CONSISTENT WITH YOUR OBJECTIVE FINDING? YES WHAT IS THE PERCENTAGE OF TEMPORARY IMPAIRMENT? MODERATE TO MARKED = 66.7% IS THE PATIENT WORKING? NO DOCTOR ON SITE: CANDICE POLLARD MD PROCEDURE CODES FA211 ESTABILISHED PATIENT [facility] CHARGE DISPOSITION & COMMUNICATION FOLLOW UP POST PROCEDURE (REASON: LEFT GREATER TROCHANTER OF THE FEMUR BURSAL INJECTION) ELECTRONICALLY SIGNED BY ROB PRICE ON 07/24/2020 AT 03:46 PM EDT DISCLAIMER : THIS IS A VISIT SUMMARY EXTRACTED FROM THE [employer] CHART. IT IS NOT A COPY OF THE [employer] PROGRESS NOTE. DIMAS
== END ==
LOC: M PAIN 14:00
PROVIDERS: ATTEND Nurse Practitioner Family
DX: M70.62 Trochanteric bursitis, left hip (principal); K59.09 Other constipation; F32.9 Major depressive disorder, single episode, unspecified; M06.9 Rheumatoid arthritis, unspecified; G25.81 Restless legs syndrome; D64.9 Anemia, unspecified; E03.9 Hypothyroidism, unspecified; E78.5 Hyperlipidemia, unspecified; G47.30 Sleep apnea, unspecified; M35.00 Sjogren syndrome, unspecified; N31.9 Neuromuscular dysfunction of bladder, unspecified; K59.2 Neurogenic bowel, not elsewhere classified; Z86.718 Personal history of other venous thrombosis and embolism; Z79.891 Long term (current) use of opiate analgesic; Z79.899 Other long term (current) drug therapy; Z88.8 Allergy status to other drugs, medicaments and biological substances; Z91.013 Allergy to seafood

== ENCOUNTER → 2020-08-02 | Outpatient (CLI) | payer OTHER, MEDICARE | LOC: M LABSMTC 10:01 | PROVIDERS: ATTEND Anesthesiology | DX: Z20.822 Contact with and (suspected) exposure to COVID-19 (principal) ==

== ENCOUNTER → 2020-08-07 | Outpatient (CLI) | payer OTHER, MEDICARE ==
[~2020-08-07] MED LIST changes: +BUPIVACAINE HCL 0.25% 30ML VIAL As Ordered ONE; +ISOVUE-M 300 61% 15ML VIAL As Ordered ONE; +LIDOCAINE 1% SDV 30ML VIAL As Ordered ONE; +TRIAMCINOLONE ACETONIDE SUSP 40 MG/ML VIAL (J3301) As Ordered ONE; +diphenhydrAMINE 25MG CAP As Ordered ONE
--- NOTE | 2020-08-07 15:49 | REP ---
INDICATION: LEFT GREATER TROCHANTER OF FEMUR BURSA INJECTION. COMPARISON: None. TECHNIQUE: Four views. 10.9 seconds of fluoroscopy time is reported. FINDINGS: A sequence of 4 last image hold fluoroscopically obtained spot radiographs of the hips in the lateral projection document needle position for injection procedure. IMPRESSION: Procedural imaging. <Electronically signed by Claudy Martinez > 08/07/20 [id number]
--- NOTE | 2020-08-08 00:56 | ECWPNPC ---
PATIENT NAME: AIRAM PERERA : 1960 GENDER: FEMALE VISIT DATE: 08/07/2020 DISCHARGE DATE: 08/07/20 1443 VISIT LOCKED DATE TIME: PHYSICIAN: CANDICE MELARA MD PHYSICIAN PAGER NO: ACTIVE RESOURCE: CANDICE MELARA MD REASON FOR APPOINTMENT 1. LEFT GREATER THROCHANTER OF THE FEMUR BURSAL INJECTION 2. OK PER DR. Higgins THAT SHE DID NOT HOLD PLAQUENIL HISTORY OF PRESENT ILLNESS GENERAL: -. FALL RISK SCREENING: SCREENING FELL 2 DAYS AGO, SKINNED BILATERAL KNESS AND BRUISE IN RIGHT PALM, BRUISE ON LEFT SHOULDER- NO MEDICAL CARE SOUGHT. PAIN SCREENING: PATIENT HAS A COMPLAINT OF ACUTE OR CHRONIC PAIN :YES LOCATION OF PAIN:LEFT HIP INTENSITY OF PAIN (SCALE OF 1 TO 10):7 WHAT DOES YOUR PAIN FEEL LIKE:ACHING, BURNING, CONTINOUS, SHARP, STABBING DURATION:CONTINOUS PAIN IS INCREASED BY:ACTIVITIES PAIN IS DECREASED BY:OTHERS NOTHING REALLY HELPS RIGHT NOW NURSING NOTE: -. PAIN CENTER INTAKE QUESTIONS: DO YOU HAVE A HISTORY OF MRSA? :NO DO YOU TAKE A BLOOD THINNERS? :NO DO YOU HAVE ANY BLEEDING DISORDERS? :NO ANY NEW NUMBNESS OR WEAKNESS IN YOUR LEGS OR ARMS? :NO ANY PACEMAKER,DEFIBRILLATOR, OR DORSAL COLUMN STIMULATOR? :YES DCS DO YOU HAVE ANY RASHES OR OPEN SORES? :YES BILATERAL KNEE ABRASIONS ARE YOU ALLERGIC TO IV DYE? :NO SHELL FISH ALLERGY ARE YOU DIABETIC? :NO ANY NEW PROBLEMS WITH YOUR MEDICATIONS? :NO HAVE YOU RECEIVED A VACCINE IN THE PAST 30 DAYS? :NO DO YOU PLAN TO RECEIVE A VACCINE IN THE NEXT 21 DAYS? :NO DO YOU TAKE ANY IMMUNOSUPPRESSIVE MEDICATIONS? :YES PLAQUENIL ANY HISTORY OF SEIZURES? :NO ANY HISTORY OF CARDIAC ISSUES OR EVENTS? :NO DO YOU HAVE ANY KIDNEY OR LIVER DISEASE? :YES NEUGENIC BOWEL AND BLADDER DO YOU HAVE SLEEP APNEA? :YES DO YOU WEAR A CPAP?YES ANY RECENT HEAD INJURY? :NO DO YOU HAVE ANY NEW INFECTIONS? :NO IS THERE A CHANCE YOU COULD BE ? :NO ARE YOU BREAST FEEDING? :NO WHEN DID YOU LAST EAT? : 08/06/2020 2200 WHEN DID YOU LAST DRINK? : 08/07/2020 0900 WHAT DID YOU LAST DRINK? : DR SALEH NAME OF PERSON DRIVING YOU HOME? : FRIEND DO YOU HAVE ANY OTHER QUESTIONS OR CONCERNS? : NO CURRENT MEDICATIONS TAKING EILEEN INTERMIT FEMALE CATHETER #14 FR STRAIGHT TIP ATTENTION REFERRAL [facility] AT [facility] USE FOR CIC FOR URINARY RETENTION 4-5 TIMES/DAY (CLAIM # [id number]) TAKING FOLIC ACID 1 MG TABLET 2 TABLETS ORALLY ONCE A DAY TAKING PLAQUENIL 200 MG TABLET 1 TABLET WITH FOOD OR MILK ORALLY BID, NOTES: LAST DOSE WAS WEDNESDAY TAKING FLUTICASONE PROPIONATE 50 MCG/ACT SUSPENSION 1 SPRAY IN EACH NOSTRIL NASALLY ONCE A DAY TAKING OMEPRAZOLE 40MG CAPSULE DELAYED RELEASE 1 CAPSULE ORALLY DAILY TAKING FLUOXETINE HCL 20 MG CAPSULE 1 CAPSULE ORALLY ONCE A DAY TAKING MACROBID 100 MG CAPSULE 1 CAPSULE WITH FOOD ORALLY DAILY TAKING SYNTHROID 25MCG TABLET 1 TAB(S) ORALLY ONCE A DAY TAKING RIZATRIPTAN BENZOATE 10 MG TABLET 1 TABLET ORALLY TWICE DAILY NEEDED TAKING OXYBUTYNIN CHLORIDE ER 10 MG TABLET EXTENDED RELEASE 24 HOUR 1 TABLET ORALLY ONCE A DAY TAKING WELLBUTRIN SR 200 MG TABLET EXTENDED RELEASE 12 HOUR 1 TABLET ORALLY TWICE A DAY TAKING ELAVIL 50 MG TABLET 1 TAB(S) ORAL AT BEDTIME TAKING CELEBREX 200 MG CAPSULE 1 CAPSULE P.O. BID TAKING ROBAXIN-750 750 MG TABLET 1 TABLET ORALLY EVERY 4 HRS NEEDED TAKING TRAMADOL HCL 50 MG TABLET 1 TO 2 TAB ORALLY Q4-6HR PRN PAIN MDD4 TAKING HYDROCODONE-ACETAMINOPHEN 5-325 MG TABLET 1 TABLET NEEDED ORALLY EVERY 6 HRS PRN FOR PAIN MDD2 (3MOS SUPPLY CODE D CHRONIC PAIN) TAKING LYRICA 200 MG CAPSULE 1 CAP ORALLY (CODE D FOR CHRONIC PAIN) Q8H TID MDD3 NOT-TAKING SULFASALAZINE 500 MG TABLET 3 TABS ORALLY BID NOT-TAKING MACRODANTIN 100 MG CAPSULE TAKE 1 CAPSULE BY MOUTH DAILY WITH FOOD NOT-TAKING CIPRO 500 MG TABLET 1 TABLET ORALLY EVERY 12 HRS NOT-TAKING SULFAMETHOXAZOLE-TRIMETHOPRIM 800-160 MG TABLET 1 TABLET ORALLY TWICE A DAY NOT-TAKING DIFLUCAN 200 MG TABLET 1 TABLET ORALLY DAILY NOT-TAKING MUCINEX DM MAXIMUM STRENGTH 60-1200 MG TABLET EXTENDED RELEASE 12 HOUR 1 TABLET NEEDED ORALLY TWICE A DAY NOT-TAKING SUDAFED 30 MG TABLET 1 TABLET NEEDED ORALLY EVERY 6 HRS NOT-TAKING SHINGRIX 50 MCG SUSPENSION RECONSTITUTED DIRECTED INTRAMUSCULAR DIRECTED NOT-TAKING SOMA 350 MG TABLET 1 TABLET NEEDED ORALLY 2 TIMES A DAY NEEDED MEDICATION LIST REVIEWED AND RECONCILED WITH THE PATIENT PAST MEDICAL HISTORY DEGENERATIVE DISC DISEASE AT L5-S1 STATUS POST LAMINECTOMY CHRONIC LOW BACK PAIN (SECONDARY TO INJURY TO HER LOW BACK/COMPENSATION CASE) (DR. ZAMORA) NEUROGENIC BOWEL AND BLADDER SUBSEQUENT TO UNDERGOING BACK SURGERY REQUIRES SELF CATHETERIZATION RECURRENT URINARY TRACT INFECTION () CHRONIC CONSTIPATION DEPRESSION RHEUMATOID ARTHRITIS (DR. ENGLAND) RESTLESS LEG SYNDROME WITH LEFT FOOT DROP OSTEOPENIA LEFT FEMUR DEXA 07/06/16 ANEMIA HAS A DORSAL COLUMN STIMULATOR-- NO MRIS ECHO 08/30/07 - EF 60% NO VALVULAR ABNORMALITIES DEVELOPED BILATERAL PHLEBITIS WITH BCP YRS AGO DVT BILATERAL LOWER LEGS AT AGE 16 HOSPITALIZED ON [facility] AT THE TIME HYPOTHYROID HYPERLIPIDEMIA--ASCVD 10 YR RISK 7% (09/08) SLEEP APNEA- CPAP MACHINE USED KIDNEY STONE COMPLEX PAIN SYNDROME SICCA SYNDROME, SEES RHEUM ([facility]) AND OPHTHO ([facility]); EVOXAC DIDN'T HELP 02/08 ALLERGIES GABATROL: ITCHING/ TREMORS - ALLERGY SHELLFISH: ANGEIOEDEMA - ALLERGY ATIVAN: SUICIDAL THOUGHTS - ALLERGY CYMBALTA: FATIGUE - SIDE EFFECTS EVOXAC: DIDN'T HELP - LACK OF THERAPEUTIC EFFECT VITAL SIGNS WT 190 LBS, HT 66 IN, BMI 30.66 INDEX, BP 158/90 MM HG, REPEAT BP 150/80 MANUAL, HR 92 /MIN, RR 14 /MIN, TEMP 97.8 F, OXYGEN SAT % 98, SAFE IN ENV? (Y/N) YES, REVIEWED BY: Juventino ALLEN RN. EXAMINATION GENERAL: A HISTORY AND PHYSICAL EXAM ON THE PATIENT WAS DONE ON 07/23/2020 (DATE OF ORIGINAL ASSESSMENT) IN PREPARATION OF SURGERY/PROCEDURE. I HAVE NOW REASSESSED THIS PATIENT'S HEALTH STATUS AND PERFORMED AN UPDATED EXAM TODAY. ALL CHANGES IN THE PATIENT'S HISTORY, PHYSICAL EXAM, PRE-EXISTING CONDITONS, AND INDICATIONS/CONTRAINDICATIONS TO THE PLANNED PROCEDURE AND ANESTHESIA ARE DOCUMENTED AND EVALUATED BELOW. I ATTEST TO THE ADEQUACY AND APPROPRIATENESS OF MY ASSESSMENT, AND CONFIRM THE NECESSITY FOR THE PLANNED PROCEDURE. THE PATIENT IS ALERT, ORIENTED TIMES THREE AND COOPERATIVE. LUNGS ARE CLEAR TO AUSCULTATION. HEART SHOWS REGULAR RHYTHM, NO MURMURS AND NO GALLOPS. 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 (PRIMARY) TREATMENT TROCHANTERIC BURSITIS, LEFT HIP [facility] [place] FLU[facility] GUIDANCE (PAIN)[id number] MEDICATION: BENADRYL TAB 25MG ORALLY (DIPHENHYDRAMINE)ISSAC VARGAS 08/07/2020 1:31:43 PM > VERIFIED. SEKOU AYALALE 08/07/2020 1:34:56 PM > ADMINISTERED COMPLETION OF PROCEDURAL VISIT WHEN MEETS CRITERIASEKOU AYALALE 08/07/2020 2:44:07 PM > 1439 CRITERIA MET PROCEDURES PAIN NURSING RECORD PROCEDURE IN ROOM 1411, PHYSICIAN IN ROOM 1413, START 1418, FINISH 1425, PHYSICIAN OUT OF ROOM 1426, OUT OF ROOM 1431 VIA STRETCHER, ECG NORMAL SINUS, PATIENT SHIELDED YES, SAFETY STRAP YES, PREP CHLOROPREP DR. MELARA, DRESSING TEGADERM DR. MELARA LOC: LUCYROSINA 08/07/2020 2:11:27 PM > , 1. ALERT, ORIENTED RESP: ROSINA AYALA 08/07/2020 2:11:27 PM , 1. REGULAR, NO DYSPNEA COLOR: ROSINA AYALA 08/07/2020 2:11:27 PM , 1. PINK SKIN: LUCYROSINA DINH 08/07/2020 2:11:27 PM , 1. WARM, DRY POSITION: LUCYROSINA DINH 08/07/2020 2:11:27 PM , 3. LATERAL VITALS: LUCYROSINA DINH 08/07/2020 2:11:27 PM 166/92-80-18-96% , SEKOU AYALALE 08/07/2020 2:25:42 PM > 160/85-85-18-97% 08/07/2020 1440 168/87-83-18-97% NOTES José Luis ALLEN RN COMPLETION OF PROCEDURE APPOINTMENT: POST PAIN 0, DRESSING SITE DRY AND INTACT LEFT HIP, IV N/A, GAIT WHEELCHAIR, TEACHING COMPLETED, PATIENT ACKNOWLEDGES UNDERSTANDING YES PATIENT VERBALIZES UNDERSTANDING OF POST PROCEDURE INSTRUCTIONS REVIEWED, PROCEDURE APPOINTMENT COMPLETED AT 1440 BY: José Luis ALLEN RN PN WORKMANS' COMP OPINION IN YOUR OPINION, WAS THE INCIDENT THAT THE PATIENT DESCRIBED THE COMPETENT MEDICAL CAUSE OF THIS INJURY/ILLNESS? YES ARE THE PATIENT'S COMPLAINTS CONSISTENT WITH HIS/HER HISTORY OF THE INJURY/ILLNESS? YES IS THE PATIENT'S HISTORY OF THE INJURY/ILLNESS CONSISTENT WITH YOUR OBJECTIVE FINDING? YES WHAT IS THE PERCENTAGE OF TEMPORARY IMPAIRMENT? MODERATE TO MARKED = 66.7% IS THE PATIENT WORKING? NO DOCTOR ON SITE: CANDICE POLLARD MD PRE PROCEDURE DIAGNOSIS BURSITIS AT THE LEFT GREATER TROCHANTER OF THE FEMUR POST PROCEDURE DIAGNOSIS BURSITIS AT THE LEFT GREATER TROCHANTER OF THE FEMUR PROCEDURE INJECTION AT THE BURSA OF THE LEFT GREATER TROCHANTER OF THE FEMUR UNDER FLUOROSCOPIC GUIDANCE. SURGEON DR. CANDICE MELARA MODEL MAKER FIBERGLASS NONE ANESTHESIA LOCAL PRE PROCEDURE NOTE THE PATIENT HAS A HISTORY OF LEFT HIP PAIN. I EVALUATED THE PATIENT AND REVIEWED THE CHART. WE BOTH AGREE ON INJECTING OVER THE BURSA OF THE LEFT GREATER TROCHANTER OF THE FEMUR. I DISCUSSED THE RISKS, BENEFITS AND ALTERNATIVES ASSOCIATED WITH THIS PROCEDURE. THE PATIENT WOULD LIKE TO PROCEED AND GAVE CONSENT TO PERFORM THE PROCEDURE. THE PATIENT DENIES UNEXPLAINABLE WEIGHT LOSS, FEVERS, CHILLS, OR CHANGES IN HIS URINARY OR BOWEL CONTROL. THE PATIENT IS COVID-19 NEGATIVE DESCRIPTION OF PROCEDURE AFTER CONSENT WAS TAKEN, THE PATIENT WAS BROUGHT TO THE PROCEDURE ROOM AND PLACED IN THE RIGHT LATERAL DECUBITUS POSITION. THE LEFT HIP AREA WAS CLEANED WITH CHLORAPREP SOLUTION AND DRAPED ASEPTICALLY. THE PROCEDURE WAS DONE UNDER STERILE CONDITIONS. A TIMEOUT WAS PERFORMED WHERE THE CONSENTED SITE WAS VERIFIED WITH EVERYONE IN THE ROOM. UNDER FLUOROSCOPIC GUIDANCE, TARGET WAS SELECTED AT THE LEFT GREATER TROCHANTER OF THE FEMUR. I CONFIRMED AGAIN THE SITE OF TARGET. LIDOCAINE WAS USED TO NUMB THE SKIN AND THE SUBCUTANEOUS TISSUE BELOW IT. SPINAL NEEDLE, 22-GAUGE, WAS ADVANCED UNDER FLUOROSCOPIC GUIDANCE AND FOLLOWING PATIENT FEEDBACK UNTIL THE TARGET WAS TOUCHED. POSITION OF THE NEEDLE WAS VERIFIED WITH AP AND LATERAL VIEWS. AFTER PROPER POSITION OF THE NEEDLE WAS ACHIEVED, ISOVUE-M 30%, 1.0 ML, WAS INJECTED SHOWING ADEQUATE SPREAD OF THE DYE. KENALOG 40 MG WAS INJECTED. THEN, A SOLUTION OF 30 ML OF BUPIVACAINE 0.125% WAS USED TO FLUSH THE SITE. THE MEDICATIONS WERE VERIFIED WITH THE NURSE. THERE WAS NO EVIDENCE OF BLOOD OR PARESTHESIA. THE PATIENT WAS SENT TO THE RECOVERY ROOM. THE PATIENT WAS MOVING THE EXTREMITIES AND DOING WELL. THERE WERE NO COMPLICATIONS DURING THE PROCEDURE. ESTIMATED BLOOD LOSS WAS LESS THAN 5 ML. FLUOROSCOPIC TIME WAS 10 SECONDS POST PROCEDURE NOTE I DISCUSSED THE PROCEDURE WITH THE PATIENT. WE WILL SEE THE PATIENT BACK IN SEVERAL WEEKS FOR FOLLOWUP. I AM LOOKING FOR LONG-LASTING PAIN RELIEF WITH THIS INTERVENTION. I, DEEPAK HUFF, DOCUMENTED THE ABOVE INFORMATION ACTING A SCRIBE FOR DR. MELARA. I HAVE REVIEWED THE ABOVE DOCUMENT, WRITTEN BY DEEPAK HUFF, POLICE SERGEANT, AND I VERIFY THAT IT IS ACCURATE PROCEDURE CODES 93813 DRAIN/INJ JOINT/BURSA W/O US, MODIFIERS: [place] [id number] NEEDLE LOCALIZATION BY XRAY, MODIFIERS: 26 DISPOSITION & COMMUNICATION FOLLOW UP FOLLOW UP WITH PNEUMATIC SYSTEM CONVEYOR OPERATOR (REASON: POST LEFT GREATER TROCHANTER OF THE FEMUR INJECTION) ELECTRONICALLY SIGNED BY CANDICE MELARA MD, MD ON 08/07/2020 AT 05:27 PM EDT DISCLAIMER : THIS IS A VISIT SUMMARY EXTRACTED FROM THE [employer] CHART. IT IS NOT A COPY OF THE [employer] PROGRESS NOTE. ROBERTD
== END ==
LOC: M PAIN 13:20
PROVIDERS: ATTEND Anesthesiology
DX: M70.62 Trochanteric bursitis, left hip (principal); G47.30 Sleep apnea, unspecified; G25.81 Restless legs syndrome; E03.9 Hypothyroidism, unspecified; Z96.89 Presence of other specified functional implants; Z86.59 Personal history of other mental and behavioral disorders; Z88.8 Allergy status to other drugs, medicaments and biological substances; Z91.013 Allergy to seafood; Z79.891 Long term (current) use of opiate analgesic; Z79.899 Other long term (current) drug therapy
CPT/HCPCS: 20610; 77002; J3301; Q9967

== ENCOUNTER → 2020-08-08 | Outpatient (CLI) | payer MEDICARE ==
[~2020-08-08] MED LIST changes: -BUPIVACAINE HCL 0.25% 30ML VIAL As Ordered ONE; -ISOVUE-M 300 61% 15ML VIAL As Ordered ONE; -LIDOCAINE 1% SDV 30ML VIAL As Ordered ONE; -TRIAMCINOLONE ACETONIDE SUSP 40 MG/ML VIAL (J3301) As Ordered ONE; -diphenhydrAMINE 25MG CAP As Ordered ONE
--- NOTE | 2020-08-08 11:45 | REPMRS ---
Patient History The patient states she had a clinical breast exam in July 2020. Family history of breast cancer at age 50 or over in mother, breast cancer at age 50 or over in paternal aunt, colorectal cancer at age 50 or over in father. Patient states no breast complaints today. Patient has signed MRS History Sheet. Digital Woman Screen Mammo: August 08, 2020 - Exam #: [id number] Bilateral CC and MLO view(s) were taken. Technologist: RT Hattie Prior study comparison: August 08, 2019, bilateral digital woman screen mammo performed at [facility]. July 07, 2018, bilateral digital woman screen mammo performed at [facility]. July 06, 2017, digital woman screen mammo performed at [facility]. FINDINGS: There are scattered fibroglandular densities. The Volpara volumetric breast density category is:B. There has been no change in the appearance of the mammogram from the prior studies. There is a mild amount of scattered fibroglandular density which is fairly symmetric. There is no interval development of dominant mass, architectural distortion, or grouped microcalcification suggestive of malignancy. 3-D tomosynthesis shows no additional findings. Assessment: BI-RADS/ACR category 1 mammogram. Negative Mammogram. Recommendation Routine screening mammogram of both breasts in 1 year (for women over age 40). This patient's [facility] Lifetime Breast Cancer Risk is estimated at 13.2 %. This mammogram was interpreted with the aid of an FDA-approved computer-aided dectection system. Electronically Signed By: Claudy Martinez MD 08/08/20 7000
== END ==
LOC: M WHC 10:26
PROVIDERS: ATTEND Nurse Practitioner Women's Health
DX: Z12.31 Encounter for screening mammogram for malignant neoplasm of breast (principal); M85.80 Other specified disorders of bone density and structure, unspecified site; Z78.0 Asymptomatic menopausal state; Z80.3 Family history of malignant neoplasm of breast; Z80.0 Family history of malignant neoplasm of digestive organs

== ENCOUNTER → 2020-09-18 | Outpatient (CLI) | payer OTHER, MEDICARE ==
[~2020-09-18] MED LIST changes: +OMEP40CA4 PO; -OMEP40CA97 PO
--- NOTE | 2020-09-19 23:36 | ECWPNPC ---
PATIENT NAME: AIRAM PERERA : 1960 GENDER: FEMALE VISIT DATE: 09/18/2020 DISCHARGE DATE: 09/18/20 1051 VISIT LOCKED DATE TIME: PHYSICIAN: HERIBERTO FORBES PHYSICIAN PAGER NO: ACTIVE RESOURCE: HERIBERTO FORBES REASON FOR APPOINTMENT 1. POST LEFT GREATER THROCHANTER OF THE FEMUR BURSAL INJECTION HISTORY OF PRESENT ILLNESS GENERAL: HERE FOR POST PROCEDURE FOLLOW-UP. HAD LEFT TROCHANTERIC BURSAL STEROID INJECTION ON 08/07/2020. REPORTING 1 WEEK OF IMPROVEMENT IN PAIN AND THEN PAIN RETURNED TO BASELINE. REPORTING SIGNIFICANT DIFFICULTY WALKING DUE TO LEFT HIP PAIN. ALSO REPORTING AGGRAVATION IN LOW BACK PAIN OVER THE PAST MONTH. NOTICES LOW BACK PAIN WHEN GETTING FROM A SITTING TO A STANDING POSITION. HAS A DORSAL COLUMN STIMULATOR WHICH HELPS WITH RSD PAIN OF THE LEFT FOOT AND BACK PAIN BUT DOES NOT HELP WITH LEFT HIP PAIN. THIS IS A WORK-RELATED INJURY. -. FALL RISK SCREENING: SCREENING 09/14/2020 ONE FALL THIS YEAR , HURT HER LEFT KNEE, DID NOT GO THE ER. PAIN SCREENING: PATIENT HAS A COMPLAINT OF ACUTE OR CHRONIC PAIN :YES LOCATION OF PAIN:OTHER: LEFT GREATER TROCHANTERIC BURSITIS INTENSITY OF PAIN (SCALE OF 1 TO 10):4 WHAT DOES YOUR PAIN FEEL LIKE:ACHING, CONTINOUS DURATION:ONLY WITH SPECIFIC ACTIVITIES PAIN IS INCREASED BY:ACTIVITIES PAIN IS DECREASED BY:USE OF PAIN MEDICATIONS, SITTING NURSING NOTE: -. PAIN CENTER INTAKE QUESTIONS: DO YOU HAVE A HISTORY OF MRSA? :NO DO YOU TAKE A BLOOD THINNERS? :NO DO YOU HAVE ANY BLEEDING DISORDERS? :NO ANY NEW NUMBNESS OR WEAKNESS IN YOUR LEGS OR ARMS? :NO ANY PACEMAKER,DEFIBRILLATOR, OR DORSAL COLUMN STIMULATOR? :YES DCS DO YOU HAVE ANY RASHES OR OPEN SORES? :YES LEFT KNEE ARE YOU ALLERGIC TO IV DYE? :NO ARE YOU DIABETIC? :NO ANY NEW PROBLEMS WITH YOUR MEDICATIONS? :NO HAVE YOU RECEIVED A VACCINE IN THE PAST 30 DAYS? :YES IF SO WHAT VACCINE AND WHEN? 06/21/2020 DO YOU PLAN TO RECEIVE A VACCINE IN THE NEXT 21 DAYS? :NO DO YOU NEED ANY PRESCRIPTION? :NO MULTIPLE INCLUDING AMITRIPTYLINE HCL, CELEBEX, GABAPENTIN DO YOU TAKE ANY IMMUNOSUPPRESSIVE MEDICATIONS? :YES PLAQUENIL IS THERE A CHANCE YOU COULD BE ? :NO ARE YOU BREAST FEEDING? :NO CURRENT MEDICATIONS TAKING EILEEN INTERMIT FEMALE CATHETER #14 FR STRAIGHT TIP ATTENTION REFERRAL ACS AT [employer] USE FOR CIC FOR URINARY RETENTION 4-5 TIMES/DAY (CLAIM # [id number]) TAKING FOLIC ACID 1 MG TABLET 2 TABLETS ORALLY ONCE A DAY TAKING PLAQUENIL 200 MG TABLET 1 TABLET WITH FOOD OR MILK ORALLY BID, NOTES: LAST DOSE WAS WEDNESDAY TAKING FLUTICASONE PROPIONATE 50 MCG/ACT SUSPENSION 1 SPRAY IN EACH NOSTRIL NASALLY ONCE A DAY TAKING OMEPRAZOLE 40MG CAPSULE DELAYED RELEASE 1 CAPSULE ORALLY DAILY TAKING FLUOXETINE HCL 20 MG CAPSULE 1 CAPSULE ORALLY ONCE A DAY TAKING MACROBID 100 MG CAPSULE 1 CAPSULE WITH FOOD ORALLY DAILY TAKING SYNTHROID 25MCG TABLET 1 TAB(S) ORALLY ONCE A DAY TAKING RIZATRIPTAN BENZOATE 10 MG TABLET 1 TABLET ORALLY TWICE DAILY NEEDED TAKING ROBAXIN-750 750 MG TABLET 1 TABLET ORALLY EVERY 4 HRS NEEDED TAKING HYDROCODONE-ACETAMINOPHEN 5-325 MG TABLET 1 TABLET NEEDED ORALLY EVERY 6 HRS PRN FOR PAIN MDD2 (3MOS SUPPLY CODE D CHRONIC PAIN) TAKING SULFASALAZINE 500 MG TABLET 3 TABS ORALLY BID, NOTES: BACK ORDER FOR 4 MONTHS TAKING MACRODANTIN 100 MG CAPSULE TAKE 1 CAPSULE BY MOUTH DAILY WITH FOOD TAKING WELLBUTRIN SR 200 MG TABLET EXTENDED RELEASE 12 HOUR 1 TABLET ORALLY TWICE A DAY TAKING CELEBREX 200 MG CAPSULE 1 CAPSULE P.O. BID TAKING LYRICA 200 MG CAPSULE 1 CAP ORALLY (CODE D FOR CHRONIC PAIN) Q8H TID MDD3 TAKING TRAMADOL HCL 50 MG TABLET 1 TO 2 TAB ORALLY Q4-6H PRN MDD4 3MOS SUPPLY CAT D CHRONIC PAIN TAKING ELAVIL 50 MG TABLET 1 TAB(S) ORAL AT BEDTIME TAKING OXYBUTYNIN CHLORIDE ER 10 MG TABLET EXTENDED RELEASE 24 HOUR 1 TABLET ORALLY ONCE A DAY TAKING PREDNISONE 1 TAB ORAL 5-10MG 2 MONTH SUPLLY-ONCES A DAY, NOTES: 08/2020-LAST WEEK NOT-TAKING CIPRO 500 MG TABLET 1 TABLET ORALLY EVERY 12 HRS NOT-TAKING SULFAMETHOXAZOLE-TRIMETHOPRIM 800-160 MG TABLET 1 TABLET ORALLY TWICE A DAY NOT-TAKING DIFLUCAN 200 MG TABLET 1 TABLET ORALLY DAILY NOT-TAKING MUCINEX DM MAXIMUM STRENGTH 60-1200 MG TABLET EXTENDED RELEASE 12 HOUR 1 TABLET NEEDED ORALLY TWICE A DAY NOT-TAKING SUDAFED 30 MG TABLET 1 TABLET NEEDED ORALLY EVERY 6 HRS NOT-TAKING SHINGRIX 50 MCG SUSPENSION RECONSTITUTED DIRECTED INTRAMUSCULAR DIRECTED NOT-TAKING SOMA 350 MG TABLET 1 TABLET NEEDED ORALLY 2 TIMES A DAY NEEDED MEDICATION LIST REVIEWED AND RECONCILED WITH THE PATIENT PAST MEDICAL HISTORY DEGENERATIVE DISC DISEASE AT L5-S1 STATUS POST LAMINECTOMY CHRONIC LOW BACK PAIN (SECONDARY TO INJURY TO HER LOW BACK/COMPENSATION CASE) (DR. ZAMORA) NEUROGENIC BOWEL AND BLADDER SUBSEQUENT TO UNDERGOING BACK SURGERY REQUIRES SELF CATHETERIZATION RECURRENT URINARY TRACT INFECTION () CHRONIC CONSTIPATION DEPRESSION RHEUMATOID ARTHRITIS (DR. ENGLAND) RESTLESS LEG SYNDROME WITH LEFT FOOT DROP OSTEOPENIA LEFT FEMUR DEXA 07/06/16 ANEMIA HAS A DORSAL COLUMN STIMULATOR-- NO MRIS ECHO 08/30/07 - EF 60% NO VALVULAR ABNORMALITIES DEVELOPED BILATERAL PHLEBITIS WITH BCP YRS AGO DVT BILATERAL LOWER LEGS AT AGE 16 HOSPITALIZED ON [facility] AT THE TIME HYPOTHYROID HYPERLIPIDEMIA--ASCVD 10 YR RISK 7% (09/08) SLEEP APNEA- CPAP MACHINE USED KIDNEY STONE COMPLEX PAIN SYNDROME SICCA SYNDROME, SEES RHEUM ([facility]) AND OPHTHO ([facility]); EVOXAC DIDN'T HELP 02/0809/14/2020 ONE FALL THIS YEAR , HURT HER LEFT KNEE, DID NOT GO THE ER ALLERGIES GABATROL: ITCHING/ TREMORS - ALLERGY SHELLFISH: ANGEIOEDEMA - ALLERGY ATIVAN: SUICIDAL THOUGHTS - ALLERGY CYMBALTA: FATIGUE - SIDE EFFECTS EVOXAC: DIDN'T HELP - LACK OF THERAPEUTIC EFFECT SOCIAL HISTORY GENERAL: TOBACCO USE ARE YOU A:NONSMOKER NEVER SMOKER LATEX QUESTIONNAIRE LATEX ALLERGY : HAVE YOU EVER DEVELOPED ANY TYPE OF REACTION AFTER HANDLING LATEX PRODUCTS SUCH RUBBER GLOVES, CONDOMS, DIAPHRAGMS, BALLOONS, SOCKS, OR UNDERWEAR?NO LATEX ALLERGY : HAVE YOU EVER DEVELOPED ANY TYPE OF REACTION DURING OR AFTER DENTAL APPOINTMENT, VAGINAL/RECTAL EXAMINATION, SURGICAL PROCEDURE, OR ANY OTHER EXPOSURE?NO LATEX RISK : HAVE YOU EVER HAD ANY DIFFICULTY BREATHING OR HIVES AFTER EATING OR HANDLING ANY FRUITS, OR VEGETABLES; SUCH KIWI, BANANAS, STONE FRUITS, OR CHESTNUTSNO LATEX RISK : DO YOU HAVE A PREVIOUS PERSONAL HISTORY OF MORE THAN NINE SURGERIES, SPINA BIFIDA, OR REPEATED CATHERIZATIONS? NO LATEX RISK : ARE YOU FREQUENTLY EXPOSED TO LATEX PRODUCTS IN YOUR OCCUPATION?NO DATE ASKED : 09/18/2020 ALCOHOL USE: YES. BMI CARE GOAL FOLLOW-UP ABOVE NORMAL BMI FOLLOW-UPGIVING ENCOURAGEMENT TO EXERCISE ALCOHOL SCREENING DID YOU HAVE A DRINK CONTAINING ALCOHOL IN THE PAST YEAR?YES HOW OFTEN DID YOU HAVE SIX OR MORE DRINKS ON ONE OCCASION IN THE PAST YEAR?NEVER (0 POINTS) HOW MANY DRINKS DID YOU HAVE ON A TYPICAL DAY WHEN YOU WERE DRINKING IN THE PAST YEAR?1 OR 2 (0 POINTS) HOW OFTEN DID YOU HAVE A DRINK CONTAINING ALCOHOL IN THE PAST YEAR?MONTHLY OR LESS (1 POINT) POINTS1 INTERPRETATIONNEGATIVE RECREATIONAL DRUG USE DRUG USE?NO CAFFEINE CAFFEINE USE?NO SEXUAL HX HAD SEX IN THE LAST 12 MONTHS (VAGINAL, ORAL, OR ANAL)?NO LMP:HYSTER HAVE YOU EVER HAD AN STD?NO HIV / HEP-C SCREENING HIV TEST OFFERED TO PATIENT:YES DATE OFFERED:07/06/2017 TEST ACCEPTED:NO HEP-C TEST OFFERED TO PATIENT:YES DATE OFFERED:07/06/2017 REASON:PATIENT DECLINED TEST ACCEPTED:NO REASON:PATIENT DECLINED BROCHURE PROVIDED TO PATIENTYES CONGREGATION CONGREGATION NO PREFERENCE LANGUAGE TAJIK. EDUCATION LEVEL OF EDUCATION:[employer] LEARNING BARRIERS / SPECIAL NEEDS CHANGE FROM LAST VISIT?NO BARRIERS TO LEARNING?NO HEARING IMPAIRED?NO VISION IMPAIRED?YES :CORRECTIVE LENSES COGNITIVELY IMPAIRED?NO READINESS TO LEARN?YES LEARNING PREFERENCES?NO LEARNING CAPABILITIES PRESENT?YES EMOTIONAL BARRIERS?NO SPECIAL DEVICES?YES :OTHER LEFT BRACE METAL MINER BLASTING NEEDED?NO DOMESTIC VIOLENCE DO YOU FEEL SAFE IN YOUR ENVIRONMENT?YES OCCUPATION: DISABLED. DIET: TRYING REDUCE CALORIES AT THIS TIME. EXERCISE: NO CURRENT EXERCISE , TRIES TO WALK. MARITAL STATUS: . OTHERS AT HOME: SPOUSE. - WAS THE PROVIDER NOTIFIED OF ANY PERTINENT INFO?YES HAS THE PATIENT BEEN EDUCATED REGARDING HIS/HER PLAN OF CARE?YES HAS THE PATIENT BEEN EDUCATED REGARDING PAIN, THE RISK FOR PAIN, THE IMPORTANCE OF EFFECTIVE PAIN MANAGEMENT, AND THE PAIN ASSESSMENT PROCESS?YES ADVANCE DIRECTIVE ADVANCE DIRECTIVE DISCUSSED WITH PATIENT:YES HCP - NOE PERERA () [phone] REVIEW OF SYSTEMS CONSTITUTIONAL: ANY RECENT FEVER NO . CHILLS NO . WEIGHT CHANGE OF UNKNOWN REASONS NO . GASTROENTEROLOGY: NEW UNEXPLAINABLE CHANGES IN BOWEL CONTROL NO . CONSTIPATION NO . GENITOURINARY: ANY NEW CHANGE IN BLADDER CONTROL? NO . NEUROLOGY: NEW ONSET DIZZINESS OR NEUROLOGICAL CHANGES NOT MENTIONED NO . NEW NUMBNESS OR PAIN PATTERNS NOT MENTIONED AND PERTINENT TO TODAY'S VISIT NO . CARDIOLOGY: NEW CHEST PRESSURE NO . PATIENT DENIES NO . RESPIRATORY: UNEXPLAINABLE COUGH NO . NEW SHORTNESS OF BREATH NO . VITAL SIGNS WT 192 LBS, HT 66 IN, BMI 30.99 INDEX, BP 143/67 MM HG, HR 85 /MIN, RR 18 /MIN, TEMP 97 F, OXYGEN SAT % 95%, SAFE IN ENV? (Y/N) YEST.JAZMIN MARINELLI. EXAMINATION GENERAL EXAMINATION: GENERALNO ACUTE DISTRESS, WELL NOURISHED AND HYDRATED. PSYCHAPPROPRIATE MOOD AND AFFECT . NECK:NO LYMPHADENOPATHY, SUPPLE. LUNGS:CLEAR TO AUSCULTATION BILATERALLY, NO WHEEZES, RHONCHI, RALES. HEART:NO MURMURS, REGULAR RATE AND RHYTHM. MUSCULOSKELETAL: MARKED TENDERNESS OVER LEFT HIP. LUMBAR:MARKED TENDERNESS OVER LS AXIS. 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 (PRIMARY) OTHER CHRONIC PAIN - G89.29 TREATMENT OTHER CHRONIC PAIN [facility] CT-HIP WITHOUT [id number] [facility] CT SPINE, LUMBAR W/O [id number] PAIN PROCEDURE LOGDATE OF PROCEDURE1PROCEDURE:LEFT GREATER THROCHANTER OF THE FEMUR BURSAL INJECTIONAMOUNT OF PRE SEDATEBENADRYL 25MGRESULT:1 WEEK IMPROVEMENT THEN PAIN RETURNED TO BASELINE NOTES: DUE TO THE FACT THE PATIENT CONTINUES TO HAVE SIGNIFICANT LOW BACK AND LEFT HIP PAIN STATUS POST THERAPEUTIC BLOCK IT IS MEDICALLY NECESSARY TO GET CT SCAN OF LEFT HIP AND LUMBOSACRAL SPINE. FOLLOW-UP SCHEDULED TO REVIEW CT SCANS AND DETERMINE TREATMENT PLAN. PROCEDURES PN WORKMANS' COMP OPINION IN YOUR OPINION, WAS THE INCIDENT THAT THE PATIENT DESCRIBED THE COMPETENT MEDICAL CAUSE OF THIS INJURY/ILLNESS? YES ARE THE PATIENT'S COMPLAINTS CONSISTENT WITH HIS/HER HISTORY OF THE INJURY/ILLNESS? YES IS THE PATIENT'S HISTORY OF THE INJURY/ILLNESS CONSISTENT WITH YOUR OBJECTIVE FINDING? YES WHAT IS THE PERCENTAGE OF TEMPORARY IMPAIRMENT? MARKED = 75% IS THE PATIENT WORKING? NO DOCTOR ON SITE: CANDICE POLLARD MD PROCEDURE CODES FA211 ESTABILISHED PATIENT [facility] CHARGE DISPOSITION & COMMUNICATION FOLLOW UP 4-6WKS REVIEW CT HIP/LOW BACK (REASON: LEFT HIP/REVIEW CT,REVIEW L/S SPINE CT) ELECTRONICALLY SIGNED BY ROB PRICE ON 09/19/2020 AT 01:05 PM EDT DISCLAIMER : THIS IS A VISIT SUMMARY EXTRACTED FROM THE [employer] CHART. IT IS NOT A COPY OF THE [employer] PROGRESS NOTE. DIMAS
== END ==
LOC: M PAIN 10:15
PROVIDERS: ATTEND Nurse Practitioner Family
DX: G89.29 Other chronic pain (principal); M70.62 Trochanteric bursitis, left hip; M51.37 Other intervertebral disc degeneration, lumbosacral region; N31.9 Neuromuscular dysfunction of bladder, unspecified; K59.2 Neurogenic bowel, not elsewhere classified; F32.9 Major depressive disorder, single episode, unspecified; M06.9 Rheumatoid arthritis, unspecified; M85.851 Other specified disorders of bone density and structure, right thigh; E03.9 Hypothyroidism, unspecified; E78.5 Hyperlipidemia, unspecified; G47.30 Sleep apnea, unspecified; M35.00 Sjogren syndrome, unspecified; Z87.442 Personal history of urinary calculi; Z79.891 Long term (current) use of opiate analgesic; Z79.52 Long term (current) use of systemic steroids; Z79.899 Other long term (current) drug therapy; Z88.8 Allergy status to other drugs, medicaments and biological substances; Z91.030 Bee allergy status

== ENCOUNTER → 2020-10-01 | Outpatient (REF) | payer MEDICARE ==
[~2020-10-01] MED LIST changes: +FLUC200T4 PO; +FLUO-96 PO; -FLUO10CA16 PO; +FLUO10CA18 PO; +METH-1165 PO; +PERC5TAB12 PO; +RIZA10TA2 PO
[2020-10-01 16:46] LABS: HEMATOCRIT 38.8 % (36.0-47.0); MEAN CORPUSCULAR HEMOGLOBIN 28.3 pg (27.0-33.0); MEAN CORPUSCULAR HGB CONC 30.9 g/dl (32.0-36.5); MEAN CORPUSCULAR VOLUME 91.5 fl (80.0-96.0); PLATELET COUNT, AUTOMATED 251 10^3/uL (150-450); RED BLOOD COUNT 4.24 10^6/uL (4.00-5.40)
[2020-10-01 17:20] LABS: ALBUMIN 3.7 GM/DL (3.2-5.2); ALT/SGPT 25 U/L (12-78); BILIRUBIN,TOTAL 0.3 MG/DL (0.2-1.0); BLOOD UREA NITROGEN 19 MG/DL (7-18); CALCIUM LEVEL 8.8 MG/DL (8.8-10.2); CARBON DIOXIDE LEVEL 27 MEQ/L (21-32); CHLORIDE LEVEL 108 MEQ/L (98-107); CHOLESTEROL LEVEL 217 MG/DL (<200); CHOLESTEROL RISK RATIO 2.523 (<5); CREATININE FOR GFR 0.82 MG/DL (0.55-1.30); FREE T4 0.99 NG/DL (0.76-1.46); GLOMERULAR FILTRATION RATE > 60.0 (>45); GLUCOSE, FASTING 94 MG/DL (70-100); HDL CHOLESTEROL 86 MG/DL (>40); LDL CHOLESTEROL 118 MG/DL (<100); NON-HDL-C 131 MG/DL; POTASSIUM SERUM 4.4 MEQ/L (3.5-5.1); SODIUM LEVEL 141 MEQ/L (136-145); THYROID STIMULATING HORMONE 0.584 uIU/ML (0.358-3.740); TRIGLYCERIDES LEVEL 64 MG/DL (<150)
== END ==
LOC: M SFHCADAM 13:59
PROVIDERS: ATTEND Family Medicine
DX: E78.2 Mixed hyperlipidemia (principal); F32.9 Major depressive disorder, single episode, unspecified; F41.9 Anxiety disorder, unspecified; E03.9 Hypothyroidism, unspecified

== ENCOUNTER → 2020-11-04 | Outpatient (REF) | payer MEDICARE ==
[~2020-11-04] MED LIST changes: -FLUC200T4 PO; -FLUO-96 PO; +FLUO10CA16 PO; -FLUO10CA18 PO; -METH-1165 PO; -PERC5TAB12 PO; -RIZA10TA2 PO
[2020-11-05 17:35] LABS: APPEARANCE, URINE TURBID (CLEAR); BACTERIA, URINE AUTO 2+ (NEGATIVE); BILIRUBIN, URINE AUTO NEGATIVE (NEGATIVE); BLOOD, URINE BLOOD 3+ (NEGATIVE); COLOR, URINE AMBER (YELLOW); GLUCOSE, URINE (UA) AUTO NEGATIVE (NEGATIVE); KETONE, URINE AUTO NEGATIVE (NEGATIVE); LEUKOCYTE ESTERASE, URINE AUTO 3+ (NEGATIVE); MUCUS, URINE MODERATE (NEGATIVE); NITRITE, URINE AUTO NEGATIVE (NEGATIVE); PROTEIN, URINE AUTO 2+ mg/dL (NEGATIVE); RBC, URINE AUTO 122 /HPF (0-3); SPECIFIC GRAVITY URINE AUTO 1.026 (1.002-1.035); SQUAMOUS EPITHELIAL CELL UR AU 4 /HPF (0-6); UROBILINOGEN, URINE AUTO 0.2 mg/dL (0.0-2.0); WBC, URINE AUTO TNTC /HPF (0-3)
== END ==
LOC: M SMT 17:04
PROVIDERS: ATTEND Nurse Practitioner Women's Health
DX: N39.0 Urinary tract infection, site not specified (principal)

== ENCOUNTER → 2020-11-13 | Outpatient (CLI) | payer MEDICARE ==
[~2020-11-13] MED LIST changes: +ISOVUE-370 76% 100ML VIAL As Ordered ONE
--- NOTE | 2020-11-13 12:31 | REP ---
INDICATION: HYDRONEPHROSIS. COMPARISON: None TECHNIQUE: Axial precontrast, contrast-enhanced and delayed images from the lung bases to the pubic symphysis using CT urogram protocol. 100 cc Isovue 370 intravenous contrast material administered without complication. Volume rendered 3D CT urogram obtained. This CT examination was performed using the following dose reduction techniques: Automated exposure control, adjustment of mA and/or kv according to the patient's size, and the use of iterative reconstruction technique. FINDINGS: Right kidney demonstrates grade 4/5 hydroureteronephrosis secondary to approximately 3 obstructing calculi in the distal ureter measuring 5-6 mm each. Contrast-enhanced and delayed images demonstrate an associated obvious delayed nephrogram. The right kidney itself demonstrates a subtle lobulated contour with mild cortical thinning and subtle scattered scarring. No right nonobstructing calculi, cyst or mass lesion identified. The left kidney and ureter are normal in all phases of evaluation. Liver includes 2 cm right hepatic cyst. Spleen, pancreas, gallbladder and bilateral adrenal glands are normal. The enteric system is without obstruction or acute inflammatory process. Pelvis demonstrates partially collapsed bladder with few renal stones in the dependent portion measuring up to roughly 6 mm. Patient is noted to be status post hysterectomy. No ascites. No free air. No adenopathy. Abdominal aorta without aneurysm or dissection. Musculoskeletal structures demonstrate degenerative changes without acute abnormality. Lung bases are relatively clear. IMPRESSION: 1. Presumed chronic right-sided obstructive uropathy as described above along with few passed stones identified in the bladder. Left kidney/ureter appear normal. 2. Nonacute findings. <Electronically signed by Ismael Reddy > 11/13/20 1437
== END ==
LOC: M RAD 11:17
PROVIDERS: ATTEND Nurse Practitioner Family
DX: N13.30 Unspecified hydronephrosis (principal)
CPT/HCPCS: 74178; Q9967

== ENCOUNTER → 2020-11-19 | Outpatient (CLI) | payer MEDICARE ==
[~2020-11-19] MED LIST changes: +FLUC200T2 PO; +FLUO20CA20 PO; -ISOVUE-370 76% 100ML VIAL As Ordered ONE; +METH-1165 PO; +PERC5TAB12 PO; +RIZA10TA2 PO
--- NOTE | 2020-11-19 13:38 | REP ---
INDICATION: UTI, SITE NOT SPECIFIED/LABS 1ST, EKG 2ND, XRAY 3RD. COMPARISON: Comparison chest x-ray November 01, 2018. TECHNIQUE: Two views.. FINDINGS: There is linear fibrosis in the lung bases bilaterally. This is essentially unchanged. A dorsal column stimulator lead is visible in the midthoracic spine canal. The pleural angles are sharp. The heart is not enlarged. Lung kaye are otherwise clear. No acute bony abnormality is seen. IMPRESSION: Bibasilar linear fibrosis. Otherwise no acute disease. Dorsal column stimulator lead noted. <Electronically signed by Claudy Martinez > 11/19/20 0397
[2020-11-19 14:03] LABS: HEMATOCRIT 40.1 % (36.0-47.0); HEMOGLOBIN 12.1 g/dl (12.0-15.5); MEAN CORPUSCULAR HEMOGLOBIN 28.2 pg (27.0-33.0); MEAN CORPUSCULAR HGB CONC 30.2 g/dl (32.0-36.5); MEAN CORPUSCULAR VOLUME 93.5 fl (80.0-96.0); PLATELET COUNT, AUTOMATED 230 10^3/uL (150-450); RED BLOOD COUNT 4.29 10^6/uL (4.00-5.40); WHITE BLOOD COUNT 6.2 10^3/uL (4.0-10.0)
[2020-11-19 14:12] LABS: PROTHROMBIN TIME 13.6 SECONDS (12.7-14.5)
[2020-11-19 14:13] LABS: PARTIAL THROMBOPLASTIN TIME 31.5 SECONDS (25.9-37.0)
[2020-11-19 14:34] LABS: BLOOD UREA NITROGEN 21 MG/DL (7-18); CALCIUM LEVEL 8.5 MG/DL (8.8-10.2); CARBON DIOXIDE LEVEL 27 MEQ/L (21-32); CHLORIDE LEVEL 109 MEQ/L (98-107); CREATININE FOR GFR 0.87 MG/DL (0.55-1.30); GLOMERULAR FILTRATION RATE > 60.0 (>45); GLUCOSE, FASTING 108 MG/DL (70-100); POTASSIUM SERUM 3.8 MEQ/L (3.5-5.1); SODIUM LEVEL 141 MEQ/L (136-145)
--- NOTE | 2020-11-20 15:04 | ECGEPIP ---
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
== END ==
LOC: M LAB 13:03
PROVIDERS: ATTEND Nurse Practitioner Women's Health
DX: Z01.818 Encounter for other preprocedural examination (principal); N39.0 Urinary tract infection, site not specified; N13.2 Hydronephrosis with renal and ureteral calculous obstruction
CPT/HCPCS: 36415; 71046; 80048; 81001; 85027; 85610; 85730; 87088; 93005; G0463

== ENCOUNTER → 2020-11-19 | Outpatient (REF) | payer MEDICARE ==
[2020-11-19 14:11] LABS: APPEARANCE, URINE CLOUDY (CLEAR); BACTERIA, URINE AUTO NEGATIVE (NEGATIVE); BILIRUBIN, URINE AUTO NEGATIVE (NEGATIVE); BLOOD, URINE BLOOD 2+ (NEGATIVE); CALCIUM OXALATE CRYSTALS SMALL; COLOR, URINE AMBER (YELLOW); GLUCOSE, URINE (UA) AUTO NEGATIVE (NEGATIVE); KETONE, URINE AUTO NEGATIVE (NEGATIVE); LEUKOCYTE ESTERASE, URINE AUTO 3+ (NEGATIVE); MUCUS, URINE SMALL (NEGATIVE); NITRITE, URINE AUTO NEGATIVE (NEGATIVE); PROTEIN, URINE AUTO 2+ mg/dL (NEGATIVE); RBC, URINE AUTO 132 /HPF (0-3); SPECIFIC GRAVITY URINE AUTO 1.023 (1.002-1.035); SQUAMOUS EPITHELIAL CELL UR AU 10 /HPF (0-6); UROBILINOGEN, URINE AUTO 0.2 mg/dL (0.0-2.0); WBC, URINE AUTO TNTC /HPF (0-3)
== END ==
LOC: M SMT 11:58
PROVIDERS: ATTEND Nurse Practitioner Women's Health
DX: Z01.818 Encounter for other preprocedural examination (principal); N39.0 Urinary tract infection, site not specified; N13.2 Hydronephrosis with renal and ureteral calculous obstruction

== ENCOUNTER → 2020-11-20 | Outpatient (CLI) | payer MEDICARE ==
[~2020-11-20] MED LIST changes: +FLUO-96 PO; -FLUO10CA16 PO; +FLUO10CA18 PO; -FLUO20CA20 PO
== END ==
LOC: M LABSMTC 09:09
PROVIDERS: ATTEND Anesthesiology
DX: Z01.812 Encounter for preprocedural laboratory examination (principal); Z20.822 Contact with and (suspected) exposure to COVID-19

== ENCOUNTER 2020-11-22 12:55 | Day surgery (SDC) | payer MEDICARE ==
[~2020-11-22] VITALS: Ht 167.6 cm; Wt 87.1 kg
[~2020-11-22 12:55] MED LIST changes: +CIPROFLOXACIN 400 MG in IV 1 EA IV ONE; +CONRAY-60 60% 50ML VIAL (Q9961) As Ordered ONE; -FLUC200T2 PO; -FLUO-96 PO; +FLUO10CA16 PO; -FLUO10CA18 PO; +FLUO20CA20 PO; +LR 1,000 ML IV ONE
[2020-11-22] MEDS ORDERED: FLUC200T2 PO (13:13)
[2020-11-22] MEDS ORDERED: ONDANSETRON 4MG/2ML VIAL As Ordered ONE (15:10)
[2020-11-22] MEDS ORDERED: ACETAMINOPHEN 1000MG 100ML IV BTL (OFIRMEV) (J0131 PER 10MG) As Ordered ONE (15:10)
[2020-11-22] MEDS ORDERED: KETOROLAC 60MG 2ML VIAL As Ordered ONE (15:10)
[2020-11-22] MEDS ORDERED: dexameTHASONE 4 MG/ML 1ML VIAL (J1100 PER 1MG) As Ordered ONE (15:10)
[2020-11-22] MEDS ORDERED: MIDAZOLAM INJ 2MG/2ML VIAL (J2250 PER 1MG) As Ordered ONE (15:10)
[2020-11-22] MEDS ORDERED: propofoL 200 MG/20 ML VIAL As Ordered ONE (15:10)
[2020-11-22] MEDS ORDERED: fentaNYL 100 MCG/2 ML INJECTION (J3010) As Ordered ONE (15:10)
[2020-11-22] MEDS ORDERED: LIDOCAINE 2% 100MG/5ML SDV (FOR ANES.) As Ordered ONE (15:10)
[2020-11-22] MEDS ORDERED: SCOPOLAMINE 1MG TRANSDERMAL PATCH As Ordered ONE (15:17)
[2020-11-22] MEDS ORDERED: LIDOCAINE 5% OINT 30GM TUBE As Ordered ONE (15:18)
[2020-11-22] MEDS ORDERED: SCOPOLAMINE 1MG TRANSDERMAL PATCH TOP ONE (15:18)
--- NOTE | 2020-11-22 16:49 | REP ---
INDICATION: RIGHT STENT PLACEMENT. COMPARISON: Comparison study December 07, 2018. TECHNIQUE: Two views. 38 seconds of fluoroscopy time is reported. FINDINGS: A sequence of 2 last image hold fluoroscopically obtained spot radiographs of the abdomen document right ureteral cannulation, contrast injection, and stent placement. IMPRESSION: Procedural imaging. <Electronically signed by Claudy Martinez > 11/22/20 [id number]
[2020-11-22] MEDS ORDERED: LR 1,000 ML IV SCH (17:10)
[2020-11-22] MEDS ORDERED: HYDROMORPHONE HCL 0.5 MG/ 0.5 ML SYRINGE (J1170 PER 1) IV PRN (17:10)
[2020-11-22] MEDS ORDERED: ONDANSETRON 4MG/2ML VIAL IV PRN (17:10)
[2020-11-22] MEDS ORDERED: fentaNYL 100 MCG/2 ML INJECTION (J3010) IV PRN (17:10)
--- NOTE | 2020-11-22 17:50 | RO ---
OPERATIVE NOTE DATE OF OPERATION: 11/22/2020 PREOPERATIVE DIAGNOSES: Right ureteral stones and bladder stones. POSTOPERATIVE DIAGNOSIS: Right ureteral stones and bladder stones. PROCEDURE: Cystoscopy, right ureteroscopy with laser lithotripsy and basket extraction of stones, right retrograde pyelogram with intraoperative interpretive images, right ureteral stent placement, removal of bladder stones. SURGEON: Ganesh dAams MD VIDEO MANAGER: None. ANESTHESIA: General. OPERATIVE INDICATIONS: This is a 59 female who was found to have two obstructing distal right ureteral stones measuring around 6-7 mm in size as well as a few stones inside her bladder. She was brought to the operating room today for treatment. DESCRIPTION OF PROCEDURE: The patient was brought to the operating room and general anesthesia was induced. Prophylactic antibiotics were infused. She was placed in the dorsal lithotomy position and prepped and draped in the usual sterile fashion. A rigid cystoscope was inserted in the urethral meatus and advanced into the bladder. At the base of the bladder approximately 4-5 stones measuring each around 4-5 mm in size. All these stones were drained out of the bladder using the cystoscope. At this point the guidewire was advanced to the right collecting system. I went up the right collecting system with a short semi-rigid ureteroscope and within the distal ureter the two stones were seen. I then utilized the 272 micron laser fiber to fragment the stones into smaller pieces. I then removed all the pieces using a basket. I then the more proximal ureter and the ureter was very tortuous. There were no additional stones seen. I then shot a retrograde pyelogram. It was notable for severe right hydroureteronephrosis with no extravasation. I then removed the ureteroscope and utilized the guidewire to advance a 7-Guyanese x 22-32 cm JJ ureteral stent up the right collecting system. The wire was removed and there were adequate curls of the stent in the right renal pelvis and in the bladder. The bladder was then emptied of all fluids and this marked the conclusion of the procedure. The patient was then taken out of dorsal lithotomy position, awakened from anesthesia and transported to the recovery room in stable condition. ESTIMATED BLOOD LOSS: 5 mL. COMPLICATIONS: None. SPECIMENS: Right ureteral and bladder stones. PLAN: The patient will be followed in the Urology Clinic in a few weeks for stent removal.
[2020-11-22 18:04] VITALS: BP 142/70
== END 2020-11-22 18:20 | disposition home or self-care (01) ==
LOC: M SDC 12:55
PROVIDERS: ATTEND Urology
DX: N13.2 Hydronephrosis with renal and ureteral calculous obstruction (principal); N21.0 Calculus in bladder; M06.9 Rheumatoid arthritis, unspecified; M51.36 Other intervertebral disc degeneration, lumbar region; K59.00 Constipation, unspecified; F32.9 Major depressive disorder, single episode, unspecified; G25.81 Restless legs syndrome; D64.9 Anemia, unspecified; G47.33 Obstructive sleep apnea (adult) (pediatric); M35.00 Sjogren syndrome, unspecified; E78.5 Hyperlipidemia, unspecified; E03.9 Hypothyroidism, unspecified; Z86.718 Personal history of other venous thrombosis and embolism; Z88.6 Allergy status to analgesic agent; Z88.8 Allergy status to other drugs, medicaments and biological substances; Z79.899 Other long term (current) drug therapy; Z79.890 Hormone replacement therapy
CPT/HCPCS: 52310; 52356; 74420; 82365; 88300; C1769; C2617; J0131; J0744; J1100; J1885; J2250; J2405; J3010; Q9961

== ENCOUNTER → 2021-03-12 | Outpatient (CLI) | payer OTHER ==
[~2021-03-12] MED LIST changes: -CIPROFLOXACIN 400 MG in IV 1 EA IV ONE; -CONRAY-60 60% 50ML VIAL (Q9961) As Ordered ONE; +FLUC200T2 PO; -LR 1,000 ML IV ONE
== END ==
LOC: M PAIN 10:30
PROVIDERS: ATTEND Anesthesiology
DX: M53.3 Sacrococcygeal disorders, not elsewhere classified (principal); M51.16 Intervertebral disc disorders with radiculopathy, lumbar region; M21.372 Foot drop, left foot; K59.09 Other constipation; N31.9 Neuromuscular dysfunction of bladder, unspecified; K59.2 Neurogenic bowel, not elsewhere classified; F32.A Depression, unspecified; M06.9 Rheumatoid arthritis, unspecified; G25.81 Restless legs syndrome; M85.852 Other specified disorders of bone density and structure, left thigh; D64.9 Anemia, unspecified; E03.9 Hypothyroidism, unspecified; E78.5 Hyperlipidemia, unspecified; G47.30 Sleep apnea, unspecified; M35.00 Sjogren syndrome, unspecified; Z79.891 Long term (current) use of opiate analgesic; Z86.718 Personal history of other venous thrombosis and embolism; Z79.899 Other long term (current) drug therapy; Z88.8 Allergy status to other drugs, medicaments and biological substances; Z91.013 Allergy to seafood

== ENCOUNTER → 2021-04-30 | Outpatient (REF) | payer OTHER ==
[~2021-04-30] MED LIST changes: -FLUC200T2 PO; +FLUC200T4 PO; +FLUO-96 PO; -FLUO10CA16 PO; +FLUO10CA18 PO; -FLUO20CA20 PO
[2021-04-30 16:33] LABS: HEMATOCRIT 37.1 % (36.0-47.0); HEMOGLOBIN 11.7 g/dl (12.0-15.5); MEAN CORPUSCULAR HGB CONC 31.5 g/dl (32.0-36.5); MEAN CORPUSCULAR VOLUME 98.1 fl (80.0-96.0); PLATELET COUNT, AUTOMATED 229 10^3/uL (150-450); RED BLOOD COUNT 3.78 10^6/uL (4.00-5.40); WHITE BLOOD COUNT 6.3 10^3/uL (4.0-10.0)
[2021-04-30 17:05] LABS: ALBUMIN 3.8 GM/DL (3.2-5.2); ALT/SGPT 19 U/L (12-78); BILIRUBIN,TOTAL 0.2 MG/DL (0.2-1.0); BLOOD UREA NITROGEN 27 MG/DL (7-18); CALCIUM LEVEL 8.8 MG/DL (8.8-10.2); CARBON DIOXIDE LEVEL 26 MEQ/L (21-32); CHLORIDE LEVEL 112 MEQ/L (98-107); CHOLESTEROL LEVEL 244 MG/DL (<200); CHOLESTEROL RISK RATIO 3.088 (<5); CREATININE FOR GFR 0.75 MG/DL (0.55-1.30); FREE T4 1.05 NG/DL (0.76-1.46); GLOMERULAR FILTRATION RATE > 60.0 (>45); GLUCOSE, FASTING 82 MG/DL (70-100); HDL CHOLESTEROL 79 MG/DL (>40); LDL CHOLESTEROL 152 MG/DL (<100); NON-HDL-C 165 MG/DL; SODIUM LEVEL 143 MEQ/L (136-145); TOTAL PROTEIN 6.6 GM/DL (6.4-8.2); TRIGLYCERIDES LEVEL 65 MG/DL (<150)
== END ==
LOC: M SFHCADAM 14:24
PROVIDERS: ATTEND Family Medicine
DX: F32.9 Major depressive disorder, single episode, unspecified (principal); E78.2 Mixed hyperlipidemia; E03.9 Hypothyroidism, unspecified

== ENCOUNTER → 2021-05-16 | Outpatient (CLI) | payer MEDICARE, OTHER ==
[~2021-05-16] MED LIST changes: +ULTR1TAB PO; -ULTR37.54 PO
== END ==
LOC: M RAD 17:40
PROVIDERS: ATTEND Anesthesiology
DX: M53.3 Sacrococcygeal disorders, not elsewhere classified (principal)

== ENCOUNTER → 2021-05-28 | Outpatient (CLI) | payer OTHER | LOC: M LABSMTC 09:13 | PROVIDERS: ATTEND Anesthesiology | DX: Z11.52 Encounter for screening for COVID-19 (principal) ==

== ENCOUNTER → 2021-07-10 | Outpatient (REF) | payer OTHER ==
[2021-07-10 13:45] LABS: APPEARANCE, URINE CLOUDY (CLEAR); BACTERIA, URINE AUTO 1+ (NEGATIVE); BILIRUBIN, URINE AUTO NEGATIVE (NEGATIVE); BLOOD, URINE BLOOD 1+ (NEGATIVE); CALCIUM OXALATE CRYSTALS SMALL; COLOR, URINE AMBER (YELLOW); GLUCOSE, URINE (UA) AUTO NEGATIVE (NEGATIVE); KETONE, URINE AUTO NEGATIVE (NEGATIVE); LEUKOCYTE ESTERASE, URINE AUTO 3+ (NEGATIVE); MUCUS, URINE SMALL (NEGATIVE); NITRITE, URINE AUTO NEGATIVE (NEGATIVE); PROTEIN, URINE AUTO 1+ mg/dL (NEGATIVE); RBC, URINE AUTO 28 /HPF (0-3); SPECIFIC GRAVITY URINE AUTO 1.016 (1.002-1.035); SQUAMOUS EPITHELIAL CELL UR AU 2 /HPF (0-6); UROBILINOGEN, URINE AUTO 0.2 mg/dL (0.0-2.0); WBC, URINE AUTO TNTC /HPF (0-3)
== END ==
LOC: M SMT 13:04
PROVIDERS: ATTEND Nurse Practitioner Women's Health
DX: R39.89 Other symptoms and signs involving the genitourinary system (principal)

== ENCOUNTER → 2021-07-19 | Outpatient (CLI) | payer OTHER | LOC: M LABSMTC 09:53 | PROVIDERS: ATTEND Anesthesiology | DX: Z01.812 Encounter for preprocedural laboratory examination (principal); Z20.822 Contact with and (suspected) exposure to COVID-19 ==

== ENCOUNTER → 2021-07-22 | Outpatient (CLI) | payer OTHER ==
[~2021-07-22] MED LIST changes: +BUPIVACAINE HCL 0.25% 30ML VIAL As Ordered ONE; +ISOVUE-M 300 61% 15ML VIAL As Ordered ONE; +LIDOCAINE 1% SDV 30ML VIAL As Ordered ONE; +NORCO, ANEXSIA 5/325MG TABLET (HYDROcodone/ACETAMINOPHEN) As Ordered ONE; +OXYB10TA23 PO; +TRIAMCINOLONE ACETONIDE SUSP 40 MG/ML VIAL (J3301) As Ordered ONE; +diazePAM 2 MG TAB As Ordered ONE
[2021-07-22 15:35] VITALS: BP 134/66
== END ==
LOC: M IRPRO 13:10
PROVIDERS: ATTEND Anesthesiology
DX: M53.3 Sacrococcygeal disorders, not elsewhere classified (principal); G89.29 Other chronic pain; G47.30 Sleep apnea, unspecified; M06.9 Rheumatoid arthritis, unspecified; Z88.5 Allergy status to narcotic agent; Z88.8 Allergy status to other drugs, medicaments and biological substances; Z91.013 Allergy to seafood; Z86.59 Personal history of other mental and behavioral disorders
CPT/HCPCS: 27096; J3301; Q9967

== ENCOUNTER → 2021-07-29 | Outpatient (CLI) | payer MEDICARE ==
[~2021-07-29] MED LIST changes: -BUPIVACAINE HCL 0.25% 30ML VIAL As Ordered ONE; -ISOVUE-M 300 61% 15ML VIAL As Ordered ONE; -LIDOCAINE 1% SDV 30ML VIAL As Ordered ONE; -NORCO, ANEXSIA 5/325MG TABLET (HYDROcodone/ACETAMINOPHEN) As Ordered ONE; -TRIAMCINOLONE ACETONIDE SUSP 40 MG/ML VIAL (J3301) As Ordered ONE; -diazePAM 2 MG TAB As Ordered ONE
== END ==
LOC: M WHC 09:19
PROVIDERS: ATTEND Nurse Practitioner Women's Health
DX: N13.39 Other hydronephrosis (principal); N39.0 Urinary tract infection, site not specified; N31.9 Neuromuscular dysfunction of bladder, unspecified

== ENCOUNTER → 2021-08-05 | Outpatient (CLI) | payer MEDICARE ==
[2021-08-05 11:12] LABS: BLOOD UREA NITROGEN 23 MG/DL (7-18); CALCIUM LEVEL 9.2 MG/DL (8.8-10.2); CARBON DIOXIDE LEVEL 25 MEQ/L (21-32); CHLORIDE LEVEL 109 MEQ/L (98-107); CREATININE FOR GFR 0.76 MG/DL (0.55-1.30); GLOMERULAR FILTRATION RATE > 60.0 (>45); GLUCOSE, FASTING 116 MG/DL (70-100); POTASSIUM SERUM 4.1 MEQ/L (3.5-5.1); SODIUM LEVEL 141 MEQ/L (136-145)
== END ==
LOC: M LAB 09:29
PROVIDERS: ATTEND Nurse Practitioner Women's Health
DX: N13.30 Unspecified hydronephrosis (principal)

== ENCOUNTER → 2021-08-07 | Outpatient (CLI) | payer MEDICARE ==
[~2021-08-07] MED LIST changes: +ISOVUE-370 76% 100ML VIAL As Ordered ONE
== END ==
LOC: M RAD 12:35
PROVIDERS: ATTEND Nurse Practitioner Women's Health
DX: N13.30 Unspecified hydronephrosis (principal); R10.9 Unspecified abdominal pain
CPT/HCPCS: 74178; Q9967

== ENCOUNTER → 2021-08-25 | Outpatient (CLI) | payer OTHER, MEDICARE ==
[~2021-08-25] MED LIST changes: -ISOVUE-370 76% 100ML VIAL As Ordered ONE
== END ==
LOC: M PAIN 13:45
PROVIDERS: ATTEND Anesthesiology
DX: M96.1 Postlaminectomy syndrome, not elsewhere classified (principal); G57.92 Unspecified mononeuropathy of left lower limb; M53.3 Sacrococcygeal disorders, not elsewhere classified; G89.29 Other chronic pain; G47.30 Sleep apnea, unspecified; M06.9 Rheumatoid arthritis, unspecified; Z88.5 Allergy status to narcotic agent; Z79.891 Long term (current) use of opiate analgesic; Z88.8 Allergy status to other drugs, medicaments and biological substances; Z91.013 Allergy to seafood; Z86.59 Personal history of other mental and behavioral disorders

== ENCOUNTER 2021-09-22 13:38 | Emergency (ER) | payer MEDICARE, OTHER ==
[~2021-09-22] VITALS: Ht 167.6 cm; Wt 80.6 kg
[2021-09-22] MEDS ORDERED: AMLO1TAB24 (14:10)
[2021-09-22] MEDS ORDERED: PRAV40TA2 (14:10)
[2021-09-22] MEDS ORDERED: MORPHINE 4 MG/ML 1ML VIAL/SYRINGE IV ONE (14:55)
[2021-09-22] MEDS ORDERED: diphenhydrAMINE 50MG/ML VIAL (J1200) IV ONE (14:55)
[2021-09-22] MEDS ORDERED: FLUoxetine 10 MG CAP PO ONE (15:35)
[2021-09-22] MEDS ORDERED: HYDROXYCHLOROQUINE 200 MG TAB PO SCH (15:35)
[2021-09-22] MEDS ORDERED: buPROPion 100 MG TAB PO SCH (15:35)
[2021-09-22] MEDS ORDERED: PREGABALIN 100 MG CAP (LYRICA) PO ONE (15:35)
[2021-09-22] MEDS ORDERED: CelecoXIB (CeleBREX) 100 MG CAP PO SCH (15:35)
[2021-09-22] MEDS ORDERED: sulfaSALAzine 500 MG TABEC PO SCH (15:40)
[2021-09-22] MEDS ORDERED: DOXEPIN 25 MG CAP PO ONE (17:35)
[2021-09-22] MEDS ORDERED: dexameTHASONE 20MG/5ML VIAL (J1100 PER 1MG) IV ONE (18:50)
[2021-09-22 19:10] VITALS: BP 163/72
[2021-09-22] MEDS ORDERED: DOXE10CA PO (19:45)
== END 2021-09-22 20:04 | disposition home or self-care (01) ==
LOC: M ED 13:38 → EDBD 13:38 → M ED 20:04
DX: G89.29 Other chronic pain (principal); M54.50 Low back pain, unspecified; L29.9 Pruritus, unspecified; I10 Essential (primary) hypertension; E07.9 Disorder of thyroid, unspecified; E78.5 Hyperlipidemia, unspecified; M06.9 Rheumatoid arthritis, unspecified; G25.81 Restless legs syndrome; M96.1 Postlaminectomy syndrome, not elsewhere classified; Z87.442 Personal history of urinary calculi; Z96.0 Presence of urogenital implants; Z88.5 Allergy status to narcotic agent; Z88.8 Allergy status to other drugs, medicaments and biological substances; Z91.018 Allergy to other foods; Z79.899 Other long term (current) drug therapy; Z79.890 Hormone replacement therapy
CPT/HCPCS: 96374; 96375; 99284; J1100; J1200; J2270

== ENCOUNTER → 2021-09-30 | Outpatient (CLI) | payer MEDICARE ==
[~2021-09-30] MED LIST changes: +AMLO1TAB24; +DOXE10CA PO; +PRAV40TA2
== END ==
LOC: M WHC 10:25
PROVIDERS: ATTEND Specialist
DX: Z12.31 Encounter for screening mammogram for malignant neoplasm of breast (principal); Z80.3 Family history of malignant neoplasm of breast; Z80.0 Family history of malignant neoplasm of digestive organs

== ENCOUNTER → 2021-10-22 | Outpatient (CLI) | payer MEDICARE | LOC: M PAIN 10:30 | PROVIDERS: ATTEND Anesthesiology | DX: M47.816 Spondylosis without myelopathy or radiculopathy, lumbar region (principal); M51.37 Other intervertebral disc degeneration, lumbosacral region; N31.9 Neuromuscular dysfunction of bladder, unspecified; K59.09 Other constipation; F32.A Depression, unspecified; M06.9 Rheumatoid arthritis, unspecified; G25.81 Restless legs syndrome; M85.852 Other specified disorders of bone density and structure, left thigh; D64.9 Anemia, unspecified; Z86.718 Personal history of other venous thrombosis and embolism; E03.9 Hypothyroidism, unspecified; E78.5 Hyperlipidemia, unspecified; G47.30 Sleep apnea, unspecified; Z87.442 Personal history of urinary calculi; Z87.440 Personal history of urinary (tract) infections; M35.00 Sjogren syndrome, unspecified; G90.50 Complex regional pain syndrome I, unspecified; Z79.891 Long term (current) use of opiate analgesic; Z79.899 Other long term (current) drug therapy; Z88.8 Allergy status to other drugs, medicaments and biological substances; Z91.013 Allergy to seafood ==

== ENCOUNTER → 2021-10-29 | Outpatient (CLI) | payer OTHER, MEDICARE | LOC: M PAIN 08:30 | PROVIDERS: ATTEND Anesthesiology | DX: M70.62 Trochanteric bursitis, left hip (principal); M54.50 Low back pain, unspecified; M47.816 Spondylosis without myelopathy or radiculopathy, lumbar region; M51.37 Other intervertebral disc degeneration, lumbosacral region; N31.9 Neuromuscular dysfunction of bladder, unspecified; K59.09 Other constipation; F32.A Depression, unspecified; M06.9 Rheumatoid arthritis, unspecified; G25.81 Restless legs syndrome; M85.80 Other specified disorders of bone density and structure, unspecified site; D64.9 Anemia, unspecified; Z86.718 Personal history of other venous thrombosis and embolism; E03.9 Hypothyroidism, unspecified; E78.5 Hyperlipidemia, unspecified; G47.30 Sleep apnea, unspecified; G90.50 Complex regional pain syndrome I, unspecified; M35.00 Sjogren syndrome, unspecified; Z87.442 Personal history of urinary calculi; Z79.891 Long term (current) use of opiate analgesic; Z79.899 Other long term (current) drug therapy; Z91.013 Allergy to seafood; Z88.8 Allergy status to other drugs, medicaments and biological substances | CPT/HCPCS: 76000; G0463 ==

== ENCOUNTER → 2022-01-28 | Outpatient (REF) | payer MEDICARE ==
[~2022-01-28] MED LIST changes: +CLOP75TA99 PO; -PLAV1TAB2 PO
== END ==
LOC: M SFHCADAM 15:57
PROVIDERS: ATTEND Physician Assistant
DX: R09.81 Nasal congestion (principal)

== ENCOUNTER → 2022-02-04 | Outpatient (CLI) | payer OTHER, MEDICARE | LOC: M PAIN 13:30 | PROVIDERS: ATTEND Anesthesiology | DX: M70.62 Trochanteric bursitis, left hip (principal); M96.1 Postlaminectomy syndrome, not elsewhere classified; M54.50 Low back pain, unspecified; M47.816 Spondylosis without myelopathy or radiculopathy, lumbar region; M51.37 Other intervertebral disc degeneration, lumbosacral region; N31.9 Neuromuscular dysfunction of bladder, unspecified; K59.09 Other constipation; F32.A Depression, unspecified; M06.9 Rheumatoid arthritis, unspecified; G25.81 Restless legs syndrome; M85.80 Other specified disorders of bone density and structure, unspecified site; D64.9 Anemia, unspecified; Z86.718 Personal history of other venous thrombosis and embolism; E03.9 Hypothyroidism, unspecified; E78.5 Hyperlipidemia, unspecified; G47.30 Sleep apnea, unspecified; G90.50 Complex regional pain syndrome I, unspecified; M35.00 Sjogren syndrome, unspecified; Z87.442 Personal history of urinary calculi; Z79.891 Long term (current) use of opiate analgesic; Z79.899 Other long term (current) drug therapy; Z91.013 Allergy to seafood; Z88.8 Allergy status to other drugs, medicaments and biological substances ==

== ENCOUNTER → 2022-02-15 | Outpatient (CLI) | payer OTHER, MEDICARE | LOC: M LABSMTC 11:14 | PROVIDERS: ATTEND Anesthesiology | DX: Z01.812 Encounter for preprocedural laboratory examination (principal); Z11.52 Encounter for screening for COVID-19 ==

== ENCOUNTER → 2022-04-01 | Outpatient (REF) | payer MEDICARE ==
[2022-04-01 16:26] LABS: HEMATOCRIT 37.5 % (36.0-47.0); HEMOGLOBIN 11.4 g/dl (12.0-15.5); MEAN CORPUSCULAR HEMOGLOBIN 30.5 pg (27.0-33.0); MEAN CORPUSCULAR HGB CONC 30.4 g/dl (32.0-36.5); MEAN CORPUSCULAR VOLUME 100.3 fl (80.0-96.0); PLATELET COUNT, AUTOMATED 193 10^3/uL (150-450); RED BLOOD COUNT 3.74 10^6/uL (4.00-5.40); WHITE BLOOD COUNT 5.1 10^3/uL (4.0-10.0)
[2022-04-01 16:49] LABS: ALBUMIN 3.7 G/DL (3.2-5.2); ALKALINE PHOSPHATASE 107 U/L (46-116); ALT/SGPT 17 U/L (7.0-40); AST/SGOT 18 U/L (<34); BILIRUBIN,TOTAL 0.3 MG/DL (0.3-1.2); BLOOD UREA NITROGEN 17 MG/DL (9-23); CALCIUM LEVEL 8.4 MG/DL (8.3-10.6); CARBON DIOXIDE LEVEL 27 MMOL/L (20-31); CHLORIDE LEVEL 105 MMOL/L (98-107); CHOLESTEROL LEVEL 165 MG/DL (<200); CREATININE FOR GFR 0.71 MG/DL (0.55-1.30); GLOMERULAR FILTRATION RATE > 60.0 (>45); GLUCOSE, FASTING 91 MG/DL (74-106); HDL CHOLESTEROL 78.5 MG/DL (>40); LDL CHOLESTEROL 71.7 MG/DL (<100); NON-HDL-C 87 MG/DL; POTASSIUM SERUM 3.8 MMOL/L (3.5-5.1); SODIUM LEVEL 140 MMOL/L (136-145); TOTAL PROTEIN 6.4 G/DL (5.7-8.2); TRIGLYCERIDES LEVEL 74 MG/DL (<150)
[2022-04-01 16:51] LABS: FREE T4 1.09 NG/DL (0.89-1.76); THYROID STIMULATING HORMONE 2.785 uIU/ML (0.55-4.78)
== END ==
LOC: M SFHCADAM 11:03
PROVIDERS: ATTEND Family Medicine
DX: E78.2 Mixed hyperlipidemia (principal); E03.9 Hypothyroidism, unspecified; G90.529 Complex regional pain syndrome I of unspecified lower limb

== ENCOUNTER → 2022-05-14 | Outpatient (CLI) | payer MEDICARE | LOC: M LABSMTC 08:01 | PROVIDERS: ATTEND Orthopaedic Surgery | DX: Z01.812 Encounter for preprocedural laboratory examination (principal); Z11.52 Encounter for screening for COVID-19 ==

== ENCOUNTER → 2022-07-24 | Outpatient (CLI) | payer OTHER, MEDICARE ==
[~2022-07-24] MED LIST changes: +ARTIDRO4 OU; -POLYOPD OU
== END ==
LOC: M PAIN 10:00
PROVIDERS: ATTEND Nurse Practitioner Family
DX: M70.62 Trochanteric bursitis, left hip (principal); G89.29 Other chronic pain; K59.09 Other constipation; N31.9 Neuromuscular dysfunction of bladder, unspecified; K59.2 Neurogenic bowel, not elsewhere classified; F32.A Depression, unspecified; M06.9 Rheumatoid arthritis, unspecified; G25.81 Restless legs syndrome; D64.9 Anemia, unspecified; E03.9 Hypothyroidism, unspecified; I10 Essential (primary) hypertension; E78.5 Hyperlipidemia, unspecified; G47.30 Sleep apnea, unspecified; M35.00 Sjogren syndrome, unspecified; Z79.891 Long term (current) use of opiate analgesic; Z79.52 Long term (current) use of systemic steroids; Z79.899 Other long term (current) drug therapy; Z88.8 Allergy status to other drugs, medicaments and biological substances; Z91.030 Bee allergy status

== ENCOUNTER → 2022-09-10 | Outpatient (REF) | payer OTHER, MEDICARE ==
[~2022-09-10] MED LIST changes: -HYDR200T3 PO; +HYDR200T46 PO
== END ==
LOC: M SFHCADAM 12:43
PROVIDERS: ATTEND Physician Assistant
DX: J06.9 Acute upper respiratory infection, unspecified (principal)

== ENCOUNTER → 2022-10-22 | Outpatient (CLI) | payer OTHER ==
[~2022-10-22] MED LIST changes: -AMIT25TA17 PO; +AMIT25TA19 PO; +ISOVUE-M 300 61% 15ML VIAL As Ordered ONE; +LIDOCAINE 1% SDV 30ML VIAL As Ordered ONE; +TRIAMCINOLONE ACETONIDE SUSP 40MG/ML 1ML VIAL As Ordered ONE; +diphenhydrAMINE 25MG CAP As Ordered ONE
== END ==
LOC: M PAIN 09:30
PROVIDERS: ATTEND Anesthesiology
DX: M70.62 Trochanteric bursitis, left hip (principal); G47.30 Sleep apnea, unspecified; M06.9 Rheumatoid arthritis, unspecified; G25.81 Restless legs syndrome; E03.9 Hypothyroidism, unspecified; Z96.89 Presence of other specified functional implants; Z86.59 Personal history of other mental and behavioral disorders; Z86.718 Personal history of other venous thrombosis and embolism; Z88.8 Allergy status to other drugs, medicaments and biological substances; Z91.013 Allergy to seafood; Z79.890 Hormone replacement therapy; Z79.899 Other long term (current) drug therapy
CPT/HCPCS: 20610; 77002; J0665; J3301; Q9967

== ENCOUNTER → 2022-11-10 | Outpatient (CLI) | payer MEDICARE ==
[~2022-11-10] MED LIST changes: -ISOVUE-M 300 61% 15ML VIAL As Ordered ONE; -LIDOCAINE 1% SDV 30ML VIAL As Ordered ONE; -TRIAMCINOLONE ACETONIDE SUSP 40MG/ML 1ML VIAL As Ordered ONE; -diphenhydrAMINE 25MG CAP As Ordered ONE
== END ==
LOC: M WHC 12:19
PROVIDERS: ATTEND Family Medicine
DX: Z13.820 Encounter for screening for osteoporosis (principal)

== ENCOUNTER 2022-11-23 17:06 | Observation (INO) | payer MEDICARE ==
[~2022-11-23] VITALS: Ht 167.6 cm; Wt 81.1 kg
[2022-11-23] MEDS ORDERED: MORPHINE 10 MG/ML 1ML VIAL IM ONE (18:20)
[2022-11-23] MEDS ORDERED: methocarbamoL 750 MG TAB PO ONE (18:20)
[2022-11-23] MEDS ORDERED: PREGABALIN 100 MG CAP (LYRICA) PO ONE (18:20)
[2022-11-23] MEDS ORDERED: fentaNYL 100 MCG/2 ML INJECTION IV ONE ×2 (19:45→20:50)
[2022-11-23 20:32] LABS: BASO % 0.5 % (0.0-1.0); EOS # 0.1 10^3/uL (0.0-0.5); EOS % 1.4 % (0.0-3.0); HEMATOCRIT 38.7 % (36.0-47.0); HEMOGLOBIN 12.2 g/dl (12.0-15.5); LYMPH # 1.8 10^3/uL (1.5-5.0); MEAN CORPUSCULAR HEMOGLOBIN 30.7 pg (27.0-33.0); MEAN CORPUSCULAR HGB CONC 31.5 g/dl (32.0-36.5); MEAN CORPUSCULAR VOLUME 97.2 fl (80.0-96.0); MONO # 0.6 10^3/uL (0.0-0.8); MONO % 9.9 % (2.0-8.0); NEUTROPHILS # 3.1 10^3/uL (1.5-8.5); NEUTROPHILS % 55.8 % (36.0-66.0); PLATELET COUNT, AUTOMATED 198 10^3/uL (150-450); RED BLOOD COUNT 3.98 10^6/uL (4.00-5.40); WHITE BLOOD COUNT 5.6 10^3/uL (4.0-10.0)
[2022-11-23] MEDS: AMITRIPTYLINE 50 MG TAB PO SCH (21:00)
[2022-11-23 21:05] LABS: BLOOD UREA NITROGEN 15 MG/DL (9-23); CALCIUM LEVEL 8.4 MG/DL (8.3-10.6); CARBON DIOXIDE LEVEL 26 MMOL/L (20-31); CHLORIDE LEVEL 108 MMOL/L (98-107); CREATININE FOR GFR 0.78 MG/DL (0.55-1.30); GLOMERULAR FILTRATION RATE > 60.0 (>45); GLUCOSE, FASTING 96 MG/DL (74-106); POTASSIUM SERUM 3.9 MMOL/L (3.5-5.1); SODIUM LEVEL 142 MMOL/L (136-145)
[2022-11-23] MEDS ORDERED: NS IV ONE (22:00)
[2022-11-23] MEDS ORDERED: KETAMINE HCL IV ONE (22:00)
[2022-11-23 23:36] LABS: ERYTHROCYTE SEDIMENTATION RATE 16 mm/hr (0-30)
[2022-11-23 23:41] LABS: C REACTIVE PROTEIN QUANTITATIV < 0.40 MG/DL (<1.0)
[2022-11-24] MEDS ORDERED: NS 1,000 ML IV ONE (00:45)
[2022-11-24 01:15] LABS: CPK CREATINE PHOSPHOKINASE 126 U/L (34-145)
[2022-11-24] MEDS ORDERED: TRAM50TA2 PO (02:31)
[2022-11-24] MEDS ORDERED: AMIT50TA PO (02:31)
[2022-11-24] MEDS ORDERED: ATOR1TAB19 PO (02:31)
[2022-11-24] MEDS ORDERED: HYDR-4571 PO (02:31)
[2022-11-24] MEDS ORDERED: ARTIDRO4 OU (02:31)
[2022-11-24] MEDS ORDERED: AMLO1TAB24 PO (02:31)
[2022-11-24] MEDS ORDERED: FOLI1TAB11 PO (02:31)
[2022-11-24] MEDS ORDERED: HOME MED LIST COMPLETE! XX SCH (02:35)
[2022-11-24] MEDS ORDERED: diazePAM 10MG/2ML SYRINGE IV ONE (03:00)
[2022-11-24] MEDS ORDERED: HYDROmorphone HCL 2MG/ML 1ML VIAL IV ONE (03:00)
[2022-11-24] MEDS ORDERED: methylPREDNISolone 40MG 1ML VIAL IV ONE (03:00)
[2022-11-24] MEDS ORDERED: RIZATRIPTAN BENZOATE 10 MG TAB PO PRN (03:25)
[2022-11-24] MEDS ORDERED: ACETAMINOPHEN TAB 650MG DOSE (2X325MG) PO PRN (03:25)
[2022-11-24] MEDS ORDERED: HYDROMORPHONE HCL 0.5 MG/ 0.5 ML SYRINGE IV PRN ×2 (03:25)
[2022-11-24] MEDS ORDERED: POLYVINYL ALCOHOL OPHTH SOLN 15ML (LIQUITEARS) OU PRN (03:25)
[2022-11-24 06:24] LABS: HEMATOCRIT 36.7 % (36.0-47.0); HEMOGLOBIN 11.6 g/dl (12.0-15.5); MEAN CORPUSCULAR HGB CONC 31.6 g/dl (32.0-36.5); MEAN CORPUSCULAR VOLUME 98.1 fl (80.0-96.0); PLATELET COUNT, AUTOMATED 174 10^3/uL (150-450); RED BLOOD COUNT 3.74 10^6/uL (4.00-5.40); WHITE BLOOD COUNT 6.3 10^3/uL (4.0-10.0)
[2022-11-24 06:44] LABS: BLOOD UREA NITROGEN 15 MG/DL (9-23); CALCIUM LEVEL 8.1 MG/DL (8.3-10.6); CARBON DIOXIDE LEVEL 24 MMOL/L (20-31); CHLORIDE LEVEL 106 MMOL/L (98-107); GLOMERULAR FILTRATION RATE > 60.0 (>45); GLUCOSE, FASTING 125 MG/DL (74-106); MAGNESIUM LEVEL 1.9 MG/DL (1.8-2.4); POTASSIUM SERUM 3.9 MMOL/L (3.5-5.1); SODIUM LEVEL 139 MMOL/L (136-145)
[2022-11-24] MEDS ORDERED: MORPHINE 2 MG/ML 1ML VIAL IV PRN (06:50)
[2022-11-24] MEDS ORDERED: NORCO, ANEXSIA 5/325MG TABLET (HYDROcodone/ACETAMINOPHEN) PO PRN (06:50)
[2022-11-24 08:00] VITALS: BP 168/79; TEMP 97.9; O2SAT 91
[2022-11-24] MEDS: oxyBUTYnin *DITROPAN XL* 5 MG TABCR PO SCH (08:59)
[2022-11-24] MEDS: DOCUSATE SODIUM 100MG CAPSULE PO SCH ×2 (08:59→20:17)
[2022-11-24] MEDS: LEVOTHYROXINE 25MCG TABLET (0.025MG) PO SCH (08:59)
[2022-11-24] MEDS: PREGABALIN 100 MG CAP (LYRICA) PO SCH ×3 (08:59→20:17)
[2022-11-24] MEDS: amLODIPine 5 MG TAB PO SCH (09:00)
[2022-11-24] MEDS: FOLIC ACID 1MG TAB PO SCH (09:00)
[2022-11-24] MEDS: buPROPion (WELLBUTRIN SR) 100 MG SR TAB PO SCH ×2 (09:00→20:17)
[2022-11-24] MEDS: CelecoXIB (CeleBREX) 100 MG CAP PO SCH ×2 (09:00→20:17)
[2022-11-24] MEDS: ENOXAPARIN 40MG/0.4ML SYRINGE (J1650 PER 10MG) SC SCH (09:00)
[2022-11-24] MEDS ORDERED: FLUoxetine 20MG CAP PO SCH (09:00)
[2022-11-24] MEDS: sulfaSALAzine 500 MG TABEC PO SCH ×2 (09:00→20:17)
[2022-11-24] MEDS: HYDROXYCHLOROQUINE 200 MG TAB PO SCH ×2 (09:00→20:18)
[2022-11-24] MEDS ORDERED: OMEPRAZOLE 20MG CAP PO SCH (09:00)
[2022-11-24] MEDS ORDERED: predniSONE 20 MG TAB PO SCH (09:00)
[2022-11-24] MEDS ORDERED: PROMETHAZINE 25MG/ML 1ML VIAL IV PRN (10:00)
[2022-11-24] MEDS ORDERED: ACETAMINOPHEN *IV* 1,000 MG in IV 1 EA IV ONE (10:00)
[2022-11-24] MEDS: ONDANSETRON 4MG 2ML VIAL IV PRN ×2 (10:15→17:32)
[2022-11-24 10:18] LABS: ALBUMIN 3.7 G/DL (3.2-5.2); ALKALINE PHOSPHATASE 115 U/L (46-116); ALT/SGPT 17 U/L (7.0-40); AST/SGOT 12 U/L (<34); BILIRUBIN,TOTAL 0.3 MG/DL (0.3-1.2); TOTAL PROTEIN 6.3 G/DL (5.7-8.2)
[2022-11-24] MEDS: methylPREDNISolone 125MG 2ML VIAL IV SCH ×2 (11:40→22:40)
[2022-11-24] MEDS: NS 1,000 ML IV SCH ×2 (11:41→20:19)
[2022-11-24] MEDS ORDERED: PANTOPRAZOLE 40MG VIAL IV SCH (12:00)
[2022-11-24] MEDS: SUMAtriptan SUCCINATE 6MG/0.5ML VIAL SC ONE ×2 (12:08→12:11)
[2022-11-24 14:00] VITALS: BP 181/82; TEMP 97.7; O2SAT 92
[2022-11-24 15:50] VITALS: O2SAT 83
[2022-11-24 16:30] VITALS: O2SAT 92
[2022-11-24 16:49] VITALS: BP 167/74
[2022-11-24] MEDS: traMADol 50 MG TAB PO PRN (17:32)
[2022-11-24] MEDS: AMITRIPTYLINE 50 MG TAB PO SCH (20:17)
[2022-11-24 20:45] VITALS: BP 151/70; TEMP 97.2; O2SAT 94
[2022-11-24] MEDS ORDERED: ATORVASTATIN 10 MG TAB PO SCH (21:00)
[2022-11-25] MEDS: traMADol 50 MG TAB PO PRN (03:55)
[2022-11-25] MEDS: LEVOTHYROXINE 25MCG TABLET (0.025MG) PO SCH (04:50)
[2022-11-25] MEDS: NS 1,000 ML IV SCH (04:51)
[2022-11-25 06:00] VITALS: BP 145/67; TEMP 97.5; O2SAT 97
[2022-11-25 06:15] LABS: HEMOGLOBIN 11.1 g/dl (12.0-15.5); MEAN CORPUSCULAR HEMOGLOBIN 30.2 pg (27.0-33.0); MEAN CORPUSCULAR HGB CONC 30.8 g/dl (32.0-36.5); MEAN CORPUSCULAR VOLUME 97.8 fl (80.0-96.0); PLATELET COUNT, AUTOMATED 183 10^3/uL (150-450); RED BLOOD COUNT 3.68 10^6/uL (4.00-5.40); WHITE BLOOD COUNT 5.7 10^3/uL (4.0-10.0)
[2022-11-25 06:42] LABS: ALBUMIN 3.1 G/DL (3.2-5.2); ALKALINE PHOSPHATASE 98 U/L (46-116); ALT/SGPT 13 U/L (7.0-40); AST/SGOT < 8 U/L (<34); BILIRUBIN,TOTAL 0.3 MG/DL (0.3-1.2); BLOOD UREA NITROGEN 10 MG/DL (9-23); CALCIUM LEVEL 7.9 MG/DL (8.3-10.6); CARBON DIOXIDE LEVEL 28 MMOL/L (20-31); CHLORIDE LEVEL 108 MMOL/L (98-107); GLOMERULAR FILTRATION RATE > 60.0 (>45); GLUCOSE, FASTING 133 MG/DL (74-106); POTASSIUM SERUM 3.9 MMOL/L (3.5-5.1); SODIUM LEVEL 141 MMOL/L (136-145); TOTAL PROTEIN 5.7 G/DL (5.7-8.2)
[2022-11-25 08:00] VITALS: O2SAT 92
[2022-11-25 08:30] VITALS: O2SAT 92
[2022-11-25] MEDS ORDERED: FLUoxetine 10 MG CAP PO SCH (09:00)
[2022-11-25] MEDS: sulfaSALAzine 500 MG TABEC PO SCH (09:40)
[2022-11-25] MEDS: buPROPion (WELLBUTRIN SR) 100 MG SR TAB PO SCH (09:40)
[2022-11-25] MEDS: DOCUSATE SODIUM 100MG CAPSULE PO SCH (09:40)
[2022-11-25] MEDS: FOLIC ACID 1MG TAB PO SCH (09:41)
[2022-11-25] MEDS: oxyBUTYnin *DITROPAN XL* 5 MG TABCR PO SCH (09:41)
[2022-11-25] MEDS: PREGABALIN 100 MG CAP (LYRICA) PO SCH (09:41)
[2022-11-25 09:42] VITALS: BP 150/80
[2022-11-25] MEDS: ENOXAPARIN 40MG/0.4ML SYRINGE (J1650 PER 10MG) SC SCH (09:42)
[2022-11-25] MEDS: CelecoXIB (CeleBREX) 100 MG CAP PO SCH (09:42)
[2022-11-25] MEDS: HYDROXYCHLOROQUINE 200 MG TAB PO SCH (09:42)
[2022-11-25] MEDS: amLODIPine 5 MG TAB PO SCH (09:42)
[2022-11-25] MEDS: methylPREDNISolone 125MG 2ML VIAL IV SCH (11:00)
[2022-11-25] MEDS ORDERED: PRED20TA PO (11:37)
[2022-11-25] MEDS ORDERED: predniSONE 20 MG TAB PO ONE (12:00)
== END 2022-11-25 13:22 | disposition home or self-care (01) ==
LOC: M ED 17:06 → EDBD 17:06 → M ED INP 17:07 → M MSPAV 11-24 07:54
PROVIDERS: ADMIT Internal Medicine; ATTEND Internal Medicine
DX: S39.012A Strain of muscle, fascia and tendon of lower back, initial encounter (principal); X50.0XXA Overexertion from strenuous movement or load, initial encounter; Y92.89 Other specified places as the place of occurrence of the external cause; Y93.F2 Activity, caregiving, lifting; M54.41 Lumbago with sciatica, right side; G89.29 Other chronic pain; G90.522 Complex regional pain syndrome I of left lower limb; F11.20 Opioid dependence, uncomplicated; M06.9 Rheumatoid arthritis, unspecified; I10 Essential (primary) hypertension; F41.9 Anxiety disorder, unspecified; F32.A Depression, unspecified; N31.9 Neuromuscular dysfunction of bladder, unspecified; G43.909 Migraine, unspecified, not intractable, without status migrainosus; R11.2 Nausea with vomiting, unspecified; Z96.82 Presence of neurostimulator; E30.9 Disorder of puberty, unspecified; M47.816 Spondylosis without myelopathy or radiculopathy, lumbar region; M47.818 Spondylosis without myelopathy or radiculopathy, sacral and sacrococcygeal region; Z88.8 Allergy status to other drugs, medicaments and biological substances; Z88.5 Allergy status to narcotic agent; Z91.013 Allergy to seafood; Z79.899 Other long term (current) drug therapy; Z79.890 Hormone replacement therapy
CPT/HCPCS: 36415; 71046; 72110; 72131; 73502; 80048; 80053; 82550; 83735; 85025; 85027; 85652; 86140; 87635; 93041; 93971; 94760; 96361; 96372; 96374; 96375; 96376; 97116; 97161; 97530; 99285; C9113; G0378; J0131; J1170; J1650; J2405; J2550; J2920; J2930; J3010; J3030; J3360; J7512

== ENCOUNTER → 2022-12-08 | Outpatient (CLI) | payer OTHER ==
[~2022-12-08] MED LIST changes: +AMIT50TA PO; +AMLO1TAB24 PO; +ATOR1TAB19 PO; +HYDR-4571 PO; +PRED20TA PO
== END ==
LOC: M PAIN 10:45
PROVIDERS: ATTEND Nurse Practitioner Family
DX: M96.1 Postlaminectomy syndrome, not elsewhere classified (principal); M70.62 Trochanteric bursitis, left hip; G47.30 Sleep apnea, unspecified; M06.9 Rheumatoid arthritis, unspecified; G25.81 Restless legs syndrome; E78.5 Hyperlipidemia, unspecified; K59.09 Other constipation; F32.A Depression, unspecified; M21.372 Foot drop, left foot; I10 Essential (primary) hypertension; E03.9 Hypothyroidism, unspecified; Z96.89 Presence of other specified functional implants; Z86.59 Personal history of other mental and behavioral disorders; Z86.718 Personal history of other venous thrombosis and embolism; Z88.8 Allergy status to other drugs, medicaments and biological substances; Z91.013 Allergy to seafood; Z79.890 Hormone replacement therapy; Z79.899 Other long term (current) drug therapy

== ENCOUNTER → 2022-12-31 | Outpatient (CLI) | payer OTHER ==
[~2022-12-31] MED LIST changes: +ISOVUE-M 300 61% 15ML VIAL As Ordered ONE; +LIDOCAINE 1% SDV 30ML VIAL As Ordered ONE; +NORCO, ANEXSIA 5/325MG TABLET (HYDROcodone/ACETAMINOPHEN) As Ordered ONE; +diazePAM 2 MG TAB As Ordered ONE; +diphenhydrAMINE 25MG CAP As Ordered ONE; +methylPREDNISolone SUSP 40MG/ML 1ML VIAL (DEPO MEDROL) As Ordered ONE
== END ==
LOC: M PAIN 08:30
PROVIDERS: ATTEND Anesthesiology
DX: M51.16 Intervertebral disc disorders with radiculopathy, lumbar region (principal); M96.1 Postlaminectomy syndrome, not elsewhere classified; G89.29 Other chronic pain; Z96.89 Presence of other specified functional implants; Z80.3 Family history of malignant neoplasm of breast; Z88.8 Allergy status to other drugs, medicaments and biological substances; Z91.013 Allergy to seafood; Z79.899 Other long term (current) drug therapy
CPT/HCPCS: 62323; J1030; Q9967

== ENCOUNTER → 2023-01-01 | Outpatient (CLI) | payer OTHER ==
[~2023-01-01] MED LIST changes: -ISOVUE-M 300 61% 15ML VIAL As Ordered ONE; -LIDOCAINE 1% SDV 30ML VIAL As Ordered ONE; -NORCO, ANEXSIA 5/325MG TABLET (HYDROcodone/ACETAMINOPHEN) As Ordered ONE; -diazePAM 2 MG TAB As Ordered ONE; -diphenhydrAMINE 25MG CAP As Ordered ONE; -methylPREDNISolone SUSP 40MG/ML 1ML VIAL (DEPO MEDROL) As Ordered ONE
== END ==
LOC: M PAIN 08:30
PROVIDERS: ATTEND Anesthesiology
DX: M96.1 Postlaminectomy syndrome, not elsewhere classified (principal); M54.16 Radiculopathy, lumbar region; G47.30 Sleep apnea, unspecified; M06.9 Rheumatoid arthritis, unspecified; G25.81 Restless legs syndrome; E78.5 Hyperlipidemia, unspecified; K59.09 Other constipation; F32.A Depression, unspecified; M21.372 Foot drop, left foot; I10 Essential (primary) hypertension; E03.9 Hypothyroidism, unspecified; Z96.89 Presence of other specified functional implants; Z86.59 Personal history of other mental and behavioral disorders; Z86.718 Personal history of other venous thrombosis and embolism; Z88.8 Allergy status to other drugs, medicaments and biological substances; Z91.013 Allergy to seafood; Z79.890 Hormone replacement therapy; Z79.899 Other long term (current) drug therapy

== ENCOUNTER → 2023-03-08 | Outpatient (CLI) | payer OTHER ==
[~2023-03-08] MED LIST changes: +PRED10TA2 PO
== END ==
LOC: M PAIN 09:45
PROVIDERS: ATTEND Nurse Practitioner Family
DX: M96.1 Postlaminectomy syndrome, not elsewhere classified (principal); M51.37 Other intervertebral disc degeneration, lumbosacral region; G89.29 Other chronic pain; M54.50 Low back pain, unspecified; Z79.891 Long term (current) use of opiate analgesic; Z79.890 Hormone replacement therapy; Z79.899 Other long term (current) drug therapy; Z88.8 Allergy status to other drugs, medicaments and biological substances; Z91.013 Allergy to seafood

== ENCOUNTER → 2023-03-11 | Outpatient (CLI) | payer MEDICARE | LOC: M WHC 13:10 | PROVIDERS: ATTEND Family Medicine | DX: Z12.31 Encounter for screening mammogram for malignant neoplasm of breast (principal); M85.88 Other specified disorders of bone density and structure, other site; M81.0 Age-related osteoporosis without current pathological fracture; M85.851 Other specified disorders of bone density and structure, right thigh; Z13.820 Encounter for screening for osteoporosis; N13.30 Unspecified hydronephrosis ==

== ENCOUNTER → 2023-03-11 | Outpatient (CLI) | payer OTHER, MEDICARE ==
[~2023-03-11] MED LIST changes: -PRED10TA2 PO
== END ==
LOC: M RAD 10:58
PROVIDERS: ATTEND Nurse Practitioner Family
DX: N13.30 Unspecified hydronephrosis (principal)

== ENCOUNTER → 2023-03-11 | Outpatient (CLI) | payer MEDICARE ==
[~2023-03-11] MED LIST changes: +PRED10TA2 PO
== END ==
LOC: M WHC 13:08
PROVIDERS: ATTEND Specialist
DX: Z12.31 Encounter for screening mammogram for malignant neoplasm of breast (principal)

== ENCOUNTER 2023-03-13 03:01 | Emergency (ER) | payer OTHER, MEDICARE ==
[~2023-03-13] VITALS: Ht 167.6 cm; Wt 81.4 kg
[~2023-03-13 03:01] MED LIST changes: -PRED10TA2 PO
[2023-03-13] MEDS ORDERED: METHOCARBAMOL 1,000 MG/10 ML VIAL IV ONE (07:25)
[2023-03-13 07:57] LABS: BASO % 0.5 % (0.0-1.0); EOS % 0.5 % (0.0-3.0); HEMATOCRIT 33.5 % (36.0-47.0); HEMOGLOBIN 10.5 g/dl (12.0-15.5); LYMPH # 1.2 10^3/uL (1.5-5.0); LYMPH % 15.9 % (24.0-44.0); MEAN CORPUSCULAR HEMOGLOBIN 30.3 pg (27.0-33.0); MEAN CORPUSCULAR HGB CONC 31.3 g/dl (32.0-36.5); MEAN CORPUSCULAR VOLUME 96.5 fl (80.0-96.0); MONO % 13.7 % (2.0-8.0); NEUTROPHILS # 5.1 10^3/uL (1.5-8.5); PLATELET COUNT, AUTOMATED 222 10^3/uL (150-450); RED BLOOD COUNT 3.47 10^6/uL (4.00-5.40); WHITE BLOOD COUNT 7.4 10^3/uL (4.0-10.0)
[2023-03-13 08:17] LABS: APPEARANCE, URINE HAZY (CLEAR); BACTERIA, URINE AUTO 1+ (NEGATIVE); BILIRUBIN, URINE AUTO NEGATIVE (NEGATIVE); BLOOD, URINE BLOOD 1+ (NEGATIVE); COLOR, URINE YELLOW (YELLOW); GLUCOSE, URINE (UA) AUTO NEGATIVE (NEGATIVE); KETONE, URINE AUTO NEGATIVE (NEGATIVE); LEUKOCYTE ESTERASE, URINE AUTO 3+ (NEGATIVE); MUCUS, URINE SMALL (NEGATIVE); NITRITE, URINE AUTO POSITIVE (NEGATIVE); PROTEIN, URINE AUTO NEGATIVE (NEGATIVE); RBC, URINE AUTO 2 /HPF (0-3); SPECIFIC GRAVITY URINE AUTO 1.005 (1.002-1.035); SQUAMOUS EPITHELIAL CELL UR AU 0 /HPF (0-6); UROBILINOGEN, URINE AUTO 0.2 mg/dL (0.0-2.0); WBC, URINE AUTO 71 /HPF (0-3)
[2023-03-13 08:28] LABS: BLOOD UREA NITROGEN 12 MG/DL (9-23); CALCIUM LEVEL 8.7 MG/DL (8.3-10.6); CARBON DIOXIDE LEVEL 25 MMOL/L (20-31); CHLORIDE LEVEL 109 MMOL/L (98-107); CREATININE FOR GFR 0.61 MG/DL (0.55-1.30); GLOMERULAR FILTRATION RATE > 60.0 (>45); GLUCOSE, FASTING 104 MG/DL (74-106); SODIUM LEVEL 142 MMOL/L (136-145)
[2023-03-13] MEDS ORDERED: diazePAM 10MG/2ML SYRINGE IV ONE (09:20)
[2023-03-13] MEDS ORDERED: KETOROLAC 30 MG/ML 1ML VIAL IV ONE (10:45)
[2023-03-13] MEDS ORDERED: tiZANidine 4 MG TAB PO ONE (10:45)
[2023-03-13 12:00] VITALS: BP 135/65; TEMP 97.5; O2SAT 95
[2023-03-13] MEDS ORDERED: PRED10TA2 PO (23:51)
== END 2023-03-13 12:26 | disposition home or self-care (01) ==
LOC: M ED 03:01
DX: M62.838 Other muscle spasm (principal); I10 Essential (primary) hypertension; G25.81 Restless legs syndrome; G89.4 Chronic pain syndrome; Z79.899 Other long term (current) drug therapy; Z88.5 Allergy status to narcotic agent; Z88.3 Allergy status to other anti-infective agents; Z88.8 Allergy status to other drugs, medicaments and biological substances; Z91.013 Allergy to seafood
CPT/HCPCS: 80048; 81001; 85025; 87088; 87186; 96374; 96375; 99284; J1885; J2800; J3360

== ENCOUNTER 2023-03-13 19:23 | Emergency (ER) | payer OTHER, MEDICARE ==
[~2023-03-13] VITALS: Ht 167.6 cm; Wt 80.9 kg
[2023-03-13] MEDS ORDERED: methylPREDNISolone 125MG 2ML VIAL IV ONE (20:05)
[2023-03-13] MEDS ORDERED: carisoprodoL 350 MG TAB PO ONE (20:05)
[2023-03-13] MEDS ORDERED: MORPHINE 4 MG/ML 1ML VIAL IV ONE (21:10)
[2023-03-13] MEDS ORDERED: diazePAM 10MG/2ML SYRINGE IV ONE (22:00)
[2023-03-13 23:10] VITALS: BP 140/88; TEMP 98.9; O2SAT 96
[2023-03-13] MEDS ORDERED: PRED10TA2 PO (23:51)
== END 2023-03-14 | disposition home or self-care (01) ==
LOC: M ED 19:23
DX: M54.50 Low back pain, unspecified (principal); I10 Essential (primary) hypertension; K21.9 Gastro-esophageal reflux disease without esophagitis; F41.9 Anxiety disorder, unspecified; F32.A Depression, unspecified; Z87.442 Personal history of urinary calculi; Z79.899 Other long term (current) drug therapy; Z88.5 Allergy status to narcotic agent; Z88.3 Allergy status to other anti-infective agents; Z88.8 Allergy status to other drugs, medicaments and biological substances; Z91.013 Allergy to seafood
CPT/HCPCS: 96374; 96375; 99284; J2930; J3360

== ENCOUNTER → 2023-03-24 | Outpatient (REF) | payer MEDICARE ==
[~2023-03-24] MED LIST changes: +PRED10TA2 PO
[2023-03-24 13:22] LABS: ALBUMIN 3.2 G/DL (3.2-5.2); ALKALINE PHOSPHATASE 103 U/L (46-116); ALT/SGPT 12 U/L (7.0-40); AST/SGOT 12 U/L (<34); BILIRUBIN,TOTAL 0.2 MG/DL (0.3-1.2); BLOOD UREA NITROGEN 17 MG/DL (9-23); CALCIUM LEVEL 8.5 MG/DL (8.3-10.6); CARBON DIOXIDE LEVEL 29 MMOL/L (20-31); CHLORIDE LEVEL 107 MMOL/L (98-107); CHOLESTEROL LEVEL 186 MG/DL (<200); CHOLESTEROL RISK RATIO 2.89 (<5); CREATININE FOR GFR 0.63 MG/DL (0.55-1.30); GLOMERULAR FILTRATION RATE > 60.0 (>45); GLUCOSE, FASTING 82 MG/DL (74-106); HDL CHOLESTEROL 64.3 MG/DL (>40); LDL CHOLESTEROL 108.7 MG/DL (<100); NON-HDL-C 121.7 MG/DL; POTASSIUM SERUM 3.8 MMOL/L (3.5-5.1); PTH INTACT 48.6 PG/ML (18.5-88.0); SODIUM LEVEL 141 MMOL/L (136-145); TOTAL PROTEIN 6.5 G/DL (5.7-8.2); TRIGLYCERIDES LEVEL 65 MG/DL (<150)
[2023-03-24 13:25] LABS: THYROID STIMULATING HORMONE 2.131 uIU/ML (0.55-4.78); TOTAL 25(OH) VITAMIN D 13.8 NG/ML (20.0-100.0)
[2023-03-24 13:26] LABS: FREE T4 1.18 NG/DL (0.89-1.76)
== END ==
LOC: M SFHCADAM 10:49
PROVIDERS: ATTEND Family Medicine
DX: I10 Essential (primary) hypertension (principal); Z13.220 Encounter for screening for lipoid disorders; M81.0 Age-related osteoporosis without current pathological fracture; E03.9 Hypothyroidism, unspecified; J10.1 Influenza due to other identified influenza virus with other respiratory manifestations

== ENCOUNTER 2023-04-02 19:52 | Emergency (ER) | payer OTHER, MEDICARE ==
[~2023-04-02] VITALS: Ht 167.6 cm; Wt 79.7 kg
[2023-04-02 23:51] VITALS: BP 158/82; TEMP 98.6; O2SAT 95
== END 2023-04-03 05:45 | disposition left against medical advice (07) ==
LOC: M ED 19:52
DX: Z53.21 Procedure and treatment not carried out due to patient leaving prior to being seen by health care provider (principal)

== ENCOUNTER → 2023-04-05 | Outpatient (CLI) | payer MEDICARE, OTHER ==
[2023-04-05 13:53] LABS: HEMATOCRIT 36.3 % (36.0-47.0); HEMOGLOBIN 11.2 g/dl (12.0-15.5); MEAN CORPUSCULAR HEMOGLOBIN 29.9 pg (27.0-33.0); MEAN CORPUSCULAR HGB CONC 30.9 g/dl (32.0-36.5); MEAN CORPUSCULAR VOLUME 96.8 fl (80.0-96.0); PLATELET COUNT, AUTOMATED 260 10^3/uL (150-450); RED BLOOD COUNT 3.75 10^6/uL (4.00-5.40)
[2023-04-05 14:04] LABS: BLOOD UREA NITROGEN 20 MG/DL (9-23); CALCIUM LEVEL 8.3 MG/DL (8.3-10.6); CARBON DIOXIDE LEVEL 26 MMOL/L (20-31); CHLORIDE LEVEL 111 MMOL/L (98-107); CREATININE FOR GFR 0.69 MG/DL (0.55-1.30); GLOMERULAR FILTRATION RATE > 60.0 (>45); GLUCOSE, FASTING 96 MG/DL (74-106); POTASSIUM SERUM 4.4 MMOL/L (3.5-5.1); SODIUM LEVEL 142 MMOL/L (136-145)
== END ==
LOC: M RAD 12:43
PROVIDERS: ATTEND Urology
DX: Z01.818 Encounter for other preprocedural examination (principal); N13.2 Hydronephrosis with renal and ureteral calculous obstruction; J98.11 Atelectasis

== ENCOUNTER → 2023-04-06 | Outpatient (REF) | payer MEDICARE ==
[2023-04-06 17:53] LABS: APPEARANCE, URINE CLOUDY (CLEAR); BACTERIA, URINE AUTO 2+ (NEGATIVE); BILIRUBIN, URINE AUTO NEGATIVE (NEGATIVE); BLOOD, URINE BLOOD NEGATIVE (NEGATIVE); COLOR, URINE AMBER (YELLOW); GLUCOSE, URINE (UA) AUTO NEGATIVE (NEGATIVE); KETONE, URINE AUTO NEGATIVE (NEGATIVE); LEUKOCYTE ESTERASE, URINE AUTO 2+ (NEGATIVE); MUCUS, URINE SMALL (NEGATIVE); NITRITE, URINE AUTO POSITIVE (NEGATIVE); PROTEIN, URINE AUTO 2+ mg/dL (NEGATIVE); RBC, URINE AUTO 1 /HPF (0-3); SPECIFIC GRAVITY URINE AUTO 1.026 (1.002-1.035); SQUAMOUS EPITHELIAL CELL UR AU 5 /HPF (0-6); TRIPLE PHOSPHATE CRYSTALS LARGE; UROBILINOGEN, URINE AUTO 0.2 mg/dL (0.0-2.0); WBC, URINE AUTO 120 /HPF (0-3)
== END ==
LOC: M SMT 16:54
PROVIDERS: ATTEND Urology
DX: Z01.818 Encounter for other preprocedural examination (principal); N13.2 Hydronephrosis with renal and ureteral calculous obstruction; R33.9 Retention of urine, unspecified

== ENCOUNTER → 2023-04-08 | Outpatient (CLI) | payer OTHER, MEDICARE | LOC: M PAIN 09:15 | PROVIDERS: ATTEND Nurse Practitioner Family | DX: M96.1 Postlaminectomy syndrome, not elsewhere classified (principal); M25.552 Pain in left hip; G89.29 Other chronic pain; M51.37 Other intervertebral disc degeneration, lumbosacral region; M81.0 Age-related osteoporosis without current pathological fracture; E03.9 Hypothyroidism, unspecified; E78.5 Hyperlipidemia, unspecified; G47.30 Sleep apnea, unspecified; M35.00 Sjogren syndrome, unspecified; I10 Essential (primary) hypertension; Z79.891 Long term (current) use of opiate analgesic; Z79.890 Hormone replacement therapy; Z79.899 Other long term (current) drug therapy; Z88.8 Allergy status to other drugs, medicaments and biological substances; Z91.013 Allergy to seafood ==

== ENCOUNTER 2023-04-16 08:59 | Day surgery (SDC) | payer MEDICARE ==
[~2023-04-16] VITALS: Ht 167.6 cm; Wt 80.3 kg
[~2023-04-16 08:59] MED LIST changes: +LIDOCAINE 2% 100MG/5ML SDV (FOR ANES.) As Ordered ONE; +ONDANSETRON 4MG 2ML VIAL As Ordered ONE; +ceFAZolin SOD 2 GM in IV 1 EA IV ONE; +propofoL 200 MG/20 ML VIAL As Ordered ONE
[2023-04-16] MEDS ORDERED: LR 1,000 ML IV SCH ×2 (09:25→12:30)
[2023-04-16] MEDS ORDERED: MONUROL PO (09:35)
[2023-04-16] MEDS ORDERED: ISOVUE-300 61% 100ML VIAL As Ordered ONE (09:54)
[2023-04-16] MEDS ORDERED: MIDAZOLAM INJ 2MG/2ML VIAL As Ordered ONE (10:39)
[2023-04-16] MEDS ORDERED: fentaNYL 100 MCG/2 ML INJECTION As Ordered ONE (10:39)
[2023-04-16] MEDS ORDERED: cefTRIAXone SOD 1 GM in D5W MINI-BAG PLUS 50 ML IV ONE (10:50)
[2023-04-16] MEDS ORDERED: ACETAMINOPHEN 1000MG 100ML IV BAG As Ordered ONE (11:23)
[2023-04-16] MEDS ORDERED: diphenhydrAMINE 50MG/ML VIAL As Ordered ONE (11:46)
[2023-04-16] MEDS ORDERED: ePHEDrine SULFATE 25 MG/5 ML(5MG/ML) SYRINGE As Ordered ONE (11:47)
[2023-04-16] MEDS ORDERED: ONDANSETRON 4MG 2ML VIAL IV PRN (12:30)
[2023-04-16] MEDS ORDERED: fentaNYL 100 MCG/2 ML INJECTION IV PRN (12:30)
[2023-04-16] MEDS ORDERED: FLUC150T9 PO (13:04)
[2023-04-16] MEDS ORDERED: PERCOCET 5MG/325MG TAB PO PRN (13:20)
[2023-04-16 13:50] VITALS: BP 154/72; TEMP 98; O2SAT 96
== END 2023-04-16 13:58 | disposition home or self-care (01) ==
LOC: M SDC 08:59
PROVIDERS: ATTEND Urology
DX: N13.1 Hydronephrosis with ureteral stricture, not elsewhere classified (principal); N21.0 Calculus in bladder; I10 Essential (primary) hypertension; E03.9 Hypothyroidism, unspecified; D64.9 Anemia, unspecified; N31.9 Neuromuscular dysfunction of bladder, unspecified; Z79.899 Other long term (current) drug therapy; Z88.8 Allergy status to other drugs, medicaments and biological substances; Z88.5 Allergy status to narcotic agent; Z90.49 Acquired absence of other specified parts of digestive tract; Z90.710 Acquired absence of both cervix and uterus; Z86.718 Personal history of other venous thrombosis and embolism
CPT/HCPCS: 52332; 52344; 76000; 82365; C1769; C2617; J0131; J1100; J1200; J2250; J2405; J3010; Q9967

== ENCOUNTER → 2023-05-18 | Outpatient (CLI) | payer OTHER, MEDICARE ==
[~2023-05-18] MED LIST changes: +FLUC150T9 PO; -LIDOCAINE 2% 100MG/5ML SDV (FOR ANES.) As Ordered ONE; +MONUROL PO; -ONDANSETRON 4MG 2ML VIAL As Ordered ONE; -ceFAZolin SOD 2 GM in IV 1 EA IV ONE; -propofoL 200 MG/20 ML VIAL As Ordered ONE
== END ==
LOC: M PAIN 10:00
PROVIDERS: ATTEND Nurse Practitioner Family
DX: M96.1 Postlaminectomy syndrome, not elsewhere classified (principal); Z79.891 Long term (current) use of opiate analgesic; M25.552 Pain in left hip; G89.29 Other chronic pain; F32.A Depression, unspecified; G90.522 Complex regional pain syndrome I of left lower limb; K59.09 Other constipation; M06.9 Rheumatoid arthritis, unspecified; G25.81 Restless legs syndrome; D64.9 Anemia, unspecified; E03.9 Hypothyroidism, unspecified; E78.5 Hyperlipidemia, unspecified; G47.30 Sleep apnea, unspecified; I10 Essential (primary) hypertension; M81.0 Age-related osteoporosis without current pathological fracture; M35.00 Sjogren syndrome, unspecified; Z79.899 Other long term (current) drug therapy; Z79.890 Hormone replacement therapy; Z88.8 Allergy status to other drugs, medicaments and biological substances; Z91.013 Allergy to seafood

== ENCOUNTER → 2023-05-27 | Outpatient (REF) | payer OTHER, MEDICARE ==
[2023-05-27 13:46] LABS: ALBUMIN 3.4 G/DL (3.2-5.2); BLOOD UREA NITROGEN 19 MG/DL (9-23); CALCIUM LEVEL 7.9 MG/DL (8.3-10.6); CARBON DIOXIDE LEVEL 28 MMOL/L (20-31); CHLORIDE LEVEL 109 MMOL/L (98-107); CREATININE FOR GFR 0.74 MG/DL (0.55-1.30); GLOMERULAR FILTRATION RATE > 60.0 (>45); GLUCOSE, FASTING 85 MG/DL (74-106); PHOSPHORUS LEVEL 3.6 MG/DL (2.4-5.1); POTASSIUM SERUM 4.4 MMOL/L (3.5-5.1); SODIUM LEVEL 143 MMOL/L (136-145)
== END ==
LOC: M SFHCADAM 09:31
PROVIDERS: ATTEND Family Medicine
DX: M85.80 Other specified disorders of bone density and structure, unspecified site (principal)

== ENCOUNTER → 2023-06-10 | Outpatient (REF) | payer OTHER, MEDICARE ==
[2023-06-10 13:46] LABS: HEMATOCRIT 37.6 % (36.0-47.0); HEMOGLOBIN 11.5 g/dl (12.0-15.5); MEAN CORPUSCULAR HEMOGLOBIN 28.3 pg (27.0-33.0); MEAN CORPUSCULAR HGB CONC 30.6 g/dl (32.0-36.5); MEAN CORPUSCULAR VOLUME 92.4 fl (80.0-96.0); PLATELET COUNT, AUTOMATED 217 10^3/uL (150-450); RED BLOOD COUNT 4.07 10^6/uL (4.00-5.40); WHITE BLOOD COUNT 5.3 10^3/uL (4.0-10.0)
[2023-06-10 14:15] LABS: BLOOD UREA NITROGEN 15 MG/DL (9-23); CALCIUM LEVEL 8.7 MG/DL (8.3-10.6); CARBON DIOXIDE LEVEL 31 MMOL/L (20-31); CHLORIDE LEVEL 109 MMOL/L (98-107); CREATININE FOR GFR 0.83 MG/DL (0.55-1.30); GLOMERULAR FILTRATION RATE > 60.0 (>45); GLUCOSE, FASTING 94 MG/DL (74-106); POTASSIUM SERUM 4.6 MMOL/L (3.5-5.1); SODIUM LEVEL 141 MMOL/L (136-145); THYROID STIMULATING HORMONE 3.625 uIU/ML (0.55-4.78)
[2023-06-10 14:16] LABS: FREE T4 1.05 NG/DL (0.89-1.76)
== END ==
LOC: M SFHCADAM 10:08
PROVIDERS: ATTEND Family Medicine
DX: E03.9 Hypothyroidism, unspecified (principal); D63.8 Anemia in other chronic diseases classified elsewhere

== ENCOUNTER 2023-06-14 15:33 | Outpatient (CLI) | payer MEDICARE ==
[~2023-06-14] VITALS: Ht 167.6 cm; Wt 80.9 kg
[2023-06-14 15:59] VITALS: BP 137/65; O2SAT 97
[2023-06-14] MEDS: ZOLEDRONIC ACID 5 MG in IV 1 EA IV ONE (16:03)
[2023-06-14 17:00] VITALS: BP 152/89; O2SAT 95
== END 2023-06-14 17:00 ==
LOC: M INFU 15:33
PROVIDERS: ATTEND Family Medicine
DX: M18.0 Bilateral primary osteoarthritis of first carpometacarpal joints (principal); Z88.5 Allergy status to narcotic agent; Z88.3 Allergy status to other anti-infective agents; Z88.8 Allergy status to other drugs, medicaments and biological substances
CPT/HCPCS: 96413; J3489

== ENCOUNTER 2023-06-17 11:01 | Inpatient (IN) | payer MEDICARE ==
[~2023-06-17] VITALS: Ht 167.6 cm; Wt 82.6 kg
[2023-06-17] MEDS: NS 1,000 ML IV SCH ×2 (13:55→23:02)
[2023-06-17] MEDS: MORPHINE 4 MG/ML 1ML VIAL IV PRN (14:00)
[2023-06-17 15:17] LABS: HEMATOCRIT 33.5 % (36.0-47.0); HEMOGLOBIN 10.1 g/dl (12.0-15.5); MEAN CORPUSCULAR HEMOGLOBIN 28.5 pg (27.0-33.0); MEAN CORPUSCULAR HGB CONC 30.1 g/dl (32.0-36.5); MEAN CORPUSCULAR VOLUME 94.4 fl (80.0-96.0); PLATELET COUNT, AUTOMATED 125 10^3/uL (150-450); RED BLOOD COUNT 3.55 10^6/uL (4.00-5.40); WHITE BLOOD COUNT 6.9 10^3/uL (4.0-10.0)
[2023-06-17 15:38] LABS: BLOOD UREA NITROGEN 14 MG/DL (9-23); CALCIUM LEVEL 7.7 MG/DL (8.3-10.6); CARBON DIOXIDE LEVEL 28 MMOL/L (20-31); CHLORIDE LEVEL 108 MMOL/L (98-107); CREATININE FOR GFR 0.75 MG/DL (0.55-1.30); GLOMERULAR FILTRATION RATE > 60.0 (>45); GLUCOSE, FASTING 90 MG/DL (74-106); POTASSIUM SERUM 4.2 MMOL/L (3.5-5.1); SODIUM LEVEL 139 MMOL/L (136-145)
[2023-06-17] MEDS ORDERED: traMADol 50 MG TAB PO PRN ×2 (15:55)
[2023-06-17] MEDS ORDERED: ONDANSETRON 4MG 2ML VIAL IV PRN (16:20)
[2023-06-17] MEDS ORDERED: diphenhydrAMINE 50MG/ML VIAL IV PRN (16:20)
[2023-06-17] MEDS ORDERED: MORPHINE 1MG/ML IN 0.9% NACL 100ML IV BAG IV PRN (16:20)
[2023-06-17] MEDS ORDERED: EPIDURAL/PCA KEYS XX PRN (16:20)
[2023-06-17] MEDS ORDERED: NALOXONE INJ 0.4MG/1ML VIAL IV PRN (16:20)
[2023-06-17] MEDS: KETOROLAC 30 MG/ML 1ML VIAL IV ONE ×2 (16:39→22:04)
[2023-06-17 17:02] LABS: INR 1.15; PARTIAL THROMBOPLASTIN TIME 34.6 SECONDS (24.8-34.2); PROTHROMBIN TIME 14.4 SECONDS (12.5-14.5)
[2023-06-17 17:23] LABS: ALBUMIN 3.2 G/DL (3.2-5.2)
[2023-06-17] MEDS: ACETAMINOPHEN *IV* 1,000 MG in IV 1 EA IV ONE (18:35)
[2023-06-17] MEDS: carisoprodoL 350 MG TAB PO ONE (18:39)
[2023-06-17] MEDS: CALCIUM GLUCONATE 1,000 MG in D5W MINI-BAG PLUS 100 ML IV ONE (18:55)
[2023-06-17] MEDS ORDERED: TIZA10TA PO (19:05)
[2023-06-17] MEDS ORDERED: CALC500T61 PO (19:05)
[2023-06-17] MEDS ORDERED: PROP60CA PO (19:05)
[2023-06-17] MEDS ORDERED: B-1100TA2 PO (19:05)
[2023-06-17] MEDS ORDERED: HOME MED LIST COMPLETE! XX SCH ×2 (19:10→19:30)
[2023-06-17] MEDS ORDERED: FLUO20CA22 PO (19:28)
[2023-06-17 21:53] VITALS: BP 165/78; TEMP 98.8; O2SAT 95
[2023-06-17] MEDS: amLODIPine 5 MG TAB PO SCH (22:03)
[2023-06-17] MEDS: ATORVASTATIN 10 MG TAB PO SCH (22:04)
[2023-06-17] MEDS: HYDROMORPHONE HCL 0.5 MG/ 0.5 ML SYRINGE IV ONE (22:05)
[2023-06-17 23:04] LABS: TOTAL 25(OH) VITAMIN D 20.1 NG/ML (20.0-100.0)
[2023-06-17 23:32] VITALS: BP 135/65; TEMP 98.6; O2SAT 94
[2023-06-18] VITALS (36 sets, daily range): BP systolic 110–167; BP diastolic 53–82; TEMP 98.9–99.3; O2SAT 87–100
[2023-06-18] MEDS: HYDROXYCHLOROQUINE 200 MG TAB PO SCH (00:07)
[2023-06-18] MEDS: sulfaSALAzine 500 MG TABEC PO SCH (00:07)
[2023-06-18] MEDS: AMITRIPTYLINE 50 MG TAB PO SCH (00:07)
[2023-06-18] MEDS: buPROPion (WELLBUTRIN SR) 100 MG SR TAB PO SCH (00:07)
[2023-06-18] MEDS: ACETAMINOPHEN *IV* 1,000 MG in IV 1 EA IV ONE (01:02)
[2023-06-18] MEDS: LIDOCAINE 5% (LIDODERM) PATCH TD SCH (02:20)
[2023-06-18] MEDS: KETOROLAC 30 MG/ML 1ML VIAL IV ONE (03:59)
[2023-06-18] MEDS: HYDROMORPHONE HCL 0.5 MG/ 0.5 ML SYRINGE IV STA (04:31)
[2023-06-18 06:07] LABS: HEMATOCRIT 32.5 % (36.0-47.0); MEAN CORPUSCULAR HEMOGLOBIN 28.6 pg (27.0-33.0); MEAN CORPUSCULAR HGB CONC 30.8 g/dl (32.0-36.5); MEAN CORPUSCULAR VOLUME 92.9 fl (80.0-96.0); PLATELET COUNT, AUTOMATED 116 10^3/uL (150-450); WHITE BLOOD COUNT 7.8 10^3/uL (4.0-10.0)
[2023-06-18 06:34] LABS: BLOOD UREA NITROGEN 11 MG/DL (9-23); CALCIUM LEVEL 7.2 MG/DL (8.3-10.6); CARBON DIOXIDE LEVEL 27 MMOL/L (20-31); CHLORIDE LEVEL 108 MMOL/L (98-107); CREATININE FOR GFR 0.73 MG/DL (0.55-1.30); GLOMERULAR FILTRATION RATE > 60.0 (>45); GLUCOSE, FASTING 108 MG/DL (74-106); POTASSIUM SERUM 4.1 MMOL/L (3.5-5.1); SODIUM LEVEL 140 MMOL/L (136-145)
[2023-06-18] MEDS: HYDROMORPHONE HCL 0.5 MG/ 0.5 ML SYRINGE IV PRN ×2 (09:03→12:17)
[2023-06-18] MEDS: OMEPRAZOLE 20MG CAP PO SCH (09:14)
[2023-06-18] MEDS: oxyBUTYnin *DITROPAN XL* 5 MG TABCR PO SCH (09:14)
[2023-06-18] MEDS: KETOROLAC 30 MG/ML 1ML VIAL IV SCH (09:58)
[2023-06-18] MEDS: ONDANSETRON 4MG 2ML VIAL IV PRN (16:32)
[2023-06-18] MEDS: carisoprodoL 350 MG TAB PO PRN (16:33)
[2023-06-18] MEDS: ceFAZolin 2 GM/D5W 50 ML IV BAG As Ordered ONE (17:55)
[2023-06-18] MEDS: TRANEXAMIC ACID 100 MG/ML 10ML VIAL As Ordered ONE (17:55)
[2023-06-18] MEDS ORDERED: ACETAMINOPHEN 1000MG 100ML IV BAG As Ordered ONE (18:47)
[2023-06-18] MEDS ORDERED: KETOROLAC 60MG 2ML VIAL As Ordered ONE (18:47)
[2023-06-18] MEDS ORDERED: SUGAMMADEX SODIUM 500 MG/5 ML VIAL (BRIDION) As Ordered ONE (18:47)
[2023-06-18] MEDS ORDERED: HYDROmorphone HCL 2MG/ML 1ML VIAL As Ordered ONE (18:47)
[2023-06-18] MEDS ORDERED: LIDOCAINE 2% 100MG/5ML SDV (FOR ANES.) As Ordered ONE (18:47)
[2023-06-18] MEDS ORDERED: ROCURONIUM BROMIDE 50MG/5ML VIAL As Ordered ONE (18:47)
[2023-06-18] MEDS ORDERED: ONDANSETRON 4MG 2ML VIAL As Ordered ONE (18:47)
[2023-06-18] MEDS ORDERED: propofoL 200 MG/20 ML VIAL As Ordered ONE (18:47)
[2023-06-18] MEDS ORDERED: fentaNYL 100 MCG/2 ML INJECTION As Ordered ONE (18:47)
[2023-06-18] MEDS ORDERED: PHENYLephrine 500MCG 5ML (100MCG/ML) SYRINGE As Ordered ONE (18:47)
[2023-06-18] MEDS ORDERED: ePHEDrine SULFATE 25 MG/5 ML(5MG/ML) SYRINGE As Ordered ONE (18:48)
[2023-06-18] MEDS ORDERED: LACRILUBE (AKWA TEARS) OPHTH OINT 3.5GM As Ordered ONE (18:53)
[2023-06-18] MEDS ORDERED: ONDANSETRON 4MG 2ML VIAL IV PRN (19:55)
[2023-06-18] MEDS ORDERED: fentaNYL 100 MCG/2 ML INJECTION IV PRN (19:55)
[2023-06-19] VITALS (30 sets, daily range): BP systolic 111–143; BP diastolic 55–77; TEMP 97.1–98.8; O2SAT 88–99
[2023-06-19 06:54] LABS: BLOOD UREA NITROGEN 18 MG/DL (9-23); CALCIUM LEVEL 6.8 MG/DL (8.3-10.6); CARBON DIOXIDE LEVEL 22 MMOL/L (20-31); CHLORIDE LEVEL 108 MMOL/L (98-107); GLOMERULAR FILTRATION RATE > 60.0 (>45); GLUCOSE, FASTING 98 MG/DL (74-106); POTASSIUM SERUM 4.4 MMOL/L (3.5-5.1); SODIUM LEVEL 137 MMOL/L (136-145)
[2023-06-19 07:03] LABS: HEMOGLOBIN 9.1 g/dl (12.0-15.5); RED BLOOD COUNT 3.19 10^6/uL (4.00-5.40); WHITE BLOOD COUNT 6.9 10^3/uL (4.0-10.0)
[2023-06-19 07:04] LABS: HEMATOCRIT 29.2 % (36.0-47.0); MEAN CORPUSCULAR HEMOGLOBIN 28.5 pg (27.0-33.0); MEAN CORPUSCULAR HGB CONC 31.2 g/dl (32.0-36.5); MEAN CORPUSCULAR VOLUME 91.5 fl (80.0-96.0); PLATELET COUNT, AUTOMATED 128 10^3/uL (150-450)
[2023-06-19] MEDS: FLUoxetine 20MG CAP PO SCH (08:37)
[2023-06-19] MEDS: ACETAMINOPHEN TAB 650MG DOSE (2X325MG) PO PRN (15:12)
[2023-06-19] MEDS: NS 1,000 ML IV SCH (15:59)
[2023-06-19] MEDS: ONDANSETRON 4MG 2ML VIAL IV PRN (15:59)
[2023-06-19] MEDS: diphenhydrAMINE 50MG/ML VIAL IV ONE (18:51)
[2023-06-19] MEDS ORDERED: NORCO, ANEXSIA 5/325MG TABLET (HYDROcodone/ACETAMINOPHEN) PO PRN (20:25)
[2023-06-19] MEDS ORDERED: HYDROMORPHONE HCL 0.5 MG/ 0.5 ML SYRINGE IV PRN (20:25)
[2023-06-19] MEDS: NORCO, ANEXSIA 5/325MG TABLET (HYDROcodone/ACETAMINOPHEN) PO PRN (20:49)
[2023-06-19] MEDS: OMEPRAZOLE 20MG CAP PO SCH (21:47)
[2023-06-20] VITALS (10 sets, daily range): BP systolic 118–176; BP diastolic 51–81; TEMP 97.3–97.5; O2SAT 84–99
[2023-06-20 06:32] LABS: HEMATOCRIT 26.4 % (36.0-47.0); HEMOGLOBIN 8.2 g/dl (12.0-15.5); MEAN CORPUSCULAR HEMOGLOBIN 28.8 pg (27.0-33.0); MEAN CORPUSCULAR HGB CONC 31.1 g/dl (32.0-36.5); MEAN CORPUSCULAR VOLUME 92.6 fl (80.0-96.0); PLATELET COUNT, AUTOMATED 129 10^3/uL (150-450); RED BLOOD COUNT 2.85 10^6/uL (4.00-5.40); WHITE BLOOD COUNT 4.9 10^3/uL (4.0-10.0)
[2023-06-20 06:59] LABS: BLOOD UREA NITROGEN 13 MG/DL (9-23); CALCIUM LEVEL 6.8 MG/DL (8.3-10.6); CARBON DIOXIDE LEVEL 26 MMOL/L (20-31); CHLORIDE LEVEL 108 MMOL/L (98-107); CREATININE FOR GFR 0.62 MG/DL (0.55-1.30); GLOMERULAR FILTRATION RATE > 60.0 (>45); GLUCOSE, FASTING 95 MG/DL (74-106); POTASSIUM SERUM 3.9 MMOL/L (3.5-5.1); SODIUM LEVEL 141 MMOL/L (136-145)
[2023-06-20 08:33] LABS: ALBUMIN 2.5 G/DL (3.2-5.2); ALKALINE PHOSPHATASE 79 U/L (46-116); ALT/SGPT 13 U/L (7.0-40); AST/SGOT 19 U/L (<34); BILIRUBIN,DIRECT 0.1 MG/DL (<0.4); BILIRUBIN,TOTAL 0.3 MG/DL (0.3-1.2); TOTAL PROTEIN 5.4 G/DL (5.7-8.2)
[2023-06-20] MEDS ORDERED: ENOXAPARIN 40MG/0.4ML SYRINGE (J1650 PER 10MG) SC SCH (09:00)
[2023-06-20] MEDS: BISACODYL 10MG SUPP PR SCH (09:48)
[2023-06-20] MEDS: SENOKOT S TAB PO SCH (09:49)
[2023-06-20] MEDS: PREGABALIN 100 MG CAP (LYRICA) PO SCH (09:52)
[2023-06-20] MEDS: LEVOTHYROXINE 25MCG TABLET (0.025MG) PO SCH (09:53)
[2023-06-20] MEDS: FOLIC ACID 1MG TAB PO SCH (09:53)
[2023-06-20] MEDS: THIAMINE 100 MG TAB PO SCH (09:54)
[2023-06-20] MEDS: ASPIRIN 81MG ENTERIC TABLET PO SCH (09:56)
[2023-06-20] MEDS: OYSTER SHELL CALCIUM 500 MG TAB PO SCH (11:02)
[2023-06-20] MEDS: PROPRANOLOL 60MG LA CAP PO SCH (11:02)
[2023-06-20] MEDS: FLEET ENEMA PR PRN (12:02)
[2023-06-21] VITALS (8 sets, daily range): BP systolic 119–156; BP diastolic 44–77; TEMP 97.5–98.6; O2SAT 77–94
[2023-06-21] MEDS: SODIUM CHLORIDE 0.9% NASAL GEL 15GM (AYR) PRN (02:04)
[2023-06-21 06:40] LABS: HEMATOCRIT 25.5 % (36.0-47.0); HEMOGLOBIN 7.8 g/dl (12.0-15.5); MEAN CORPUSCULAR HEMOGLOBIN 28.1 pg (27.0-33.0); MEAN CORPUSCULAR HGB CONC 30.6 g/dl (32.0-36.5); MEAN CORPUSCULAR VOLUME 91.7 fl (80.0-96.0); PLATELET COUNT, AUTOMATED 145 10^3/uL (150-450); RED BLOOD COUNT 2.78 10^6/uL (4.00-5.40); WHITE BLOOD COUNT 4.5 10^3/uL (4.0-10.0)
[2023-06-21 06:48] LABS: BLOOD UREA NITROGEN 6 MG/DL (9-23); CALCIUM LEVEL 6.8 MG/DL (8.3-10.6); CARBON DIOXIDE LEVEL 24 MMOL/L (20-31); CHLORIDE LEVEL 112 MMOL/L (98-107); CREATININE FOR GFR 0.56 MG/DL (0.55-1.30); GLOMERULAR FILTRATION RATE > 60.0 (>45); GLUCOSE, FASTING 94 MG/DL (74-106); POTASSIUM SERUM 3.7 MMOL/L (3.5-5.1); SODIUM LEVEL 143 MMOL/L (136-145)
[2023-06-21] MEDS: FUROSEMIDE 40MG/4ML VIAL IV ONE (08:40)
[2023-06-21] MEDS: RIZATRIPTAN BENZOATE 10 MG TAB PO PRN (08:42)
[2023-06-21] MEDS: ALBUTEROL SULFATE 2.5MG/0.5ML INH NEB SOLN NEB SCH (16:47)
[2023-06-22 06:07] VITALS: BP 153/70; TEMP 97.7; O2SAT 92
[2023-06-22 07:24] LABS: HEMATOCRIT 28.7 % (36.0-47.0); HEMOGLOBIN 8.8 g/dl (12.0-15.5); MEAN CORPUSCULAR HEMOGLOBIN 28.1 pg (27.0-33.0); MEAN CORPUSCULAR HGB CONC 30.7 g/dl (32.0-36.5); MEAN CORPUSCULAR VOLUME 91.7 fl (80.0-96.0); PLATELET COUNT, AUTOMATED 185 10^3/uL (150-450); RED BLOOD COUNT 3.13 10^6/uL (4.00-5.40); WHITE BLOOD COUNT 4.8 10^3/uL (4.0-10.0)
[2023-06-22 07:51] LABS: BLOOD UREA NITROGEN 9 MG/DL (9-23); CALCIUM LEVEL 7.7 MG/DL (8.3-10.6); CARBON DIOXIDE LEVEL 29 MMOL/L (20-31); CHLORIDE LEVEL 109 MMOL/L (98-107); CREATININE FOR GFR 0.69 MG/DL (0.55-1.30); GLOMERULAR FILTRATION RATE > 60.0 (>45); GLUCOSE, FASTING 104 MG/DL (74-106); POTASSIUM SERUM 3.9 MMOL/L (3.5-5.1); SODIUM LEVEL 142 MMOL/L (136-145)
[2023-06-22 07:52] VITALS: O2SAT 92
[2023-06-22] MEDS ORDERED: ISOVUE-370 76% 100ML VIAL As Ordered ONE (08:30)
[2023-06-22 09:35] VITALS: BP 156/73
[2023-06-22 13:42] VITALS: O2SAT 92
[2023-06-22 14:00] VITALS: BP 96/71; TEMP 98.2; O2SAT 98
[2023-06-22] MEDS ORDERED: tiZANidine 4 MG TAB PO PRN (14:00)
[2023-06-22] MEDS: FUROSEMIDE 40MG/4ML VIAL IV ONE (14:35)
[2023-06-22 20:20] VITALS: BP 157/78; TEMP 97.9; O2SAT 97
[2023-06-23 06:20] VITALS: BP 154/74; TEMP 97.3; O2SAT 95
[2023-06-23 07:48] LABS: HEMATOCRIT 27.7 % (36.0-47.0); HEMOGLOBIN 8.6 g/dl (12.0-15.5); MEAN CORPUSCULAR VOLUME 90.2 fl (80.0-96.0); PLATELET COUNT, AUTOMATED 212 10^3/uL (150-450); RED BLOOD COUNT 3.07 10^6/uL (4.00-5.40); WHITE BLOOD COUNT 5.7 10^3/uL (4.0-10.0)
[2023-06-23 08:13] LABS: CALCIUM LEVEL 7.6 MG/DL (8.3-10.6); CARBON DIOXIDE LEVEL 28 MMOL/L (20-31); CHLORIDE LEVEL 108 MMOL/L (98-107); CREATININE FOR GFR 0.64 MG/DL (0.55-1.30); GLOMERULAR FILTRATION RATE > 60.0 (>45); GLUCOSE, FASTING 110 MG/DL (74-106); POTASSIUM SERUM 3.8 MMOL/L (3.5-5.1); SODIUM LEVEL 139 MMOL/L (136-145)
[2023-06-23 08:14] LABS: BLOOD UREA NITROGEN 16 MG/DL (9-23)
[2023-06-23 08:36] VITALS: BP 155/73
[2023-06-23 09:55] VITALS: O2SAT 74
[2023-06-23 09:58] VITALS: O2SAT 94
[2023-06-23] MEDS ORDERED: LIDO5TD TD (10:32)
[2023-06-23] MEDS ORDERED: ASPI81TAEC PO (10:32)
[2023-06-23] MEDS ORDERED: FURO20TA2 PO (10:39)
[2023-06-23 14:00] VITALS: BP 156/74; TEMP 97.9; O2SAT 93
== END 2023-06-23 16:30 | disposition home health service (06) | DRG 481 ==
LOC: M ED 11:01 → EDBD 11:01 → M ED INP 15:48 → ENRESERV 16:41 → M PCU 21:41 → M MS5PR 06-20 06:01
PROVIDERS: ADMIT General Practice; ATTEND Student in an Organized Health Care Education/Training Program
PROC: 0QS706Z Reposition Left Upper Femur with Intramedullary Internal Fixation Device, Open Approach (ICD-10-PCS; principal; 2023-06-18 15:00)
DX: S72.142A Displaced intertrochanteric fracture of left femur, initial encounter for closed fracture (principal); G90.522 Complex regional pain syndrome I of left lower limb; N13.30 Unspecified hydronephrosis; J98.11 Atelectasis; K59.2 Neurogenic bowel, not elsewhere classified; R09.02 Hypoxemia; N31.9 Neuromuscular dysfunction of bladder, unspecified; G47.33 Obstructive sleep apnea (adult) (pediatric); M06.9 Rheumatoid arthritis, unspecified; M81.0 Age-related osteoporosis without current pathological fracture; R29.6 Repeated falls; M96.1 Postlaminectomy syndrome, not elsewhere classified; R33.9 Retention of urine, unspecified; J30.2 Other seasonal allergic rhinitis; E78.5 Hyperlipidemia, unspecified; G25.0 Essential tremor; E83.51 Hypocalcemia; I10 Essential (primary) hypertension; M51.37 Other intervertebral disc degeneration, lumbosacral region; F32.A Depression, unspecified; G25.81 Restless legs syndrome; D64.9 Anemia, unspecified; E03.9 Hypothyroidism, unspecified; M35.00 Sjogren syndrome, unspecified; Z88.8 Allergy status to other drugs, medicaments and biological substances; W18.30XA Fall on same level, unspecified, initial encounter; Y92.009 Unspecified place in unspecified non-institutional (private) residence as the place of occurrence of the external cause; Y93.9 Activity, unspecified; Y99.8 Other external cause status; M62.838 Other muscle spasm; R30.0 Dysuria; J84.10 Pulmonary fibrosis, unspecified; Z79.890 Hormone replacement therapy; Z79.899 Other long term (current) drug therapy; Z88.5 Allergy status to narcotic agent; Z91.013 Allergy to seafood

== ENCOUNTER → 2023-06-30 | Outpatient (CLI) | payer MEDICARE ==
[~2023-06-30] MED LIST changes: +ASPI81TAEC PO; +B-1100TA2 PO; +CALC500T61 PO; +FLUO20CA22 PO; +FURO20TA2 PO; +LIDO5TD TD; +PROP60CA PO; +TIZA10TA PO
== END ==
LOC: M ADAMS 10:17
PROVIDERS: ATTEND Family Medicine
DX: J98.11 Atelectasis (principal); R09.02 Hypoxemia

== ENCOUNTER → 2023-07-06 | Outpatient (CLI) | payer MEDICARE | LOC: M RAD 14:02 | PROVIDERS: ATTEND Urology | DX: N13.5 Crossing vessel and stricture of ureter without hydronephrosis (principal) ==

== ENCOUNTER → 2023-08-05 | Outpatient (CLI) | payer MEDICARE ==
[~2023-08-05] MED LIST changes: +FLUO-290 PO; -FLUO10CA18 PO
== END ==
LOC: M SOG 07:50
PROVIDERS: ATTEND Physician Assistant
DX: S72.145D Nondisplaced intertrochanteric fracture of left femur, subsequent encounter for closed fracture with routine healing (principal)

== ENCOUNTER → 2023-08-17 | Outpatient (CLI) | payer OTHER, MEDICARE | LOC: M PAIN 10:00 | PROVIDERS: ATTEND Nurse Practitioner Family | DX: M96.1 Postlaminectomy syndrome, not elsewhere classified (principal); Z79.891 Long term (current) use of opiate analgesic; G89.29 Other chronic pain; M54.50 Low back pain, unspecified; M51.37 Other intervertebral disc degeneration, lumbosacral region; K59.09 Other constipation; F32.A Depression, unspecified; G25.81 Restless legs syndrome; M85.852 Other specified disorders of bone density and structure, left thigh; E03.9 Hypothyroidism, unspecified; E78.5 Hyperlipidemia, unspecified; G47.30 Sleep apnea, unspecified; I10 Essential (primary) hypertension; M81.0 Age-related osteoporosis without current pathological fracture; M35.00 Sjogren syndrome, unspecified; Z79.890 Hormone replacement therapy; Z79.899 Other long term (current) drug therapy; Z88.8 Allergy status to other drugs, medicaments and biological substances; Z91.013 Allergy to seafood ==

== ENCOUNTER → 2023-09-16 | Outpatient (CLI) | payer MEDICARE ==
[~2023-09-16] MED LIST changes: +FLUO-365 PO; -FLUO20CA22 PO
== END ==
LOC: M SOG 07:51
PROVIDERS: ATTEND Physician Assistant
DX: S72.145D Nondisplaced intertrochanteric fracture of left femur, subsequent encounter for closed fracture with routine healing (principal)

== ENCOUNTER → 2023-09-16 | Outpatient (CLI) | payer MEDICARE | LOC: M RAD 10:02 | PROVIDERS: ATTEND Internal Medicine Pulmonary Disease | DX: R91.8 Other nonspecific abnormal finding of lung field (principal); M06.9 Rheumatoid arthritis, unspecified; S72.145D Nondisplaced intertrochanteric fracture of left femur, subsequent encounter for closed fracture with routine healing ==

== ENCOUNTER → 2023-09-16 | Outpatient (CLI) | payer MEDICARE | LOC: M CARPUL 09:58 | PROVIDERS: ATTEND Internal Medicine Pulmonary Disease | DX: R91.8 Other nonspecific abnormal finding of lung field (principal) ==

== ENCOUNTER → 2023-09-27 | Outpatient (CLI) | payer MEDICARE | LOC: M SLEEP HO 11:00 | PROVIDERS: ATTEND Internal Medicine Pulmonary Disease | DX: G47.33 Obstructive sleep apnea (adult) (pediatric) (principal) ==

== ENCOUNTER → 2023-10-14 | Outpatient (CLI) | payer MEDICARE | LOC: M RAD 10:08 | PROVIDERS: ATTEND Family Medicine | DX: R10.9 Unspecified abdominal pain (principal) ==

== ENCOUNTER → 2023-11-25 | Outpatient (CLI) | payer OTHER | LOC: M PAIN 09:45 | PROVIDERS: ATTEND Nurse Practitioner Family | DX: M96.1 Postlaminectomy syndrome, not elsewhere classified (principal); Z79.891 Long term (current) use of opiate analgesic; G89.29 Other chronic pain; M54.50 Low back pain, unspecified; M25.552 Pain in left hip; M51.37 Other intervertebral disc degeneration, lumbosacral region; M06.9 Rheumatoid arthritis, unspecified; E03.9 Hypothyroidism, unspecified; E78.5 Hyperlipidemia, unspecified; G47.30 Sleep apnea, unspecified; M81.0 Age-related osteoporosis without current pathological fracture; Z79.890 Hormone replacement therapy; Z79.899 Other long term (current) drug therapy; Z88.8 Allergy status to other drugs, medicaments and biological substances; Z91.013 Allergy to seafood ==

== ENCOUNTER → 2023-12-02 | Outpatient (CLI) | payer OTHER | LOC: M SOG 07:20 | PROVIDERS: ATTEND Physician Assistant | DX: S72.145D Nondisplaced intertrochanteric fracture of left femur, subsequent encounter for closed fracture with routine healing (principal); X58.XXXD Exposure to other specified factors, subsequent encounter ==

== ENCOUNTER → 2023-12-21 | Outpatient (CLI) | payer MEDICARE | LOC: M LAB 10:22 | PROVIDERS: ATTEND Physician Assistant | DX: S72.145D Nondisplaced intertrochanteric fracture of left femur, subsequent encounter for closed fracture with routine healing (principal) ==

== ENCOUNTER → 2024-01-24 | Outpatient (CLI) | payer MEDICARE ==
[~2024-01-24] MED LIST changes: +EQL50TAB2 PO; +NITR-67 PO; +THERTAB52 PO; +VITA100093 PO
== END ==
LOC: M RAD 16:02
PROVIDERS: ATTEND Urology
DX: N20.0 Calculus of kidney (principal)

== ENCOUNTER → 2024-01-24 | Outpatient (CLI) | payer MEDICARE ==
[2024-01-24 18:08] LABS: HEMATOCRIT 36.1 % (36.0-47.0); HEMOGLOBIN 11.4 g/dl (12.0-15.5); MEAN CORPUSCULAR HEMOGLOBIN 31.3 pg (27.0-33.0); MEAN CORPUSCULAR HGB CONC 31.6 g/dl (32.0-36.5); MEAN CORPUSCULAR VOLUME 99.2 fl (80.0-96.0); PLATELET COUNT, AUTOMATED 185 10^3/uL (150-450); RED BLOOD COUNT 3.64 10^6/uL (4.00-5.40); WHITE BLOOD COUNT 4.6 10^3/uL (4.0-10.0)
[2024-01-24 18:39] LABS: IRON (FE) 104 UG/DL (50-170)
[2024-01-24 18:40] LABS: ALBUMIN 3.6 G/DL (3.2-5.2); ALKALINE PHOSPHATASE 69 U/L (35-104); ALT/SGPT 17 U/L (7.0-40); AST/SGOT 12 U/L (<34); BILIRUBIN,TOTAL 0.3 MG/DL (0.3-1.2); BLOOD UREA NITROGEN 28 MG/DL (9-23); CALCIUM LEVEL 9.1 MG/DL (8.3-10.6); CARBON DIOXIDE LEVEL 28 MMOL/L (20-31); CHLORIDE LEVEL 108 MMOL/L (98-107); CHOLESTEROL LEVEL 186 MG/DL (<200); CHOLESTEROL RISK RATIO 2.59 (<5); CREATININE FOR GFR 0.95 MG/DL (0.55-1.30); GLOMERULAR FILTRATION RATE > 60.0 (>45); GLUCOSE, FASTING 90 MG/DL (74-106); HDL CHOLESTEROL 71.6 MG/DL (>40); LDL CHOLESTEROL 96.6 MG/DL (<100); NON-HDL-C 114.4 MG/DL; POTASSIUM SERUM 4.1 MMOL/L (3.5-5.1); SODIUM LEVEL 142 MMOL/L (136-145); TOTAL IRON BINDING CAPACITY 306 UG/DL (250-425); TOTAL PROTEIN 6.6 G/DL (5.7-8.2); TRIGLYCERIDES LEVEL 89 MG/DL (<150)
[2024-01-24 18:42] LABS: FERRITIN 32.9 NG/ML (7.3-270.7)
== END ==
LOC: M LAB 15:58
PROVIDERS: ATTEND Family Medicine
DX: E78.2 Mixed hyperlipidemia (principal); D63.8 Anemia in other chronic diseases classified elsewhere; M06.89 Other specified rheumatoid arthritis, multiple sites; N20.0 Calculus of kidney

== ENCOUNTER 2024-02-02 12:15 | Day surgery (SDC) | payer MEDICARE ==
[~2024-02-02] VITALS: Ht 167.6 cm; Wt 86.2 kg
[~2024-02-02 12:15] MED LIST changes: +FLUC-1 PO; -FLUC200T4 PO; +MIDAZOLAM INJ 2MG/2ML VIAL As Ordered ONE; +PHENYLEPHRINE 10% OPHTH SOL 5ML OD PRN; +fentaNYL 100 MCG/2 ML INJECTION As Ordered ONE
[2024-02-02] MEDS: TROPICAMIDE 1% OPHTH SOLN 15ML OD SCH (12:31)
[2024-02-02] MEDS: ATROPINE SULFATE 1% OPHTH SOLN 2ML BTL OD SCH (12:31)
[2024-02-02] MEDS: LIDOCAINE 3.5 % 1ML OPHTH TOPICAL GEL OU ONE (12:31)
[2024-02-02] MEDS: OFLOXACIN 0.3 % (OCUFLOX) OPTH SOL 5ML OD ONE (12:31)
[2024-02-02] MEDS: PHENYLEPHRINE 2.5% OPHTH SOL 2ML OD SCH (12:31)
[2024-02-02] MEDS: LIDOCAINE 1% SDV 5ML VIAL As Ordered ONE (13:29)
[2024-02-02] MEDS: BSS IRRIG/VANCO(10MG)/TOBRA(5MG)/EPINEPH(1:1000-0.5CC)500ML BAG-ORONLY As Ordered ONE (13:34)
[2024-02-02] MEDS: CEFUROXIME 1MG/0.1ML INTRACAMERAL INJ As Ordered ONE (13:35)
[2024-02-02 13:45] VITALS: BP 138/68; TEMP 97; O2SAT 97
== END 2024-02-02 14:02 | disposition home or self-care (01) ==
LOC: M SDC 12:15
PROVIDERS: ATTEND Ophthalmology
DX: H25.9 Unspecified age-related cataract (principal); G47.30 Sleep apnea, unspecified; Z88.8 Allergy status to other drugs, medicaments and biological substances; Z88.5 Allergy status to narcotic agent; Z88.4 Allergy status to anesthetic agent; Z79.899 Other long term (current) drug therapy
CPT/HCPCS: 66984; J0697; J2250; J3010; V2632

== ENCOUNTER → 2024-02-22 | Outpatient (CLI) | payer OTHER ==
[~2024-02-22] MED LIST changes: -MIDAZOLAM INJ 2MG/2ML VIAL As Ordered ONE; -PHENYLEPHRINE 10% OPHTH SOL 5ML OD PRN; -fentaNYL 100 MCG/2 ML INJECTION As Ordered ONE
== END ==
LOC: M PAIN 09:15
PROVIDERS: ATTEND Nurse Practitioner Family
DX: M96.1 Postlaminectomy syndrome, not elsewhere classified (principal); Z79.891 Long term (current) use of opiate analgesic; M70.62 Trochanteric bursitis, left hip; G89.29 Other chronic pain; M51.370 Other intervertebral disc degeneration, lumbosacral region with discogenic back pain only; N31.9 Neuromuscular dysfunction of bladder, unspecified; K59.2 Neurogenic bowel, not elsewhere classified; K59.09 Other constipation; F32.A Depression, unspecified; M06.9 Rheumatoid arthritis, unspecified; G25.81 Restless legs syndrome; E03.9 Hypothyroidism, unspecified; E78.5 Hyperlipidemia, unspecified; G47.30 Sleep apnea, unspecified; M35.00 Sjogren syndrome, unspecified; I10 Essential (primary) hypertension; M81.0 Age-related osteoporosis without current pathological fracture; G90.522 Complex regional pain syndrome I of left lower limb; Z79.890 Hormone replacement therapy; Z79.899 Other long term (current) drug therapy; Z88.8 Allergy status to other drugs, medicaments and biological substances; Z91.013 Allergy to seafood

== ENCOUNTER 2024-03-08 06:57 | Day surgery (SDC) | payer MEDICARE ==
[~2024-03-08] VITALS: Ht 167.6 cm; Wt 87.4 kg
[~2024-03-08 06:57] MED LIST changes: +MIDAZOLAM INJ 2MG/2ML VIAL As Ordered ONE; +PHENYLEPHRINE 10% OPHTH SOL 5ML OS PRN; +fentaNYL 100 MCG/2 ML INJECTION As Ordered ONE
[2024-03-08] MEDS: OFLOXACIN 0.3 % (OCUFLOX) OPTH SOL 5ML OS ONE (07:27)
[2024-03-08] MEDS: TROPICAMIDE 1% OPHTH SOLN 15ML OS SCH (07:27)
[2024-03-08] MEDS: CYCLOPENTOLATE 1% OPHTH SOLN 2ML BTL OS SCH (07:27)
[2024-03-08] MEDS: LIDOCAINE 3.5 % 1ML OPHTH TOPICAL GEL OU ONE (07:27)
[2024-03-08] MEDS: PHENYLEPHRINE 2.5% OPHTH SOL 2ML OS SCH (07:27)
[2024-03-08] MEDS: CEFUROXIME 1MG/0.1ML INTRACAMERAL INJ As Ordered ONE (08:37)
[2024-03-08] MEDS: BSS IRRIG/VANCO(10MG)/TOBRA(5MG)/EPINEPH(1:1000-0.5CC)500ML BAG-ORONLY As Ordered ONE (08:37)
[2024-03-08] MEDS: LIDOCAINE 1% SDV 5ML VIAL As Ordered ONE (08:37)
[2024-03-08 08:45] VITALS: BP 135/72; TEMP 97.9; O2SAT 92
== END 2024-03-08 09:08 | disposition home or self-care (01) ==
LOC: M SDC 06:57
PROVIDERS: ATTEND Ophthalmology
DX: H25.9 Unspecified age-related cataract (principal); I10 Essential (primary) hypertension; E03.9 Hypothyroidism, unspecified; E78.00 Pure hypercholesterolemia, unspecified; G47.30 Sleep apnea, unspecified; K21.9 Gastro-esophageal reflux disease without esophagitis; Z86.718 Personal history of other venous thrombosis and embolism; Z79.899 Other long term (current) drug therapy; Z79.890 Hormone replacement therapy; Z90.710 Acquired absence of both cervix and uterus; Z88.8 Allergy status to other drugs, medicaments and biological substances; Z91.013 Allergy to seafood; Z88.5 Allergy status to narcotic agent
CPT/HCPCS: 66984; J0697; J2250; J3010; V2632

== ENCOUNTER → 2024-03-09 | Outpatient (CLI) | payer MEDICARE ==
[~2024-03-09] MED LIST changes: -MIDAZOLAM INJ 2MG/2ML VIAL As Ordered ONE; -PHENYLEPHRINE 10% OPHTH SOL 5ML OS PRN; -fentaNYL 100 MCG/2 ML INJECTION As Ordered ONE
== END ==
LOC: M SOG 07:51
PROVIDERS: ATTEND Physician Assistant
DX: S72.145D Nondisplaced intertrochanteric fracture of left femur, subsequent encounter for closed fracture with routine healing (principal)

== ENCOUNTER → 2024-03-30 | Outpatient (CLI) | payer MEDICARE | LOC: M SOG 07:51 | PROVIDERS: ATTEND Physician Assistant | DX: S72.145D Nondisplaced intertrochanteric fracture of left femur, subsequent encounter for closed fracture with routine healing (principal) ==

== ENCOUNTER → 2024-06-08 | Outpatient (CLI) | payer MEDICARE | LOC: M SOG 07:46 | PROVIDERS: ATTEND Physician Assistant | DX: S72.145D Nondisplaced intertrochanteric fracture of left femur, subsequent encounter for closed fracture with routine healing (principal) ==

== ENCOUNTER → 2024-07-27 | Outpatient (CLI) | payer MEDICARE ==
[2024-07-27 13:35] LABS: HEMATOCRIT 39.2 % (36.0-47.0); HEMOGLOBIN 12.6 g/dl (12.0-15.5); MEAN CORPUSCULAR HEMOGLOBIN 32.3 pg (27.0-33.0); MEAN CORPUSCULAR HGB CONC 32.1 g/dl (32.0-36.5); MEAN CORPUSCULAR VOLUME 100.5 fl (80.0-96.0); PLATELET COUNT, AUTOMATED 178 10^3/uL (150-450); WHITE BLOOD COUNT 5.6 10^3/uL (4.0-10.0)
[2024-07-27 13:43] LABS: ALBUMIN 3.9 G/DL (3.2-5.2); APPEARANCE, URINE HAZY (CLEAR); BACTERIA, URINE AUTO 3+ (NEGATIVE); BILIRUBIN, URINE AUTO NEGATIVE (NEGATIVE); BILIRUBIN,TOTAL 0.4 MG/DL (0.3-1.2); BLOOD, URINE BLOOD NEGATIVE (NEGATIVE); CHOLESTEROL RISK RATIO 2.91 (<5); COLOR, URINE AMBER (YELLOW); CREATININE FOR GFR 0.84 MG/DL (0.55-1.30); GLOMERULAR FILTRATION RATE 77.1 (>45); GLUCOSE, URINE (UA) AUTO NEGATIVE (NEGATIVE); HDL CHOLESTEROL 67.6 MG/DL (>40); KETONE, URINE AUTO NEGATIVE (NEGATIVE); LDL CHOLESTEROL 107.8 MG/DL (<100); LEUKOCYTE ESTERASE, URINE AUTO 3+ (NEGATIVE); MUCUS, URINE SMALL (NEGATIVE); NITRITE, URINE AUTO POSITIVE (NEGATIVE); NON-HDL-C 129.4 MG/DL; POTASSIUM SERUM 4.5 MMOL/L (3.5-5.1); PROTEIN, URINE AUTO NEGATIVE (NEGATIVE); RBC, URINE AUTO 8 /HPF (0-3); SPECIFIC GRAVITY URINE AUTO 1.014 (1.002-1.035); SQUAMOUS EPITHELIAL CELL UR AU 4 /HPF (0-6); TOTAL PROTEIN 6.7 G/DL (5.7-8.2); UROBILINOGEN, URINE AUTO 0.2 mg/dL (0.0-2.0); WBC, URINE AUTO 62 /HPF (0-3)
[2024-07-27 13:45] LABS: THYROID STIMULATING HORMONE 4.864 uIU/ML (0.55-4.78); TOTAL 25(OH) VITAMIN D 52.2 NG/ML (20.0-100.0)
[2024-07-27 14:27] LABS: HEMOGLOBIN A1c 4.5 % (4.0-6.0)
[2024-07-28 15:46] LABS: PROTEIN, TOTAL SO 6.8 g/dL (6.1-8.1)
[2024-08-01 06:43] LABS: ALBUMIN SO 4.3 g/dL (3.8-4.8); ALPHA 1 GLOBULINS SO 0.3 g/dL (0.2-0.3); ALPHA 2 GLOBULINS SO 0.6 g/dL (0.5-0.9); BETA 2 GLOBULIN SO 0.3 g/dL (0.2-0.5); BETA GLOBULIN SO 0.4 g/dL (0.4-0.6); GAMMA GLOBULINS SO 0.9 g/dL (0.8-1.7)
== END ==
LOC: M PLALAB 09:39
PROVIDERS: ATTEND Family Medicine
DX: Z13.1 Encounter for screening for diabetes mellitus (principal); E78.00 Pure hypercholesterolemia, unspecified

== ENCOUNTER → 2025-02-07 | Outpatient (CLI) | payer OTHER, MEDICARE ==
[~2025-02-07] MED LIST changes: -EQL50TAB2 PO; -PRAV40TA2; +PRAV40TA85; +VITA1TAB82 PO
== END ==
LOC: M PLAIMG 10:19
PROVIDERS: ATTEND Urology
DX: Z87.442 Personal history of urinary calculi (principal)